=== PATIENT | female | born 1990 | race Caucasian/White ===

== ENCOUNTER 2018-02-16 16:29 | Emergency (ER) | payer OTHER, MEDICAID, SELFPAY ==
[2018-02-16 17:01] VITALS: BP 132/92; PULSE 107; RESP 15; TEMP 36.6; O2SAT 99; BMI 40.7
[2018-02-16 18:05] VITALS: BP 131/79; PULSE 101; RESP 22; O2SAT 96
--- NOTE | 2018-02-16 18:23 | ED_ITS ---
HPI - Female Genitourinary <Albina Carbajal PA-C - Last Filed: 02/16/18 22:29> General Chief complaint: Vaginal Bleeding Stated complaint: STATES MENSTRAL CYCLE WITH ABNORMAL BLEEDING Time Seen by Provider: 02/16/18 18:19 Source: patient Mode of arrival: ambulatory Limitations: no limitations History of Present Illness HPI Narrative: This 28-year-old female comes in due to heavy menstrual bleeding with cramps that started a couple of hours ago. She states that she is going through 1 or 2 heavy pads per hour. She states it feels similar to labor cramps , focused in the pelvis but can feel in her abdomen and back as well. She states that usually she will have a 5 day heavy period, however last week when her period was due she only had 2 days of light spotting. She denies any fever or vomiting. She is mildly nauseous, has been keeping down food and fluids. She denies any urinary symptoms such as dysuria. She denies any STD concerns. She states that she did have a little bit of clear vaginal discharge with a slight odor a couple of days ago but nothing persistent. She states that her ongoing chronic right hip pain has been a little worse over the last week or so but not acutely changed today. She denies other complaints on systems review Related Data Home Medications Medication Instructions Recorded Confirmed ACETAMINOPHEN 650 mg PO Q4H #0 11/11/16 aspirin #0 04/23/17 fluoxetine 20 mg PO DAILY 02/16/18 02/16/18 methocarbamol 02/16/18 propranolol 20 mg PO DAILY 02/16/18 02/16/18 Allergies Allergy/AdvReac Type Severity Reaction Status Date / Time citalopram Allergy Intermediate Verified 02/16/18 17:01 latex Allergy Mild HIVES Verified 02/16/18 17:01 clindamycin Allergy Unknown RASH Verified 02/16/18 17:01 Review of Systems <Albina Carbajal PA-C - Last Filed: 02/16/18 22:29> Review of Systems All systems reviewed & are unremarkable except as noted in HPI and below Exam <Albina Carbajal PA-C - Last Filed: 02/16/18 22:29> Narrative Exam Narrative: GENERAL APPEARANCE: Patient sitting comfortably, in no distress. HEENT: PERRL, EOMI, conjunctiva pink NECK: Supple LUNGS: Clear to auscultation bilaterally. HEART: Rate and rhythm regular, normal S1 and S2, no S3 or S4. ABDOMEN: Soft, nondistended, bowel sounds present x 4 quadrants, no masses palpable, no hepatosplenomegaly. Mild to moderate tenderness throughout the lower quadrants without guarding or rebound. Moderate suprapubic tenderness EXTREMITIES: No edema, no cyanosis, no calf tenderness DERMATOLOGIC: No jaundice or exanthem NEUROLOGIC: Alert and oriented with normal speech and coordination : On bimanual exam there is a modest amount of dark blood in the vaginal vault, no discharge or lesions. Tender over both adenexa, R>L, as well as the uterus, with no discrete palpable masses Initial Vital Signs Initial Vital Signs: Vital Signs Temperature 97.9 F 02/16/18 17:01 Pulse Rate 107 H 02/16/18 17:01 Respiratory Rate 15 02/16/18 17:01 Blood Pressure 132/92 H 02/16/18 17:01 Pulse Oximetry 99 02/16/18 17:01 <Dane Madrid DO - Last Filed: 02/17/18 00:21> Initial Vital Signs Initial Vital Signs: Vital Signs Temperature 97.9 F 02/16/18 17:01 Pulse Rate 107 H 02/16/18 17:01 Respiratory Rate 15 02/16/18 17:01 Blood Pressure 132/92 H 02/16/18 17:01 Pulse Oximetry 99 02/16/18 17:01 Course <Albina Carbajal PA-C - Last Filed: 02/16/18 22:29> Orders Ordered: ED Orders 02/16/18 18:15 Complete Blood Count AUTO DIFF Stat Comprehensive Metabolic Panel Stat Partial Thromboplastin Time Stat Prothrombin Time INR Stat 02/16/18 19:39 US pelvic complete Stat Discontinued Medications Sodium Chloride (Normal Saline 0.9%) 1,000 mls @ 1,000 mls/hr IV BOLUS ONE Stop: 02/16/18 19:48 Last Infusion: 02/16/18 20:28 Dose: 0 mls/hr Admin: 02/16/18 19:26 Dose: 1,000 mls/hr Ketorolac Tromethamine (Toradol) 60 mg IM NOW ONE Stop: 02/16/18 18:35 Last Admin: 02/16/18 19:55 Dose: Ketorolac Tromethamine (Toradol) 30 mg IV NOW ONE Stop: 02/16/18 18:51 Last Admin: 02/16/18 19:26 Dose: 30 mg Ondansetron HCl (Zofran Odt) 4 mg PO NOW ONE Stop: 02/16/18 18:35 Last Admin: 02/16/18 19:56 Dose: Ondansetron HCl (Zofran) 4 mg IV NOW ONE Stop: 02/16/18 18:51 Last Admin: 02/16/18 19:26 Dose: 4 mg Ondansetron HCl (Zofran Odt Prepack) 1 bottle MISC SEEINSTR ONE Stop: 02/16/18 21:16 Last Admin: 02/16/18 21:31 Dose: 1 bottle Oxycodone/Acetaminophen (Endocet 5/325 Prepack) 1 bottle MISC SEEINSTR ONE Stop: 02/16/18 21:16 Last Admin: 02/16/18 21:31 Dose: 1 bottle Vital Signs - 8 hr 02/16/18 17:01 02/16/18 18:05 02/16/18 19:45 Temperature 97.9 F Pulse Rate 107 H 101 H 89 Respiratory Rate 15 22 18 Blood Pressure 132/92 H Blood Pressure [Right Arm] 131/79 H 116/72 Pulse Oximetry 99 96 98 02/16/18 20:55 Temperature Pulse Rate 85 Respiratory Rate 20 Blood Pressure Blood Pressure [Right Arm] 115/71 Pulse Oximetry 97 <Dane Madrid DO - Last Filed: 02/17/18 00:21> Orders Ordered: ED Orders 02/16/18 18:15 Complete Blood Count AUTO DIFF Stat Comprehensive Metabolic Panel Stat Partial Thromboplastin Time Stat Prothrombin Time INR Stat 02/16/18 19:39 US pelvic complete Stat Discontinued Medications Sodium Chloride (Normal Saline 0.9%) 1,000 mls @ 1,000 mls/hr IV BOLUS ONE Stop: 02/16/18 19:48 Last Infusion: 02/16/18 20:28 Dose: 0 mls/hr Admin: 02/16/18 19:26 Dose: 1,000 mls/hr Ketorolac Tromethamine (Toradol) 60 mg IM NOW ONE Stop: 02/16/18 18:35 Last Admin: 02/16/18 19:55 Dose: Ketorolac Tromethamine (Toradol) 30 mg IV NOW ONE Stop: 02/16/18 18:51 Last Admin: 02/16/18 19:26 Dose: 30 mg Ondansetron HCl (Zofran Odt) 4 mg PO NOW ONE Stop: 02/16/18 18:35 Last Admin: 02/16/18 19:56 Dose: Ondansetron HCl (Zofran) 4 mg IV NOW ONE Stop: 02/16/18 18:51 Last Admin: 02/16/18 19:26 Dose: 4 mg Ondansetron HCl (Zofran Odt Prepack) 1 bottle MISC SEEINSTR ONE Stop: 02/16/18 21:16 Last Admin: 02/16/18 21:31 Dose: 1 bottle Oxycodone/Acetaminophen (Endocet 5/325 Prepack) 1 bottle MISC SEEINSTR ONE Stop: 02/16/18 21:16 Last Admin: 02/16/18 21:31 Dose: 1 bottle Vital Signs - 8 hr 02/16/18 17:01 02/16/18 18:05 02/16/18 19:45 Temperature 97.9 F Pulse Rate 107 H 101 H 89 Respiratory Rate 15 22 18 Blood Pressure 132/92 H Blood Pressure [Right Arm] 131/79 H 116/72 Pulse Oximetry 99 96 98 02/16/18 20:55 Temperature Pulse Rate 85 Respiratory Rate 20 Blood Pressure Blood Pressure [Right Arm] 115/71 Pulse Oximetry 97 MDM - Female Genitourinary <Albina Carbajal PA-C - Last Filed: 02/16/18 22:29> Lab Data Attestation: I reviewed the patient's lab results. Urine negative. Urinalysis trace RBCs, otherwise negative Result diagrams: 02/16/18 18:15 02/16/18 18:15 Lab Results 02/16/18 02/16/18 02/16/18 Range/Units 18:15 18:15 18:15 WBC 13.7 H (4.5-11.0) X10^3/uL RBC 4.69 (4.0-5.2) X10^6/uL Hgb 13.6 (12.0-16.0) g/dL Hct 40.1 (36-46) % MCV 85.6 (80-100) fL MCH 28.9 (26-34) PG MCHC 33.8 (30-36) % RDW 12.9 (11.6-14.8) % Plt Count 436 H (150-400) X10^3/uL Neut % (Auto) 80.0 H (50-75) % Lymph % (Auto) 13.8 L (25-40) % [place] % (Auto) 5.6 (3-14) % Eos % (Auto) 0.2 L (2-4) % Baso % (Auto) 0.4 (0-2) % Total Counted Cancelled Seg Neutrophils % Cancelled Band Neutrophils % Cancelled Lymphocytes % (Manual) Cancelled Atypical Lymphs % Cancelled Monocytes % (Manual) Cancelled Eosinophils % (Manual) Cancelled Basophils % (Manual) Cancelled Metamyelocytes % Cancelled Myelocytes % Cancelled Promyelocytes % Cancelled Blast Cells % Cancelled Neutrophils # (Manual) Cancelled Nucleated RBCs Cancelled Differential Comment Cancelled Hypersegmented Neuts Cancelled Reactive Lymphocytes Cancelled Plasma Cells Cancelled Smudge Cells Cancelled Other Cell Type Cancelled Toxic Granulation Cancelled Toxic Vacuolation Cancelled Dohle Bodies Cancelled [place]iera Rods Cancelled WBC Morphology Comment Cancelled Platelet Estimate Cancelled Clumped Platelets Cancelled Plt Morphology Comment Cancelled RBC Morphology Cancelled Dimorphic RBCs Cancelled Polychromasia Cancelled Hypochromasia Cancelled Poikilocytosis Cancelled Basophilic Stippling Cancelled Anisocytosis Cancelled Microcytosis Cancelled Macrocytosis Cancelled Spherocytes Cancelled Pappenheimer Bodies Cancelled Sickle Cells Cancelled Target Cells Cancelled Tear Drop Cells Cancelled Ovalocytes Cancelled Stomatocytes Cancelled Helmet Cells Cancelled Leiva-Coldstream Bodies Cancelled [place] Rings Cancelled [place] Cells Cancelled Acanthocytes (Spur) Cancelled Rouleaux Cancelled Schistocytes Cancelled PT 11.4 (10.1-12.7) SECONDS INR 1.1 (0.9-1.3) APTT 44 H (26.4-36.2) SECONDS Sodium 141 (137-145) mmol/L Potassium 3.9 (3.4-5.1) mmol/L Chloride 103 (98-107) mmol/L Carbon Dioxide 24 (22-32) mmol/L BUN 11 (7-17) mg/dL Creatinine 0.50 L (0.52-1.04) mg/dL Estimated GFR > 60.0 (>60) mL/min BUN/Creatinine Ratio 22.0 (6-22) Glucose 142 H (70-100) mg/dL Calcium 9.2 (8.4-10.2) mg/dL Total Bilirubin 0.3 (0.2-1.3) mg/dL AST 22 (14-36) IU/L ALT 31 (9-52) IU/L Alkaline Phosphatase 120 (38-126) U/L Total Protein 8.4 H (6.3-8.2) g/dL Albumin 4.3 (3.5-5.0) g/dL Globulin 4.1 (1.7-4.1) g/dL Albumin/Globulin Ratio 1.0 (1.0-2.8) Imaging Data pelvic US: Radiologist's impression: BACK Pelvis Ultrasound (Signed) Mg Mistry - 02/16/18 View Report History [address] [address] Ultrasound Report Signed Patient: Yaritza Lindo MR#: [id number] : 1990 Acct:[id number] Age/Sex: 28 / F Date of Service: 02/16/18 Loc: ED Accession Number: [id number] Procedure: US pelvic complete Ordering Provider: Albina Carbajal P.A-C PROCEDURE: US PELVIC COMPLETE INDICATIONS: adenexal pain, bleeding TECHNIQUE: Real-time scanning was performed of the pelvic organs, with image documentation. Additional endovaginal scanning was necessary due to incomplete visualization of the adnexal and endometrial structures by transabdominal scanning. COMPARISON: 07/10/2013. FINDINGS: Transabdominal scanning: Limited scanning through the kidneys shows no hydronephrosis. No pathologic free abdominal or pelvic fluid. Endovaginal scanning: Uterus: Uterus is normal in size at 7.8 x 4.1 x 5.3 cm. The endometrium measures 6 mm in combined thickness. Ovaries: Right ovary measures 2.5 x 2.3 x 2.3 CM. The left ovary measures 2.2 x 2.1 x 2.0 CM. There is a 1.5 cm complex right ovarian nodule. There is 1.3 cm simple left right ovarian follicle. IMPRESSION: 1. Complex right ovarian nodule measuring up to 1.5 CM may represent a ruptured hemorrhagic cyst. Given patient's young age, this finding does not meet radiographic criteria to require followup. 2. Otherwise, pelvic ultrasound is within normal limits. Dictated by: Roosevelt Mistry M.D. on 02/16/2018 at 20:59 Approved by: Roosevelt Mistry M.D. on 02/16/2018 at 21:02 <Dane Madrid DO - Last Filed: 02/17/18 00:21> Lab Data Lab Results 02/16/18 02/16/18 02/16/18 Range/Units 18:15 18:15 18:15 WBC 13.7 H (4.5-11.0) X10^3/uL RBC 4.69 (4.0-5.2) X10^6/uL Hgb 13.6 (12.0-16.0) g/dL Hct 40.1 (36-46) % MCV 85.6 (80-100) fL MCH 28.9 (26-34) PG MCHC 33.8 (30-36) % RDW 12.9 (11.6-14.8) % Plt Count 436 H (150-400) X10^3/uL Neut % (Auto) 80.0 H (50-75) % Lymph % (Auto) 13.8 L (25-40) % [place] % (Auto) 5.6 (3-14) % Eos % (Auto) 0.2 L (2-4) % Baso % (Auto) 0.4 (0-2) % Total Counted Cancelled Seg Neutrophils % Cancelled Band Neutrophils % Cancelled Lymphocytes % (Manual) Cancelled Atypical Lymphs % Cancelled Monocytes % (Manual) Cancelled Eosinophils % (Manual) Cancelled Basophils % (Manual) Cancelled Metamyelocytes % Cancelled Myelocytes % Cancelled Promyelocytes % Cancelled Blast Cells % Cancelled Neutrophils # (Manual) Cancelled Nucleated RBCs Cancelled Differential Comment Cancelled Hypersegmented Neuts Cancelled Reactive Lymphocytes Cancelled Plasma Cells Cancelled Smudge Cells Cancelled Other Cell Type Cancelled Toxic Granulation Cancelled Toxic Vacuolation Cancelled Dohle Bodies Cancelled [place]iera Rods Cancelled WBC Morphology Comment Cancelled Platelet Estimate Cancelled Clumped Platelets Cancelled Plt Morphology Comment Cancelled RBC Morphology Cancelled Dimorphic RBCs Cancelled Polychromasia Cancelled Hypochromasia Cancelled Poikilocytosis Cancelled Basophilic Stippling Cancelled Anisocytosis Cancelled Microcytosis Cancelled Macrocytosis Cancelled Spherocytes Cancelled Pappenheimer Bodies Cancelled Sickle Cells Cancelled Target Cells Cancelled Tear Drop Cells Cancelled Ovalocytes Cancelled Stomatocytes Cancelled Helmet Cells Cancelled Leiva-Coldstream Bodies Cancelled [place] Rings Cancelled [place] Cells Cancelled Acanthocytes (Spur) Cancelled Rouleaux Cancelled Schistocytes Cancelled PT 11.4 (10.1-12.7) SECONDS INR 1.1 (0.9-1.3) APTT 44 H (26.4-36.2) SECONDS Sodium 141 (137-145) mmol/L Potassium 3.9 (3.4-5.1) mmol/L Chloride 103 (98-107) mmol/L Carbon Dioxide 24 (22-32) mmol/L BUN 11 (7-17) mg/dL Creatinine 0.50 L (0.52-1.04) mg/dL Estimated GFR > 60.0 (>60) mL/min BUN/Creatinine Ratio 22.0 (6-22) Glucose 142 H (70-100) mg/dL Calcium 9.2 (8.4-10.2) mg/dL Total Bilirubin 0.3 (0.2-1.3) mg/dL AST 22 (14-36) IU/L ALT 31 (9-52) IU/L Alkaline Phosphatase 120 (38-126) U/L Total Protein 8.4 H (6.3-8.2) g/dL Albumin 4.3 (3.5-5.0) g/dL Globulin 4.1 (1.7-4.1) g/dL Albumin/Globulin Ratio 1.0 (1.0-2.8) Discharge Plan Departure Patient Disposition: Home, Self-Care Clinical Impression: Ovarian cyst, Pelvic pain Discharge Date/Time: 02/16/18 21:41 Interventions: ED Discharge Assessment Last Done: 02/16/18 21:40 Instructions: DI for Ovarian Cyst, DI for Abdominal Pain-Adult Activity Restrictions/Additional Instructions: I think that your pain is due to a combination of the heavy menstrual bleeding and cramps as well as a bleeding ovarian cyst on the right side that appears to have ruptured. Return as we talked about if you have any acutely worsening symptoms. Use your naproxen twice daily for the next few days. You can take the prescription oxycodone acetaminophen pills for pain and the odansetron as needed for nausea tonight. Do not drive with the pain pills as they may make you sleepy. Prescriptions: No Action ACETAMINOPHEN 650 mg PO Q4H Qty: 0 RF: 0 aspirin 325 MG tablet,delayed release (DR/EC) Qty: 0 RF: 0 methocarbamol 500 mg tablet RF: 0 propranolol 20 mg tablet 20 mg PO DAILY RF: 0 fluoxetine 20 mg capsule 20 mg PO DAILY RF: 0 Referrals: Michelle Salas PA-C [Primary Care Provider] - <Dane Madrid DO - Last Filed: 02/17/18 00:21> Cosign ED Attending Edvinature Attestation: I was available for consultation during this patient's emergency department encounter
[2018-02-16 18:24] LABS: Hematocrit 40.1 % (36-46); Hemoglobin 13.6 g/dL (12.0-16.0); Mean Corpuscular HGB Conc 33.8 % (30-36); Mean Corpuscular Hemoglobin 28.9 PG (26-34); Mean Corpuscular Volume 85.6 fL (80-100); Platelet Count 436 X10^3/uL (150-400); Red Blood Cell Count 4.69 X10^6/uL (4.0-5.2); Red Cell Distribution Width 12.9 % (11.6-14.8); White Blood Cell Count 13.7 X10^3/uL (4.5-11.0)
[2018-02-16 18:29] LABS: INR 1.1 (0.9-1.3); Prothrombin Time 11.4 SECONDS (10.1-12.7)
[2018-02-16 18:31] LABS: PTT Partial Thromboplastin Tim 44 SECONDS (26.4-36.2)
[2018-02-16 18:33] LABS: Alanine Aminotransferase 31 IU/L (9-52); Albumin 4.3 g/dL (3.5-5.0); Alkaline Phosphatase 120 U/L (38-126); Aspartate Aminotransferase 22 IU/L (14-36); Bilirubin Total 0.3 mg/dL (0.2-1.3); Blood Urea Nitrogen 11 mg/dL (7-17); Calcium 9.2 mg/dL (8.4-10.2); Carbon Dioxide 24 mmol/L (22-32); Chloride 103 mmol/L (98-107); Estimated Glomerular Filt Rate > 60.0 mL/min (>60); Globulin 4.1 g/dL (1.7-4.1); Glucose 142 mg/dL (70-100); HEMOLYSIS < 15 (0-50); Potassium 3.9 mmol/L (3.4-5.1); Sodium 141 mmol/L (137-145); Total Protein 8.4 g/dL (6.3-8.2)
[2018-02-16 19:00] LABS: Lymphocytes Percent Auto 13.8 % (25-40); Monocytes Percent Auto 5.6 % (3-14)
[2018-02-16 19:01] LABS: Add Manual Diff / Slide Review NO; Basophils Percent Auto 0.4 % (0-2); Eosinophils Percent Auto 0.2 % (2-4)
[2018-02-16] MEDS: KETOROLAC 60 MG/2 ML VIAL 30 MG IV (19:26)
[2018-02-16] MEDS: ONDANSETRON 4 MG/2 ML INJ IV (19:26)
[2018-02-16] MEDS: SODIUM CHLORIDE 0.9% 1,000 ML 1000 ML IV (19:26)
--- NOTE | 2018-02-16 19:39 | DI.US.S_ITS ---
PROCEDURE: US PELVIC COMPLETE INDICATIONS: adenexal pain, bleeding TECHNIQUE: Real-time scanning was performed of the pelvic organs, with image documentation. Additional endovaginal scanning was necessary due to incomplete visualization of the adnexal and endometrial structures by transabdominal scanning. COMPARISON: 07/10/2013. FINDINGS: Transabdominal scanning: Limited scanning through the kidneys shows no hydronephrosis. No pathologic free abdominal or pelvic fluid. Endovaginal scanning: Uterus: Uterus is normal in size at 7.8 x 4.1 x 5.3 cm. The endometrium measures 6 mm in combined thickness. Ovaries: Right ovary measures 2.5 x 2.3 x 2.3 CM. The left ovary measures 2.2 x 2.1 x 2.0 CM. There is a 1.5 cm complex right ovarian nodule. There is 1.3 cm simple left right ovarian follicle. IMPRESSION: 1. Complex right ovarian nodule measuring up to 1.5 CM may represent a ruptured hemorrhagic cyst. Given patient's young age, this finding does not meet radiographic criteria to require followup. 2. Otherwise, pelvic ultrasound is within normal limits. Dictated by: Roosevelt Mistry M.D. on 02/16/2018 at 20:59 Approved by: Roosevelt Mistry M.D. on 02/16/2018 at 21:02
[2018-02-16 19:45] VITALS: BP 116/72; PULSE 89; RESP 18; O2SAT 98
[2018-02-16 20:55] VITALS: BP 115/71; PULSE 85; RESP 20; O2SAT 97
[2018-02-16] MEDS: OXYCODONE/APAP 5/325 PREPACK 1 BOTTLE MISC (21:31)
[2018-02-16] MEDS: ONDANSETRON 4 MG ODT PREPACK 1 BOTTLE MISC (21:31)
== END 2018-02-16 21:41 | disposition home or self-care (01) ==
PROVIDERS: Emergency Provider Internal Medicine; Family Provider Physician Assistant Medical; PCP Physician Assistant Medical
DX: N83.209 Unspecified ovarian cyst, unspecified side (principal); R10.30 Lower abdominal pain, unspecified
CPT/HCPCS: 36415; 36591; 76830; 76856; 80053; 81003; 81025; 85025; 85610; 85730; 96361; 96372; 96374; 96375; 99283; 99284; J1885; J2405

== ENCOUNTER 2018-06-07 17:51 | Emergency (ER) | payer OTHER, MEDICAID, SELFPAY ==
[2018-06-07 17:54] VITALS: BP 143/89; PULSE 107; RESP 17; TEMP 36.8; O2SAT 96
[2018-06-07 19:53] LABS: Bacteria Urine None Seen
[2018-06-07 20:23] LABS: RBC Urine 1-5/HPF (0-5/HPF)
[2018-06-07 20:24] LABS: Amorphous Sediment Urine 1+; Culture Indicated Urine Cult Not Indicated; Mucus Urine 1+ (Negative); Squamous Epithelial Cell Urine 1-5 /HPF; WBC Urine 0-1/HPF (0-5/HPF)
--- NOTE | 2018-06-07 20:40 | ED.NAVMDI ---
HPI - Nausea/Vomiting/Diarrhea General Chief complaint: Nausea/Vomiting/Diarrhea Stated complaint: NAUSEA, VOMITING X 4 DAYS Time Seen by Provider: 06/07/18 18:19 Source: patient Mode of arrival: ambulatory Limitations: no limitations History of Present Illness HPI Narrative: 28-year-old female here for evaluation of nausea and vomiting for the past several days. She also states that she has also had diarrhea during this time. No fevers. No recent travel. No camping. No recent antibiotics. He is still able to tolerate oral intake. She states that the vomiting has been in the mornings and has improved as the day went on. No urinary symptoms. No vaginal bleeding no blood in the stool or vomit. Related Data Home Medications Medication Instructions Recorded Confirmed ACETAMINOPHEN 650 mg PO Q4H #0 11/11/16 aspirin #0 04/23/17 fluoxetine 20 mg PO DAILY 02/16/18 02/16/18 methocarbamol 02/16/18 propranolol 20 mg PO DAILY 02/16/18 02/16/18 Previous Rx's Medication Instructions Recorded ondansetron [Zofran ODT] 4 mg PO BID-TID PRN #7 tab 06/07/18 Allergies Allergy/AdvReac Type Severity Reaction Status Date / Time citalopram Allergy Intermediate Verified 02/16/18 17:01 latex Allergy Mild HIVES Verified 02/16/18 17:01 clindamycin Allergy Unknown RASH Verified 02/16/18 17:01 Review of Systems Constitutional Denies fatigue, Denies fever(s), Denies headache(s), Denies lethargy, Denies malaise and Denies night sweats ENT Ears, Nose, Mouth, and Throat: Denies vertigo, Denies dizziness and Denies headache(s) Cardiovascular Denies chest pain and Denies dyspnea Respiratory Denies dyspnea Gastrointestinal Gastrointestinal: Denies abdominal pain, Denies melena, Denies hematochezia, Denies coffee ground emesis, Denies constipation, Reports diarrhea and Reports nausea Genitourinary Denies dysuria, Denies flank pain and Denies vaginal discharge Musculoskeletal Denies myalgias and Denies arthralgias Integumentary/Breasts Denies lesions and Denies rash Neurologic Denies vertigo, Denies dizziness and Denies headache(s) Endocrine Denies fatigue Hematologic/Lymphatic Denies easy bleeding and Denies easy bruising [facility] Medical History Bilateral femoral fractures (Acute) ADD (attention deficit disorder) (Chronic) Chronic leg pain (Chronic) 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) Depression (Chronic) Osteopenia (Chronic) Ovarian cyst (Resolved) Pneumomediastinum (Resolved) Tubal ligation status (Resolved) Surgical History History of (Resolved) Status post breast reduction (Resolved) Social History Smoking Status: Former smoker Smokeless tobacco user: other alcohol intake: current substance use type: does not use Exam Initial Vital Signs Initial Vital Signs: Vital Signs Temperature 98.2 F 06/07/18 17:54 Pulse Rate 107 H 06/07/18 17:54 Respiratory Rate 17 06/07/18 17:54 Blood Pressure 143/89 H 06/07/18 17:54 Pulse Oximetry 96 06/07/18 17:54 Const General: cooperative, healthy appearing, comfortable, well developed, well groomed and No acute distress Orientation: alert, awake and oriented x3 HENMT Head: normal to inspection and normocephalic Resp Effort & Inspection: normal respiratory effort Auscultation: clear to auscultation bilaterally Cardio Rate: regular rate (However tachycardic upon arrival) Rhythm: regular rhythm Pulses: radial pulses present GI Inspection: non-distended Palpation: soft, No firm and No tender (No tenderness to palpation upon my exam) Back/Spine/Pelvis Back: No CVA tenderness Skin General: no rashes or lesions noted Lesions: no lesions Rashes: no rashes Neuro General: alert, awake and oriented x3 Extrem General: normal to inspection and capillary refill normal Course Orders Ordered: ED Orders 06/07/18 19:51 Urine Microscopic Stat Discontinued Medications Ondansetron HCl (Zofran Odt Prepack) 1 bottle MISC SEEINSTR ONE Stop: 06/07/18 20:52 Last Admin: 06/07/18 21:02 Dose: 1 bottle Vital Signs - 8 hr 06/07/18 21:00 Pulse Rate 80 Respiratory Rate 17 Blood Pressure [Right Arm] 128/75 Pulse Oximetry 100 MDM - Nausea/Vomiting/Diarrhea Lab Data Lab Results 06/07/18 Range/Units 19:51 Urine RBC 1-5/hpf (0-5/HPF) Urine WBC 0-1/hpf (0-5/HPF) Ur Squamous Epith Cells 1-5 /hpf Amorphous Sediment 1+ Urine Bacteria None seen (None) Urine Mucus 1+ H (Negative) Ur Culture Indicated? Cult not indicated Micro UA Comment Not Reportable MDM Narrative Medical decision making narrative: Tachycardic upon arrival but this improved. Has a benign abdominal exam today. Urine unremarkable. Her vomiting has only been in the mornings. She has had a tubal ligation. Will hold on CT scan for now. I discussed this with the patient. She was given return precautions. I feel given her physical exam that a intra-abdominal surgical issue is not present today. She expressed understanding and agreement with plan Discharge Plan Departure Patient Disposition: Home Clinical Impression: Nausea & vomiting, Diarrhea Discharge Date/Time: 06/07/18 21:10 Interventions: ED Discharge Assessment Last Done: 06/07/18 21:10 Instructions: Diarrhea, Nausea and Vomiting-Adult Activity Restrictions/Additional Instructions: make sure you increase your fluid intake. Call your primary care doctor for a follow-up. Return to the emergency department for any new or worsening symptoms Prescriptions: New ondansetron [Zofran ODT] 4 mg tablet,disintegrating 4 mg PO BID-TID PRN (Reason: nausea and vomiting) Qty: 7 RF: 0 No Action ACETAMINOPHEN 650 mg PO Q4H Qty: 0 RF: 0 aspirin 325 MG tablet,delayed release (DR/EC) Qty: 0 RF: 0 methocarbamol 500 mg tablet RF: 0 propranolol 20 mg tablet 20 mg PO DAILY RF: 0 fluoxetine 20 mg capsule 20 mg PO DAILY RF: 0
[2018-06-07 21:00] VITALS: BP 128/75; PULSE 80; RESP 17; O2SAT 100
[2018-06-07] MEDS: ONDANSETRON 4 MG ODT PREPACK 1 BOTTLE MISC (21:02)
== END 2018-06-07 21:10 | disposition home or self-care (01) ==
PROVIDERS: Nurse Practitioner Family; Emergency Provider Emergency Medicine; Family Provider Physician Assistant Medical; PCP Physician Assistant Medical
DX: R11.2 Nausea with vomiting, unspecified (principal); R19.7 Diarrhea, unspecified
CPT/HCPCS: 81015; 99283

== ENCOUNTER 2018-07-12 09:16 | Emergency (ER) | payer OTHER, MEDICAID, SELFPAY ==
[2018-07-12 09:36] VITALS: PULSE 71; RESP 16; TEMP 36.4; O2SAT 98; BMI 43.4
[2018-07-12 11:14] LABS: Bacteria Urine None Seen; RBC Urine None Seen (0-5/HPF)
[2018-07-12 11:34] LABS: Culture Indicated Urine Specimen Cultured; Urine Comments Microscopic Normal; WBC Urine 5-10/HPF (0-5/HPF)
[2018-07-12 13:01] VITALS: BP 134/94; PULSE 65; RESP 16; TEMP 36.8; O2SAT 100
--- NOTE | 2018-07-12 13:26 | ED_ITS ---
HPI - Nausea/Vomiting/Diarrhea <Bailee Chavira, RELAY OPERATOR-BC - Last Filed: 07/12/18 19:47> General Chief complaint: Nausea/Vomiting/Diarrhea Stated complaint: vomiting for several weeks Time Seen by Provider: 07/12/18 13:07 Source: patient Mode of arrival: ambulatory Limitations: no limitations History of Present Illness HPI Narrative: Patient presents with chief complaint of vomiting in the mornings for several weeks. she states she was seen here on 06/07 and diagnosed with the flu. She states she felt better for a few days with Zofran and that she started vomiting every few mornings a few days later. She denies any abdominal pain, fevers, chest pain, shortness of breath. She denies any dysuria but does complain of urinary frequency and urinary urgency. She denies any vaginal symptoms including vaginal discharge. She is worried that she has a urinary tract infection as she has some left-sided flank pain as well. She initially states that she has not followed up with her primary care provider since her last ED visit and has an appointment several weeks. Then she states she saw her primary care provider few days ago, but they ?did not do anything. Related Data Home Medications Medication Instructions Recorded Confirmed fluoxetine 20 mg PO DAILY 02/16/18 07/12/18 Adrafinil 1 dose PO DIRECTED 07/12/18 07/12/18 Excedrin 1 tab PO DAILY 07/12/18 07/12/18 Strattera 1 dose PO DIRECTED 07/12/18 07/12/18 cranberry 1 tab PO DAILY 07/12/18 07/12/18 hydroxyzine pamoate 1 cap PO TID 07/12/18 07/12/18 propranolol 1 cap PO QPM 07/12/18 07/12/18 tizanidine 1 tab PO TID PRN 07/12/18 07/12/18 tramadol 1 - 2 tab PO PRN PRN 07/12/18 07/12/18 Previous Rx's Medication Instructions Recorded ondansetron 4 mg PO TID-QID PRN #14 tab 07/12/18 sulfamethoxazole-trimethoprim 1 tab PO BID #10 tab 07/12/18 Allergies Allergy/AdvReac Type Severity Reaction Status Date / Time citalopram Allergy Intermediate Verified 07/12/18 09:36 latex Allergy Mild HIVES Verified 07/12/18 09:36 clindamycin Allergy Unknown RASH Verified 07/12/18 09:36 Review of Systems [facility] - Last Filed: 07/12/18 19:47> Review of Systems GENERAL: Denies chills, fatigue, malaise, fever, sweats. HEENT: Denies sinus pain, ear pain, sore throat, difficulty swallowing, dizziness. RESPIRATORY: Denies dyspnea, cough, wheezing, hemoptysis, sputum. CARDIOVASCULAR: Denies chest pain, palpitations, orthopnea, edema, GASTROINTESTINAL: See HPI : See HPI MUSCULOSKELETAL: denies weakness, joint pain, or bony pain SKIN: Denies rash, skin lesions, or other NEUROLOGIC: Denies weakness, headache, numbness, change in speech, confusion, seizures, incoordination. PSYCHIATRIC: No concerning psychosocial issues. 12 point review of systems is negative except for those stated above Exam <Bailee Chavira [facility] - Last Filed: 07/12/18 19:47> Narrative Exam Narrative: GENERAL: Obese young female lying on stretcher no apparent distress. mask on. HEAD: Atraumatic. Normocephalic. No temporal or scalp tenderness. EYES: Pupils equal round and reactive. Extraocular motions intact. No scleral icterus. No injection or drainage. ENT: Nose without bleeding, purulent drainage or septal hematoma. Throat without erythema, tonsillar hypertrophy or exudate. Uvula midline. Airway patent. NECK: Trachea midline. No JVD or lymphadenopathy. Supple, nontender, no meningeal signs. CARDIOVASCULAR: Regular rate and rhythm without murmurs, gallops, or rubs. RESPIRATORY: Clear to auscultation. Breath sounds equal bilaterally. No wheezes , rales, or rhonchi. GASTROINTESTINAL: Abdomen soft, non-tender, nondistended. No hepato-splenomegaly , or palpable masses. No guarding. Active bowel sounds all 4 quadrants. No pain at McBurney's point. Negative Morgan sign. EXTREMITIES: No clubbing, cyanosis, or edema. No joint tenderness, effusion, or edema noted. BACK: Nontender without deformity or crepitance. Flank pain left side. NEURO: AOx3. SKIN: No rash or erythema. Initial Vital Signs Initial Vital Signs: Vital Signs Temperature 97.5 F L 07/12/18 09:36 Pulse Rate 71 07/12/18 09:36 Respiratory Rate 16 07/12/18 09:36 Pulse Oximetry 98 07/12/18 09:36 <Bailee Chowdhury DO - Last Filed: 07/14/18 09:45> Initial Vital Signs Initial Vital Signs: Vital Signs Temperature 97.5 F L 07/12/18 09:36 Pulse Rate 71 07/12/18 09:36 Respiratory Rate 16 07/12/18 09:36 Pulse Oximetry 98 07/12/18 09:36 Course <ALISON Covarrubias-ERICK - Last Filed: 07/12/18 19:47> Course Narrative: I checked on the patient several times throughout her stay. Orders Ordered: Discontinued Medications Sodium Chloride (Normal Saline 0.9%) 1,000 mls @ 1,000 mls/hr IV BOLUS PRN PRN Reason: Fluid replacement Last Infusion: 07/12/18 14:46 Dose: 0 mls/hr Admin: 07/12/18 13:40 Dose: 1,000 mls/hr Ondansetron HCl (Zofran) 4 mg IV NOW ONE Stop: 07/12/18 13:27 Last Admin: 07/12/18 13:40 Dose: 4 mg Vital Signs - 8 hr 07/12/18 13:01 07/12/18 14:50 Temperature 98.3 F 97.5 F L Pulse Rate 65 63 Respiratory Rate 16 12 Blood Pressure [Right Arm] 134/94 H 128/84 Pulse Oximetry 100 100 <Bailee Chowdhury DO - Last Filed: 07/14/18 09:45> Orders Ordered: Discontinued Medications Sodium Chloride (Normal Saline 0.9%) 1,000 mls @ 1,000 mls/hr IV BOLUS PRN PRN Reason: Fluid replacement Last Infusion: 07/12/18 14:46 Dose: 0 mls/hr Admin: 07/12/18 13:40 Dose: 1,000 mls/hr Ondansetron HCl (Zofran) 4 mg IV NOW ONE Stop: 07/12/18 13:27 Last Admin: 07/12/18 13:40 Dose: 4 mg Vital Signs - 8 hr 07/12/18 13:01 07/12/18 14:50 Temperature 98.3 F 97.5 F L Pulse Rate 65 63 Respiratory Rate 16 12 Blood Pressure [Right Arm] 134/94 H 128/84 Pulse Oximetry 100 100 MDM - Nausea/Vomiting/Diarrhea <Bailee Cait, RELAY OPERATOR- - Last Filed: 07/12/18 19:47> Lab Data Result diagrams: 07/12/18 13:33 07/12/18 13:33 Lab Results 07/12/18 07/12/18 07/12/18 Range/Units 10:30 13:33 13:33 WBC 14.6 H (4.5-11.0) X10^3/uL RBC 4.70 (4.0-5.2) X10^6/uL Hgb 13.5 (12.0-16.0) g/dL Hct 40.3 (36-46) % MCV 85.8 (80-100) fL MCH 28.6 (26-34) PG MCHC 33.4 (30-36) % RDW 13.3 (11.6-14.8) % Plt Count 397 (150-400) X10^3/uL Neut % (Auto) 80.7 H (50-75) % Lymph % (Auto) 13.3 L (25-40) % [place] % (Auto) 5.1 (3-14) % Eos % (Auto) 0.4 L (2-4) % Baso % (Auto) 0.5 (0-2) % Neut # (Auto) 66819 H (5937-6669) /uL Sodium 144 (137-145) mmol/L Potassium 3.6 (3.4-5.1) mmol/L Chloride 104 (98-107) mmol/L Carbon Dioxide 29 (22-32) mmol/L BUN 5 L (7-17) mg/dL Creatinine 0.50 L (0.52-1.04) mg/dL Estimated GFR > 60.0 (>60) mL/min BUN/Creatinine Ratio 10.0 (6-22) Glucose 128 H (70-100) mg/dL Calcium 8.9 (8.4-10.2) mg/dL Total Bilirubin 0.4 (0.2-1.3) mg/dL AST 45 H (14-36) IU/L ALT 49 (9-52) IU/L Alkaline Phosphatase 113 (38-126) U/L Total Protein 7.9 (6.3-8.2) g/dL Albumin 4.2 (3.5-5.0) g/dL Globulin 3.7 (1.7-4.1) g/dL Albumin/Globulin Ratio 1.1 (1.0-2.8) Amylase 48 (30-110) U/L Lipase 18 L (23-300) U/L Urine RBC None seen (0-5/HPF) Urine WBC 5-10/hpf H (0-5/HPF) Urine Bacteria None seen (None) Ur Culture Indicated? Specimen cultured Micro UA Comment Microscopic normal Point of Care Testing Test Results Negative Urine Dip Bedside Urine Glucose Negative Bedside Urine Bilirubin - Negative Bedside Urine Ketone - Negative Urine Specific [place] 1.010 Bedside Urine Occult Blood +/- Bedside Urine pH 6.0 Bedside Urine Protein - Negative Bedside Urine Urobilinogen - Negative Bedside Urine Nitrite - Negative Bedside Urine Leukocytes ++ 125 Esterase MDM Narrative Medical decision making narrative: Patient presents with chief complaint of vomiting every few mornings. She also complains of urinary urgency and frequency. She had a normal CBC, CMP, lipase and amylase. Her UA revealed leukocyte esterase and some blood. We are initiating treatment for urinary tract infection on urine culture has been sent. I discussed at length follow up with primary care provider regarding her occasional vomiting. We discussed the possibility of doing a CT scan given the repeated issues, however she declined. Given that she does not have an acute abdominal exam and is hemodynamically stable am okay with this. I discussed at length the possible correlation between vomiting and marijuana use. Patient no questions or concerns upon discharge. <Bailee Chowdhury, - Last Filed: 07/14/18 09:45> Lab Data Lab Results 07/12/18 07/12/18 07/12/18 Range/Units 10:30 13:33 13:33 WBC 14.6 H (4.5-11.0) X10^3/uL RBC 4.70 (4.0-5.2) X10^6/uL Hgb 13.5 (12.0-16.0) g/dL Hct 40.3 (36-46) % MCV 85.8 (80-100) fL MCH 28.6 (26-34) PG MCHC 33.4 (30-36) % RDW 13.3 (11.6-14.8) % Plt Count 397 (150-400) X10^3/uL Neut % (Auto) 80.7 H (50-75) % Lymph % (Auto) 13.3 L (25-40) % [place] % (Auto) 5.1 (3-14) % Eos % (Auto) 0.4 L (2-4) % Baso % (Auto) 0.5 (0-2) % Neut # (Auto) 31712 H (4420-9729) /uL Sodium 144 (137-145) mmol/L Potassium 3.6 (3.4-5.1) mmol/L Chloride 104 (98-107) mmol/L Carbon Dioxide 29 (22-32) mmol/L BUN 5 L (7-17) mg/dL Creatinine 0.50 L (0.52-1.04) mg/dL Estimated GFR > 60.0 (>60) mL/min BUN/Creatinine Ratio 10.0 (6-22) Glucose 128 H (70-100) mg/dL Calcium 8.9 (8.4-10.2) mg/dL Total Bilirubin 0.4 (0.2-1.3) mg/dL AST 45 H (14-36) IU/L ALT 49 (9-52) IU/L Alkaline Phosphatase 113 (38-126) U/L Total Protein 7.9 (6.3-8.2) g/dL Albumin 4.2 (3.5-5.0) g/dL Globulin 3.7 (1.7-4.1) g/dL Albumin/Globulin Ratio 1.1 (1.0-2.8) Amylase 48 (30-110) U/L Lipase 18 L (23-300) U/L Urine RBC None seen (0-5/HPF) Urine WBC 5-10/hpf H (0-5/HPF) Urine Bacteria None seen (None) Ur Culture Indicated? Specimen cultured Micro UA Comment Microscopic normal Point of Care Testing Test Results Negative Urine Dip Bedside Urine Glucose Negative Bedside Urine Bilirubin - Negative Bedside Urine Ketone - Negative Urine Specific [place] 1.010 Bedside Urine Occult Blood +/- Bedside Urine pH 6.0 Bedside Urine Protein - Negative Bedside Urine Urobilinogen - Negative Bedside Urine Nitrite - Negative Bedside Urine Leukocytes ++ 125 Esterase Discharge Plan Departure Patient Disposition: Home Clinical Impression: UTI (urinary tract infection) Discharge Date/Time: 07/12/18 14:52 Interventions: ED Discharge Assessment Last Done: 07/12/18 14:51 Instructions: DI for Urinary Tract Infection (UTI) Activity Restrictions/Additional Instructions: Given the leukocyte esterase and blood in your urine and your urinary urgency and frequency, I am starting you on an antibiotic for urinary tract infection. I am also giving you a nausea medication. Please monitor for worsening flank pain, inability keep down any fluids, and fever. Please take the full course of antibiotic. I also gave her prescription for a nausea medication if needed. Please come back to the emergency department for any severe fevers, severe abdominal pain or acute concerns. Please follow up with your primary care provider in the next few days for recheck regarding your vomiting. Prescriptions: New ondansetron 4 mg tablet,disintegrating 4 mg PO TID-QID PRN (Reason: nausea and vomiting) Qty: 14 RF: 0 sulfamethoxazole-trimethoprim 800-160 mg tablet 1 tab PO BID Qty: 10 RF: 0 No Action fluoxetine 20 mg capsule 20 mg PO DAILY RF: 0 tizanidine 4 mg tablet 1 tab PO TID PRN (Reason: Spasms) RF: 0 propranolol 60 mg capsule,extended release 24 hr 1 cap PO QPM RF: 0 tramadol 50 mg tablet 1 - 2 tab PO PRN PRN (Reason: pain) RF: 0 hydroxyzine pamoate 25 mg capsule 1 cap PO TID RF: 0 Adrafinil 1 dose PO DIRECTED RF: 0 Excedrin 1 tab PO DAILY RF: 0 Strattera 1 dose PO DIRECTED RF: 0 cranberry 1 tab PO DAILY RF: 0 Referrals: Michelle Salas PA-C [Primary Care Provider] - <Bailee Chowdhury DO - Last Filed: 07/14/18 09:45> Cosign ED Attending Isamar Attestation: I was immediately available in the department for consultation. This documentation has been reviewed and I agree with assessment and plan. Supervised by Bailee Chowdhury DO
[2018-07-12] MEDS: SODIUM CHLORIDE 0.9% 1,000 ML 1000 ML IV (13:40)
[2018-07-12] MEDS: ONDANSETRON 4 MG/2 ML INJ IV (13:40)
[2018-07-12 13:46] LABS: Add Manual Diff / Slide Review NO; Basophils Percent Auto 0.5 % (0-2); Eosinophils Percent Auto 0.4 % (2-4); Hematocrit 40.3 % (36-46); Hemoglobin 13.5 g/dL (12.0-16.0); Lymphocytes Percent Auto 13.3 % (25-40); Mean Corpuscular HGB Conc 33.4 % (30-36); Mean Corpuscular Hemoglobin 28.6 PG (26-34); Mean Corpuscular Volume 85.8 fL (80-100); Monocytes Percent Auto 5.1 % (3-14); Neutrophils Absolute Auto 11800 /uL (3000-5900); Neutrophils Percent Auto 80.7 % (50-75); Platelet Count 397 X10^3/uL (150-400); Red Cell Distribution Width 13.3 % (11.6-14.8); White Blood Cell Count 14.6 X10^3/uL (4.5-11.0)
[2018-07-12 13:58] LABS: Alanine Aminotransferase 49 IU/L (9-52); Albumin 4.2 g/dL (3.5-5.0); Albumin Globulin Ratio 1.1 (1.0-2.8); Alkaline Phosphatase 113 U/L (38-126); Amylase 48 U/L (30-110); Aspartate Aminotransferase 45 IU/L (14-36); Bilirubin Total 0.4 mg/dL (0.2-1.3); Blood Urea Nitrogen 5 mg/dL (7-17); Calcium 8.9 mg/dL (8.4-10.2); Carbon Dioxide 29 mmol/L (22-32); Chloride 104 mmol/L (98-107); Estimated Glomerular Filt Rate > 60.0 mL/min (>60); Globulin 3.7 g/dL (1.7-4.1); Glucose 128 mg/dL (70-100); HEMOLYSIS < 15 (0-50); Lipase 18 U/L (23-300); Potassium 3.6 mmol/L (3.4-5.1); Sodium 144 mmol/L (137-145); Total Protein 7.9 g/dL (6.3-8.2)
[2018-07-12 14:50] VITALS: BP 128/84; PULSE 63; RESP 12; TEMP 36.4; O2SAT 100
== END 2018-07-12 14:52 | disposition home or self-care (01) ==
PROVIDERS: Emergency Medicine; Emergency Provider Nurse Practitioner Family; PCP Physician Assistant Medical
DX: N39.0 Urinary tract infection, site not specified (principal)
CPT/HCPCS: 36591; 80053; 81003; 81015; 81025; 82150; 83690; 85025; 87086; 96361; 96374; 99283; 99284; J2405

== ENCOUNTER 2018-07-19 16:17 | Emergency (ER) | payer OTHER, MEDICAID, SELFPAY ==
[2018-07-19 16:31] VITALS: BP 149/101; PULSE 90; RESP 20; TEMP 37.2; O2SAT 99; BMI 42.5
--- NOTE | 2018-07-19 17:21 | ED.ABDPAIN ---
HPI - Abdominal Pain <Chuckie Rhodes MD - Last Filed: 07/24/18 19:58> General Chief Complaint: Abdominal Pain Stated Complaint: VOMITING Time Seen by Provider: 07/19/18 17:21 Source: patient Mode of arrival: ambulatory Limitations: no limitations History of Present Illness HPI narrative: The patient complains of nausea, vomiting diarrhea over about a 2 month span. She is having crampy lower abdominal pain. With this she denies fever or chills. She was recently treated for UTI, she has completed her antibiotics and denies dysuria. Her LMP is a few days late. A home test yesterday was negative. She is vomiting several times daily. She was previously on Zofran but is out of that medication. She has undergone previous x2. She has no history of SBO. She may have vomited a little blood earlier today. She has no history of GI bleeding. She does have a prior history of ovarian cyst. She denies experienced fever or chills. She has not experienced anorexia. She did start taking marijuana 2 months ago for pain. She takes both tablets per [employer] store, as well as occasionally smokes marijuana. She was reading about cannabinoid hyperemesis syndrome on the Internet last night. Related Data Home Medications Medication Instructions Recorded Confirmed fluoxetine 20 mg PO DAILY 02/16/18 07/12/18 Adrafinil 1 dose PO DIRECTED 07/12/18 07/12/18 Excedrin 1 tab PO DAILY 07/12/18 07/12/18 Strattera 1 dose PO DIRECTED 07/12/18 07/12/18 cranberry 1 tab PO DAILY 07/12/18 07/12/18 hydroxyzine pamoate 1 cap PO TID 07/12/18 07/12/18 propranolol 1 cap PO QPM 07/12/18 07/12/18 tizanidine 1 tab PO TID PRN 07/12/18 07/12/18 tramadol 1 - 2 tab PO PRN PRN 07/12/18 07/12/18 Previous Rx's Medication Instructions Recorded ondansetron 4 mg PO TID-QID PRN #14 tab 07/12/18 sulfamethoxazole-trimethoprim 1 tab PO BID #10 tab 07/12/18 ondansetron 4 mg PO Q6-8H PRN #10 tab 07/19/18 Allergies Allergy/AdvReac Type Severity Reaction Status Date / Time citalopram Allergy Intermediate Verified 07/12/18 09:36 latex Allergy Mild HIVES Verified 07/12/18 09:36 clindamycin Allergy Unknown RASH Verified 07/12/18 09:36 Review of Systems <Chuckie Rhodes MD - Last Filed: 07/24/18 19:58> Review of Systems All systems reviewed & are unremarkable except as noted in HPI and below Constitutional Denies chills, Denies fatigue, Denies fever(s) and Denies lethargy Eyes Denies eye discharge and Denies irritation ENT Ears, Nose, Mouth, and Throat: Reports neck pain and Denies sore throat Cardiovascular Denies chest pain, Denies irregular heart rhythm, Denies lightheadedness, Reports palpitations, Denies dyspnea and Denies orthopnea Respiratory Denies cough and Denies dyspnea Gastrointestinal Gastrointestinal: Reports abdominal pain, Denies bloating, Denies hematochezia, Denies change in bowel habits, Reports diarrhea, Reports nausea and Reports vomiting Genitourinary Denies hematuria, Denies flank pain, Denies urinary incontinence and Denies urinary urgency Musculoskeletal Denies arthralgias, Denies muscle cramps and Reports neck pain Integumentary/Breasts Denies erythema and Denies rash Neurologic Denies behavioral changes, Denies confusion and Denies focal weakness Psychiatric Denies behavioral changes and Denies confusion Endocrine Denies fatigue, Denies flushing, Denies polyphagia, Denies polydipsia, Denies polyuria and Reports palpitations Hematologic/Lymphatic Denies easy bruising Exam <Chuckie Rhodes MD - Last Filed: 07/24/18 19:58> Initial Vital Signs Initial Vital Signs: Vital Signs Temperature 99 F 07/19/18 16:31 Pulse Rate 90 07/19/18 16:31 Respiratory Rate 20 07/19/18 16:31 Blood Pressure 149/101 H 07/19/18 16:31 Pulse Oximetry 99 07/19/18 16:31 Const General: cooperative and well developed Nutritional Appearance: well nourished Orientation: alert, awake, oriented x3 and not confused HENMT Head: normocephalic and atraumatic Ears: external ears normal and TM's normal bilaterally Nose: external nose normal and No nasal discharge Face and sinus: sinuses nontender, face symmetric, no sinus tenderness and No dry mucous membranes Mouth: oral mucosae normal and moist mucous membranes Teeth and gingiva: dentition normal Throat: tonsils normal and uvula midline Eyes General: appearance normal, both eyes and all related structures Alignment and Position: other (no icterus) Eyelids: eyelids normal Conjunctivae: conjunctivae normal Sclera: sclerae normal Pupils: PERRL EOM: EOM intact bilaterally Neck Neck: normal visual inspection, trachea midline, No lymphadenopathy, No midline deformity and No JVD Chest Chest: normal inspection of the chest Resp Effort & Inspection: normal respiratory effort and able to speak in complete sentences Auscultation: clear to auscultation bilaterally, no rales, no rhonchi and no wheezes Cardio Rate: regular rate Rhythm: regular rhythm Heart Sounds: no click, no gallops, no murmurs and no rubs Pulses: normal peripheral pulses GI Inspection: non-distended and obesity Palpation: no hepatosplenomegaly, No guarding, No pulsatile mass and tender ( Our LQ and suprapubic area. Mild guarding. No rebound.) Auscultation: normal bowel sounds Back/Spine/Pelvis Back: No CVA tenderness Skin General: no rashes or lesions noted, No jaundice and No petechiae Neuro General: alert, oriented x3, gait normal and no focal motor deficits Speech: speech normal Extrem General: full ROM, no clubbing, cyanosis or edema, no pedal edema and no calf tenderness Psych Appearance: well kempt Mental Status: mental status grossly normal Attitude: cooperative Thought Content: normal and suicidality Judgment: judgment good <Winnie Naranjo DO - Last Filed: 07/19/18 20:40> Initial Vital Signs Initial Vital Signs: Vital Signs Temperature 99 F 07/19/18 16:31 Pulse Rate 90 07/19/18 16:31 Respiratory Rate 20 07/19/18 16:31 Blood Pressure 149/101 H 07/19/18 16:31 Pulse Oximetry 99 07/19/18 16:31 Course <Chuckie Rhodes MD - Last Filed: 07/24/18 19:58> Orders Ordered: Discontinued Medications Sodium Chloride (Normal Saline 0.9%) 1,000 mls @ 1,000 mls/hr IV BOLUS ONE Stop: 07/19/18 18:28 Last Infusion: 07/19/18 20:29 Dose: 0 mls/hr Admin: 07/19/18 17:42 Dose: 1,000 mls/hr Ketorolac Tromethamine (Toradol) 30 mg IV NOW ONE Stop: 07/19/18 17:30 Last Admin: 07/19/18 17:42 Dose: 30 mg Ondansetron HCl (Zofran) 4 mg IV NOW ONE Stop: 07/19/18 17:30 Last Admin: 07/19/18 17:42 Dose: 4 mg Ondansetron HCl (Zofran Odt Prepack) 1 bottle MISC SEEINSTR ONE Stop: 07/19/18 20:29 Last Admin: 07/19/18 20:29 Dose: 1 bottle Vital Signs - 8 hr 07/19/18 16:31 07/19/18 20:24 Temperature 99 F Pulse Rate 90 83 Respiratory Rate 20 16 Blood Pressure 149/101 H Blood Pressure [Right Arm] 137/98 H Pulse Oximetry 99 98 <Winnie Naranjo DO - Last Filed: 07/19/18 20:40> Orders Ordered: Discontinued Medications Sodium Chloride (Normal Saline 0.9%) 1,000 mls @ 1,000 mls/hr IV BOLUS ONE Stop: 07/19/18 18:28 Last Infusion: 07/19/18 20:29 Dose: 0 mls/hr Admin: 07/19/18 17:42 Dose: 1,000 mls/hr Ketorolac Tromethamine (Toradol) 30 mg IV NOW ONE Stop: 07/19/18 17:30 Last Admin: 07/19/18 17:42 Dose: 30 mg Ondansetron HCl (Zofran) 4 mg IV NOW ONE Stop: 07/19/18 17:30 Last Admin: 07/19/18 17:42 Dose: 4 mg Ondansetron HCl (Zofran Odt Prepack) 1 bottle MISC SEEINSTR ONE Stop: 07/19/18 20:29 Last Admin: 07/19/18 20:29 Dose: 1 bottle Vital Signs - 8 hr 07/19/18 16:31 07/19/18 20:24 Temperature 99 F Pulse Rate 90 83 Respiratory Rate 20 16 Blood Pressure 149/101 H Blood Pressure [Right Arm] 137/98 H Pulse Oximetry 99 98 MDM - Abdominal Pain <Chuckie Rhodes MD - Last Filed: 07/24/18 19:58> Lab Data Result diagrams: 07/19/18 17:30 07/19/18 17:30 Lab Results 07/19/18 07/19/18 07/19/18 Range/Units 17:30 17:30 18:15 WBC 11.2 H (4.5-11.0) X10^3/uL RBC 5.24 H (4.0-5.2) X10^6/uL Hgb 14.3 (12.0-16.0) g/dL Hct 44.8 (36-46) % MCV 85.6 (80-100) fL MCH 27.3 (26-34) PG MCHC 31.9 (30-36) % RDW 12.9 (11.6-14.8) % Plt Count 418 H (150-400) X10^3/uL Neut % (Auto) 69.0 (50-75) % Lymph % (Auto) 21.3 L (25-40) % [place] % (Auto) 9.0 (3-14) % Eos % (Auto) 0.3 L (2-4) % Baso % (Auto) 0.4 (0-2) % Neut # (Auto) 7800 H (3039-8676) /uL Sodium 144 (137-145) mmol/L Potassium 3.8 (3.4-5.1) mmol/L Chloride 102 (98-107) mmol/L Carbon Dioxide 28 (22-32) mmol/L BUN 7 (7-17) mg/dL Creatinine 0.50 L (0.52-1.04) mg/dL Estimated GFR > 60.0 (>60) mL/min BUN/Creatinine Ratio 14.0 (6-22) Glucose 103 H (70-100) mg/dL Calcium 9.2 (8.4-10.2) mg/dL Total Bilirubin 0.6 (0.2-1.3) mg/dL AST 38 H (14-36) IU/L ALT 39 (9-52) IU/L Alkaline Phosphatase 118 (38-126) U/L Total Protein 8.6 H (6.3-8.2) g/dL Albumin 4.6 (3.5-5.0) g/dL Globulin 4.0 (1.7-4.1) g/dL Albumin/Globulin Ratio 1.2 (1.0-2.8) Lipase 12 L (23-300) U/L Urine RBC 5-10/hpf H (0-5/HPF) Urine WBC 5-10/hpf H (0-5/HPF) Ur Squamous Epith Cells 5-10 /hpf H Amorphous Sediment 2+ Urine Bacteria Moderate (10-30) H (None) Urine Mucus 1+ H (Negative) Ur Culture Indicated? Specimen cultured Micro UA Comment Not Reportable Point of care testing: Point of Care Testing Test Results Negative Urine Dip Bedside Urine Glucose Negative Bedside Urine Bilirubin + 1 Bedside Urine Ketone +++ 80 Urine Specific [place] 1.025 Bedside Urine Occult Blood ++ Bedside Urine pH 6.0 Bedside Urine Protein + 30 Bedside Urine Urobilinogen 1+ 2mg Bedside Urine Nitrite - Negative Bedside Urine Leukocytes +/- 15 Esterase <Winnie Naranjo DO - Last Filed: 07/19/18 20:40> Lab Data Attestation: I reviewed the patient's lab results. Lab Results 07/19/18 07/19/18 07/19/18 Range/Units 17:30 17:30 18:15 WBC 11.2 H (4.5-11.0) X10^3/uL RBC 5.24 H (4.0-5.2) X10^6/uL Hgb 14.3 (12.0-16.0) g/dL Hct 44.8 (36-46) % MCV 85.6 (80-100) fL MCH 27.3 (26-34) PG MCHC 31.9 (30-36) % RDW 12.9 (11.6-14.8) % Plt Count 418 H (150-400) X10^3/uL Neut % (Auto) 69.0 (50-75) % Lymph % (Auto) 21.3 L (25-40) % [place] % (Auto) 9.0 (3-14) % Eos % (Auto) 0.3 L (2-4) % Baso % (Auto) 0.4 (0-2) % Neut # (Auto) 7800 H (3442-1364) /uL Sodium 144 (137-145) mmol/L Potassium 3.8 (3.4-5.1) mmol/L Chloride 102 (98-107) mmol/L Carbon Dioxide 28 (22-32) mmol/L BUN 7 (7-17) mg/dL Creatinine 0.50 L (0.52-1.04) mg/dL Estimated GFR > 60.0 (>60) mL/min BUN/Creatinine Ratio 14.0 (6-22) Glucose 103 H (70-100) mg/dL Calcium 9.2 (8.4-10.2) mg/dL Total Bilirubin 0.6 (0.2-1.3) mg/dL AST 38 H (14-36) IU/L ALT 39 (9-52) IU/L Alkaline Phosphatase 118 (38-126) U/L Total Protein 8.6 H (6.3-8.2) g/dL Albumin 4.6 (3.5-5.0) g/dL Globulin 4.0 (1.7-4.1) g/dL Albumin/Globulin Ratio 1.2 (1.0-2.8) Lipase 12 L (23-300) U/L Urine RBC 5-10/hpf H (0-5/HPF) Urine WBC 5-10/hpf H (0-5/HPF) Ur Squamous Epith Cells 5-10 /hpf H Amorphous Sediment 2+ Urine Bacteria Moderate (10-30) H (None) Urine Mucus 1+ H (Negative) Ur Culture Indicated? Specimen cultured Micro UA Comment Not Reportable Point of care testing: Point of Care Testing Test Results Negative Urine Dip Bedside Urine Glucose Negative Bedside Urine Bilirubin + 1 Bedside Urine Ketone +++ 80 Urine Specific [place] 1.025 Bedside Urine Occult Blood ++ Bedside Urine pH 6.0 Bedside Urine Protein + 30 Bedside Urine Urobilinogen 1+ 2mg Bedside Urine Nitrite - Negative Bedside Urine Leukocytes +/- [address] scan - abdomen: Radiologist's impression: PROCEDURE: CT ABDOMEN PELVIS W CON INDICATIONS: RLQ pain. Vomiting TECHNIQUE: After the administration of oral and intravenous contrast, 5 mm thick sections acquired from the diaphragms to the symphysis. 5 mm thick coronal and sagittal reformats were performed. For radiation dose reduction, the following was used: automated exposure control, adjustment of mA and/or kV according to patient size. COMPARISON: None. FINDINGS: Image quality: Excellent. ABDOMEN: Lung bases: Lung bases are clear. Heart size is normal. Solid organs: Liver is normal in size and enhancement but there is fatty infiltration throughout the liver. Gallbladder does not appear inflamed. Biliary system is non-dilated. Pancreas enhances normally. Spleen is normal in size and enhancement. No adrenal nodules. Kidneys are normal in size and enhancement, without hydronephrosis. Peritoneum and bowel: Stomach, small bowel, and colon loops are normal in caliber and wall thickness. No free fluid or air. Nodes and vessels: No retroperitoneal or mesenteric adenopathy. Aorta and inferior vena cava are normal in caliber. Miscellaneous: No ventral hernias. PELVIS: Genitourinary: Bladder wall thickness is normal. Miscellaneous: No inguinal hernias or adenopathy. A normal appendix is seen at the right lower quadrant. There appears to be mild inflammation involving the terminal ileum immediately adjacent to the ileocecal valve. Bones: No suspicious bony lesions. No vertebral body compression fractures. IMPRESSION: Fatty infiltration throughout the liver. No appendicitis found, normal appendix identified. Distal ileum inflammation is present, immediately adjacent to the ileocecal valve. Infection and or other inflammatory etiology is the likely cause but there is no associated small bowel distention. No inflammation elsewhere is seen. Dictated by: Juan Jose Lynch M.D. on 07/19/2018 at 19:48 MDM Narrative Medical decision making narrative: Patient signed out to me by Dr. Rhodes. I have seen evaluated patient myself. She has tolerated fluids she has been up to the restroom multiple times. CT is negative. All likely a cyclic vomiting and hyperemesis syndrome from frequent marijuana use. She is aware of this. Discharge Plan Departure Patient Disposition: Home Clinical Impression: Cyclic vomiting syndrome Discharge Date/Time: 07/19/18 20:30 Interventions: ED Discharge Assessment Last Done: 07/19/18 20:30 Instructions: DI for Cyclic Vomiting Syndrome-Child Activity Restrictions/Additional Instructions: 1) You have been diagnosed with cyclic vomiting 2) What to do: Drink frequent but small amounts of fluids. Avoid marijuana I recommend Gatorade or a Gatorade-like product, as it has small amounts of sugar and salts that improve fluid retention. 3) Take medications as directed-Zofran 4 mg every 6-8 hours if needed for nausea or vomiting 4) Follow up with your primary care provider in 2-3 days 5) Return to ER if you should have any new or worsening symptoms such as, unable to hold down fluids despite use of anti-nausea medications and the small volume oral rehydration strategy. Prescriptions: New ondansetron 4 mg tablet,disintegrating 4 mg PO Q6-8H PRN (Reason: nausea and vomiting) Qty: 10 RF: 0 No Action fluoxetine 20 mg capsule 20 mg PO DAILY RF: 0 tizanidine 4 mg tablet 1 tab PO TID PRN (Reason: Spasms) RF: 0 propranolol 60 mg capsule,extended release 24 hr 1 cap PO QPM RF: 0 tramadol 50 mg tablet 1 - 2 tab PO PRN PRN (Reason: pain) RF: 0 hydroxyzine pamoate 25 mg capsule 1 cap PO TID RF: 0 Adrafinil 1 dose PO DIRECTED RF: 0 Excedrin 1 tab PO DAILY RF: 0 Strattera 1 dose PO DIRECTED RF: 0 cranberry 1 tab PO DAILY RF: 0 ondansetron 4 mg tablet,disintegrating 4 mg PO TID-QID PRN (Reason: nausea and vomiting) Qty: 14 RF: 0 sulfamethoxazole-trimethoprim 800-160 mg tablet 1 tab PO BID Qty: 10 RF: 0
--- NOTE | 2018-07-19 17:31 | DI.CT.S_ITS ---
PROCEDURE: CT ABDOMEN PELVIS W CON INDICATIONS: RLQ pain. Vomiting TECHNIQUE: After the administration of oral and intravenous contrast, 5 mm thick sections acquired from the diaphragms to the symphysis. 5 mm thick coronal and sagittal reformats were performed. For radiation dose reduction, the following was used: automated exposure control, adjustment of mA and/or kV according to patient size. COMPARISON: None. FINDINGS: Image quality: Excellent. ABDOMEN: Lung bases: Lung bases are clear. Heart size is normal. Solid organs: Liver is normal in size and enhancement but there is fatty infiltration throughout the liver. Gallbladder does not appear inflamed. Biliary system is non-dilated. Pancreas enhances normally. Spleen is normal in size and enhancement. No adrenal nodules. Kidneys are normal in size and enhancement, without hydronephrosis. Peritoneum and bowel: Stomach, small bowel, and colon loops are normal in caliber and wall thickness. No free fluid or air. Nodes and vessels: No retroperitoneal or mesenteric adenopathy. Aorta and inferior vena cava are normal in caliber. Miscellaneous: No ventral hernias. PELVIS: Genitourinary: Bladder wall thickness is normal. Miscellaneous: No inguinal hernias or adenopathy. A normal appendix is seen at the right lower quadrant. There appears to be mild inflammation involving the terminal ileum immediately adjacent to the ileocecal valve. Bones: No suspicious bony lesions. No vertebral body compression fractures. IMPRESSION: Fatty infiltration throughout the liver. No appendicitis found, normal appendix identified. Distal ileum inflammation is present, immediately adjacent to the ileocecal valve. Infection and or other inflammatory etiology is the likely cause but there is no associated small bowel distention. No inflammation elsewhere is seen. Dictated by: Juan Jose Lynch M.D. on 07/19/2018 at 19:48 Approved by: Juan Jose Lynch M.D. on 07/19/2018 at 19:50
[2018-07-19] MEDS: KETOROLAC 60 MG/2 ML VIAL 30 MG IV (17:42)
[2018-07-19] MEDS: SODIUM CHLORIDE 0.9% 1,000 ML 1000 ML IV (17:42)
[2018-07-19] MEDS: ONDANSETRON 4 MG/2 ML INJ IV (17:42)
--- NOTE | 2018-07-19 17:48 | PC.NURSE ---
Pt states took a preg test at home last night but states tubal ligation hx
[2018-07-19 18:23] LABS: Add Manual Diff / Slide Review NO; Basophils Percent Auto 0.4 % (0-2); Eosinophils Percent Auto 0.3 % (2-4); Hematocrit 44.8 % (36-46); Hemoglobin 14.3 g/dL (12.0-16.0); Lymphocytes Percent Auto 21.3 % (25-40); Mean Corpuscular HGB Conc 31.9 % (30-36); Mean Corpuscular Hemoglobin 27.3 PG (26-34); Mean Corpuscular Volume 85.6 fL (80-100); Neutrophils Absolute Auto 7800 /uL (3000-5900); Platelet Count 418 X10^3/uL (150-400); Red Blood Cell Count 5.24 X10^6/uL (4.0-5.2); Red Cell Distribution Width 12.9 % (11.6-14.8); White Blood Cell Count 11.2 X10^3/uL (4.5-11.0)
[2018-07-19 18:32] LABS: Amorphous Sediment Urine 2+; Bacteria Urine Moderate (10-30); Culture Indicated Urine Specimen Cultured; Mucus Urine 1+ (Negative); RBC Urine 5-10/HPF (0-5/HPF); Squamous Epithelial Cell Urine 5-10 /HPF; WBC Urine 5-10/HPF (0-5/HPF)
[2018-07-19 18:42] LABS: Alanine Aminotransferase 39 IU/L (9-52); Albumin 4.6 g/dL (3.5-5.0); Albumin Globulin Ratio 1.2 (1.0-2.8); Alkaline Phosphatase 118 U/L (38-126); Aspartate Aminotransferase 38 IU/L (14-36); Bilirubin Total 0.6 mg/dL (0.2-1.3); Blood Urea Nitrogen 7 mg/dL (7-17); Calcium 9.2 mg/dL (8.4-10.2); Carbon Dioxide 28 mmol/L (22-32); Chloride 102 mmol/L (98-107); Estimated Glomerular Filt Rate > 60.0 mL/min (>60); Glucose 103 mg/dL (70-100); HEMOLYSIS < 15 (0-50); Lipase 12 U/L (23-300); Potassium 3.8 mmol/L (3.4-5.1); Sodium 144 mmol/L (137-145); Total Protein 8.6 g/dL (6.3-8.2)
[2018-07-19 20:24] VITALS: BP 137/98; PULSE 83; RESP 16; O2SAT 98
[2018-07-19] MEDS: ONDANSETRON 4 MG ODT PREPACK 1 BOTTLE MISC (20:29)
== END 2018-07-19 20:30 | disposition home or self-care (01) ==
PROVIDERS: Emergency Medicine; Emergency Provider Emergency Medicine; PCP Physician Assistant Medical
DX: G43.A0 Cyclical vomiting, in migraine, not intractable (principal)
CPT/HCPCS: 36591; 74177; 80053; 81003; 81015; 81025; 83690; 85025; 87086; 96361; 96374; 96375; 99283; 99285; J1885; J2405

== ENCOUNTER 2018-11-11 01:35 | Emergency (ER) | payer MEDICARE, MEDICAID, SELFPAY ==
[2018-11-11 01:39] VITALS: BP 147/95; PULSE 108; RESP 18; TEMP 37.2; O2SAT 96; BMI 43.4
--- NOTE | 2018-11-11 01:52 | DI.CT.S_ITS ---
PROCEDURE: CT ABDOMEN PELVIS W CON INDICATIONS: severe left sided abdominal pain, foul drainage umbilicus TECHNIQUE: After the administration of intravenous contrast, 5 mm thick sections acquired from the diaphragm to the symphysis. 5 mm coronal and sagittal reformats were acquired. For radiation dose reduction, the following was used: automated exposure control, adjustment of mA and/or kV according to patient size. COMPARISON: [facility], CT, CT ABDOMEN PELVIS W CON, 07/19/2018, 19:16. FINDINGS: Image quality: Excellent. ABDOMEN: Lung bases: Lung bases are clear. Heart size is normal. Solid organs: Liver is normal in size and enhancement. Diffuse fatty infiltration of the liver. Gallbladder is within normal limits. Biliary system is non dilated. Pancreas enhances normally. Spleen is normal in size and enhancement. No adrenal nodules. Kidneys demonstrate normal size and enhancement, without hydronephrosis. Peritoneum and bowel: Bowel loops demonstrate normal wall thickness and caliber. No free fluid or air. The appendix is normal. Nodes and vessels: No retroperitoneal or mesenteric adenopathy by size criteria. Aorta and inferior vena cava are normal in size. Miscellaneous: Small fat-containing umbilical hernia. PELVIS: Genitourinary: Bladder wall thickness is normal. 3.5 cm left ovarian cyst. Miscellaneous: No inguinal hernias or adenopathy. Bones: No suspicious bony lesions. Postsurgical changes compatible with ORIF of bilateral hip fractures. No vertebral body compression fractures. IMPRESSION: 1. No acute disease process. 2. The appendix is normal. 3. No free fluid or free air. 4. No dilated loops of bowel. 5. 3.5 cm left adnexal cyst. 6. Hepatic steatosis. Dictated by: Jen Briceno MD, PhD on 11/11/2018 at 8:32 Approved by: Jen Briceno MD, PhD on 11/11/2018 at 8:36
--- NOTE | 2018-11-11 01:55 | ED_ITS ---
HPI - Abdominal Pain General Chief Complaint: Abdominal Pain Stated Complaint: ABDOMINAL PAIN Time Seen by Provider: 11/11/18 01:37 Source: patient and family Mode of arrival: ambulatory Limitations: no limitations History of Present Illness HPI narrative: 28F Former smoker with morbid obesity and cyclic vomiting presents with a few days worsening left-sided abdominal pain some nausea, chills and foul-smelling drainage from her umbilicus. She denies any measurable fever. She states her pain is worse when she moves and improves with rest. She states the pain is crampy and achy. She denies any exposure to bad food or ill persons but was on antibiotics for urinary tract infection a few weeks but did not c omplete the full course. Related Data Home Medications Medication Instructions Recorded Confirmed fluoxetine 20 mg PO DAILY 02/16/18 07/12/18 Adrafinil 1 dose PO DIRECTED 07/12/18 07/12/18 Excedrin 1 tab PO DAILY 07/12/18 07/12/18 Strattera 1 dose PO DIRECTED 07/12/18 07/12/18 cranberry 1 tab PO DAILY 07/12/18 07/12/18 hydroxyzine pamoate 1 cap PO TID 07/12/18 07/12/18 propranolol 1 cap PO QPM 07/12/18 07/12/18 tizanidine 1 tab PO TID PRN 07/12/18 07/12/18 tramadol 1 - 2 tab PO PRN PRN 07/12/18 07/12/18 Previous Rx's Medication Instructions Recorded ondansetron 4 mg PO TID-QID PRN #14 tab 07/12/18 sulfamethoxazole-trimethoprim 1 tab PO BID #10 tab 07/12/18 ondansetron 4 mg PO Q6-8H PRN #10 tab 07/19/18 ketorolac 10 mg PO Q6H PRN #14 tab 11/11/18 ondansetron 4 mg PO TID-QID PRN #10 tab 11/11/18 sulfamethoxazole-trimethoprim 1 tab PO BID 10 Days #20 tab 11/11/18 [Bactrim DS] Allergies Allergy/AdvReac Type Severity Reaction Status Date / Time citalopram Allergy Intermediate Verified 11/11/18 01:51 latex Allergy Mild HIVES Verified 11/11/18 01:51 clindamycin Allergy Unknown RASH Verified 11/11/18 01:51 Review of Systems Constitutional Reports chills, Denies fever(s), Denies lethargy and Denies weakness Eyes Denies change in vision, Denies eye discharge, Denies irritation and Denies loss of vision ENT Ears, Nose, Mouth, and Throat: Denies change in voice, Denies neck pain and Denies sore throat Cardiovascular Denies chest pain, Denies irregular heart rhythm, Denies lightheadedness, Denies palpitations, Denies dyspnea, Denies dyspnea on exertion and Denies orthopnea Respiratory Denies cough, Denies dyspnea, Denies dyspnea on exertion and Denies wheezing Gastrointestinal Gastrointestinal: Reports abdominal pain, Denies change in bowel habits, Denies diarrhea, Denies nausea and Denies vomiting Genitourinary Denies hematuria, Denies flank pain, Denies urinary incontinence and Denies urinary urgency Musculoskeletal Denies neck pain Integumentary/Breasts Denies pruritus, Denies erythema, Denies rash and Denies wounds Neurologic Denies confusion, Denies loss of vision and Denies weakness Psychiatric Denies anxiety, Denies confusion, Denies depression, Denies homicidal ideation and Denies suicidal ideation Endocrine Denies palpitations Hematologic/Lymphatic Denies easy bruising Allergic/Immunologic Denies wheezing [facility] Medical History Bilateral femoral fractures (Acute) ADD (attention deficit disorder) (Chronic) Chronic leg pain (Chronic) 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) Depression (Chronic) Osteopenia (Chronic) Ovarian cyst (Resolved) Pneumomediastinum (Resolved) Tubal ligation status (Resolved) Surgical History History of (Resolved) Status post breast reduction (Resolved) Social History Smoking Status: Former smoker Smokeless tobacco user: other alcohol intake: current substance use type: marijuana Social History Smoking Status: Former smoker Smokeless tobacco user: other alcohol intake: current substance use type: marijuana Exam Narrative Exam Narrative: GENERAL: 28-year-old female, morbidly obese, obviously a bit uncomfortable, or rubbing the left side of her abdomen HEAD: Atraumatic. Normocephalic. No temporal or scalp tenderness. EYES: Pupils equal round and reactive. Extraocular motions intact. No scleral icterus. No injection or drainage. ENT: Nose without bleeding, purulent drainage or septal hematoma. Throat without erythema, tonsillar hypertrophy or exudate. Uvula midline. Airway patent. NECK: Trachea midline. No JVD or lymphadenopathy. Supple, nontender, no meningea l signs. CARDIOVASCULAR: Regular rate and rhythm without murmurs, gallops, or rubs. RESPIRATORY: Clear to auscultation. Breath sounds equal bilaterally. No wheezes, rales, or rhonchi. GASTROINTESTINAL: Abdomen soft, left-sided tenderness to palpation, nondistended. Foul smelling clearish yellow fluid draining from umbilicus. No surrounding erythema, induration or fluctuance. No notable tenderness to palpation at umbilicus. Wound culture obtained and sent to lab EXTREMITIES: No clubbing, cyanosis, or edema. No joint tenderness, effusion, or edema noted. BACK: Nontender without deformity or crepitance. No flank tenderness. NEURO: AOx3. SKIN: No rash or erythema. Initial Vital Signs Initial Vital Signs: Vital Signs Temperature 99.0 F 11/11/18 01:39 Pulse Rate 108 H 11/11/18 01:39 Respiratory Rate 18 11/11/18 01:39 Blood Pressure 147/95 H 11/11/18 01:39 Pulse Oximetry 96 11/11/18 01:39 Course Orders Ordered: Discontinued Medications Sodium Chloride (Normal Saline 0.9%) 500 mls @ 1,000 mls/hr IV BOLUS ONE Stop: 11/11/18 02:20 Last Admin: 11/11/18 02:21 Dose: Not Given Sodium Chloride (Normal Saline 0.9%) 1,000 mls @ 1,000 mls/hr IV BOLUS ONE Stop: 11/11/18 03:19 Last Infusion: 11/11/18 03:14 Dose: 0 mls/hr Admin: 11/11/18 02:21 Dose: 1,000 mls/hr Ketorolac Tromethamine (Toradol) 15 mg IV NOW ONE Stop: 11/11/18 01:52 Last Admin: 11/11/18 02:18 Dose: 15 mg Ondansetron HCl (Zofran) 4 mg IV NOW ONE Stop: 11/11/18 01:52 Last Admin: 11/11/18 02:19 Dose: 4 mg Vital Signs - 8 hr 11/11/18 01:39 Temperature 99.0 F Pulse Rate 108 H Respiratory Rate 18 Blood Pressure 147/95 H Pulse Oximetry 96 MDM - Abdominal Pain Medical Records Attestation: I reviewed the patient's medical records. Lab Data Attestation: I reviewed the patient's lab results. Result diagrams: 11/11/18 02:05 11/11/18 02:05 Lab Results 11/11/18 11/11/18 11/11/18 Range/Units 01:50 02:05 02:05 WBC 9.7 (4.5-11.0) X10^3/uL RBC 4.50 (4.0-5.2) X10^6/uL Hgb 13.3 (12.0-16.0) g/dL Hct 38.8 (36-46) % MCV 86.2 (80-100) fL MCH 29.4 (26-34) PG MCHC 34.2 (30-36) % RDW 13.2 (11.6-14.8) % Plt Count 446 H (150-400) X10^3/uL Neut % (Auto) 65.0 (50-75) % Lymph % (Auto) 25.3 (25-40) % Stearns % (Auto) 8.5 (3-14) % Eos % (Auto) 0.5 L (2-4) % Baso % (Auto) 0.7 (0-2) % Neut # (Auto) 6300 (9911-1513) /uL Lymph # (Auto) 2500 (8188-8668) /uL Stearns # (Auto) 800 (0-900) /uL Eos # (Auto) 0 (0-450) /uL Baso # (Auto) 100 (0-100) /uL Sodium 140 (137-145) mmol/L Potassium 4.0 (3.4-5.1) mmol/L Chloride 105 (98-107) mmol/L Carbon Dioxide 27 (22-32) mmol/L BUN 10 (7-17) mg/dL Creatinine 0.50 L (0.52-1.04) mg/dL Estimated GFR > 60.0 (>60) mL/min BUN/Creatinine Ratio 20.0 (6-22) Glucose 116 H (70-100) mg/dL Calcium 9.3 (8.4-10.2) mg/dL Total Bilirubin 0.2 (0.2-1.3) mg/dL AST 30 (14-36) IU/L ALT 45 (9-52) IU/L Alkaline Phosphatase 114 (38-126) U/L Total Protein 7.9 (6.3-8.2) g/dL Albumin 4.0 (3.5-5.0) g/dL Globulin 3.9 (1.7-4.1) g/dL Albumin/Globulin Ratio 1.0 (1.0-2.8) Lipase 30 (23-300) U/L Urine RBC 5-10/hpf H (0-5/HPF) Urine WBC 1-5/hpf (0-5/HPF) Ur Squamous Epith Cells 5-10 /hpf H Amorphous Sediment 1+ Urine Bacteria Few (2-10) H (None) Ur Culture Indicated? Cult not indicated Point of care testing: Point of Care Testing Test Results Negative Urine Dip Bedside Urine Glucose Negative Bedside Urine Bilirubin - Negative Bedside Urine Ketone - Negative Urine Specific [place] 1.030 Bedside Urine Occult Blood +++ Bedside Urine pH 6.0 Bedside Urine Protein +/- 15 Bedside Urine Urobilinogen - Negative Bedside Urine Nitrite - Negative Bedside Urine Leukocytes ++ 125 Esterase ECG Data Interpretation: Left ovarian cyst, no colitis or diverticulitis, stable small fat containing umbilical hernia without inflammation or abscess, hepatic steatosis MDM Narrative Medical decision making narrative: Multiple etiologies for patient's symptoms considered including: [Patent radius, abdominal wall abscess, diverticulitis, colitis, other ominous finding] Patient's symptoms improved or duration of stay with above-stated therapies. Findings and discharge diagnosis discussed with patient/family followed by verbalization of understanding Return precautions discussed with patient/family whom verbalize understanding. Discharge Plan Departure Patient Disposition: Home Clinical Impression: Cellulitis of umbilicus UTI (urinary tract infection) Qualifiers: Urinary tract infection type: site unspecified Hematuria presence: with hematuria Qualified Code(s): N39.0 - Urinary tract infection, site not specified Discharge Date/Time: 11/11/18 03:16 Interventions: ED Discharge Assessment Last Done: 11/11/18 03:16 Instructions: DI for Cellulitis -- Adult, Acute Abdominal Pain, DI for Urinary Tract Infection (UTI) Activity Restrictions/Additional Instructions: *You have been diagnosed with [ acute urinary tract infection, umbilical cellulitis, abdominal pain ] *What to do: *Take medications as directed *Follow up with your primary care provider in 2-3 days, call for an appointment. Let them know you were seen in the Emergency Department and that we ask that you be seen in follow up *Return to ER if you should have any new, worsening or concerning symptoms, such as [ fever over 101 F, persistent vomiting, worsening pain, other bothersome symptoms] Prescriptions: New sulfamethoxazole-trimethoprim [Bactrim DS] 800-160 mg tablet 1 tab PO BID 10 Days Qty: 20 RF: 0 ketorolac 10 mg tablet 10 mg PO Q6H PRN (Reason: pain) Qty: 14 RF: 0 ondansetron 4 mg tablet,disintegrating 4 mg PO TID-QID PRN (Reason: nausea and vomiting) Qty: 10 RF: 0 No Action ondansetron 4 mg tablet,disintegrating 4 mg PO Q6-8H PRN (Reason: nausea and vomiting) Qty: 10 RF: 0 fluoxetine 20 mg capsule 20 mg PO DAILY RF: 0 tizanidine 4 mg tablet 1 tab PO TID PRN (Reason: Spasms) RF: 0 propranolol 60 mg capsule,extended release 24 hr 1 cap PO QPM RF: 0 tramadol 50 mg tablet 1 - 2 tab PO PRN PRN (Reason: pain) RF: 0 hydroxyzine pamoate 25 mg capsule 1 cap PO TID RF: 0 Adrafinil 1 dose PO DIRECTED RF: 0 Excedrin 1 tab PO DAILY RF: 0 Strattera 1 dose PO DIRECTED RF: 0 cranberry 1 tab PO DAILY RF: 0 ondansetron 4 mg tablet,disintegrating 4 mg PO TID-QID PRN (Reason: nausea and vomiting) Qty: 14 RF: 0 sulfamethoxazole-trimethoprim 800-160 mg tablet 1 tab PO BID Qty: 10 RF: 0 Referrals: Michelle Salas PA-C [Primary Care Provider] -
[2018-11-11 01:59] LABS: RBC Urine 5-10/HPF (0-5/HPF); WBC Urine 1-5/HPF (0-5/HPF)
[2018-11-11 02:00] LABS: Amorphous Sediment Urine 1+; Bacteria Urine Few (2-10)
[2018-11-11 02:01] LABS: Culture Indicated Urine Cult Not Indicated; Squamous Epithelial Cell Urine 5-10 /HPF
[2018-11-11 02:15] LABS: Add Manual Diff / Slide Review NO; Basophils Absolute Auto 100 /uL (0-100); Basophils Percent Auto 0.7 % (0-2); Eosinophils Absolute Auto 0 /uL (0-450); Eosinophils Percent Auto 0.5 % (2-4); Hematocrit 38.8 % (36-46); Hemoglobin 13.3 g/dL (12.0-16.0); Lymphocytes Absolute Auto 2500 /uL (1100-4500); Lymphocytes Percent Auto 25.3 % (25-40); Mean Corpuscular HGB Conc 34.2 % (30-36); Mean Corpuscular Hemoglobin 29.4 PG (26-34); Mean Corpuscular Volume 86.2 fL (80-100); Monocytes Absolute Auto 800 /uL (0-900); Monocytes Percent Auto 8.5 % (3-14); Neutrophils Absolute Auto 6300 /uL (1500-7000); Platelet Count 446 X10^3/uL (150-400); Red Cell Distribution Width 13.2 % (11.6-14.8); White Blood Cell Count 9.7 X10^3/uL (4.5-11.0)
[2018-11-11] MEDS: KETOROLAC 60 MG/2 ML VIAL 15 MG IV (02:18)
[2018-11-11] MEDS: ONDANSETRON 4 MG/2 ML INJ IV (02:19)
[2018-11-11] MEDS: SODIUM CHLORIDE 0.9% 1,000 ML 1000 ML IV (02:21)
[2018-11-11 02:23] LABS: Alanine Aminotransferase 45 IU/L (9-52); Alkaline Phosphatase 114 U/L (38-126); Aspartate Aminotransferase 30 IU/L (14-36); Bilirubin Total 0.2 mg/dL (0.2-1.3); Blood Urea Nitrogen 10 mg/dL (7-17); Calcium 9.3 mg/dL (8.4-10.2); Carbon Dioxide 27 mmol/L (22-32); Chloride 105 mmol/L (98-107); Estimated Glomerular Filt Rate > 60.0 mL/min (>60); Globulin 3.9 g/dL (1.7-4.1); Glucose 116 mg/dL (70-100); HEMOLYSIS < 15 (0-50); Lipase 30 U/L (23-300); Sodium 140 mmol/L (137-145); Total Protein 7.9 g/dL (6.3-8.2)
[2018-11-11 03:16] VITALS: BP 125/73; PULSE 106; RESP 18; O2SAT 96
== END 2018-11-11 03:16 | disposition home or self-care (01) ==
PROVIDERS: Emergency Provider Emergency Medicine; PCP Physician Assistant Medical
DX: L03.316 Cellulitis of umbilicus (principal)
CPT/HCPCS: 36591; 74177; 80053; 81003; 81015; 81025; 83690; 85025; 87070; 87205; 96361; 96374; 96375; 99283; 99285; J1885; J2405; Q9967

== ENCOUNTER 2019-01-21 23:01 | Emergency (ER) | payer MEDICARE, SELFPAY ==
[2019-01-21 23:23] VITALS: BP 155/98; PULSE 126; RESP 16; TEMP 37.4; O2SAT 99; BMI 43.4
[2019-01-21 23:35] LABS: RBC Urine None Seen (0-5/HPF)
[2019-01-21 23:36] LABS: Appearance Urine UA CLEAR; Bilirubin Urine UA NEGATIVE (NEGATIVE); Color Urine UA YELLOW; Glucose Urine UA NEGATIVE (Negative); Ketones Urine UA NEGATIVE (NEGATIVE); Leukocyte Esterase Urine UA 3+ (NEGATIVE); Nitrite Urine UA NEGATIVE (Negative); Occult Blood Urine UA 2+ (Negative); Protein Urine UA NEGATIVE (Negative); Urobilinogen Urine UA 0.2 E.U./dL (0.2)
[2019-01-21 23:42] LABS: Squamous Epithelial Cell Urine 5-10 /HPF (0-5/HPF); WBC Urine 1-5/HPF (0-5/HPF)
[2019-01-21 23:43] LABS: Bacteria Urine Many (>30); Culture Indicated Urine Cult Not Indicated
[2019-01-22 01:04] VITALS: BP 149/100; PULSE 122; RESP 18; O2SAT 98
[2019-01-22] MEDS: SODIUM CHLORIDE 0.9% 1,000 ML 1000 ML IV (01:31)
[2019-01-22 01:38] LABS: Add Manual Diff / Slide Review NO; Basophils Absolute Auto 100 /uL (0-100); Basophils Percent Auto 0.5 % (0-2); Eosinophils Absolute Auto 0 /uL (0-450); Eosinophils Percent Auto 0.1 % (2-4); Hematocrit 39.1 % (36-46); Lymphocytes Absolute Auto 1600 /uL (1100-4500); Lymphocytes Percent Auto 13.9 % (25-40); Mean Corpuscular HGB Conc 33.2 % (30-36); Mean Corpuscular Volume 87.3 fL (80-100); Monocytes Absolute Auto 700 /uL (0-900); Monocytes Percent Auto 6.2 % (3-14); Neutrophils Absolute Auto 9200 /uL (1500-7000); Neutrophils Percent Auto 79.3 % (50-75); Platelet Count 437 X10^3/uL (150-400); Red Blood Cell Count 4.48 X10^6/uL (4.0-5.2); Red Cell Distribution Width 13.9 % (11.6-14.8); White Blood Cell Count 11.6 X10^3/uL (4.5-11.0)
[2019-01-22 01:47] LABS: Blood Urea Nitrogen 8 mg/dL (7-17); Calcium 9.1 mg/dL (8.4-10.2); Carbon Dioxide 25 mmol/L (22-32); Chloride 106 mmol/L (98-107); Estimated Glomerular Filt Rate > 60.0 mL/min (>60); Glucose 128 mg/dL (70-100); HEMOLYSIS < 15 (0-50); Potassium 3.8 mmol/L (3.4-5.1); Sodium 140 mmol/L (137-145)
[2019-01-22] MEDS: LORazepam 2 MG/ML SYRINGE 1 MG IV (02:09)
[2019-01-22 02:19] LABS: Lactate (Lactic Acid) 1.2 mmol/L (0.7-2.1)
--- NOTE | 2019-01-22 03:20 | ED.FEMALEGU ---
HPI - Female Genitourinary General Chief complaint: Urogenital-Female Stated complaint: thinks she has UTI and yeast infeciton Time Seen by Provider: 01/21/19 23:34 Source: patient Mode of arrival: ambulatory Limitations: no limitations History of Present Illness HPI Narrative: 29-year-old female smoker with psychiatric history presents with chief complaint of dysuria, frequency and urgency, some low back pain and minimal vaginal discharge. the patient frequently is mildly tachycardic but has not been taking her medications as she has run out. She is not dizzy or weak or lightheaded. She denies chest pain or shortness of breath. She is admittedly anxious which is not abnormal for her in the absence of medication MD Complaint: dysuria, UTI and vaginal discharge Onset (ago): day(s) Location: perineum Female Urogenital Radiation: Suprapubic Quality: Aching and Burning Duration: intermittent Relieving factors: none Exacerbating factors: urination Urinary symptoms: Difficulty Urinating, Dysuria, Foul Smelling Urine and Frequency Patient : No Associated symptoms: vaginal discharge Related Data Home Medications Medication Instructions Recorded Confirmed fluoxetine 20 mg PO DAILY 02/16/18 07/12/18 Adrafinil 1 dose PO DIRECTED 07/12/18 07/12/18 Excedrin 1 tab PO DAILY 07/12/18 07/12/18 Strattera 1 dose PO DIRECTED 07/12/18 07/12/18 cranberry 1 tab PO DAILY 07/12/18 07/12/18 hydroxyzine pamoate 1 cap PO TID 07/12/18 07/12/18 propranolol 1 cap PO QPM 07/12/18 07/12/18 tizanidine 1 tab PO TID PRN 07/12/18 07/12/18 tramadol 1 - 2 tab PO PRN PRN 07/12/18 07/12/18 Previous Rx's Medication Instructions Recorded ondansetron 4 mg PO TID-QID PRN #14 tab 07/12/18 sulfamethoxazole-trimethoprim 1 tab PO BID #10 tab 07/12/18 ondansetron 4 mg PO Q6-8H PRN #10 tab 07/19/18 ketorolac 10 mg PO Q6H PRN #14 tab 11/11/18 ondansetron 4 mg PO TID-QID PRN #10 tab 11/11/18 cephalexin [Keflex] 500 mg PO QID 7 Days #28 cap 01/22/19 fluoxetine 20 mg PO DAILY #30 cap 01/22/19 lorazepam [Ativan] 1 mg PO BID-TID PRN #14 tab 01/22/19 propranolol 60 mg PO DAILY #30 cap 01/22/19 tizanidine 4 mg PO TID PRN #14 cap 01/22/19 Allergies Allergy/AdvReac Type Severity Reaction Status Date / Time citalopram Allergy Intermediate Verified 11/11/18 01:51 latex Allergy Mild HIVES Verified 11/11/18 01:51 clindamycin Allergy Unknown RASH Verified 11/11/18 01:51 Review of Systems Constitutional Denies chills, Denies fever(s), Denies lethargy and Denies weakness Eyes Denies change in vision, Denies eye discharge, Denies irritation and Denies loss of vision ENT Ears, Nose, Mouth, and Throat: Denies change in voice, Denies neck pain and Denies sore throat Cardiovascular Denies chest pain, Reports rapid heart rate, Denies irregular heart rhythm, Denies lightheadedness, Denies palpitations, Denies dyspnea, Denies dyspnea on exertion and Denies orthopnea Respiratory Denies cough, Denies dyspnea, Denies dyspnea on exertion and Denies wheezing Gastrointestinal Gastrointestinal: Denies abdominal pain, Denies change in bowel habits, Denies diarrhea, Denies nausea and Denies vomiting Genitourinary Denies hematuria, Denies flank pain, Denies urinary incontinence, Reports urinary urgency and Reports vaginal discharge Musculoskeletal Reports back pain and Denies neck pain Integumentary/Breasts Denies pruritus, Denies erythema, Denies rash and Denies wounds Neurologic Denies confusion, Denies loss of vision and Denies weakness Psychiatric Denies anxiety, Denies confusion, Denies depression, Denies homicidal ideation and Denies suicidal ideation Endocrine Denies palpitations Hematologic/Lymphatic Denies easy bruising Allergic/Immunologic Denies wheezing [facility] Medical History Bilateral femoral fractures (Acute) ADD (attention deficit disorder) (Chronic) Chronic leg pain (Chronic) 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) Depression (Chronic) Osteopenia (Chronic) Ovarian cyst (Resolved) Pneumomediastinum (Resolved) Tubal ligation status (Resolved) Surgical History History of (Resolved) Status post breast reduction (Resolved) Social History Smoking Status: Current some day smoker Smokeless tobacco user: other alcohol intake: current substance use type: marijuana Social History Smoking Status: Current some day smoker Smokeless tobacco user: other alcohol intake: current substance use type: marijuana Exam Narrative Exam Narrative: GENERAL: 29-year-old female visibly anxious in mild distress HEAD: Atraumatic. Normocephalic. No temporal or scalp tenderness. EYES: Pupils equal round and reactive. Extraocular motions intact. No scleral icterus. No injection or drainage. ENT: Nose without bleeding, purulent drainage or septal hematoma. Throat without erythema, tonsillar hypertrophy or exudate. Uvula midline. Airway patent. NECK: Trachea midline. No JVD or lymphadenopathy. Supple, nontender, no meningeal signs. CARDIOVASCULAR: Tachycardic rate, but regular rhythm without murmurs, gallops, or rubs. RESPIRATORY: Clear to auscultation. Breath sounds equal bilaterally. No wheezes, rales, or rhonchi. GASTROINTESTINAL: Abdomen soft, non-tender, nondistended. No hepato-splenomegaly, or palpable masses. No guarding. EXTREMITIES: No clubbing, cyanosis, or edema. No joint tenderness, effusion, or edema noted. BACK: Nontender without deformity or crepitance. mild CVA tenderness NEURO: AOx3. SKIN: No rash or erythema. Initial Vital Signs Initial Vital Signs: Vital Signs Temperature 99.4 F 01/21/19 23:23 Pulse Rate 126 H 01/21/19 23:23 Respiratory Rate 16 01/21/19 23:23 Blood Pressure 155/98 H 01/21/19 23:23 Pulse Oximetry 99 01/21/19 23:23 Course Orders Ordered: Discontinued Medications Fluconazole (Diflucan) 150 mg PO NOW ONE Stop: 01/22/19 04:14 Last Admin: 01/22/19 04:36 Dose: 150 mg Sodium Chloride (Normal Saline 0.9%) 1,000 mls @ 1,000 mls/hr IV BOLUS ONE Stop: 01/22/19 02:17 Last Infusion: 01/22/19 02:32 Dose: 0 mls/hr Admin: 01/22/19 01:31 Dose: 1,000 mls/hr Levofloxacin (Levaquin) 500 mg PO NOW ONE Stop: 01/22/19 03:21 Last Admin: 01/22/19 03:34 Dose: 500 mg Lorazepam (Ativan) 1 mg IV NOW ONE Stop: 01/22/19 01:58 Last Admin: 01/22/19 02:09 Dose: 1 mg Vital Signs - 8 hr 01/22/19 01:04 01/22/19 04:42 Pulse Rate 122 H 98 H Respiratory Rate 18 16 Blood Pressure 148/88 H Blood Pressure [Left Arm] 149/100 H Pulse Oximetry 98 99 MDM - Female Genitourinary Lab Data Result diagrams: 01/22/19 01:30 01/22/19 01:30 Lab Results 01/21/19 01/22/19 01/22/19 Range/Units 23:25 01:30 01:30 WBC 11.6 H (4.5-11.0) X10^3/uL RBC 4.48 (4.0-5.2) X10^6/uL Hgb 13.0 (12.0-16.0) g/dL Hct 39.1 (36-46) % MCV 87.3 (80-100) fL MCH 29.0 (26-34) PG MCHC 33.2 (30-36) % RDW 13.9 (11.6-14.8) % Plt Count 437 H (150-400) X10^3/uL Neut % (Auto) 79.3 H (50-75) % Lymph % (Auto) 13.9 L (25-40) % [place] % (Auto) 6.2 (3-14) % Eos % (Auto) 0.1 L (2-4) % Baso % (Auto) 0.5 (0-2) % Neut # (Auto) 9200 H (2327-5771) /uL Lymph # (Auto) 1600 (1905-7843) /uL [place] # (Auto) 700 (0-900) /uL Eos # (Auto) 0 (0-450) /uL Baso # (Auto) 100 (0-100) /uL Total Counted Cancelled Seg Neutrophils % Cancelled Band Neutrophils % Cancelled Lymphocytes % (Manual) Cancelled Atypical Lymphs % Cancelled Monocytes % (Manual) Cancelled Eosinophils % (Manual) Cancelled Basophils % (Manual) Cancelled Metamyelocytes % Cancelled Myelocytes % Cancelled Promyelocytes % Cancelled Blast Cells % Cancelled Neutrophils # (Manual) Cancelled Nucleated RBCs Cancelled Differential Comment Cancelled Hypersegmented Neuts Cancelled Hypogranular Neuts Cancelled Reactive Lymphocytes Cancelled Plasma Cells Cancelled Smudge Cells Cancelled Other Cell Type Cancelled Toxic Granulation Cancelled Toxic Vacuolation Cancelled Dohle Bodies Cancelled [place] Rods Cancelled WBC Morphology Comment Cancelled Platelet Estimate Cancelled Clumped Platelets Cancelled Plt Morphology Comment Cancelled RBC Morphology Cancelled Dimorphic RBCs Cancelled Polychromasia Cancelled Hypochromasia Cancelled Poikilocytosis Cancelled Basophilic Stippling Cancelled Anisocytosis Cancelled Microcytosis Cancelled Macrocytosis Cancelled Spherocytes Cancelled Pappenheimer Bodies Cancelled Sickle Cells Cancelled Target Cells Cancelled Tear Drop Cells Cancelled Ovalocytes Cancelled Stomatocytes Cancelled Helmet Cells Cancelled Leiva-[place] Bodies Cancelled [place] Rings Cancelled [place] Cells Cancelled Acanthocytes (Spur) Cancelled Rouleaux Cancelled Schistocytes Cancelled Sodium 140 (137-145) mmol/L Potassium 3.8 (3.4-5.1) mmol/L Chloride 106 (98-107) mmol/L Carbon Dioxide 25 (22-32) mmol/L BUN 8 (7-17) mg/dL Creatinine 0.50 L (0.52-1.04) mg/dL Estimated GFR > 60.0 (>60) mL/min BUN/Creatinine Ratio 16.0 (6-22) Glucose 128 H (70-100) mg/dL Lactate (0.7-2.1) mmol/L Calcium 9.1 (8.4-10.2) mg/dL Urine Color Yellow Urine Appearance Clear Urine pH 7.0 (4.5-8.0) Ur Specific [place] 1.010 (1.000-1.035) Urine Protein Negative (Negative) Urine Glucose (UA) Negative (Negative) g/dL Urine Ketones Negative (NEGATIVE) Urine Occult Blood 2+ H (Negative) Urine Nitrate Negative (Negative) Urine Bilirubin Negative (NEGATIVE) Urine Urobilinogen 0.2 (0.2) E.U./dL Ur Leukocyte Esterase 3+ H (NEGATIVE) Urine RBC None seen (0-5/HPF) Urine WBC 1-5/hpf (0-5/HPF) Ur Squamous Epith Cells 5-10 /hpf H (0-5/HPF) Urine Bacteria Many (>30) H (None) Ur Culture Indicated? Cult not indicated 01/22/19 Range/Units 02:00 WBC (4.5-11.0) X10^3/uL RBC (4.0-5.2) X10^6/uL Hgb (12.0-16.0) g/dL Hct (36-46) % MCV (80-100) fL MCH (26-34) PG MCHC (30-36) % RDW (11.6-14.8) % Plt Count (150-400) X10^3/uL Neut % (Auto) (50-75) % Lymph % (Auto) (25-40) % [place] % (Auto) (3-14) % Eos % (Auto) (2-4) % Baso % (Auto) (0-2) % Neut # (Auto) (8884-1269) /uL Lymph # (Auto) (1343-3959) /uL [place] # (Auto) (0-900) /uL Eos # (Auto) (0-450) /uL Baso # (Auto) (0-100) /uL Total Counted Seg Neutrophils % Band Neutrophils % Lymphocytes % (Manual) Atypical Lymphs % Monocytes % (Manual) Eosinophils % (Manual) Basophils % (Manual) Metamyelocytes % Myelocytes % Promyelocytes % Blast Cells % Neutrophils # (Manual) Nucleated RBCs Differential Comment Hypersegmented Neuts Hypogranular Neuts Reactive Lymphocytes Plasma Cells Smudge Cells Other Cell Type Toxic Granulation Toxic Vacuolation Dohle Bodies Kiera Rods WBC Morphology Comment Platelet Estimate Clumped Platelets Plt Morphology Comment RBC Morphology Dimorphic RBCs Polychromasia Hypochromasia Poikilocytosis Basophilic Stippling Anisocytosis Microcytosis Macrocytosis Spherocytes Pappenheimer Bodies Sickle Cells Target Cells Tear Drop Cells Ovalocytes Stomatocytes Helmet Cells Leiva-[place] Bodies [place] Rings [place] Cells Acanthocytes (Spur) Rouleaux Schistocytes Sodium (137-145) mmol/L Potassium (3.4-5.1) mmol/L Chloride (98-107) mmol/L Carbon Dioxide (22-32) mmol/L BUN (7-17) mg/dL Creatinine (0.52-1.04) mg/dL Estimated GFR (>60) mL/min BUN/Creatinine Ratio (6-22) Glucose (70-100) mg/dL Lactate 1.2 (0.7-2.1) mmol/L Calcium (8.4-10.2) mg/dL Urine Color Urine Appearance Urine pH (4.5-8.0) Ur Specific [place] (1.000-1.035) Urine Protein (Negative) Urine Glucose (UA) (Negative) g/dL Urine Ketones (NEGATIVE) Urine Occult Blood (Negative) Urine Nitrate (Negative) Urine Bilirubin (NEGATIVE) Urine Urobilinogen (0.2) E.U./dL Ur Leukocyte Esterase (NEGATIVE) Urine RBC (0-5/HPF) Urine WBC (0-5/HPF) Ur Squamous Epith Cells (0-5/HPF) Urine Bacteria (None) Ur Culture Indicated? MDM Narrative Medical decision making narrative: Multiple etiologies for patient's symptoms considered including: [A UTI versus pyelonephritis versus vaginal candidiasis versus other] Patient's symptoms improved or duration of stay with above-stated therapies. Findings and discharge diagnosis discussed with patient/family followed by verbalization of understanding Return precautions discussed with patient/family whom verbalize understanding. Discharge Plan Departure Patient Disposition: Home Clinical Impression: UTI (urinary tract infection) Qualifiers: Urinary tract infection type: acute pyelonephritis Qualified Code(s): N10 - Acute pyelonephritis Discharge Date/Time: 01/22/19 04:44 Interventions: ED Discharge Assessment Last Done: 01/22/19 04:42 Instructions: DI for Kidney Infection Activity Restrictions/Additional Instructions: *You have been diagnosed with [acute pyelonephritis and anxiety] *What to do: *Take medications as directed: Prescription electronically transmitted to [facility] *Follow up with your primary care provider in 2-3 days, call for an appointment. Let them know you were seen in the Emergency Department and that we ask that you be seen in follow up *Return to ER if you should have any new, worsening or concerning symptoms Prescriptions: New cephalexin [Keflex] 500 mg capsule 500 mg PO QID 7 Days Qty: 28 RF: 0 fluoxetine 20 mg capsule 20 mg PO DAILY Qty: 30 RF: 0 propranolol 60 mg capsule,extended release 24 hr 60 mg PO DAILY Qty: 30 RF: 0 lorazepam [Ativan] 1 mg tablet 1 mg PO BID-TID PRN (Reason: anxiety) Qty: 14 RF: 0 tizanidine 4 mg capsule 4 mg PO TID PRN (Reason: muscle spasticity) Qty: 14 RF: 0 No Action ondansetron 4 mg tablet,disintegrating 4 mg PO Q6-8H PRN (Reason: nausea and vomiting) Qty: 10 RF: 0 ketorolac 10 mg tablet 10 mg PO Q6H PRN (Reason: pain) Qty: 14 RF: 0 ondansetron 4 mg tablet,disintegrating 4 mg PO TID-QID PRN (Reason: nausea and vomiting) Qty: 10 RF: 0 fluoxetine 20 mg capsule 20 mg PO DAILY RF: 0 tizanidine 4 mg tablet 1 tab PO TID PRN (Reason: Spasms) RF: 0 propranolol 60 mg capsule,extended release 24 hr 1 cap PO QPM RF: 0 tramadol 50 mg tablet 1 - 2 tab PO PRN PRN (Reason: pain) RF: 0 hydroxyzine pamoate 25 mg capsule 1 cap PO TID RF: 0 Adrafinil 1 dose PO DIRECTED RF: 0 Excedrin 1 tab PO DAILY RF: 0 Strattera 1 dose PO DIRECTED RF: 0 cranberry 1 tab PO DAILY RF: 0 ondansetron 4 mg tablet,disintegrating 4 mg PO TID-QID PRN (Reason: nausea and vomiting) Qty: 14 RF: 0 sulfamethoxazole-trimethoprim 800-160 mg tablet 1 tab PO BID Qty: 10 RF: 0 Referrals: Michelle Salas PA-C [Primary Care Provider] -
[2019-01-22] MEDS: levoFLOXacin 250 MG TABLET 500 MG PO (03:34)
[2019-01-22] MEDS: FLUCONAZOLE 150 MG TABLET PO (04:36)
[2019-01-22 04:42] VITALS: BP 148/88; PULSE 98; RESP 16; O2SAT 99
== END 2019-01-22 04:44 | disposition home or self-care (01) ==
PROVIDERS: Emergency Provider Emergency Medicine; PCP Physician Assistant Medical
DX: N10 Acute pyelonephritis (principal); R00.0 Tachycardia, unspecified
CPT/HCPCS: 36415; 36591; 80048; 81001; 83605; 85025; 87040; 96361; 96374; 99283; 99284; J2060

== ENCOUNTER 2019-01-26 21:06 | Emergency (ER) | payer MEDICARE, SELFPAY ==
[2019-01-26 21:11] VITALS: BP 123/78; PULSE 81; RESP 18; TEMP 36.3; O2SAT 96; BMI 42.5
== END 2019-01-26 22:57 | disposition left against medical advice (07) ==
PROVIDERS: Emergency Provider Emergency Medicine; PCP Physician Assistant Medical
DX: R42 Dizziness and giddiness (principal); R06.02 Shortness of breath; R11.0 Nausea; F41.0 Panic disorder [episodic paroxysmal anxiety]; Z53.21 Procedure and treatment not carried out due to patient leaving prior to being seen by health care provider
CPT/HCPCS: 93005; 93010; 99282

== ENCOUNTER 2019-02-21 18:40 | Emergency (ER) | payer MEDICARE, SELFPAY ==
--- NOTE | 2019-02-21 18:47 | DI.RAD.S_ITS ---
PROCEDURE: XR FOOT LT MIN 3V INDICATIONS: pain,poss lat toe dislocation TECHNIQUE: 3 views of the foot were acquired. COMPARISON: None. FINDINGS: Bones: No dislocations. No suspicious bony lesions. There is an angulated fracture involving the mid diaphysis of the fifth proximal phalanx, close to 45? valgus angulation. Soft tissues: No tibiotalar joint effusion. Achilles tendon appears normal. IMPRESSION: Fracture without dislocation but with abnormal angulation up to 45? in valgus alignment. No additional fracture more medially is seen. Dictated by: Juan Jose Lynch M.D. on 02/21/2019 at 19:23 Approved by: Juan Jose Lynch M.D. on 02/21/2019 at 19:24
--- NOTE | 2019-02-21 18:49 | ED.LOWEXIN ---
HPI - Extremity Injury (Lower) <Albina Carbajal PA-C - Last Filed: 02/21/19 20:15> General Chief Complaint: Extremity Injury, Lower Stated Complaint: Foot Pain Time Seen by Provider: 02/21/19 18:47 Source: patient Mode of arrival: EMS Limitations: no limitations History of Present Illness HPI Narrative: This 29-year-old female who has a history of nonhealing hip fracture and gait disturbance was walking down the home when she bent her left 5th toe awkwardly and noted immediate onset of severe pain. She denies any other pain or injury but is crying due to severity of the toe pain. Patient states she does not currently have a PCP as she was discharged from clinic secondary to too many missed appointments Related Data Home Medications Medication Instructions Recorded Confirmed fluoxetine 20 mg PO DAILY 02/16/18 07/12/18 Adrafinil 1 dose PO DIRECTED 07/12/18 07/12/18 Excedrin 1 tab PO DAILY 07/12/18 07/12/18 Strattera 1 dose PO DIRECTED 07/12/18 07/12/18 cranberry 1 tab PO DAILY 07/12/18 07/12/18 hydroxyzine pamoate 1 cap PO TID 07/12/18 07/12/18 propranolol 1 cap PO QPM 07/12/18 07/12/18 tizanidine 1 tab PO TID PRN 07/12/18 07/12/18 tramadol 1 - 2 tab PO PRN PRN 07/12/18 07/12/18 Previous Rx's Medication Instructions Recorded ondansetron 4 mg PO TID-QID PRN #14 tab 07/12/18 sulfamethoxazole-trimethoprim 1 tab PO BID #10 tab 07/12/18 ondansetron 4 mg PO Q6-8H PRN #10 tab 07/19/18 ketorolac 10 mg PO Q6H PRN #14 tab 11/11/18 ondansetron 4 mg PO TID-QID PRN #10 tab 11/11/18 fluoxetine 20 mg PO DAILY #30 cap 01/22/19 lorazepam [Ativan] 1 mg PO BID-TID PRN #14 tab 01/22/19 propranolol 60 mg PO DAILY #30 cap 01/22/19 tizanidine 4 mg PO TID PRN #14 cap 01/22/19 ibuprofen 800 mg PO Q8H PRN #14 tab 02/21/19 Allergies Allergy/AdvReac Type Severity Reaction Status Date / Time citalopram Allergy Intermediate Verified 01/26/19 21:19 latex Allergy Mild HIVES Verified 01/26/19 21:19 clindamycin Allergy Unknown RASH Verified 01/26/19 21:19 Review of Systems <Albina Carbajal PA-C - Last Filed: 02/21/19 20:15> Review of Systems ROS Unobtainable: All systems reviewed & are unremarkable except as noted in HPI and below PFSH <Albina Carbajal PA-C - Last Filed: 02/21/19 20:15> Medical History Bilateral femoral fractures (Acute) ADD (attention deficit disorder) (Chronic) Chronic leg pain (Chronic) 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) Depression (Chronic) Osteopenia (Chronic) Ovarian cyst (Resolved) Pneumomediastinum (Resolved) Tubal ligation status (Resolved) Surgical History History of (Resolved) Status post breast reduction (Resolved) Social History Smoking Status: Current some day smoker Smokeless tobacco user: other alcohol intake: current substance use type: marijuana Social History Smoking Status: Current some day smoker Smokeless tobacco user: other alcohol intake: current substance use type: marijuana Exam <Albina Carbajal PA-C - Last Filed: 02/21/19 20:15> Narrative Exam Narrative: GENERAL APPEARANCE: Patient sitting comfortably, in no distress. LUNGS: Clear to auscultation bilaterally. HEART: Rate and rhythm regular without murmur, normal S1 and S2, no S3 or S4. MUSCULOSKELETAL: Left 5th toe is deviated laterally at the base, mild effusion, no other visible abnormality of the toes or foot, no point tenderness over the foot or medial toes NEUROVASCULAR: Left pedal pulses intact, sensation grossly DERM: L. foot no abrasions or lacs, faint eccy over the proximal 5th toe Initial Vital Signs Initial Vital Signs: Vital Signs Pulse Rate 97 H 02/21/19 18:53 Respiratory Rate 22 02/21/19 18:53 Blood Pressure 144/99 H 02/21/19 18:53 Pulse Oximetry 99 02/21/19 18:53 <DO Michelle Zelaya Last Filed: 02/21/19 20:55> Initial Vital Signs Initial Vital Signs: Vital Signs Pulse Rate 97 H 02/21/19 18:53 Respiratory Rate 22 02/21/19 18:53 Blood Pressure 144/99 H 02/21/19 18:53 Pulse Oximetry 99 02/21/19 18:53 Procedures <Albina Carbajal PA-C - Last Filed: 02/21/19 20:15> [facility] [place] Procedure Name of Procedure: After alcohol prep digital block obtained on the left 5th toe with 1.5 cc 2% lidocaine per side. The angulated fracture was straightened and bernadine-taped Course <CHASITY Rodriges Last Filed: 02/21/19 20:15> Orders Ordered: ED Orders 02/21/19 18:47 XR foot LT min 3V Stat Discontinued Medications Ibuprofen (Advil) 800 mg PO NOW ONE Stop: 02/21/19 19:24 Last Admin: 02/21/19 19:30 Dose: 800 mg Ondansetron HCl (Zofran Odt) 4 mg SL NOW ONE Stop: 02/21/19 19:06 Last Admin: 02/21/19 19:07 Dose: 4 mg Oxycodone/Acetaminophen (Percocet 5/325) 1 tab PO NOW ONE Stop: 02/21/19 19:00 Last Admin: 02/21/19 19:07 Dose: 1 tab Vital Signs - 8 hr 02/21/19 18:53 Pulse Rate 97 H Respiratory Rate 22 Blood Pressure 144/99 H Pulse Oximetry 99 <DO Michelle Zelaya Last Filed: 02/21/19 20:55> Orders Ordered: ED Orders 02/21/19 18:47 XR foot LT min 3V Stat Discontinued Medications Ibuprofen (Advil) 800 mg PO NOW ONE Stop: 02/21/19 19:24 Last Admin: 02/21/19 19:30 Dose: 800 mg Ondansetron HCl (Zofran Odt) 4 mg SL NOW ONE Stop: 02/21/19 19:06 Last Admin: 02/21/19 19:07 Dose: 4 mg Oxycodone/Acetaminophen (Percocet 5/325) 1 tab PO NOW ONE Stop: 02/21/19 19:00 Last Admin: 02/21/19 19:07 Dose: 1 tab Vital Signs - 8 hr 02/21/19 18:53 Pulse Rate 97 H Respiratory Rate 22 Blood Pressure 144/99 H Pulse Oximetry 99 MDM - Extremity Injury (Lower) <Albina Carbajal PA-C - Last Filed: 02/21/19 20:15> Imaging Data foot: Radiologist's impression: 24 Albina Carbajal PA-C Find Patient Imaging Yaritza Lindo R 29 F 1990 ACTIVITY DATE EXAM STATUS AUTHOR 02/21/19 18:47 [place] [address] XRay Report Signed Patient: Yaritza Lindo RMR#: [id number] : 1990Acct:[id number] Age/Sex: 29 / FDate of Service: 02/21/19 Loc: ED Accession Number: [id number] Procedure: XR foot LT min 3V Ordering Provider: Albina Carbajal P.A-C PROCEDURE: XR FOOT LT MIN 3V INDICATIONS: pain,poss lat toe dislocation TECHNIQUE: 3 views of the foot were acquired. COMPARISON: None. FINDINGS: Bones: No dislocations. No suspicious bony lesions. There is an angulated fracture involving the mid diaphysis of the fifth proximal phalanx, close to 45? valgus angulation. Soft tissues: No tibiotalar joint effusion. Achilles tendon appears normal. IMPRESSION: Fracture without dislocation but with abnormal angulation up to 45? in valgus alignment. No additional fracture more medially is seen. Dictated by: Juan Jose Lynch M.D. on 02/21/2019 at 19:23 Approved by: Juan Jose Lynch M.D. on 02/21/2019 at 19:24 Discharge Plan Departure Patient Disposition: Home Clinical Impression: Closed fracture of toe Qualifiers: Encounter type: initial encounter Toe: lesser toe Phalanx: unspecified phalanx Fracture alignment: nondisplaced Laterality: left Qualified Code(s): S92.505A - Nondisplaced unspecified fracture of left lesser toe(s), initial encounter for closed fracture Discharge Date/Time: 02/21/19 19:50 Interventions: ED Discharge Assessment Last Done: 02/21/19 19:50 Instructions: DI for Toe Fracture Activity Restrictions/Additional Instructions: You have a broken little toe today. After we put the anesthetic in, we straightened the toe out more, and taped together with your 4th toe, which will help a lot with pain as well as support and healing. You should keep these toes taped together for support with a little piece of cotton or gauze in between the toes. Gentle walking is okay as you tolerate. Please call your insurance tomorrow or [facility] at [phone] to get a referral to a new PCP, let them know you were seen in the emergency room and need to schedule a follow-up visit. Typically these fractures will heal on their own as long as you take care to protect and tape the toe. Wear a stiff-soled shoe. You should return to the closest ED if you have acute changes in the interim such as no sensation in the toe, acutely worsening pain or the whole toe turning blue or purple (you do have some bruising now). We have given you a dose of prescription strength ibuprofen here to help with pain and swelling, and I have sent a prescription in to [facility] for you to pickle pumper when you leave so you can continue that as needed. Prescriptions: New ibuprofen 800 mg tablet 800 mg PO Q8H PRN (Reason: pain) Qty: 14 RF: 0 No Action ondansetron 4 mg tablet,disintegrating 4 mg PO Q6-8H PRN (Reason: nausea and vomiting) Qty: 10 RF: 0 ketorolac 10 mg tablet 10 mg PO Q6H PRN (Reason: pain) Qty: 14 RF: 0 ondansetron 4 mg tablet,disintegrating 4 mg PO TID-QID PRN (Reason: nausea and vomiting) Qty: 10 RF: 0 fluoxetine 20 mg capsule 20 mg PO DAILY RF: 0 tizanidine 4 mg tablet 1 tab PO TID PRN (Reason: Spasms) RF: 0 propranolol 60 mg capsule,extended release 24 hr 1 cap PO QPM RF: 0 tramadol 50 mg tablet 1 - 2 tab PO PRN PRN (Reason: pain) RF: 0 hydroxyzine pamoate 25 mg capsule 1 cap PO TID RF: 0 Adrafinil 1 dose PO DIRECTED RF: 0 Excedrin 1 tab PO DAILY RF: 0 Strattera 1 dose PO DIRECTED RF: 0 cranberry 1 tab PO DAILY RF: 0 ondansetron 4 mg tablet,disintegrating 4 mg PO TID-QID PRN (Reason: nausea and vomiting) Qty: 14 RF: 0 sulfamethoxazole-trimethoprim 800-160 mg tablet 1 tab PO BID Qty: 10 RF: 0 fluoxetine 20 mg capsule 20 mg PO DAILY Qty: 30 RF: 0 propranolol 60 mg capsule,extended release 24 hr 60 mg PO DAILY Qty: 30 RF: 0 lorazepam [Ativan] 1 mg tablet 1 mg PO BID-TID PRN (Reason: anxiety) Qty: 14 RF: 0 tizanidine 4 mg capsule 4 mg PO TID PRN (Reason: muscle spasticity) Qty: 14 RF: 0 Referrals: Michelle Salas PA-C [Primary Care Provider] - <Dane Madrid DO - Last Filed: 02/21/19 20:55> Cosign ED Attending Isamar Attestation: I was available for consultation during this patient's emergency department encounter
[2019-02-21 18:53] VITALS: BP 144/99; PULSE 97; RESP 22; O2SAT 99; BMI 51.5
[2019-02-21] MEDS: ONDANSETRON 4 MG ODT SL (19:07)
[2019-02-21] MEDS: OXYCODONE/ACETAMINOPHEN 5/325 TABLET 1 TAB PO (19:07)
[2019-02-21] MEDS: IBUPROFEN 400 MG TABLET 800 MG PO (19:30)
== END 2019-02-21 19:50 | disposition home or self-care (01) ==
PROVIDERS: Emergency Provider Internal Medicine; Family Provider Physician Assistant Medical; PCP Physician Assistant Medical
DX: S92.505A Nondisplaced unspecified fracture of left lesser toe(s), initial encounter for closed fracture (principal)
CPT/HCPCS: 73630; 99282; 99283

== ENCOUNTER 2019-03-25 05:01 | Emergency (ER) | payer MEDICARE, SELFPAY ==
[2019-03-25 05:02] VITALS: BP 147/94; PULSE 109; RESP 15; TEMP 36.6; O2SAT 98; BMI 42.5
--- NOTE | 2019-03-25 05:02 | DI.RAD.S_ITS ---
PROCEDURE: XR CHEST 1V INDICATIONS: Chest pain TECHNIQUE: One view of the chest was acquired. COMPARISON: None. FINDINGS: Surgical changes and devices: None. Lungs and pleura: Lungs are clear. No pleural effusions or pneumothorax. Mediastinum: Mediastinal contours appear normal. Heart size is normal. Bones and chest wall: No suspicious bony lesions. Overlying soft tissues appear unremarkable. IMPRESSION: No acute cardiopulmonary process is evident. Note: The preliminary ED findings and the final radiology report are concordant. Dictated by: Sergio Dennis M.D. on 03/25/2019 at 7:45 Approved by: Sergio Dennis M.D. on 03/25/2019 at 7:46
--- NOTE | 2019-03-25 05:03 | ED_ITS ---
HPI - Chest Pain General Chief Complaint: Chest Pain Stated Complaint: Chest pain Time Seen by Provider: 03/25/19 05:02 Source: patient Mode of arrival: ambulatory Limitations: no limitations History of Present Illness HPI narrative: 29-year-old female here for evaluation of chest pain. Patient states that it has been going off and on for the past several hours. She states greater than 6 hours but is unsure the exact onset. Nothing seems to make it better or worse. No problems breathing. She states that it feels somewhat like prior panic attack but not all the symptoms likely she has had in the past. Sta papa she has not been on her medication because she was fired from her primary doctor for missing too many appointments. No problems breathing. No lower extremity swelling. Related Data Home Medications Medication Instructions Recorded Confirmed fluoxetine 20 mg PO DAILY 02/16/18 07/12/18 Adrafinil 1 dose PO DIRECTED 07/12/18 07/12/18 Excedrin 1 tab PO DAILY 07/12/18 07/12/18 Strattera 1 dose PO DIRECTED 07/12/18 07/12/18 cranberry 1 tab PO DAILY 07/12/18 07/12/18 hydroxyzine pamoate 1 cap PO TID 07/12/18 07/12/18 propranolol 1 cap PO QPM 07/12/18 07/12/18 tizanidine 1 tab PO TID PRN 07/12/18 07/12/18 tramadol 1 - 2 tab PO PRN PRN 07/12/18 07/12/18 Previous Rx's Medication Instructions Recorded ondansetron 4 mg PO TID-QID PRN #14 tab 07/12/18 sulfamethoxazole-trimethoprim 1 tab PO BID #10 tab 07/12/18 ondansetron 4 mg PO Q6-8H PRN #10 tab 07/19/18 ketorolac 10 mg PO Q6H PRN #14 tab 11/11/18 ondansetron 4 mg PO TID-QID PRN #10 tab 11/11/18 fluoxetine 20 mg PO DAILY #30 cap 01/22/19 lorazepam [Ativan] 1 mg PO BID-TID PRN #14 tab 01/22/19 propranolol 60 mg PO DAILY #30 cap 01/22/19 tizanidine 4 mg PO TID PRN #14 cap 01/22/19 ibuprofen 800 mg PO Q8H PRN #14 tab 02/21/19 lorazepam [Ativan] 1 mg PO BID-TID PRN #14 tab 03/25/19 Allergies Allergy/AdvReac Type Severity Reaction Status Date / Time citalopram Allergy Intermediate Verified 01/26/19 21:19 latex Allergy Mild HIVES Verified 01/26/19 21:19 clindamycin Allergy Unknown RASH Verified 01/26/19 21:19 Review of Systems Constitutional Denies chills, Denies fever(s) and Denies headache(s) ENT Ears, Nose, Mouth, and Throat: Denies headache(s) Cardiovascular Reports chest pain, Denies edema, Denies lightheadedness, Reports palpitations and Denies dyspnea Respiratory Denies dyspnea Gastrointestinal Gastrointestinal: Denies abdominal pain, Denies nausea and Denies vomiting Integumentary/Breasts Denies rash Neurologic Denies confusion and Denies headache(s) Psychiatric Denies confusion Endocrine Reports palpitations Hematologic/Lymphatic Denies easy bleeding and Denies easy bruising [facility] Medical History Bilateral femoral fractures (Acute) ADD (attention deficit disorder) (Chronic) Chronic leg pain (Chronic) 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) Depression (Chronic) Osteopenia (Chronic) Ovarian cyst (Resolved) Pneumomediastinum (Resolved) Tubal ligation status (Resolved) Social History Smoking Status: Current some day smoker Smokeless tobacco user: other alcohol intake: current substance use type: marijuana Exam Initial Vital Signs Initial Vital Signs: Vital Signs Temperature 97.9 F 03/25/19 05:02 Pulse Rate 109 H 03/25/19 05:02 Respiratory Rate 15 03/25/19 05:02 Blood Pressure 147/94 H 03/25/19 05:02 Pulse Oximetry 98 03/25/19 05:02 Const General: cooperative, well developed, well groomed and No acute distress Orientation: alert, awake and oriented x3 HENMT Head: normal to inspection and normocephalic Chest Chest: normal inspection of the chest and No crepitus Resp Effort & Inspection: normal respiratory effort Auscultation: clear to auscultation bilaterally Cardio Rate: tachycardic Rhythm: regular rhythm Pulses: radial pulses present Skin Lesions: no lesions Rashes: no rashes Neuro General: alert, awake and oriented x3 Cognition: normal cognition Speech: speech normal Extrem General: normal to inspection and capillary refill normal Psych Appearance: grossly normal and well kempt Scores GCS Peggy coma scale eye opening: Spontaneous [place] coma scale verbal response: Orientated Peggy coma scale motor response: Obey commands [place] coma scale total score: 15 Course Orders Ordered: ED Orders 03/25/19 05:02 XR chest 1V Stat EKG-12 Lead Stat Discontinued Medications Lorazepam (Ativan) 1 mg PO NOW ONE Stop: 03/25/19 05:17 Last Admin: 03/25/19 05:22 Dose: 1 mg Vital Signs - 8 hr 03/25/19 05:02 03/25/19 05:26 Temperature 97.9 F Pulse Rate 109 H 84 Respiratory Rate 15 16 Blood Pressure 147/94 H Blood Pressure [Left Arm] 147/94 H Pulse Oximetry 98 97 MDM - Chest Pain Imaging Data Chest x-ray: Attestation: I personally reviewed and interpreted this imaging study as follows: My impression: Normal size heart, no pneumothorax, no pneumonia ECG Data Attestation: I personally reviewed and interpreted this ECG as follows: Prior ECG tracings: not available for review Interpretation: Sinus tachycardia Ventricular rate of 104 Normal axis Normal QTC Normal QRS No ST T wave changes MDM Narrative Medical decision making narrative: Patient reports an improvement/resolution of the symptoms after the Ativan. I have low suspicion for ACS. She has an appointment with her new primary doctor on the of this month. She also an appointment with a new mental health provider week after that. Hold on further workup for now. Will send home with a few Ativan to try to tide her over until she can see her primary doctor on the . Had a discussion with her regarding the symptoms. We discussed return precautions. She expressed understanding and agreement with plan. Discharge Plan Departure Patient Disposition: Home Clinical Impression: Atypical chest pain, Anxiety, Heart palpitations Instructions: DI for Atypical Chest Pain, DI for Anxiety -- Adult Activity Restrictions/Additional Instructions: Recommend you keep your scheduled medical appointments coming up later this month. Take the medication as needed as directed. Continue your other medications as directed. Return to the emergency department for any new or worsening symptoms Prescriptions: New lorazepam [Ativan] 1 mg tablet 1 mg PO BID-TID PRN (Reason: anxiety) Qty: 14 RF: 0 No Action ondansetron 4 mg tablet,disintegrating 4 mg PO Q6-8H PRN (Reason: nausea and vomiting) Qty: 10 RF: 0 ketorolac 10 mg tablet 10 mg PO Q6H PRN (Reason: pain) Qty: 14 RF: 0 ondansetron 4 mg tablet,disintegrating 4 mg PO TID-QID PRN (Reason: nausea and vomiting) Qty: 10 RF: 0 fluoxetine 20 mg capsule 20 mg PO DAILY RF: 0 tizanidine 4 mg tablet 1 tab PO TID PRN (Reason: Spasms) RF: 0 propranolol 60 mg capsule,extended release 24 hr 1 cap PO QPM RF: 0 tramadol 50 mg tablet 1 - 2 tab PO PRN PRN (Reason: pain) RF: 0 hydroxyzine pamoate 25 mg capsule 1 cap PO TID RF: 0 Adrafinil 1 dose PO DIRECTED RF: 0 Excedrin 1 tab PO DAILY RF: 0 Strattera 1 dose PO DIRECTED RF: 0 cranberry 1 tab PO DAILY RF: 0 ondansetron 4 mg tablet,disintegrating 4 mg PO TID-QID PRN (Reason: nausea and vomiting) Qty: 14 RF: 0 sulfamethoxazole-trimethoprim 800-160 mg tablet 1 tab PO BID Qty: 10 RF: 0 fluoxetine 20 mg capsule 20 mg PO DAILY Qty: 30 RF: 0 propranolol 60 mg capsule,extended release 24 hr 60 mg PO DAILY Qty: 30 RF: 0 lorazepam [Ativan] 1 mg tablet 1 mg PO BID-TID PRN (Reason: anxiety) Qty: 14 RF: 0 tizanidine 4 mg capsule 4 mg PO TID PRN (Reason: muscle spasticity) Qty: 14 RF: 0 ibuprofen 800 mg tablet 800 mg PO Q8H PRN (Reason: pain) Qty: 14 RF: 0 Referrals: Michelle Salas PA-C [Primary Care Provider] -
[2019-03-25] MEDS: LORazepam 1 MG TABLET PO (05:22)
[2019-03-25 05:26] VITALS: BP 147/94; PULSE 84; RESP 16; O2SAT 97
[2019-03-25 06:20] VITALS: BP 133/89; PULSE 86; RESP 16; O2SAT 98
== END 2019-03-25 06:20 | disposition home or self-care (01) ==
PROVIDERS: Emergency Provider Emergency Medicine; Family Provider Physician Assistant Medical; PCP Physician Assistant Medical
DX: R07.89 Other chest pain (principal); F41.9 Anxiety disorder, unspecified; R00.2 Palpitations
CPT/HCPCS: 71045; 93005; 99283; 99284

== ENCOUNTER 2019-03-30 19:34 | Emergency (ER) | payer MEDICARE, SELFPAY ==
[2019-03-30 19:51] VITALS: BP 131/91; PULSE 121; RESP 18; TEMP 37; O2SAT 100
[2019-03-30] MEDS: TIZANIDINE 4 MG TABLET PO (20:01)
[2019-03-30] MEDS: PROPRANOLOL 40 MG TABLET PO (20:01)
[2019-03-30] MEDS: FLUoxetine 20 MG CAPSULE PO (20:01)
--- NOTE | 2019-03-30 21:04 | ED.ANXIETY ---
HPI - Anxiety General Chief Complaint: Anxiety Stated Complaint: elevated heart rate Time Seen by Provider: 03/30/19 19:41 Source: patient and EMS Mode of arrival: EMS Limitations: no limitations History of Present Illness HPI narrative: 29-year-old female smoker with history of anxiety depression and tachycardia presents by EMS for evaluation of anxiety and tachycardia. She denies any chest pain nor fever or chills. She is a bit lightheaded and tearful. She had been on a stable regimen of medications but has been unable to have these prescriptions filled for the past week or so as she has a change in her PCP. She denies recent travel, injury or other illness. MD complaint: anxiety and heart racing Onset (ago): hour(s) Symptoms: dyspnea Severity: mild Quality: constant Place: home History of similar episodes: Yes Provoking factors: emotional stress and medication change Relieving factors: medication Associated symptoms: denies other symptoms Related Data Home Medications Medication Instructions Recorded Confirmed fluoxetine 20 mg PO DAILY 02/16/18 07/12/18 Adrafinil 1 dose PO DIRECTED 07/12/18 07/12/18 Excedrin 1 tab PO DAILY 07/12/18 07/12/18 Strattera 1 dose PO DIRECTED 07/12/18 07/12/18 cranberry 1 tab PO DAILY 07/12/18 07/12/18 hydroxyzine pamoate 1 cap PO TID 07/12/18 07/12/18 tramadol 1 - 2 tab PO PRN PRN 07/12/18 07/12/18 Previous Rx's Medication Instructions Recorded ondansetron 4 mg PO TID-QID PRN #14 tab 07/12/18 sulfamethoxazole-trimethoprim 1 tab PO BID #10 tab 07/12/18 ondansetron 4 mg PO Q6-8H PRN #10 tab 07/19/18 ketorolac 10 mg PO Q6H PRN #14 tab 11/11/18 ondansetron 4 mg PO TID-QID PRN #10 tab 11/11/18 lorazepam [Ativan] 1 mg PO BID-TID PRN #14 tab 01/22/19 propranolol 60 mg PO DAILY #30 cap 01/22/19 tizanidine 4 mg PO TID PRN #14 cap 01/22/19 ibuprofen 800 mg PO Q8H PRN #14 tab 02/21/19 lorazepam [Ativan] 1 mg PO BID-TID PRN #14 tab 03/25/19 fluoxetine 20 mg PO DAILY #7 cap 03/30/19 propranolol 1 cap PO QPM #7 cap 03/30/19 tizanidine 2 tab PO TID PRN #30 tab 03/30/19 Allergies Allergy/AdvReac Type Severity Reaction Status Date / Time citalopram Allergy Intermediate Verified 01/26/19 21:19 latex Allergy Mild HIVES Verified 01/26/19 21:19 clindamycin Allergy Unknown RASH Verified 01/26/19 21:19 Review of Systems Constitutional Denies chills, Denies fever(s), Denies lethargy and Denies weakness Eyes Denies change in vision, Denies eye discharge, Denies irritation and Denies loss of vision ENT Ears, Nose, Mouth, and Throat: Denies change in voice, Denies neck pain and Denies sore throat Cardiovascular Denies chest pain, Reports rapid heart rate, Denies irregular heart rhythm, Denies lightheadedness, Reports palpitations, Denies dyspnea, Denies dyspnea on exertion and Denies orthopnea Respiratory Denies cough, Denies dyspnea, Denies dyspnea on exertion and Denies wheezing Gastrointestinal Gastrointestinal: Denies abdominal pain, Denies change in bowel habits, Denies diarrhea, Denies nausea and Denies vomiting Genitourinary Denies hematuria, Denies flank pain, Denies urinary incontinence and Denies urinary urgency Musculoskeletal Denies neck pain Integumentary/Breasts Denies pruritus, Denies erythema, Denies rash and Denies wounds Neurologic Denies confusion, Denies loss of vision and Denies weakness Psychiatric Reports anxiety, Denies confusion, Denies depression, Denies homicidal ideation and Denies suicidal ideation Endocrine Reports palpitations Hematologic/Lymphatic Denies easy bruising Allergic/Immunologic Denies wheezing [facility] Medical History Bilateral femoral fractures (Acute) ADD (attention deficit disorder) (Chronic) Chronic leg pain (Chronic) 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) Depression (Chronic) Osteopenia (Chronic) Ovarian cyst (Resolved) Pneumomediastinum (Resolved) Tubal ligation status (Resolved) Surgical History History of (Resolved) Status post breast reduction (Resolved) Social History Smoking Status: Current some day smoker Smokeless tobacco user: other alcohol intake: current substance use type: marijuana Social History Smoking Status: Current some day smoker Smokeless tobacco user: other alcohol intake: current substance use type: marijuana Exam Narrative Exam Narrative: GENERAL: 29F tearful, anxious, rapid shallow breathing HEAD: Atraumatic. Normocephalic. No temporal or scalp tenderness. EYES: Pupils equal round and reactive. Extraocular motions intact. No scleral icterus. No injection or drainage. ENT: Nose without bleeding, purulent drainage or septal hematoma. Throat without erythema, tonsillar hypertrophy or exudate. Uvula midline. Airway patent. NECK: Trachea midline. No JVD or lymphadenopathy. Supple, nontender, no meningeal signs. CARDIOVASCULAR: Tachycardic but regular RESPIRATORY: Clear to auscultation. Breath sounds equal bilaterally. No wheezes, rales, or rhonchi. Rapid breathing GASTROINTESTINAL: Abdomen soft, non-tender, nondistended. No hepato-splenomegaly, or palpable masses. No guarding. EXTREMITIES: No clubbing, cyanosis, or edema. No joint tenderness, effusion, or edema noted. BACK: Nontender without deformity or crepitance. No flank tenderness. NEURO: AOx3. SKIN: No rash or erythema. Initial Vital Signs Initial Vital Signs: Vital Signs Temperature 98.6 F 03/30/19 19:51 Pulse Rate 121 H 03/30/19 19:51 Respiratory Rate 18 03/30/19 19:51 Blood Pressure 131/91 H 03/30/19 19:51 Pulse Oximetry 100 03/30/19 19:51 Course Orders Ordered: Discontinued Medications Fluoxetine HCl (Prozac) 20 mg PO NOW ONE Stop: 03/30/19 19:47 Last Admin: 03/30/19 20:01 Dose: 20 mg Propranolol HCl (Inderal) 40 mg PO NOW ONE Stop: 03/30/19 19:47 Last Admin: 03/30/19 20:01 Dose: 40 mg Tizanidine HCl (Zanaflex) 4 mg PO BEDTIME SONIA Last Admin: 03/30/19 20:43 Dose: Not Given Admin: 03/30/19 20:01 Dose: 4 mg Vital Signs - 8 hr 03/30/19 21:19 Pulse Rate 74 Respiratory Rate 18 Blood Pressure 117/73 Pulse Oximetry 99 MDM - Anxiety MDM Narrative Medical decision making narrative: 29-year-old female with extensive history of anxiety, depression and tachycardia, her symptoms had largely been under control for quite some time but she has not had access to her medications for the past few weeks as she has had a change in her primary care provider. Lengthy discussion with the patient about the utility of performing lab work and we sure the opinion that getting her back on her medications as the most appropriate course of action at this point time. She is feeling much better even after just talking but is nearly at her baseline after receiving around of her normal home meds. She has an upcoming appointment in about a week Discharge Plan Departure Patient Disposition: Home Clinical Impression: Anxiety, Medical non-compliance Discharge Date/Time: 03/30/19 21:19 Interventions: ED Discharge Assessment Last Done: 03/30/19 21:19 Instructions: DI for Anxiety -- Adult Activity Restrictions/Additional Instructions: *You have been diagnosed with [anxiety and medical noncompliance] *What to do: *Take medications as directed *Follow up with your primary care provider on April 05 as planned. Let them know you were seen in the Emergency Department and that we ask that you be seen in follow up *Return to ER if you should have any new, worsening or concerning symptoms Prescriptions: Continued propranolol 60 mg capsule,extended release 24 hr 1 cap PO QPM Qty: 7 RF: 0 fluoxetine 20 mg capsule 20 mg PO DAILY Qty: 7 RF: 0 Changed tizanidine 4 mg tablet 2 tab PO TID PRN (Reason: Spasms) Qty: 30 RF: 0 No Action ondansetron 4 mg tablet,disintegrating 4 mg PO Q6-8H PRN (Reason: nausea and vomiting) Qty: 10 RF: 0 ketorolac 10 mg tablet 10 mg PO Q6H PRN (Reason: pain) Qty: 14 RF: 0 ondansetron 4 mg tablet,disintegrating 4 mg PO TID-QID PRN (Reason: nausea and vomiting) Qty: 10 RF: 0 lorazepam [Ativan] 1 mg tablet 1 mg PO BID-TID PRN (Reason: anxiety) Qty: 14 RF: 0 fluoxetine 20 mg capsule 20 mg PO DAILY RF: 0 tramadol 50 mg tablet 1 - 2 tab PO PRN PRN (Reason: pain) RF: 0 hydroxyzine pamoate 25 mg capsule 1 cap PO TID RF: 0 Adrafinil 1 dose PO DIRECTED RF: 0 Excedrin 1 tab PO DAILY RF: 0 Strattera 1 dose PO DIRECTED RF: 0 cranberry 1 tab PO DAILY RF: 0 ondansetron 4 mg tablet,disintegrating 4 mg PO TID-QID PRN (Reason: nausea and vomiting) Qty: 14 RF: 0 sulfamethoxazole-trimethoprim 800-160 mg tablet 1 tab PO BID Qty: 10 RF: 0 propranolol 60 mg capsule,extended release 24 hr 60 mg PO DAILY Qty: 30 RF: 0 lorazepam [Ativan] 1 mg tablet 1 mg PO BID-TID PRN (Reason: anxiety) Qty: 14 RF: 0 tizanidine 4 mg capsule 4 mg PO TID PRN (Reason: muscle spasticity) Qty: 14 RF: 0 ibuprofen 800 mg tablet 800 mg PO Q8H PRN (Reason: pain) Qty: 14 RF: 0 Referrals: Michelle Salas PA-C [Primary Care Provider] -
[2019-03-30 21:19] VITALS: BP 117/73; PULSE 74; RESP 18; O2SAT 99
== END 2019-03-30 21:19 | disposition home or self-care (01) ==
PROVIDERS: Emergency Provider Emergency Medicine; Family Provider Physician Assistant Medical; PCP Physician Assistant Medical
DX: F41.9 Anxiety disorder, unspecified (principal); R00.0 Tachycardia, unspecified; Z91.19 Patient's noncompliance with other medical treatment and regimen
CPT/HCPCS: 93005; 99282; 99283

== ENCOUNTER → 2019-04-24 09:07 | Outpatient (CLI) | payer MEDICARE, SELFPAY | PROVIDERS: Family Provider Physician Assistant Medical; PCP Nurse Practitioner Family; Visit Provider Physician Assistant | DX: L02.91 Cutaneous abscess, unspecified (principal) | CPT/HCPCS: 87070; 87205 ==

== ENCOUNTER 2019-04-29 22:09 | Emergency (ER) | payer MEDICARE, SELFPAY ==
--- NOTE | 2019-04-29 22:22 | DI.CT.S_ITS ---
PROCEDURE: CT HEAD/BRAIN WO CON INDICATIONS: severe head pain TECHNIQUE: Noncontrast 4.5 mm thick angled axial sections acquired from the foramen magnum to the vertex, with coronal and sagittal reformats. For radiation dose reduction, the following was used: automated exposure control, adjustment of mA and/or kV according to patient size. COMPARISON: None. FINDINGS: Image quality: Excellent. CSF spaces: Basal cisterns are patent. No extra-axial fluid collections. Ventricles are normal in size and shape. Brain: No midline shift. No intracranial masses or hemorrhage. Mata-white matter interface is normal. Skull and face: Calvarium and visualized facial bones are intact, without suspicious lesions. Sinuses: Visualized sinuses and mastoids are clear. IMPRESSION: CT head without acute intracranial abnormalities. No mass or mass effect. No significant discrepancy with the ship superintendent radiology preliminary report. Dictated by: Matthew Ruiz M.D. on 04/30/2019 at 7:19 Approved by: Matthew Ruiz M.D. on 04/30/2019 at 7:34
--- NOTE | 2019-04-29 22:22 | DI.RAD.S_ITS ---
PROCEDURE: XR CHEST 1V INDICATIONS: chest pain TECHNIQUE: One view of the chest was acquired. COMPARISON: [facility], CR, XR CHEST 1V, 03/25/2019, 5:23. FINDINGS: Surgical changes and devices: None. Lungs and pleura: Lungs are clear. No pleural effusions or pneumothorax. Mediastinum: Mediastinal contours appear normal. Heart size is normal. Bones and chest wall: No suspicious bony lesions. Overlying soft tissues appear unremarkable. IMPRESSION: No acute cardiopulmonary abnormalities. Dictated by: Matthew Ruiz M.D. on 04/30/2019 at 7:34 Approved by: Matthew Ruiz M.D. on 04/30/2019 at 7:36
[2019-04-29 22:24] VITALS: BP 114/65; PULSE 99; RESP 28; O2SAT 100; BMI 39.4
[2019-04-29] MEDS: LORazepam 2 MG/ML INJ 1 MG IV (22:35)
[2019-04-29 22:42] LABS: Add Manual Diff / Slide Review NO; Basophils Absolute Auto 100 /uL (0-100); Basophils Percent Auto 0.5 % (0-2); Eosinophils Absolute Auto 0 /uL (0-450); Eosinophils Percent Auto 0.2 % (2-4); Hematocrit 47.1 % (36-46); Hemoglobin 15.7 g/dL (12.0-16.0); Lymphocytes Absolute Auto 2600 /uL (1100-4500); Lymphocytes Percent Auto 19.2 % (25-40); Mean Corpuscular HGB Conc 33.4 % (30-36); Mean Corpuscular Hemoglobin 28.8 PG (26-34); Mean Corpuscular Volume 86.2 fL (80-100); Monocytes Absolute Auto 800 /uL (0-900); Monocytes Percent Auto 6.2 % (3-14); Neutrophils Absolute Auto 9900 /uL (1500-7000); Neutrophils Percent Auto 73.9 % (50-75); Platelet Count 491 X10^3/uL (150-400); Red Blood Cell Count 5.46 X10^6/uL (4.0-5.2); Red Cell Distribution Width 13.8 % (11.6-14.8); White Blood Cell Count 13.4 X10^3/uL (4.5-11.0)
[2019-04-29 22:52] LABS: Alanine Aminotransferase 53 IU/L (9-52); Albumin 4.8 g/dL (3.5-5.0); Albumin Globulin Ratio 1.1 (1.0-2.8); Alkaline Phosphatase 145 U/L (38-126); Aspartate Aminotransferase 48 IU/L (14-36); BUN Creatinine Ratio 16.7 (6-22); Bilirubin Total 0.6 mg/dL (0.2-1.3); Blood Urea Nitrogen 10 mg/dL (7-17); Calcium 10.3 mg/dL (8.4-10.2); Carbon Dioxide 24 mmol/L (22-32); Chloride 105 mmol/L (98-107); Creatine Kinase 40 U/L (30-135); Estimated Glomerular Filt Rate > 60.0 mL/min (>60); Globulin 4.4 g/dL (1.7-4.1); Glucose 152 mg/dL (70-100); HEMOLYSIS 34 (0-50); Lipase 53 U/L (23-300); Potassium 3.9 mmol/L (3.4-5.1); Sodium 142 mmol/L (137-145); Total Protein 9.2 g/dL (6.3-8.2)
[2019-04-29 22:53] LABS: Pregnancy Test Serum,Qual Negative (Negative)
[2019-04-29 23:00] VITALS: PULSE 79; RESP 16; O2SAT 94
[2019-04-29 23:03] LABS: Troponin I < 0.012 ng/mL (0.01-0.034)
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
[2019-04-29 23:16] LABS: RBC Urine 5-10/HPF (0-5/HPF)
[2019-04-29 23:17] LABS: Bacteria Urine Few (2-10); Hyaline Casts Urine 1-5/LPF; Mucus Urine 2+ (Negative); Squamous Epithelial Cell Urine 5-10 /HPF (0-5/HPF); WBC Urine 0-1/HPF (0-5/HPF)
[2019-04-29] MEDS: KETOROLAC 60 MG/2 ML VIAL 30 MG IV (23:17)
[2019-04-29 23:19] LABS: Culture Indicated Urine Cult Not Indicated
[2019-04-29] MEDS: ONDANSETRON 4 MG/2 ML INJ IV (23:29)
[2019-04-30] VITALS: BP 106/69; PULSE 68; RESP 16; O2SAT 94
[2019-04-30 01:00] VITALS: BP 99/64; PULSE 73; RESP 14; TEMP 37.1; O2SAT 94
--- NOTE | 2019-04-30 01:04 | ED_ITS ---
HPI - Headache General Chief Complaint: Headache Stated Complaint: says something is in her neck Time Seen by Provider: 04/29/19 22:17 Source: patient Mode of arrival: ambulatory Limitations: no limitations History of Present Illness HPI Narrative: Patient is a 29-year-old female who presents with severe anxiety. She has been here before with anxiety. She says she was on her way here for anxiety however on the way here her head and neck started hurting quite intensely. She sees be moving her neck okay. She denies any injury. She states she is afraid that she might . She has some chest pressure no shor tness of breath. MD Complaint: headache Related Data Home Medications Medication Instructions Recorded Confirmed fluoxetine 20 mg PO DAILY 02/16/18 04/24/19 Adrafinil 1 dose PO DIRECTED 07/12/18 04/24/19 Excedrin 1 tab PO DAILY 07/12/18 04/24/19 Strattera 1 dose PO DIRECTED 07/12/18 04/24/19 cranberry 1 tab PO DAILY 07/12/18 04/24/19 hydroxyzine pamoate 1 cap PO TID 07/12/18 04/24/19 tramadol 1 - 2 tab PO PRN PRN 07/12/18 04/24/19 Previous Rx's Medication Instructions Recorded ondansetron 4 mg PO TID-QID PRN #14 tab 07/12/18 sulfamethoxazole-trimethoprim 1 tab PO BID #10 tab 07/12/18 ondansetron 4 mg PO Q6-8H PRN #10 tab 07/19/18 ketorolac 10 mg PO Q6H PRN #14 tab 11/11/18 ondansetron 4 mg PO TID-QID PRN #10 tab 11/11/18 lorazepam [Ativan] 1 mg PO BID-TID PRN #14 tab 01/22/19 propranolol 60 mg PO DAILY #30 cap 01/22/19 tizanidine 4 mg PO TID PRN #14 cap 01/22/19 ibuprofen 800 mg PO Q8H PRN #14 tab 02/21/19 lorazepam [Ativan] 1 mg PO BID-TID PRN #14 tab 03/25/19 fluoxetine 20 mg PO DAILY #7 cap 03/30/19 propranolol 1 cap PO QPM #7 cap 03/30/19 tizanidine 2 tab PO TID PRN #30 tab 03/30/19 cephalexin 500 mg capsule 500 mg PO BID 10 Days #20 cap 04/24/19 clotrimazole 1 % topical cream 1 applictn TOP BID 28 Days #30 gram 04/24/19 Allergies Allergy/AdvReac Type Severity Reaction Status Date / Time citalopram Allergy Intermediate Verified 04/24/19 08:58 latex Allergy Mild HIVES Verified 04/24/19 08:58 clindamycin Allergy Unknown RASH Verified 04/24/19 08:58 Review of Systems Review of Systems ROS Unobtainable: All systems reviewed & are unremarkable except as noted in HPI and below Constitutional Denies chills, Denies fever(s), Reports headache(s), Denies lethargy and Denies weakness Eyes Denies change in vision, Denies eye discharge, Denies irritation and Denies loss of vision ENT Ears, Nose, Mouth, and Throat: Denies change in voice, Reports headache(s), Reports neck pain and Denies sore throat Cardiovascular Reports chest pain, Denies irregular heart rhythm, Denies lightheadedness, Denies palpitations and Denies orthopnea Gastrointestinal Gastrointestinal: Denies abdominal pain, Denies change in bowel habits, Denies diarrhea, Denies nausea and Denies vomiting Genitourinary Denies hematuria, Denies flank pain, Denies urinary incontinence and Denies urinary urgency Musculoskeletal Denies back pain and Reports neck pain Integumentary/Breasts Denies pruritus, Denies erythema, Denies rash and Denies wounds Neurologic Reports headache(s), Denies loss of vision and Denies weakness Endocrine Denies palpitations [facility] Medical History Bilateral femoral fractures (Acute) ADD (attention deficit disorder) (Chronic) Chronic leg pain (Chronic) 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) Depression (Chronic) Osteopenia (Chronic) Ovarian cyst (Resolved) Pneumomediastinum (Resolved) Tubal ligation status (Resolved) Surgical History History of (Resolved) Status post breast reduction (Resolved) Social History Smoking Status: Current some day smoker Smokeless tobacco user: other alcohol intake: current substance use type: marijuana Social History Smoking Status: Current some day smoker Smokeless tobacco user: other alcohol intake: current substance use type: marijuana Exam Initial Vital Signs Initial Vital Signs: Vital Signs Pulse Rate 99 H 04/29/19 22:24 Respiratory Rate 28 H 04/29/19 22:24 Blood Pressure 114/65 04/29/19 22:24 Pulse Oximetry 100 04/29/19 22:24 GENERAL: Anxious tearful female HEENT: Head atraumatic,EOMI, pupils reactive, face symmetric, moist mucous membranes NECK: No meningeal signs move neck freely CARDIOVASCULAR: Regular rate and rhythm without murmurs, rubs or gallops. RESPIRATORY: Breath sounds equal bilaterally, no wheezes rales or rhonchi. ABDOMEN: Soft, nontender. Normoactive bowel sounds all 4 quadrants. No guard ing or rebound. EXTREMITIES: Normal range of motion, no clubbing or edema. Neurovascularly intact NEUROLOGICAL: Alert and oriented x4.Normal gait and speech. Cranial nerves II through XII grossly intact. Tank [employer] Supervisor strength equal, sensation to soft touch in all extremities SKIN: Warm, dry, no laceration, no petechiae, no rashes or lesions. Course Orders Ordered: ED Orders 04/29/19 22:22 CT head/brain wo con Stat XR chest 1V Stat EKG-12 Lead Stat 04/29/19 22:31 Complete Blood Count AUTO DIFF Stat Comprehensive Metabolic Panel Stat Lipase Stat Test Serum,Qual Stat Troponin & CK Cardiac Panel Stat 04/29/19 22:35 Urine Microscopic Stat Discontinued Medications Ketorolac Tromethamine (Toradol) 30 mg IV NOW ONE Stop: 04/29/19 23:12 Last Admin: 04/29/19 23:17 Dose: 30 mg Lorazepam (Ativan) 1 mg IV Q6HR PRN PRN Reason: Anxiety Last Admin: 04/29/19 22:35 Dose: 1 mg Ondansetron HCl (Zofran) 4 mg IV NOW ONE Stop: 04/29/19 23:27 Last Admin: 04/29/19 23:29 Dose: 4 mg Vital Signs - 8 hr 04/29/19 22:24 04/29/19 23:00 04/30/19 00:00 Temperature Pulse Rate 99 H 79 68 Respiratory Rate 28 H 16 16 Blood Pressure 114/65 Blood Pressure [Left Arm] 106/69 Pulse Oximetry 100 94 94 04/30/19 01:00 04/30/19 02:12 Temperature 98.7 F 98.7 F Pulse Rate 73 68 Respiratory Rate 14 14 Blood Pressure 110/67 Blood Pressure [Left Arm] 99/64 Pulse Oximetry 94 100 MDM - Headache Lab Data Attestation: I reviewed the patient's lab results. Result diagrams: 04/29/19 22:31 04/29/19 22:31 Lab Results 04/29/19 04/29/19 04/29/19 Range/Units 22:31 22:31 22:31 WBC 13.4 H (4.5-11.0) X10^3/uL RBC 5.46 H (4.0-5.2) X10^6/uL Hgb 15.7 (12.0-16.0) g/dL Hct 47.1 H (36-46) % MCV 86.2 (80-100) fL MCH 28.8 (26-34) PG MCHC 33.4 (30-36) % RDW 13.8 (11.6-14.8) % Plt Count 491 H (150-400) X10^3/uL Neut % (Auto) 73.9 (50-75) % Lymph % (Auto) 19.2 L (25-40) % [place] % (Auto) 6.2 (3-14) % Eos % (Auto) 0.2 L (2-4) % Baso % (Auto) 0.5 (0-2) % Neut # (Auto) 9900 H (8181-9102) /uL Lymph # (Auto) 2600 (6465-6289) /uL [place]son # (Auto) 800 (0-900) /uL Eos # (Auto) 0 (0-450) /uL Baso # (Auto) 100 (0-100) /uL Sodium 142 (137-145) mmol/L Potassium 3.9 (3.4-5.1) mmol/L Chloride 105 (98-107) mmol/L Carbon Dioxide 24 (22-32) mmol/L BUN 10 (7-17) mg/dL Creatinine 0.60 (0.52-1.04) mg/dL Estimated GFR > 60.0 (>60) mL/min BUN/Creatinine Ratio 16.7 (6-22) Glucose 152 H (70-100) mg/dL Calcium 10.3 H (8.4-10.2) mg/dL Total Bilirubin 0.6 (0.2-1.3) mg/dL AST 48 H (14-36) IU/L ALT 53 H (9-52) IU/L Alkaline Phosphatase 145 H (38-126) U/L Total Creatine Kinase 40 (30-135) U/L CK-MB (CK-2) TNP CK-MB (CK-2) Rel Index TNP Troponin I < 0.012 (0.01-0.034) ng/mL Total Protein 9.2 H (6.3-8.2) g/dL Albumin 4.8 (3.5-5.0) g/dL Globulin 4.4 H (1.7-4.1) g/dL Albumin/Globulin Ratio 1.1 (1.0-2.8) Lipase 53 (23-300) U/L Serum , Qual Negative (Negative) Urine RBC (0-5/HPF) Urine WBC (0-5/HPF) Ur Squamous Epith Cells (0-5/HPF) Urine Bacteria (None) Hyaline Casts (None) Urine Mucus (Negative) Urine Yeast (None) Ur Culture Indicated? 04/29/19 Range/Units 22:35 WBC (4.5-11.0) X10^3/uL RBC (4.0-5.2) X10^6/uL Hgb (12.0-16.0) g/dL Hct (36-46) % MCV (80-100) fL MCH (26-34) PG MCHC (30-36) % RDW (11.6-14.8) % Plt Count (150-400) X10^3/uL Neut % (Auto) (50-75) % Lymph % (Auto) (25-40) % Woodson % (Auto) (3-14) % Eos % (Auto) (2-4) % Baso % (Auto) (0-2) % Neut # (Auto) (4182-2559) /uL Lymph # (Auto) (2867-1290) /uL Woodson # (Auto) (0-900) /uL Eos # (Auto) (0-450) /uL Baso # (Auto) (0-100) /uL Sodium (137-145) mmol/L Potassium (3.4-5.1) mmol/L Chloride (98-107) mmol/L Carbon Dioxide (22-32) mmol/L BUN (7-17) mg/dL Creatinine (0.52-1.04) mg/dL Estimated GFR (>60) mL/min BUN/Creatinine Ratio (6-22) Glucose (70-100) mg/dL Calcium (8.4-10.2) mg/dL Total Bilirubin (0.2-1.3) mg/dL AST (14-36) IU/L ALT (9-52) IU/L Alkaline Phosphatase (38-126) U/L Total Creatine Kinase (30-135) U/L CK-MB (CK-2) CK-MB (CK-2) Rel Index Troponin I (0.01-0.034) ng/mL Total Protein (6.3-8.2) g/dL Albumin (3.5-5.0) g/dL Globulin (1.7-4.1) g/dL Albumin/Globulin Ratio (1.0-2.8) Lipase (23-300) U/L Serum , Qual (Negative) Urine RBC 5-10/hpf H (0-5/HPF) Urine WBC 0-1/hpf (0-5/HPF) Ur Squamous Epith Cells 5-10 /hpf H (0-5/HPF) Urine Bacteria Few (2-10) H (None) Hyaline Casts 1-5/lpf (None) Urine Mucus 2+ H (Negative) Urine Yeast 0-1/hpf (None) Ur Culture Indicated? Cult not indicated Urine Dip Bedside Urine Glucose Negative Bedside Urine Bilirubin - Negative Bedside Urine Ketone +++ 80 Urine Specific [place] 1.020 Bedside Urine Occult Blood +++ Bedside Urine pH 6.0 Bedside Urine Protein - Negative Bedside Urine Urobilinogen - Negative Bedside Urine Nitrite - Negative Bedside Urine Leukocytes +/- 15 Esterase Imaging Data Chest x-ray: Attestation: I personally reviewed and interpreted this imaging study as follows: My impression: No acute cardiopulmonary process CT scan - head: Radiologist's impression: The patient's true foot close no acute intracranial abnormality. Age-appropriate exam ECG Data Attestation: I personally reviewed and interpreted this ECG as follows: Prior ECG tracings: available for review Interpretation: Normal sinus rhythm rate [address] Chi[place] [address] changes or T-wave inversions EKG is similar to previous EKG from March 2019 [facility] Narrative Medical decision making narrative: Patient is initially quite anxious. She is given Ativan. She seems to be moving her neck easily without any difficulty. After head CT has returned of Toradol was given for pain. Patient then found sleeping she states her pain is gone completely. She still feels like her anxiety is still there but overall better. I recommended she discuss with her PCP all long-term anxiety medication. At this time patient feels ready and able to go. Discharge Plan Departure Patient Disposition: Home Clinical Impression: Anxiety Headache Qualifiers: Headache type: unspecified Headache chronicity pattern: acute headache Intractability: not intractable Qualified Code(s): R51 - Headache Discharge Date/Time: 04/30/19 02:13 Interventions: ED Discharge Assessment Last Done: 04/30/19 02:12 Instructions: DI for Headache Activity Restrictions/Additional Instructions: *You have been diagnosed with migraine and anxiety *What to do: Blood work and CT scan today are reassuring. I recommend he follow up with your PCP in regards to her long-term anxiety medication *Continue to take medications as directed *Follow up with your primary care provider in 2-3 days *Return to ER if you should have any new, worsening or concerning symptoms Prescriptions: No Action cephalexin 500 mg capsule 500 mg PO BID 10 Days Qty: 20 RF: 0 clotrimazole 1 % cream 1 applictn TOP BID 28 Days Qty: 30 RF: 2 ondansetron 4 mg tablet,disintegrating 4 mg PO Q6-8H PRN (Reason: nausea and vomiting) Qty: 10 RF: 0 ketorolac 10 mg tablet 10 mg PO Q6H PRN (Reason: pain) Qty: 14 RF: 0 ondansetron 4 mg tablet,disintegrating 4 mg PO TID-QID PRN (Reason: nausea and vomiting) Qty: 10 RF: 0 lorazepam [Ativan] 1 mg tablet 1 mg PO BID-TID PRN (Reason: anxiety) Qty: 14 RF: 0 tizanidine 4 mg tablet 2 tab PO TID PRN (Reason: Spasms) Qty: 30 RF: 0 propranolol 60 mg capsule,extended release 24 hr 1 cap PO QPM Qty: 7 RF: 0 fluoxetine 20 mg capsule 20 mg PO DAILY Qty: 7 RF: 0 fluoxetine 20 mg capsule 20 mg PO DAILY RF: 0 tramadol 50 mg tablet 1 - 2 tab PO PRN PRN (Reason: pain) RF: 0 hydroxyzine pamoate 25 mg capsule 1 cap PO TID RF: 0 Adrafinil 1 dose PO DIRECTED RF: 0 Excedrin 1 tab PO DAILY RF: 0 Strattera 1 dose PO DIRECTED RF: 0 cranberry 1 tab PO DAILY RF: 0 ondansetron 4 mg tablet,disintegrating 4 mg PO TID-QID PRN (Reason: nausea and vomiting) Qty: 14 RF: 0 sulfamethoxazole-trimethoprim 800-160 mg tablet 1 tab PO BID Qty: 10 RF: 0 propranolol 60 mg capsule,extended release 24 hr 60 mg PO DAILY Qty: 30 RF: 0 lorazepam [Ativan] 1 mg tablet 1 mg PO BID-TID PRN (Reason: anxiety) Qty: 14 RF: 0 tizanidine 4 mg capsule 4 mg PO TID PRN (Reason: muscle spasticity) Qty: 14 RF: 0 ibuprofen 800 mg tablet 800 mg PO Q8H PRN (Reason: pain) Qty: 14 RF: 0 Referrals: Spring Melvin ARNP [Primary Care Provider] -
[2019-04-30 02:12] VITALS: BP 110/67; PULSE 68; RESP 14; TEMP 37.1; O2SAT 100
== END 2019-04-30 02:13 | disposition home or self-care (01) ==
PROVIDERS: Emergency Provider Emergency Medicine; Family Provider Physician Assistant Medical; PCP Nurse Practitioner Family
DX: F41.9 Anxiety disorder, unspecified (principal); R51 Headache; R07.9 Chest pain, unspecified
CPT/HCPCS: 36591; 70450; 71045; 80053; 81003; 81015; 82550; 83690; 84484; 84703; 85025; 93005; 93010; 96374; 96375; 99283; 99285; J1885; J2060; J2405

== ENCOUNTER 2019-05-16 17:33 | Emergency (ER) | payer MEDICARE, SELFPAY ==
[2019-05-16 17:39] VITALS: BP 144/101; PULSE 121; RESP 18; TEMP 36.9; O2SAT 99; BMI 38.7
[2019-05-16 19:55] VITALS: BP 127/89; PULSE 96; RESP 18; O2SAT 98
[2019-05-16 20:52] LABS: Bacteria Urine Occasional (0-1); Culture Indicated Urine Cult Not Indicated; RBC Urine 1-5/HPF (0-5/HPF); Squamous Epithelial Cell Urine 5-10 /HPF (0-5/HPF); Urine Comments CULTURE UPON REQUEST; WBC Urine 1-5/HPF (0-5/HPF)
[2019-05-16 20:53] LABS: Mucus Urine 1+ (Negative)
--- NOTE | 2019-05-16 21:25 | ED_ITS ---
HPI - Headache General Chief Complaint: Headache Stated Complaint: STATES MIGRAINE Time Seen by Provider: 05/16/19 19:27 Source: patient Mode of arrival: ambulatory Limitations: no limitations History of Present Illness HPI Narrative: Patient is a 29-year-old female who presents with migraine headache that started at around noon. She took 2 sumatriptan prior to arrival she said it has not helped. She was nauseous as well. She also had a panic attack she took an Ativan prior to arrival. She has a history of anxiety. The headaches have been fairly new diagnosis for her she had a head CT 04/30/2019. She was here for headache at that time. She has no numbness tingling weakness. She is sensitive to light not to noise. She apparently fell and broke her right femur currently on crutches. Complaint: migraine Onset description: sudden Location: diffuse Severity: similar to previous episodes Related Data Home Medications Medication Instructions Recorded Confirmed fluoxetine 20 mg PO DAILY 02/16/18 04/24/19 Adrafinil 1 dose PO DIRECTED 07/12/18 04/24/19 Excedrin 1 tab PO DAILY 07/12/18 04/24/19 Strattera 1 dose PO DIRECTED 07/12/18 04/24/19 cranberry 1 tab PO DAILY 07/12/18 04/24/19 hydroxyzine pamoate 1 cap PO TID 07/12/18 04/24/19 tramadol 1 - 2 tab PO PRN PRN 07/12/18 04/24/19 Previous Rx's Medication Instructions Recorded ondansetron 4 mg PO TID-QID PRN #14 tab 07/12/18 sulfamethoxazole-trimethoprim 1 tab PO BID #10 tab 07/12/18 ondansetron 4 mg PO Q6-8H PRN #10 tab 07/19/18 ketorolac 10 mg PO Q6H PRN #14 tab 11/11/18 ondansetron 4 mg PO TID-QID PRN #10 tab 11/11/18 lorazepam [Ativan] 1 mg PO BID-TID PRN #14 tab 01/22/19 propranolol 60 mg PO DAILY #30 cap 01/22/19 tizanidine 4 mg PO TID PRN #14 cap 01/22/19 ibuprofen 800 mg PO Q8H PRN #14 tab 02/21/19 lorazepam [Ativan] 1 mg PO BID-TID PRN #14 tab 03/25/19 fluoxetine 20 mg PO DAILY #7 cap 03/30/19 propranolol 1 cap PO QPM #7 cap 03/30/19 tizanidine 2 tab PO TID PRN #30 tab 03/30/19 clotrimazole 1 % topical cream 1 applictn TOP BID 28 Days #30 gram 04/24/19 Allergies Allergy/AdvReac Type Severity Reaction Status Date / Time citalopram Allergy Intermediate Verified 04/24/19 08:58 latex Allergy Mild HIVES Verified 04/24/19 08:58 clindamycin Allergy Unknown RASH Verified 04/24/19 08:58 Review of Systems Review of Systems Narrative: GENERAL: Denies chills, fatigue, malaise, fever, sweats, travel HEENT: Denies sinus pain, ear pain, sore throat, difficulty swallowing, neck pain RESPIRATORY: Denies dyspnea, cough, wheezing, hemoptysis, sputum. CARDIOVASCULAR: Denies chest pain, palpitations, orthopnea, edema GASTROINTESTINAL: Denies nausea, vomiting, abdominal pain, diarrhea, constipation, melena. : Denies dysuria, frequency, incontinence, hematuria, urinary retention, flank pain. MUSCULOSKELETAL: Denies weakness, joint pain, or bony pain SKIN: No rash, no erythema, no pruritus NEUROLOGIC: See HPI PSYCHIATRIC: No concerning psychosocial issues. 12 point review of systems is negative except for those stated above and HPI FOR[facility]LY [facility], [facility] Medical History ADD (attention deficit disorder) (Chronic) Bilateral femoral fractures (Acute) Chronic leg pain (Chronic) 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) Depression (Chronic) Osteopenia (Chronic) Ovarian cyst (Resolved) Pneumomediastinum (Resolved) Tubal ligation status (Resolved) Surgical History History of (Resolved) Status post breast reduction (Resolved) Social History Smoking Status: Current some day smoker Smokeless tobacco user: other alcohol intake: current substance use type: marijuana Social History Smoking Status: Current some day smoker Smokeless tobacco user: other alcohol intake: current substance use type: marijuana Exam Initial Vital Signs Initial Vital Signs: Vital Signs Temperature 98.5 F 05/16/19 17:39 Pulse Rate 121 H 05/16/19 17:39 Respiratory Rate 18 05/16/19 17:39 Blood Pressure 144/101 H 05/16/19 17:39 Pulse Oximetry 99 05/16/19 17:39 GENERAL: Tearful sitting in dark room and in no acute distress. HEENT: Head atraumatic,EOMI, pupils reactive, face symmetric, no meningeal signs CARDIOVASCULAR: Regular rate and rhythm without murmurs, rubs or gallops. RESPIRATORY: Breath sounds equal bilaterally, no wheezes rales or rhonchi. ABDOMEN: Soft, nontender. Normoactive bowel sounds all 4 quadrants. No guarding or rebound. EXTREMITIES: Normal range of motion, no clubbing or edema. Neurovascularly intact NEUROLOGICAL: Alert and oriented x4.Normal gait and speech. Cranial nerves II through XII grossly intact. Medical Planner strength equal bilaterally SKIN: Warm, dry, no laceration, no petechiae, no rashes or lesions. Course Orders Ordered: ED Orders 05/16/19 20:25 Urine Microscopic Stat Discontinued Medications Diphenhydramine HCl (Benadryl) 25 mg IV NOW ONE Stop: 05/16/19 21:26 Last Admin: 05/16/19 21:36 Dose: 25 mg Documented by: SHANE Sodium Chloride (Normal Saline 0.9%) 1,000 mls @ 1,000 mls/hr IV BOLUS ONE Stop: 05/16/19 22:26 Last Infusion: 05/16/19 22:44 Dose: 0 mls/hr Documented by: Admin: 05/16/19 21:36 Dose: 1,000 mls/hr Documented by: SHANE Ketorolac Tromethamine (Toradol) 30 mg IV NOW ONE Stop: 05/16/19 21:26 Last Admin: 05/16/19 21:37 Dose: 30 mg Documented by: SHANE Prochlorperazine (Compazine) 10 mg IV NOW ONE Stop: 05/16/19 21:26 Last Admin: 05/16/19 21:39 Dose: 10 mg Documented by: SHANE Vital Signs Vital signs: Vital Signs - 8 hr 05/16/19 19:55 05/16/19 21:42 Pulse Rate 96 H 88 Respiratory Rate 18 18 Blood Pressure [Right Arm] 127/89 123/83 Pulse Oximetry 98 98 MDM - Headache Lab Data Labs: Lab Results 05/16/19 Range/Units 20:25 Urine RBC 1-5/hpf (0-5/HPF) Urine WBC 1-5/hpf (0-5/HPF) Ur Squamous Epith Cells 5-10 /hpf H (0-5/HPF) Urine Bacteria Occasional (0-1) (None) Urine Mucus 1+ H (Negative) Ur Culture Indicated? Cult not indicated Micro UA Comment Culture upon request Urine Dip Bedside Urine Glucose Negative Bedside Urine Bilirubin + 1 Bedside Urine Ketone +++ 80 Urine Specific [place] 1.030 Bedside Urine Occult Blood +++ Bedside Urine pH 6.0 Bedside Urine Protein + 30 Bedside Urine Urobilinogen +/- 1mg Bedside Urine Nitrite - Negative Bedside Urine Leukocytes + 70 Esterase MDM Narrative Medical decision making narrative: The patient overall is feeling much better After medication. She has no focal deficits history of migraines previously had head CT. This time I see no need for any further imaging. I did recommend that she have follow-up with Neurology if she is having worsening intensity of headaches or more frequent headaches. She feels like she is ready able to go home. Discharge Plan Departure Patient Disposition: Home Clinical Impression: Migraine Qualifiers: Migraine type: other Status migrainosus presence: without status migrainosus Intractability: not intractable Qualified Code(s): G43.809 - Other migraine, not intractable, without status migrainosus Discharge Date/Time: 05/16/19 22:54 Instructions: DI for Migraine Activity Restrictions/Additional Instructions: *You have been diagnosed with migraine headache *What to do: You may need to see a neurologist for migraine headache control. Please have your PCP refer one if headaches are increasing in frequency or inte nsity *Continue to take medications as directed *Follow up with your primary care provider in 2-3 days *Return to ER if you should have worsening headache weakness visual changes persistent vomiting or any new, worsening or concerning symptoms Prescriptions: No Action clotrimazole 1 % cream 1 applictn TOP BID 28 Days Qty: 30 RF: 2 ondansetron 4 mg tablet,disintegrating 4 mg PO Q6-8H PRN (Reason: nausea and vomiting) Qty: 10 RF: 0 ketorolac 10 mg tablet 10 mg PO Q6H PRN (Reason: pain) Qty: 14 RF: 0 ondansetron 4 mg tablet,disintegrating 4 mg PO TID-QID PRN (Reason: nausea and vomiting) Qty: 10 RF: 0 lorazepam [Ativan] 1 mg tablet 1 mg PO BID-TID PRN (Reason: anxiety) Qty: 14 RF: 0 tizanidine 4 mg tablet 2 tab PO TID PRN (Reason: Spasms) Qty: 30 RF: 0 propranolol 60 mg capsule,extended release 24 hr 1 cap PO QPM Qty: 7 RF: 0 fluoxetine 20 mg capsule 20 mg PO DAILY Qty: 7 RF: 0 fluoxetine 20 mg capsule 20 mg PO DAILY RF: 0 tramadol 50 mg tablet 1 - 2 tab PO PRN PRN (Reason: pain) RF: 0 hydroxyzine pamoate 25 mg capsule 1 cap PO TID RF: 0 Adrafinil 1 dose PO DIRECTED RF: 0 Excedrin 1 tab PO DAILY RF: 0 Strattera 1 dose PO DIRECTED RF: 0 cranberry 1 tab PO DAILY RF: 0 ondansetron 4 mg tablet,disintegrating 4 mg PO TID-QID PRN (Reason: nausea and vomiting) Qty: 14 RF: 0 sulfamethoxazole-trimethoprim 800-160 mg tablet 1 tab PO BID Qty: 10 RF: 0 propranolol 60 mg capsule,extended release 24 hr 60 mg PO DAILY Qty: 30 RF: 0 lorazepam [Ativan] 1 mg tablet 1 mg PO BID-TID PRN (Reason: anxiety) Qty: 14 RF: 0 tizanidine 4 mg capsule 4 mg PO TID PRN (Reason: muscle spasticity) Qty: 14 RF: 0 ibuprofen 800 mg tablet 800 mg PO Q8H PRN (Reason: pain) Qty: 14 RF: 0 Referrals: Spring Melvin ARNP [Primary Care Provider] -
[2019-05-16] MEDS: diphenhydrAMINE 50 MG/ML VIAL 25 MG IV (21:36)
[2019-05-16] MEDS: SODIUM CHLORIDE 0.9% 1,000 ML 1000 ML IV (21:36)
[2019-05-16] MEDS: KETOROLAC 60 MG/2 ML VIAL 30 MG IV (21:37)
[2019-05-16] MEDS: PROCHLORPERAZINE 10 MG/2 ML VIAL IV (21:39)
[2019-05-16 21:42] VITALS: BP 123/83; PULSE 88; RESP 18; O2SAT 98
== END 2019-05-16 22:54 | disposition home or self-care (01) ==
PROVIDERS: Emergency Provider Emergency Medicine; Family Provider Physician Assistant Medical; PCP Nurse Practitioner Family
DX: G43.809 Other migraine, not intractable, without status migrainosus (principal)
CPT/HCPCS: 81003; 81015; 96361; 96374; 96375; 99283; 99284; J0780; J1200; J1885

== ENCOUNTER 2019-05-28 23:56 | Emergency (ER) | payer MEDICARE, SELFPAY ==
[2019-05-28 23:25] VITALS: BP 134/77; PULSE 121; RESP 24; TEMP 37.1; O2SAT 99
--- NOTE | 2019-05-28 23:27 | DI.RAD.S_ITS ---
PROCEDURE: XR CHEST 1V INDICATIONS: chest pain TECHNIQUE: One view of the chest was acquired. COMPARISON: [facility], CR, XR CHEST 1V, 04/29/2019, 22:35. FINDINGS: Surgical changes and devices: None. Lungs and pleura: Lungs are clear. No pleural effusions or pneumothorax. Mediastinum: Mediastinal contours appear normal. Heart size is normal. Bones and chest wall: No suspicious bony lesions. Overlying soft tissues appear unremarkable. IMPRESSION: No acute cardiopulmonary disease process. Dictated by: Jen Briceno MD, PhD on 05/29/2019 at 8:58 Approved by: Jen Briceno MD, PhD on 05/29/2019 at 8:59
[2019-05-28 23:41] LABS: Add Manual Diff / Slide Review NO; Basophils Absolute Auto 100 /uL (0-100); Basophils Percent Auto 0.8 % (0-2); Eosinophils Absolute Auto 0 /uL (0-450); Eosinophils Percent Auto 0.2 % (2-4); Hematocrit 43.5 % (36-46); Hemoglobin 14.4 g/dL (12.0-16.0); Lymphocytes Absolute Auto 2800 /uL (1100-4500); Lymphocytes Percent Auto 24.4 % (25-40); Mean Corpuscular HGB Conc 33.2 % (30-36); Mean Corpuscular Volume 87.2 fL (80-100); Monocytes Absolute Auto 900 /uL (0-900); Neutrophils Absolute Auto 7600 /uL (1500-7000); Neutrophils Percent Auto 66.6 % (50-75); Platelet Count 453 X10^3/uL (150-400); Red Blood Cell Count 4.98 X10^6/uL (4.0-5.2); Red Cell Distribution Width 14.2 % (11.6-14.8); White Blood Cell Count 11.4 X10^3/uL (4.5-11.0)
[2019-05-28 23:51] LABS: Alanine Aminotransferase 48 IU/L (9-52); Albumin 4.4 g/dL (3.5-5.0); Albumin Globulin Ratio 1.1 (1.0-2.8); Alkaline Phosphatase 115 U/L (38-126); Aspartate Aminotransferase 36 IU/L (14-36); BUN Creatinine Ratio 15.7 (6-22); Bilirubin Total 0.4 mg/dL (0.2-1.3); Blood Urea Nitrogen 11 mg/dL (7-17); Calcium 9.3 mg/dL (8.4-10.2); Carbon Dioxide 26 mmol/L (22-32); Chloride 104 mmol/L (98-107); Estimated Glomerular Filt Rate > 60.0 mL/min (>60); Globulin 3.9 g/dL (1.7-4.1); Glucose 119 mg/dL (70-100); HEMOLYSIS < 15 (0-50); Potassium 3.6 mmol/L (3.4-5.1); Sodium 140 mmol/L (137-145); Total Protein 8.3 g/dL (6.3-8.2)
[2019-05-28] MEDS: ONDANSETRON 4 MG/2 ML INJ IV (23:59)
[2019-05-29 00:03] LABS: Troponin I < 0.012 ng/mL (0.01-0.034)
[2019-05-29 01:03] LABS: Calcium Oxalate Crystals Urine Few; RBC Urine 1-5/HPF (0-5/HPF); Squamous Epithelial Cell Urine >30 /HPF (0-5/HPF); WBC Urine 1-5/HPF (0-5/HPF)
[2019-05-29 01:04] LABS: Bacteria Urine Moderate (10-30); Culture Indicated Urine Cult Not Indicated; Mucus Urine 1+ (Negative)
--- NOTE | 2019-05-29 01:46 | ED_ITS ---
HPI - Anxiety General Chief Complaint: Anxiety Stated Complaint: Anxiety attack Time Seen by Provider: 05/29/19 01:42 Source: patient Mode of arrival: ambulatory Limitations: no limitations History of Present Illness HPI narrative: This is a 29-year-old female comes in with complaint of anxiety attack. Patient states that she starts to hyperventilate, she feels like she is short of breath. She states she has tried multiple things today to help including marijuana, aspirin and Tylenol. She states she felt shaky, nauseated and that her heart rate was very fast. Patient states she has had chronic issues with anxiety and is on venlafaxine she denies any benzodiazepines currently and states that she used to take some but she is ?taking a break? with her provider. She denies any other past medical history, she states she has had C-sections in the past. She denies tobacco, occasional alcohol but denies any recently. Denies any other drugs besides THC. Related Data Home Medications Medication Instructions Recorded Confirmed fluoxetine 20 mg PO DAILY 02/16/18 04/24/19 Adrafinil 1 dose PO DIRECTED 07/12/18 04/24/19 Excedrin 1 tab PO DAILY 07/12/18 04/24/19 Strattera 1 dose PO DIRECTED 07/12/18 04/24/19 cranberry 1 tab PO DAILY 07/12/18 04/24/19 hydroxyzine pamoate 1 cap PO TID 07/12/18 04/24/19 tramadol 1 - 2 tab PO PRN PRN 07/12/18 04/24/19 Previous Rx's Medication Instructions Recorded ondansetron 4 mg PO TID-QID PRN #14 tab 07/12/18 sulfamethoxazole-trimethoprim 1 tab PO BID #10 tab 07/12/18 ondansetron 4 mg PO Q6-8H PRN #10 tab 07/19/18 ketorolac 10 mg PO Q6H PRN #14 tab 11/11/18 ondansetron 4 mg PO TID-QID PRN #10 tab 11/11/18 lorazepam [Ativan] 1 mg PO BID-TID PRN #14 tab 01/22/19 propranolol 60 mg PO DAILY #30 cap 01/22/19 tizanidine 4 mg PO TID PRN #14 cap 01/22/19 ibuprofen 800 mg PO Q8H PRN #14 tab 02/21/19 lorazepam [Ativan] 1 mg PO BID-TID PRN #14 tab 03/25/19 fluoxetine 20 mg PO DAILY #7 cap 03/30/19 propranolol 1 cap PO QPM #7 cap 03/30/19 tizanidine 2 tab PO TID PRN #30 tab 03/30/19 clotrimazole 1 % topical cream 1 applictn TOP BID 28 Days #30 gram 04/24/19 cephalexin [Keflex] 500 mg PO BID #6 cap 05/29/19 Allergies Allergy/AdvReac Type Severity Reaction Status Date / Time citalopram Allergy Intermediate Verified 04/24/19 08:58 latex Allergy Mild HIVES Verified 04/24/19 08:58 clindamycin Allergy Unknown RASH Verified 04/24/19 08:58 Review of Systems Review of Systems ROS Unobtainable: All systems reviewed & are unremarkable except as noted in HPI and below Constitutional Constitutional: Denies chills, Reports excessive sweating, Denies fever(s), Denies lethargy and Denies weakness Cardiovascular Cardiovascular: Reports chest pain, Denies syncope, Reports rapid heart rate, Denies irregular heart rhythm, Denies leg edema, Denies lightheadedness, Denies radiating jaw, neck or arm pain, Reports palpitations, Reports dyspnea and Denies orthopnea Respiratory Respiratory: Denies change in phlegm color, Denies chest congestion, Denies cough, Reports dyspnea and Denies wheezing Gastrointestinal Gastrointestinal: Denies abdominal pain, Denies change in bowel habits, Denies diarrhea, Reports nausea and Denies vomiting Genitourinary Genitourinary: Denies abnormal menses, Denies abnormal vaginal bleeding (patient is not currently on her menstrual cycle), Denies hematuria, Reports urinary frequency, Denies dysuria, Denies flank pain, Denies urinary incontinence, Denies urinary hesitancy and Denies urinary urgency Integumentary/Breasts Skin/Breast: Denies rash Neurologic Neurologic: Denies syncope and Denies weakness Psychiatric Psychiatric: Reports anxiety Endocrine Endocrine: Reports excessive sweating and Reports palpitations Allergic/Immunologic Allergic/Immunologic: Denies wheezing PFSH Medical History ADD (attention deficit disorder) (Chronic) Bilateral femoral fractures (Acute) Chronic leg pain (Chronic) 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) Depression (Chronic) Osteopenia (Chronic) Ovarian cyst (Resolved) Pneumomediastinum (Resolved) Tubal ligation status (Resolved) Surgical History History of (Resolved) Status post breast reduction (Resolved) Social History Smoking Status: Current some day smoker Smokeless tobacco user: other alcohol intake: current substance use type: marijuana Social History Smoking Status: Current some day smoker Smokeless tobacco user: other alcohol intake: current substance use type: marijuana Exam Narrative Exam Narrative: GENERAL: Alert and oriented x three, obese, well-appearing female. Patient was initially asleep when I walked into the room, she awakened after several tries verbally appears in no acute distress. HEENT: Head normocephalic, atraumatic, EOMI, pupils reactive, face symmetric, moist mucous membranes NECK: Supple, full range of motion CARDIOVASCULAR: Regular rate and rhythm without murmurs, rubs or gallops. RESPIRATORY: Breath sounds equal bilaterally, no wheezes rales or rhonchi. No tachypnea or accessory muscle use. ABDOMEN: Soft, nontender. Normoactive bowel sounds all 4 quadrants. No guarding or rebound, rigidity, no mass : No CVA tenderness EXTREMITIES: Normal range of motion. NEUROLOGICAL: Cranial nerves II through XII grossly intact. Moving all extremities SKIN: Warm, dry, no petechiae, no rashes or lesions. PSYCH: anxiety Initial Vital Signs Initial Vital Signs: Vital Signs Temperature 98.8 F 05/28/19 23:25 Pulse Rate 121 H 05/28/19 23:25 Respiratory Rate 24 05/28/19 23:25 Blood Pressure 134/77 05/28/19 23:25 Pulse Oximetry 99 05/28/19 23:25 Scores HEART Score Heart Score history: Slightly Suspicious Heart Score EKG: Non-Specific repolarization disturbance Heart Score Age: < 45 years old Heart Score risk factors: No known risk factors Heart Score troponin: < or = to normal limit Heart Score Total: 1 Course Orders Ordered: ED Orders 05/28/19 23:27 XR chest 1V Stat EKG-12 Lead Stat 05/28/19 23:30 Complete Blood Count AUTO DIFF Stat Comprehensive Metabolic Panel Stat Troponin I Stat 05/29/19 00:57 Urine Microscopic Stat 05/29/19 01:05 Urine Microscopic Stat Discontinued Medications Cefazolin Sodium (Keflex 250 Mg Prepack) 1 bottle MISC SEEINSTR ONE Stop: 05/29/19 02:00 Last Admin: 05/29/19 02:25 Dose: 1 bottle Documented by: BETH Lorazepam (Ativan) 0.5 mg PO NOW ONE Stop: 05/29/19 02:00 Last Admin: 05/29/19 02:25 Dose: 0.5 mg Documented by: BETH Ondansetron HCl (Zofran) 4 mg IV NOW ONE Stop: 05/28/19 23:54 Last Admin: 05/28/19 23:59 Dose: 4 mg Documented by: CATHERINE Ondansetron HCl (Zofran Odt Prepack) 1 bottle MISC SEEINSTR ONE Stop: 05/29/19 02:28 Last Admin: 05/29/19 02:38 Dose: 1 bottle Documented by: BETH Vital Signs Vital signs: Vital Signs - 8 hr 05/28/19 23:25 05/29/19 02:04 Temperature 98.8 F Pulse Rate 121 H 90 Respiratory Rate 24 Blood Pressure 134/77 Blood Pressure [Left Arm] 124/89 Pulse Oximetry 99 96 MDM - Anxiety Lab Data Attestation: I reviewed the patient's lab results. Result diagrams: 05/28/19 23:30 05/28/19 23:30 Labs: Lab Results 05/28/19 05/28/19 05/29/19 Range/Units 23:30 23:30 00:57 WBC 11.4 H (4.5-11.0) X10^3/uL RBC 4.98 (4.0-5.2) X10^6/uL Hgb 14.4 (12.0-16.0) g/dL Hct 43.5 (36-46) % MCV 87.2 (80-100) fL MCH 29.0 (26-34) PG MCHC 33.2 (30-36) % RDW 14.2 (11.6-14.8) % Plt Count 453 H (150-400) X10^3/uL Neut % (Auto) 66.6 (50-75) % Lymph % (Auto) 24.4 L (25-40) % [place] % (Auto) 8.0 (3-14) % Eos % (Auto) 0.2 L (2-4) % Baso % (Auto) 0.8 (0-2) % Neut # (Auto) 7600 H (9424-9100) /uL Lymph # (Auto) 2800 (2081-2239) /uL [place] # (Auto) 900 (0-900) /uL Eos # (Auto) 0 (0-450) /uL Baso # (Auto) 100 (0-100) /uL Sodium 140 (137-145) mmol/L Potassium 3.6 (3.4-5.1) mmol/L Chloride 104 (98-107) mmol/L Carbon Dioxide 26 (22-32) mmol/L BUN 11 (7-17) mg/dL Creatinine 0.70 (0.52-1.04) mg/dL Estimated GFR > 60.0 (>60) mL/min BUN/Creatinine Ratio 15.7 (6-22) Glucose 119 H (70-100) mg/dL Calcium 9.3 (8.4-10.2) mg/dL Total Bilirubin 0.4 (0.2-1.3) mg/dL AST 36 (14-36) IU/L ALT 48 (9-52) IU/L Alkaline Phosphatase 115 (38-126) U/L Troponin I < 0.012 (0.01-0.034) ng/mL Total Protein 8.3 H (6.3-8.2) g/dL Albumin 4.4 (3.5-5.0) g/dL Globulin 3.9 (1.7-4.1) g/dL Albumin/Globulin Ratio 1.1 (1.0-2.8) Urine RBC 1-5/hpf (0-5/HPF) Urine WBC 1-5/hpf (0-5/HPF) Ur Squamous Epith Cells >30 /hpf H (0-5/HPF) Calcium Oxalate Crystal Few H Urine Bacteria Moderate (10-30) H (None) Urine Mucus 1+ H (Negative) Ur Culture Indicated? Cult not indicated Point of Care Testing Test Results Negative Urine Dip Bedside Urine Glucose Negative Bedside Urine Bilirubin + 1 Bedside Urine Ketone + 15 Urine Specific [place] 1.030 Bedside Urine Occult Blood +++ Bedside Urine pH 6.0 Bedside Urine Protein + 30 Bedside Urine Urobilinogen +/- 1mg Bedside Urine Nitrite - Negative Bedside Urine Leukocytes +/- 15 Esterase Imaging Data Chest x-ray: My impression: nap ECG Data Attestation: I personally reviewed and interpreted this ECG as follows: Interpretation: Sinus tachycardia rate of 102, P are 140 QRS of 90 QTC of 415. No ST elevation or depression appreciated. Patient has Q-waves in 3 and AVF. Patient's EKG from 04/29/2019 appears similar MDM Narrative Medical decision making narrative: Patient complains of anxiety attack, her labs show a sinus tachycardia that has resolved while she is in the department. She was sleeping when I came into the room, lab work does not show any major lab abnormality, other than urine showing occult blood, leukocyte esterase, and occult blood. Patient has had frequency and discussed she may have UTI and started on abx in department. [facility] report shows patient had Lorazepam filled 05/04/19 #60. Patient's troponin is negative, CMP is normal range, with CBC showing slightly elevated wbc, no anemia, and platelets are 453. Discharge Plan Departure Patient Disposition: Home Clinical Impression: Anxiety, UTI (urinary tract infection) Discharge Date/Time: 05/29/19 02:40 Instructions: DI for Anxiety -- Adult Activity Restrictions/Additional Instructions: Follow-up with your physician in the next several days for recheck. Your urine has been sent for urine culture, this will take 48-72 hours to result. Take antibiotics until gone. Your prescription was changed to [facility] in [place] Continue your home medications as prescribed. Return to the emergency department for fevers greater than 100.4 F, persistent vomiting, lightheadedness, passing out, new flank pain, abdominal pain, new chest pain or shortness of breath or other new or concerning symptoms. Prescriptions: New cephalexin [Keflex] 500 mg capsule 500 mg PO BID Qty: 6 RF: 0 No Action clotrimazole 1 % cream 1 applictn TOP BID 28 Days Qty: 30 RF: 2 ondansetron 4 mg tablet,disintegrating 4 mg PO Q6-8H PRN (Reason: nausea and vomiting) Qty: 10 RF: 0 ketorolac 10 mg tablet 10 mg PO Q6H PRN (Reason: pain) Qty: 14 RF: 0 ondansetron 4 mg tablet,disintegrating 4 mg PO TID-QID PRN (Reason: nausea and vomiting) Qty: 10 RF: 0 lorazepam [Ativan] 1 mg tablet 1 mg PO BID-TID PRN (Reason: anxiety) Qty: 14 RF: 0 tizanidine 4 mg tablet 2 tab PO TID PRN (Reason: Spasms) Qty: 30 RF: 0 propranolol 60 mg capsule,extended release 24 hr 1 cap PO QPM Qty: 7 RF: 0 fluoxetine 20 mg capsule 20 mg PO DAILY Qty: 7 RF: 0 fluoxetine 20 mg capsule 20 mg PO DAILY RF: 0 tramadol 50 mg tablet 1 - 2 tab PO PRN PRN (Reason: pain) RF: 0 hydroxyzine pamoate 25 mg capsule 1 cap PO TID RF: 0 Adrafinil 1 dose PO DIRECTED RF: 0 Excedrin 1 tab PO DAILY RF: 0 Strattera 1 dose PO DIRECTED RF: 0 cranberry 1 tab PO DAILY RF: 0 ondansetron 4 mg tablet,disintegrating 4 mg PO TID-QID PRN (Reason: nausea and vomiting) Qty: 14 RF: 0 sulfamethoxazole-trimethoprim 800-160 mg tablet 1 tab PO BID Qty: 10 RF: 0 propranolol 60 mg capsule,extended release 24 hr 60 mg PO DAILY Qty: 30 RF: 0 lorazepam [Ativan] 1 mg tablet 1 mg PO BID-TID PRN (Reason: anxiety) Qty: 14 RF: 0 tizanidine 4 mg capsule 4 mg PO TID PRN (Reason: muscle spasticity) Qty: 14 RF: 0 ibuprofen 800 mg tablet 800 mg PO Q8H PRN (Reason: pain) Qty: 14 RF: 0 Referrals: Spring Melvin ARNP [Primary Care Provider] -
[2019-05-29 02:04] VITALS: BP 124/89; PULSE 90; O2SAT 96
[2019-05-29] MEDS: LORazepam 0.5 MG TABLET PO (02:25)
[2019-05-29] MEDS: cephALEXin 250 MG PREPACK 1 BOTTLE MISC (02:25)
[2019-05-29] MEDS: ONDANSETRON 4 MG ODT PREPACK 1 BOTTLE MISC (02:38)
[2019-05-29 02:48] VITALS: BP 121/87; PULSE 93; RESP 18; O2SAT 98
== END 2019-05-29 02:40 | disposition home or self-care (01) ==
PROVIDERS: Emergency Provider Emergency Medicine; PCP Nurse Practitioner Family
DX: F41.9 Anxiety disorder, unspecified (principal); N39.0 Urinary tract infection, site not specified; R07.9 Chest pain, unspecified
CPT/HCPCS: 36591; 71045; 80053; 81003; 81015; 81025; 84484; 85025; 93005; 93010; 96374; 99282; 99285; J2405

== ENCOUNTER → 2019-06-26 19:14 | Outpatient (CLI) | payer MEDICARE, SELFPAY | PROVIDERS: PCP Nurse Practitioner Family; Visit Provider Nurse Practitioner | DX: N89.8 Other specified noninflammatory disorders of vagina (principal); R10.9 Unspecified abdominal pain; N39.0 Urinary tract infection, site not specified | CPT/HCPCS: 87086; 87210 ==

== ENCOUNTER 2019-08-25 20:48 | Emergency (ER) | payer MEDICARE, SELFPAY ==
[2019-08-25 21:07] VITALS: BP 165/95; PULSE 120; RESP 20; TEMP 37.7; O2SAT 98
[2019-08-25 22:07] VITALS: BP 130/90; PULSE 109; RESP 18; O2SAT 100
--- NOTE | 2019-08-25 23:52 | ED_ITS ---
HPI - Dental/Oral General Chief complaint: Dental/Oral Stated complaint: states severe tooth ache Time Seen by Provider: 08/25/19 23:21 Source: patient Mode of arrival: Ambulatory Limitations: no limitations History of Present Illness HPI Narrative: This is a 29-year-old female comes in with complaint of severe toothache on the bottom right jaw on the lower side. Patient states it started several days ago it has been increasingly painful. She has had some swelling. She feels like she has a little bit of swelling in the face. She feels like she has had some subjective fevers. She denies any swelling of her throat, tongue or airway. She has had dental infections in the past. She states she was given Keflex in the past with minimal improvement. She does not have a dentist but states she has unsure and again follow up. Teeth map: 1. Related Data Home Medications Medication Instructions Recorded Confirmed fluoxetine 20 mg PO DAILY 02/16/18 06/26/19 Adrafinil 1 dose PO DIRECTED 07/12/18 06/26/19 Excedrin 1 tab PO DAILY 07/12/18 06/26/19 Strattera 1 dose PO DIRECTED 07/12/18 06/26/19 cranberry 1 tab PO DAILY 07/12/18 06/26/19 hydroxyzine pamoate 1 cap PO TID 07/12/18 06/26/19 tramadol 1 - 2 tab PO PRN PRN 07/12/18 06/26/19 Previous Rx's Medication Instructions Recorded ondansetron 4 mg PO TID-QID PRN #14 tab 07/12/18 sulfamethoxazole-trimethoprim 1 tab PO BID #10 tab 07/12/18 ondansetron 4 mg PO Q6-8H PRN #10 tab 07/19/18 ketorolac 10 mg PO Q6H PRN #14 tab 11/11/18 ondansetron 4 mg PO TID-QID PRN #10 tab 11/11/18 lorazepam [Ativan] 1 mg PO BID-TID PRN #14 tab 01/22/19 propranolol 60 mg PO DAILY #30 cap 01/22/19 tizanidine 4 mg PO TID PRN #14 cap 01/22/19 ibuprofen 800 mg PO Q8H PRN #14 tab 02/21/19 lorazepam [Ativan] 1 mg PO BID-TID PRN #14 tab 03/25/19 fluoxetine 20 mg PO DAILY #7 cap 03/30/19 propranolol 1 cap PO QPM #7 cap 03/30/19 tizanidine 2 tab PO TID PRN #30 tab 03/30/19 penicillin V potassium 500 mg PO QID #40 tab 08/25/19 Allergies Allergy/AdvReac Type Severity Reaction Status Date / Time citalopram Allergy Intermediate Verified 06/26/19 20:17 latex Allergy Mild HIVES Verified 06/26/19 20:17 clindamycin Allergy Unknown RASH Verified 06/26/19 20:17 Review of Systems Review of Systems ROS Unobtainable: All systems reviewed & are unremarkable except as noted in HPI and below Patient History Medical History ADD (attention deficit disorder) (Chronic) Bilateral femoral fractures (Acute) Chronic leg pain (Chronic) 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) Depression (Chronic) Osteopenia (Chronic) Ovarian cyst (Resolved) Pneumomediastinum (Resolved) Surgical History History of (Resolved) Status post breast reduction (Resolved) Tubal ligation status (Resolved) Social History Smoking Status: Current some day smoker Smokeless tobacco user: other alcohol intake: current substance use type: marijuana Smoking Status: Current some day smoker alcohol intake frequency: 0-2 drinks per day Substance Use Type: marijuana Exam Narrative Exam Narrative: GEN: well nourished, well appearing female, alert and oriented x 3, patient appears to be in mild distress. HEENT: Atraumatic, pupils are equal round reactive to light, extraocular movements are intact, nares are clear, TMs are clear with no fluid, there is no conjunctival pallor. Throat is clear without any exudates, erythema, tonsillar enlargement or uvular deviation, patient has multiple dental caries at tooth 32 there does appear to be a tooth present it is above the gumline but has significant caries. There is a bit of swelling erythema. No fluctuance with palpation. No palpable or appreciable swelling or fluctuance on the outside face. No erythema noted. HEART: Regular rate and rhythm without murmur, clicks, rubs. LUNGS:Lungs clear to auscultation, no wheezes, rales, crackles, chest moves symmetrically ABD:bowel sounds normal, soft, non-tender, no guarding, rebound, rigidity, no masses noted, no hepatosplenomegaly :No CVA tenderness MSCL: Patient is seated in chair. She has crutches but no other orthopedic devices. NEURO:CN 2-12 intact, sensation normal Initial Vital Signs Initial Vital Signs: Vital Signs Temperature 99.9 F H 08/25/19 21:07 Pulse Rate 120 H 08/25/19 21:07 Respiratory Rate 20 08/25/19 21:07 Blood Pressure 165/95 H 08/25/19 21:07 Pulse Oximetry 98 08/25/19 21:07 Course Orders Ordered: Discontinued Medications Ketorolac Tromethamine (Toradol) 30 mg IM NOW ONE Stop: 08/25/19 23:57 Last Admin: 08/26/19 00:07 Dose: 30 mg Documented by: SHANE Penicillin V Potassium (Penicillin Vk 250mg Tab Prepack) 1 bottle MISC SEEINSTR ONE Stop: 08/25/19 23:57 Last Admin: 08/26/19 00:07 Dose: 1 bottle Documented by: SHANE Vital Signs Vital signs: Vital Signs - 8 hr 08/25/19 22:07 08/26/19 00:17 Pulse Rate 109 H 94 H Respiratory Rate 18 17 Blood Pressure [Right Arm] 130/90 140/98 H Pulse Oximetry 100 98 Discharge Plan Departure Patient Disposition: Home Clinical Impression: Dental abscess Discharge Date/Time: 08/26/19 00:15 Instructions: Tooth Abscess Activity Restrictions/Additional Instructions: Follow-up with dentist in the next week. Call for an appointment. You may continue ibuprofen up to 800 mg every 8 hours and/or Tylenol up to a 1000 mg every 8 hours as needed for pain. You may also use or gel topically to the affected area 4 times daily. Take antibiotics until they are completely gone. Return to the emergency department for persistent fevers, increasing facial swelling, swelling of the tongue, throat, hoarseness or muffled voice, redness o f the face or skin or other new or concerning symptoms. Prescriptions: New penicillin V potassium 500 mg tablet 500 mg PO QID Qty: 40 RF: 0 No Action ondansetron 4 mg tablet,disintegrating 4 mg PO Q6-8H PRN (Reason: nausea and vomiting) Qty: 10 RF: 0 ketorolac 10 mg tablet 10 mg PO Q6H PRN (Reason: pain) Qty: 14 RF: 0 ondansetron 4 mg tablet,disintegrating 4 mg PO TID-QID PRN (Reason: nausea and vomiting) Qty: 10 RF: 0 lorazepam [Ativan] 1 mg tablet 1 mg PO BID-TID PRN (Reason: anxiety) Qty: 14 RF: 0 tizanidine 4 mg tablet 2 tab PO TID PRN (Reason: Spasms) Qty: 30 RF: 0 propranolol 60 mg capsule,extended release 24 hr 1 cap PO QPM Qty: 7 RF: 0 fluoxetine 20 mg capsule 20 mg PO DAILY Qty: 7 RF: 0 fluoxetine 20 mg capsule 20 mg PO DAILY RF: 0 tramadol 50 mg tablet 1 - 2 tab PO PRN PRN (Reason: pain) RF: 0 hydroxyzine pamoate 25 mg capsule 1 cap PO TID RF: 0 Adrafinil 1 dose PO DIRECTED RF: 0 Excedrin 1 tab PO DAILY RF: 0 Strattera 1 dose PO DIRECTED RF: 0 cranberry 1 tab PO DAILY RF: 0 ondansetron 4 mg tablet,disintegrating 4 mg PO TID-QID PRN (Reason: nausea and vomiting) Qty: 14 RF: 0 sulfamethoxazole-trimethoprim 800-160 mg tablet 1 tab PO BID Qty: 10 RF: 0 propranolol 60 mg capsule,extended release 24 hr 60 mg PO DAILY Qty: 30 RF: 0 lorazepam [Ativan] 1 mg tablet 1 mg PO BID-TID PRN (Reason: anxiety) Qty: 14 RF: 0 tizanidine 4 mg capsule 4 mg PO TID PRN (Reason: muscle spasticity) Qty: 14 RF: 0 ibuprofen 800 mg tablet 800 mg PO Q8H PRN (Reason: pain) Qty: 14 RF: 0 Referrals: Spring Melvin ARNP [Primary Care Provider] -
[2019-08-26] MEDS: KETOROLAC 60 MG/2 ML VIAL 30 MG IM (00:07)
[2019-08-26] MEDS: PENICILLIN 250 MG TAB PREPACK 1 BOTTLE MISC (00:07)
[2019-08-26 00:17] VITALS: BP 140/98; PULSE 94; RESP 17; O2SAT 98
== END 2019-08-26 00:15 | disposition home or self-care (01) ==
PROVIDERS: Emergency Provider Emergency Medicine; PCP Nurse Practitioner Family
DX: K04.7 Periapical abscess without sinus (principal)
CPT/HCPCS: 96372; 99282; 99283; J1885

== ENCOUNTER → 2019-10-12 11:33 | Outpatient (CLI) | payer MEDICARE, MEDICAID, SELFPAY ==
--- NOTE | 2019-10-12 | DI.NM.S_ITS ---
PROCEDURE: NM BONE 3 PHASE RADIOPHARMACEUTICAL: 21.2 mCi Tc-99m MDP IV. INDICATIONS: Closed fx of neck right femur TECHNIQUE: Multiple bone scintigrams were obtained after intravenous injection of Tc-99m MDP, including flow, blood pool, and delayed images centered to the region of interest. COMPARISON: [facility], CT, CT ABDOMEN PELVIS W CON, 11/11/2018, 1:48. FINDINGS: There is deformity of the right femoral head and neck as seen on prior CT dated 11/11/18. There is periprosthetic tracer uptake seen on the delayed phase images only. No definite blood pool or immediate tracer activity is seen in this region. Urinary contamination physiologic tracer activity seen in the bladder. Photopenic defect involving the proximal left femur related to internal fixation hardware. IMPRESSION: No definite triple phase positive appearance to suggest hardware loosening or failure. Of note, corroborative radiographs would be helpful given the absence of any recent prior radiographs. Dictated by: Garrick Danielson M.D. on 10/12/2019 at 17:19 Approved by: Garrick Danielson M.D. on 10/12/2019 at 17:23
== END ==
PROVIDERS: PCP Nurse Practitioner Family; Visit Provider Orthopaedic Surgery
DX: S72.001G Fracture of unspecified part of neck of right femur, subsequent encounter for closed fracture with delayed healing (principal); S72.05 Unspecified fracture of head of femur; X58.XXXD Exposure to other specified factors, subsequent encounter
CPT/HCPCS: 78315; A9503

== ENCOUNTER 2019-10-17 14:12 | Emergency (ER) | payer MEDICARE, MEDICAID, SELFPAY ==
[2019-10-17 14:37] VITALS: BP 130/89; PULSE 72; RESP 18; TEMP 36.6; O2SAT 100
--- NOTE | 2019-10-17 21:26 | ED.FEMALEGU ---
HPI - Female Genitourinary General Chief complaint: Urogenital-Female Stated complaint: severe menstrual cramping clot a size of a $1 bill Source: patient Mode of arrival: Ambulatory Limitations: no limitations History of Present Illness HPI Narrative: The patient left without being seen. She was not interviewed evaluated or examined by me Related Data Home Medications Medication Instructions Recorded Confirmed fluoxetine 20 mg PO DAILY 02/16/18 06/26/19 Adrafinil 1 dose PO DIRECTED 07/12/18 06/26/19 Excedrin 1 tab PO DAILY 07/12/18 06/26/19 Strattera 1 dose PO DIRECTED 07/12/18 06/26/19 cranberry 1 tab PO DAILY 07/12/18 06/26/19 hydroxyzine pamoate 1 cap PO TID 07/12/18 06/26/19 tramadol 1 - 2 tab PO PRN PRN 07/12/18 06/26/19 Previous Rx's Medication Instructions Recorded ondansetron 4 mg PO TID-QID PRN #14 tab 07/12/18 sulfamethoxazole-trimethoprim 1 tab PO BID #10 tab 07/12/18 ondansetron 4 mg PO Q6-8H PRN #10 tab 07/19/18 ketorolac 10 mg PO Q6H PRN #14 tab 11/11/18 ondansetron 4 mg PO TID-QID PRN #10 tab 11/11/18 lorazepam [Ativan] 1 mg PO BID-TID PRN #14 tab 01/22/19 propranolol 60 mg PO DAILY #30 cap 01/22/19 tizanidine 4 mg PO TID PRN #14 cap 01/22/19 ibuprofen 800 mg PO Q8H PRN #14 tab 02/21/19 lorazepam [Ativan] 1 mg PO BID-TID PRN #14 tab 03/25/19 fluoxetine 20 mg PO DAILY #7 cap 03/30/19 propranolol 1 cap PO QPM #7 cap 03/30/19 tizanidine 2 tab PO TID PRN #30 tab 03/30/19 penicillin V potassium 500 mg PO QID #40 tab 08/25/19 Allergies Allergy/AdvReac Type Severity Reaction Status Date / Time citalopram Allergy Intermediate Verified 06/26/19 20:17 latex Allergy Mild HIVES Verified 06/26/19 20:17 clindamycin Allergy Unknown RASH Verified 06/26/19 20:17 Patient History alcohol intake frequency: 0-2 drinks per day Substance Use Type: marijuana Exam Initial Vital Signs Initial Vital Signs: Vital Signs Temperature 97.9 F 10/17/19 14:37 Pulse Rate 72 10/17/19 14:37 Respiratory Rate 18 10/17/19 14:37 Blood Pressure 130/89 10/17/19 14:37 Pulse Oximetry 100 10/17/19 14:37 Course Vital Signs Vital signs: Vital Signs - 8 hr 10/17/19 14:37 Temperature 97.9 F Pulse Rate 72 Respiratory Rate 18 Blood Pressure 130/89 Pulse Oximetry 100 MDM - Female Genitourinary MDM Narrative Medical decision making narrative: The patient left without being seen. She was not interviewed evaluated or examined by me. Discharge Plan Departure Patient Disposition: Left Without Being Seen Clinical Impression: Patient left after triage Discharge Date/Time: 10/17/19 15:15
== END 2019-10-17 15:15 | disposition left against medical advice (07) ==
PROVIDERS: Emergency Provider Emergency Medicine; PCP Nurse Practitioner Family
CPT/HCPCS: 99281

== ENCOUNTER 2019-11-18 13:49 | Emergency (ER) | payer MEDICARE, MEDICAID, SELFPAY ==
[2019-11-18 14:11] VITALS: BP 157/100; PULSE 82; RESP 24; TEMP 36.9; O2SAT 98
[2019-11-18 16:10] VITALS: BP 145/89; PULSE 80; RESP 16; O2SAT 99
[2019-11-18] MEDS: ONDANSETRON 4 MG ODT SL (16:33)
[2019-11-18] MEDS: LORazepam 0.5 MG TABLET 1 MG PO (16:33)
[2019-11-18] MEDS: TIZANIDINE 4 MG TABLET PO (16:40)
[2019-11-18] MEDS: VENLAFAXINE HCL 100 MG TABLET 50 MG PO (16:40)
[2019-11-18 17:15] VITALS: BP 148/90; PULSE 66; RESP 18; O2SAT 99
--- NOTE | 2019-11-18 20:34 | ED_ITS ---
HPI - Anxiety <JOAN Uribe - Last Filed: 11/18/19 21:01> General Chief Complaint: Anxiety Stated Complaint: anxiety x1 day Time Seen by Provider: 11/18/19 15:50 Source: patient Mode of arrival: Wheelchair Limitations: no limitations History of Present Illness HPI narrative: This is a 29-year-old female, some day smoker, who presents to ED with father with chief complain of anxiety and panic attacks for last 2 days. Patient states she takes daily Venlafaxine 50mg IR b.i.d. dose for anxiety, depression and prevention for panic attacks with occasional Ativan 2mg for acute symptoms but this medication has been ran out. Patient has been using Poppy seed oil for her anxiety symptoms and has been trying to control her breathing. Patient denies chest pain or breathing difficulty at this time. Patient reports symptoms of palpitations, chest pounding, lightheadedness with anxiety and panic attacks which is not to bed at this time. She reports had taken last dose of Venlafaxine 2 days ago and Ativan about one week ago. Patient attempted to contact patient's previous PCP, Dr. Melvin at [facility] and left phone messages but she had not hear back from the clinic. Patient is waiting for initial appointment with Dr. Hayes but is not until mid November. Patient also has fracture on right hip for last 4 years and is waiting for surgical repair for hip replacement at and has been using crutches and take pain medications, lidocaine patch and Aleve as needed. She reports has pain in her right mid back from using crutches and she thinks this has been aggravating her anxiety symptoms as well. Patient denies suicidal or homicidal ideations at this time. Patient also reports urinary frequency and nausea without dysuria or urgency. LMP was 10 days ago. Patient has history of frequent UTI, osteomalacia, BTL. Related Data Home Medications Medication Instructions Recorded Confirmed fluoxetine 20 mg PO DAILY 02/16/18 06/26/19 Adrafinil 1 dose PO DIRECTED 07/12/18 06/26/19 Excedrin 1 tab PO DAILY 07/12/18 06/26/19 Strattera 1 dose PO DIRECTED 07/12/18 06/26/19 cranberry 1 tab PO DAILY 07/12/18 06/26/19 hydroxyzine pamoate 1 cap PO TID 07/12/18 06/26/19 tramadol 1 - 2 tab PO PRN PRN 07/12/18 06/26/19 Previous Rx's Medication Instructions Recorded ondansetron 4 mg PO TID-QID PRN #14 tab 07/12/18 sulfamethoxazole-trimethoprim 1 tab PO BID #10 tab 07/12/18 ondansetron 4 mg PO Q6-8H PRN #10 tab 07/19/18 ketorolac 10 mg PO Q6H PRN #14 tab 11/11/18 ondansetron 4 mg PO TID-QID PRN #10 tab 11/11/18 lorazepam [Ativan] 1 mg PO BID-TID PRN #14 tab 01/22/19 propranolol 60 mg PO DAILY #30 cap 01/22/19 tizanidine 4 mg PO TID PRN #14 cap 01/22/19 ibuprofen 800 mg PO Q8H PRN #14 tab 02/21/19 lorazepam [Ativan] 1 mg PO BID-TID PRN #14 tab 03/25/19 fluoxetine 20 mg PO DAILY #7 cap 03/30/19 propranolol 1 cap PO QPM #7 cap 03/30/19 tizanidine 2 tab PO TID PRN #30 tab 03/30/19 penicillin V potassium 500 mg PO QID #40 tab 08/25/19 hydroxyzine HCl 25 mg PO TID PRN #10 tab 11/18/19 ondansetron 4 mg PO BID-TID PRN #7 tab 11/18/19 tizanidine 4 mg PO BEDTIME PRN #7 tab 11/18/19 venlafaxine 50 mg PO Q12H #20 tab 11/18/19 Allergies Allergy/AdvReac Type Severity Reaction Status Date / Time citalopram Allergy Intermediate Verified 11/18/19 14:17 latex Allergy Mild HIVES Verified 11/18/19 14:17 clindamycin Allergy Unknown RASH Verified 11/18/19 14:17 Review of Systems <JOAN Uribe - Last Filed: 11/18/19 21:01> Review of Systems Narrative: General: Denies fever, chills, fatigue, malaise, sweats. HEENT: Denies sinus pain, ear pain, sore throat, difficulty swallowing, (+) lightheadedness, dizziness. Respiratory: Denies dyspnea, cough, wheezing, hemoptysis, sputum. Cardiovascular: Denies chest pain, (+) palpitations, orthopnea, edema. Gastrointestinal: Denies nausea, vomiting, abdominal pain, diarrhea, constipation, melena. : Denies dysuria, (+) frequency, incontinence, hematuria, urinary retention. Musculoskeletal: HPI Skin: Denies rash, skin lesions, or other. Neurologic: Denies weakness, headache, numbness, change in speech, confusion, seizures, incoordination. Psychiatric: See HPI 12-point review of systems is negative except for those stated above. Patient History <JOAN Uribe - Last Filed: 11/18/19 21:01> Medical History ADD (attention deficit disorder) (Chronic) Bilateral femoral fractures (Acute) Chronic leg pain (Chronic) 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) Depression (Chronic) Osteopenia (Chronic) Ovarian cyst (Resolved) Pneumomediastinum (Resolved) Surgical History History of (Resolved) Status post breast reduction (Resolved) Tubal ligation status (Resolved) Social History Smoking Status: Current some day smoker Smokeless tobacco user: other alcohol intake: current substance use type: marijuana Smoking Status: Current some day smoker alcohol intake frequency: 0-2 drinks per day Substance Use Type: marijuana Exam <JOAN Uribe - Last Filed: 11/18/19 21:01> Narrative Exam Narrative: GEN: Alert, oriented x 3, well nourished, and in no acute distress. Head: Normal cephalic, atraumatic. No scalp or temporal tenderness, palpable mass or rash. EYES: Pupils are equal, round, and reactive to light and accommodation. Extraocular muscles are intact bilaterally. There is no subconjunctival hemorrhage, exudate and sclera non-icteric. ENT: Bilateral auditory canals and tympanic membranes clear. Hearing grossly intact. Nose without bleeding, purulent discharge or deviation. Facial sinuses nontender to palpate. Mucous membrane moist, no mucosal lesion. Throat without erythema, tonsillar hypertrophy or exudate. Uvula in midline, airway patent. Neck: Trachea in midline. No JVD, non-tender without lymphadenopathy. No masses or thyroid megaly. Supple, non-tender and no meningeal signs. CARDIAC: Normal regular rate and rhythm without murmurs, gallops, or rubs. No chest wall tenderness. No peripheral edema, cyanosis or pallor. Capillary r efill is less than 2 seconds. RESPIRATORY: Lungs are clear to auscultate bilaterally. No cough, wheezes, rales, or rhonchi. No stridor, respiratory distress, increase work of breathing, or accessary muscle used. ABD: Abdomen soft, nontender and non-distended. No guarding or rebound tenderness to palpate. Bowel sounds are normal in all 4 quadrants. There is no palpable masses or organomegaly. EXT: Pain in R hip from old fracture. No loss of sensation, effusion or edema. Uses crutches. SKIN: Warm, dry, normal color for patient. No erythema, lesions or rash over visible areas. BACK: Tender to palpate right mid back. No crepitus, deformity, rash, erythema noted. No flank tenderness. NEUROLOGICAL: Alert and oriented to place, time and person. Sensation and motor function intact bilaterally. No facial droops, dysphasia. PSYCHIATRIC: Good judgement and reason, without hallucinations, abnormal affect or abnormal behaviors during the examination. Patient is not suicidal. Initial Vital Signs Initial Vital Signs: Vital Signs Temperature 98.4 F 11/18/19 14:11 Pulse Rate 82 11/18/19 14:11 Respiratory Rate 24 11/18/19 14:11 Blood Pressure 157/100 H 11/18/19 14:11 Pulse Oximetry 98 11/18/19 14:11 <Dane Madrid DO - Last Filed: 11/19/19 06:59> Initial Vital Signs Initial Vital Signs: Vital Signs Temperature 98.4 F 11/18/19 14:11 Pulse Rate 82 11/18/19 14:11 Respiratory Rate 24 11/18/19 14:11 Blood Pressure 157/100 H 11/18/19 14:11 Pulse Oximetry 98 11/18/19 14:11 Scores <JOAN Uribe - Last Filed: 11/18/19 21:01> GCS [place] coma scale eye opening: Spontaneous [place] coma scale verbal response: Orientated [place] coma scale motor response: Obey commands [place] coma scale total score: 15 Course <JOAN Uribe - Last Filed: 11/18/19 21:01> Orders Ordered: Discontinued Medications Lorazepam (Ativan) 1 mg PO NOW ONE Stop: 11/18/19 16:17 Last Admin: 11/18/19 16:33 Dose: 1 mg Documented by: SCOTTY Ondansetron HCl (Zofran Odt) 4 mg SL NOW ONE Stop: 11/18/19 16:17 Last Admin: 11/18/19 16:33 Dose: 4 mg Documented by: SCOTTY Tizanidine HCl (Zanaflex) 4 mg PO BEDTIME SONIA Tizanidine HCl (Zanaflex) 4 mg PO NOW ONE Stop: 11/18/19 16:39 Last Admin: 11/18/19 16:40 Dose: 4 mg Documented by: SCOTTY Venlafaxine HCl (Effexor) 50 mg PO NOW ONE Stop: 11/18/19 16:23 Last Admin: 11/18/19 16:40 Dose: 50 mg Documented by: SCOTTY Vital Signs Vital signs: Vital Signs - 8 hr 11/18/19 14:11 11/18/19 16:10 11/18/19 17:15 Temperature 98.4 F Pulse Rate 82 80 66 Respiratory Rate 24 16 18 Blood Pressure 157/100 H Blood Pressure [Left Arm] 145/89 H 148/90 H Pulse Oximetry 98 99 99 <Dane Madrid DO - Last Filed: 11/19/19 06:59> Orders Ordered: Discontinued Medications Lorazepam (Ativan) 1 mg PO NOW ONE Stop: 11/18/19 16:17 Last Admin: 11/18/19 16:33 Dose: 1 mg Documented by: SCOTTY Ondansetron HCl (Zofran Odt) 4 mg SL NOW ONE Stop: 11/18/19 16:17 Last Admin: 11/18/19 16:33 Dose: 4 mg Documented by: SCOTTY Tizanidine HCl (Zanaflex) 4 mg PO BEDTIME SONIA Tizanidine HCl (Zanaflex) 4 mg PO NOW ONE Stop: 11/18/19 16:39 Last Admin: 11/18/19 16:40 Dose: 4 mg Documented by: SCOTTY Venlafaxine HCl (Effexor) 50 mg PO NOW ONE Stop: 11/18/19 16:23 Last Admin: 11/18/19 16:40 Dose: 50 mg Documented by: SCOTTY Vital Signs Vital signs: Vital Signs - 8 hr 11/18/19 14:11 11/18/19 16:10 11/18/19 17:15 Temperature 98.4 F Pulse Rate 82 80 66 Respiratory Rate 24 16 18 Blood Pressure 157/100 H Blood Pressure [Left Arm] 145/89 H 148/90 H Pulse Oximetry 98 99 99 MDM - Anxiety <JOAN Uribe - Last Filed: 11/18/19 21:01> Differential Diagnosis Differential diagnosis: Likely hyperventilation, panic disorder, acute anxiety and other (UTI, back pain) Medical Records Attestation: I reviewed the patient's medical records. Lab Data Attestation: I reviewed the patient's lab results. Labs: Point of Care Testing Test Results Negative Urine Dip Bedside Urine Glucose Negative Bedside Urine Bilirubin - Negative Bedside Urine Ketone - Negative Urine Specific [place] 1.010 Bedside Urine Occult Blood + Bedside Urine pH 7.0 Bedside Urine Protein - Negative Bedside Urine Urobilinogen - Negative Bedside Urine Nitrite - Negative Bedside Urine Leukocytes - Negative Esterase MDM Narrative Medical decision making narrative: This is a 29-year-old female who presents to ED with anxiety and panic attacks for last 2 days that could be controlled at home. Patient ran out of Venlafaxine 50mg IR bid medication for last 2 days and reports Ativan as well that she takes 2 mg as needed for acute symptoms. Patient attempted to contact her previous PCP for renewal but she had not received phone call back from the clinic. 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 Patient was provided with tizanidine 4 mg as needed medications for back pain and spasm by PCP in the past which also ran out and is complaining of back pain at this time. 1 mg of lorazepam p.o., Tizanidine 4 mg, Effexor 50 mg, Zofran 4 mg ODT for her symptoms. Patient discharged to home with 10 day course of Effexor 50 mg, a small dose of hydroxyzine for prn acute anxiety symptoms, Tizanidine prn back pain and spasm, and prn Zofran for nausea. UA was negative for and infection. Patient advised to follow-up with Dr. Melvin at [facility] for follow-up on medication refill until she will be seen by the primary care doctor, Dr. Hayes and patient verbalized understanding and in agreement with the treatment plan. Patient reports her symptoms are improved and better before discharged to home with improved vital signs. <Dane Mercy, DO - Last Filed: 11/19/19 06:59> Lab Data Labs: Point of Care Testing Test Results Negative Urine Dip Bedside Urine Glucose Negative Bedside Urine Bilirubin - Negative Bedside Urine Ketone - Negative Urine Specific [place] 1.010 Bedside Urine Occult Blood + Bedside Urine pH 7.0 Bedside Urine Protein - Negative Bedside Urine Urobilinogen - Negative Bedside Urine Nitrite - Negative Bedside Urine Leukocytes - Negative Esterase Discharge Plan Departure Patient Disposition: Home Clinical Impression: Anxiety, Urinary frequency Discharge Date/Time: 11/18/19 17:31 Instructions: DI for Anxiety -- Adult Activity Restrictions/Additional Instructions: You have been diagnosed with [anxiety, panic attacks, urinary frequency. Urine test does not show infection today]. What to do: *Take your medications as directed. Your routine medications Venlafaxine has been prescribed for 10 days. Please contact your previous PCP for additional refill until you will be seen by her new primary care physician. Zofran ODT as needed for nausea and vomiting. Please use hydroxyzine as needed for acute anxiety/panic symptoms. This medication may cause drowsiness, please do not drive, drink alcohol or operate heavy equipments while your taking this medication. Tizanidine has been prescribed as needed for muscle spasm and pain. These medications have been transmitted to [facility] *Follow up with your primary care provider in 2-3 days, call for an appointment. Let them know you were seen in the ED and that we asked you to be seen in follow up. *Return to ED if you have any new, worsening, or concerning symptoms, such as [chest pain, breathing difficulty, unable to tolerate fluids, fever or any acute concerns]. Prescriptions: New hydroxyzine HCl 25 mg tablet 25 mg PO TID PRN (Reason: anxiety) Qty: 10 RF: 0 ondansetron 4 mg tablet,disintegrating 4 mg PO BID-TID PRN (Reason: nausea and vomiting) Qty: 7 RF: 0 venlafaxine 50 mg tablet 50 mg PO Q12H Qty: 20 RF: 0 tizanidine 4 mg tablet 4 mg PO BEDTIME PRN (Reason: muscle spasticity) Qty: 7 RF: 0 No Action ondansetron 4 mg tablet,disintegrating 4 mg PO Q6-8H PRN (Reason: nausea and vomiting) Qty: 10 RF: 0 ketorolac 10 mg tablet 10 mg PO Q6H PRN (Reason: pain) Qty: 14 RF: 0 ondansetron 4 mg tablet,disintegrating 4 mg PO TID-QID PRN (Reason: nausea and vomiting) Qty: 10 RF: 0 lorazepam [Ativan] 1 mg tablet 1 mg PO BID-TID PRN (Reason: anxiety) Qty: 14 RF: 0 tizanidine 4 mg tablet 2 tab PO TID PRN (Reason: Spasms) Qty: 30 RF: 0 propranolol 60 mg capsule,extended release 24 hr 1 cap PO QPM Qty: 7 RF: 0 fluoxetine 20 mg capsule 20 mg PO DAILY Qty: 7 RF: 0 fluoxetine 20 mg capsule 20 mg PO DAILY RF: 0 tramadol 50 mg tablet 1 - 2 tab PO PRN PRN (Reason: pain) RF: 0 hydroxyzine pamoate 25 mg capsule 1 cap PO TID RF: 0 Adrafinil 1 dose PO DIRECTED RF: 0 Excedrin 1 tab PO DAILY RF: 0 Strattera 1 dose PO DIRECTED RF: 0 cranberry 1 tab PO DAILY RF: 0 ondansetron 4 mg tablet,disintegrating 4 mg PO TID-QID PRN (Reason: nausea and vomiting) Qty: 14 RF: 0 sulfamethoxazole-trimethoprim 800-160 mg tablet 1 tab PO BID Qty: 10 RF: 0 propranolol 60 mg capsule,extended release 24 hr 60 mg PO DAILY Qty: 30 RF: 0 lorazepam [Ativan] 1 mg tablet 1 mg PO BID-TID PRN (Reason: anxiety) Qty: 14 RF: 0 tizanidine 4 mg capsule 4 mg PO TID PRN (Reason: muscle spasticity) Qty: 14 RF: 0 ibuprofen 800 mg tablet 800 mg PO Q8H PRN (Reason: pain) Qty: 14 RF: 0 penicillin V potassium 500 mg tablet 500 mg PO QID Qty: 40 RF: 0 Referrals: Spring Melvin ARNP [Primary Care Provider] - <Dane Madrid DO - Last Filed: 11/19/19 06:59> Sign Out Provider Sign Out Attestation: Dr Madrid Co-Sign Statement: I was available for consultation during this patient's emergency department visit. This chart is signed by myself for administrative purposes only. I did not have direct contact with this patient during this visit. They were seen independently by the [facility].
== END 2019-11-18 17:31 | disposition home or self-care (01) ==
PROVIDERS: Emergency Provider Nurse Practitioner Family; PCP Nurse Practitioner Family
DX: F41.9 Anxiety disorder, unspecified (principal); F41.0 Panic disorder [episodic paroxysmal anxiety]; R35.0 Frequency of micturition
CPT/HCPCS: 81003; 81025; 99283; A9270

== ENCOUNTER 2019-12-05 17:28 | Emergency (ER) | payer MEDICARE, MEDICAID, SELFPAY ==
[2019-12-05 17:30] VITALS: BP 136/62; PULSE 103; RESP 16; O2SAT 97
[2019-12-05] MEDS: ONDANSETRON 4 MG ODT SL (18:14)
[2019-12-05] MEDS: hydrOXYzine pamoate 25 MG CAPSULE 50 MG PO (18:14)
--- NOTE | 2019-12-05 18:30 | ED_ITS ---
HPI - Recheck/Abnormal Lab/Rx <Bailee Chavira, [employer] OPERATOR-BC - Last Filed: 12/05/19 19:54> General Chief Complaint: Recheck/Abnormal Lab/Rx Stated Complaint: panic attacks - out of meds Time Seen by Provider: 12/05/19 17:40 Source: patient Mode of arrival: Ambulatory Limitations: no limitations History of Present Illness HPI narrative: The patient is a 29-year-old female current smoker with history of anxiety and depression who presents with a chief complaint of out of her medications and uncontrolled anxiety. She states that she was taking venlafaxine IR 50 mg b.i.d.. She states that she has been out her approximately 2 days and has been having brain stops, uncontrolled anxiety. She states that she came to the emergency department for medication refills in the of this month, is since called her primary care provider's office 11 times that they are unable to get her in. She states she has a new PCP appointment, with Dr. Hayes at the end of this month. However she is concerned about being without her venlafaxine until then. She states that she was transition to hydroxyzine, rather than Ativan after her last emergency department visit. She states that has been helping, though not as effective his Ativan. She states she still has Zofran at home. She denies any thoughts of hurting herself. She states that she wanted to fight 1 of her friends, so her friend has isolated herself per her instructions. She states she does not want to hurt her, also wonders if the news has worsened her anxiety lately. She complains of nausea, panic. Related Data Home Medications Medication Instructions Recorded Confirmed fluoxetine 20 mg PO DAILY 02/16/18 06/26/19 Adrafinil 1 dose PO DIRECTED 07/12/18 06/26/19 Excedrin 1 tab PO DAILY 07/12/18 06/26/19 Strattera 1 dose PO DIRECTED 07/12/18 06/26/19 cranberry 1 tab PO DAILY 07/12/18 06/26/19 hydroxyzine pamoate 1 cap PO TID 07/12/18 06/26/19 tramadol 1 - 2 tab PO PRN PRN 07/12/18 06/26/19 Previous Rx's Medication Instructions Recorded ondansetron 4 mg PO TID-QID PRN #14 tab 10/24/18 sulfamethoxazole-trimethoprim 1 tab PO BID #10 tab 07/12/18 ondansetron 4 mg PO Q6-8H PRN #10 tab 07/19/18 ketorolac 10 mg PO Q6H PRN #14 tab 11/11/18 ondansetron 4 mg PO TID-QID PRN #10 tab 11/11/18 lorazepam [Ativan] 1 mg PO BID-TID PRN #14 tab 01/22/19 propranolol 60 mg PO DAILY #30 cap 01/22/19 tizanidine 4 mg PO TID PRN #14 cap 01/22/19 ibuprofen 800 mg PO Q8H PRN #14 tab 02/21/19 lorazepam [Ativan] 1 mg PO BID-TID PRN #14 tab 03/25/19 fluoxetine 20 mg PO DAILY #7 cap 03/30/19 propranolol 1 cap PO QPM #7 cap 03/30/19 tizanidine 2 tab PO TID PRN #30 tab 03/30/19 penicillin V potassium 500 mg PO QID #40 tab 08/25/19 hydroxyzine HCl 25 mg PO TID PRN #10 tab 11/18/19 ondansetron 4 mg PO BID-TID PRN #7 tab 11/18/19 tizanidine 4 mg PO BEDTIME PRN #7 tab 11/18/19 venlafaxine 50 mg PO Q12H #20 tab 11/18/19 hydroxyzine HCl 50 mg PO QID PRN #20 tab 12/05/19 venlafaxine 50 mg PO BID #30 tab 12/05/19 Allergies Allergy/AdvReac Type Severity Reaction Status Date / Time citalopram Allergy Intermediate Verified 11/18/19 14:17 latex Allergy Mild HIVES Verified 11/18/19 14:17 clindamycin Allergy Unknown RASH Verified 11/18/19 14:17 Review of Systems <ALISON Covarrubias- - Last Filed: 12/05/19 19:54> Review of Systems Narrative: GENERAL: Denies chills, fatigue, malaise, fever, sweats. HEENT: Denies sinus pain, ear pain, sore throat, difficulty swallowing, dizziness. RESPIRATORY: Denies dyspnea, cough, wheezing, hemoptysis, sputum. CARDIOVASCULAR: Denies chest pain, palpitations, orthopnea, edema, GASTROINTESTINAL: Denies nausea, vomiting, abdominal pain, diarrhea, constipation, melena. : Denies dysuria, frequency, incontinence, hematuria, urinary retention. MUSCULOSKELETAL: denies weakness, joint pain, or bony pain SKIN: Denies rash, skin lesions, or other NEUROLOGIC: Denies weakness, headache, numbness, change in speech, confusion, seizures, incoordination. PSYCHIATRIC: See HPI 12 point review of systems is negative except for those stated above Patient History <JACOB Covarrubias - Last Filed: 12/05/19 19:54> Medical History ADD (attention deficit disorder) (Chronic) Bilateral femoral fractures (Acute) Chronic leg pain (Chronic) 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) Depression (Chronic) Osteopenia (Chronic) Ovarian cyst (Resolved) Pneumomediastinum (Resolved) Surgical History History of (Resolved) Status post breast reduction (Resolved) Tubal ligation status (Resolved) Social History Smoking Status: Current some day smoker Smokeless tobacco user: other alcohol intake: current substance use type: marijuana Smoking Status: Current some day smoker alcohol intake frequency: 0-2 drinks per day Substance Use Type: marijuana Exam <JACOB Covarrubias - Last Filed: 12/05/19 19:54> Narrative Exam Narrative: GENERAL: This is a well-nourished, well-developed patient, appears anxious HEAD: Atraumatic. Normocephalic. No temporal or scalp tenderness. EYES: Pupils equal round and reactive. Extraocular motions intact. No scleral icterus. No injection or drainage. ENT: Nose without bleeding, purulent drainage or septal hematoma. Throat without erythema, tonsillar hypertrophy or exudate. Uvula midline. Airway patent. NECK: Trachea midline. No JVD or lymphadenopathy. Supple, nontender, no meningeal signs. CARDIOVASCULAR: Regular rate and rhythm RESPIRATORY: Clear to auscultation. Breath sounds equal bilaterally. No wheezes, rales, or rhonchi. No cough. No increased respiratory effort. No accessory muscle use. EXTREMITIES: No clubbing, cyanosis, or edema. No joint tenderness, effusion, or edema noted. BACK: Nontender without deformity or crepitance. No flank tenderness. NEURO: AOx3. SKIN: No rash or erythema on visible skin Initial Vital Signs Initial Vital Signs: Vital Signs Pulse Rate 103 H 12/05/19 17:30 Respiratory Rate 16 12/05/19 17:30 Blood Pressure 136/62 12/05/19 17:30 Pulse Oximetry 97 12/05/19 17:30 <Bailee Chowdhury DO - Last Filed: 12/06/19 01:51> Initial Vital Signs Initial Vital Signs: Vital Signs Pulse Rate 103 H 12/05/19 17:30 Respiratory Rate 16 12/05/19 17:30 Blood Pressure 136/62 12/05/19 17:30 Pulse Oximetry 97 12/05/19 17:30 Course <JACOB Covarrubias - Last Filed: 12/05/19 19:54> Orders Ordered: ED Orders 12/05/19 18:50 Urine Culture Stat Urine Drug Screen, Rapid Stat Urine Microscopic Stat Discontinued Medications Hydroxyzine Pamoate (Vistaril) 50 mg PO NOW ONE Stop: 12/05/19 17:59 Last Admin: 12/05/19 18:14 Dose: 50 mg Documented by: MANDY Ondansetron HCl (Zofran Odt) 4 mg SL NOW ONE Stop: 12/05/19 17:59 Last Admin: 12/05/19 18:14 Dose: 4 mg Documented by: MANDY Venlafaxine HCl (Effexor) 50 mg PO NOW ONE Stop: 12/05/19 18:44 Last Admin: 12/05/19 18:53 Dose: 50 mg Documented by: MANDY Vital Signs Vital signs: Vital Signs - 8 hr 12/05/19 19:55 Pulse Rate 89 Respiratory Rate 16 Blood Pressure 129/78 Pulse Oximetry 99 <Bailee Chowdhury DO - Last Filed: 12/06/19 01:51> Orders Ordered: ED Orders 12/05/19 18:50 Urine Culture Stat Urine Drug Screen, Rapid Stat Urine Microscopic Stat Discontinued Medications Hydroxyzine Pamoate (Vistaril) 50 mg PO NOW ONE Stop: 12/05/19 17:59 Last Admin: 12/05/19 18:14 Dose: 50 mg Documented by: MANDY Ondansetron HCl (Zofran Odt) 4 mg SL NOW ONE Stop: 12/05/19 17:59 Last Admin: 12/05/19 18:14 Dose: 4 mg Documented by: MANDY Venlafaxine HCl (Effexor) 50 mg PO NOW ONE Stop: 12/05/19 18:44 Last Admin: 12/05/19 18:53 Dose: 50 mg Documented by: MANDY Vital Signs Vital signs: Vital Signs - 8 hr 12/05/19 19:55 Pulse Rate 89 Respiratory Rate 16 Blood Pressure 129/78 Pulse Oximetry 99 MDM - Recheck/Abnormal Lab/Rx <JACOB Covarrubias - Last Filed: 12/05/19 19:54> Differential Diagnosis Differential diagnosis: Likely encounter for medication refill Lab Data Labs: Lab Results 12/05/19 12/05/19 Range/Units 18:50 18:50 Urine RBC 0-1/hpf (0-5/HPF) Urine WBC 1-5/hpf (0-5/HPF) Ur Squamous Epith Cells 1-5 /hpf D (0-5/HPF) Urine Bacteria None seen (None) Urine Mucus 1+ H (Negative) Ur Culture Indicated? Specimen cultured U Opiates 300ng/mL cut Negative (Negative) Ur Oxycodone Screen Negative (Negative) Urine Methadone Screen Negative (Negative) Ur Barbiturates Screen Negative (Negative) U Tricyclic Antidepress Positive H (Negative) Ur Phencyclidine Scrn Negative (Negative) Ur Amphetamines Screen Negative (Negative) U Methamphetamines Scrn Negative (Negative) Ur MDMA Scrn (Ecstasy) Negative (Negative) U Benzodiazepines Scrn Negative (Negative) Urine Cocaine Screen Negative (Negative) U Marijuana (THC) Screen Positive H (Negative) Point of Care Testing Test Results Negative Urine Dip Bedside Urine Glucose Negative Bedside Urine Bilirubin - Negative Bedside Urine Ketone - Negative Urine Specific [place] 1.020 Bedside Urine Occult Blood + Bedside Urine pH 8.0 Bedside Urine Protein +/- 15 Bedside Urine Urobilinogen +/- 1mg Bedside Urine Nitrite - Negative Bedside Urine Leukocytes + 70 Esterase MDM Narrative Medical decision making narrative: The patient is a 29-year-old female who presents with a chief complaint of needing a medication refill. The patient is out of her venlafaxine, has an appointment for follow-up at the end of the month. She felt much improved after the above-stated therapies. Urinalysis shows no bacteria, no nitrates, positive leukocyte esterase. Patient does not want be started on antibiotics at this point time, but urine cultures pending. I discussed at length the importance of following up with primary care provider come back to the emergency department for any acute concerns such as thoughts of hurting herself. Patient has no questions or concerns upon discharge and states understanding return precautions as well as follow-up care. <Bailee Chowdhury, DO - Last Filed: 12/06/19 01:51> Lab Data Labs: Lab Results 12/05/19 12/05/19 Range/Units 18:50 18:50 Urine RBC 0-1/hpf (0-5/HPF) Urine WBC 1-5/hpf (0-5/HPF) Ur Squamous Epith Cells 1-5 /hpf D (0-5/HPF) Urine Bacteria None seen (None) Urine Mucus 1+ H (Negative) Ur Culture Indicated? Specimen cultured U Opiates 300ng/mL cut Negative (Negative) Ur Oxycodone Screen Negative (Negative) Urine Methadone Screen Negative (Negative) Ur Barbiturates Screen Negative (Negative) U Tricyclic Antidepress Positive H (Negative) Ur Phencyclidine Scrn Negative (Negative) Ur Amphetamines Screen Negative (Negative) U Methamphetamines Scrn Negative (Negative) Ur MDMA Scrn (Ecstasy) Negative (Negative) U Benzodiazepines Scrn Negative (Negative) Urine Cocaine Screen Negative (Negative) U Marijuana (THC) Screen Positive H (Negative) Point of Care Testing Test Results Negative Urine Dip Bedside Urine Glucose Negative Bedside Urine Bilirubin - Negative Bedside Urine Ketone - Negative Urine Specific [place] 1.020 Bedside Urine Occult Blood + Bedside Urine pH 8.0 Bedside Urine Protein +/- 15 Bedside Urine Urobilinogen +/- 1mg Bedside Urine Nitrite - Negative Bedside Urine Leukocytes + 70 Esterase Discharge Plan Departure Patient Disposition: Home Clinical Impression: Anxiety Discharge Date/Time: 12/05/19 19:55 Instructions: Anxiety and Panic Attacks (Alternative Therapy), DI for Anxiety -- Adult Activity Restrictions/Additional Instructions: Thank you for trusting us with your care today. I have sent prescriptions of venlafaxine and hydroxyzine to [facility] in [place]. Please follow-up with primary care provider for emergency department follow-up in the next few days. Please come back to the emergency department for any acute concerns such as thoughts of hurting herself. There is a urine culture pending. We will call you in 2-3 days if we need to place you on antibiotics. Prescriptions: New venlafaxine 50 mg tablet 50 mg PO BID Qty: 30 RF: 0 hydroxyzine HCl 50 mg tablet 50 mg PO QID PRN (Reason: anxiety) Qty: 20 RF: 0 No Action ondansetron 4 mg tablet,disintegrating 4 mg PO Q6-8H PRN (Reason: nausea and vomiting) Qty: 10 RF: 0 ketorolac 10 mg tablet 10 mg PO Q6H PRN (Reason: pain) Qty: 14 RF: 0 ondansetron 4 mg tablet,disintegrating 4 mg PO TID-QID PRN (Reason: nausea and vomiting) Qty: 10 RF: 0 lorazepam [Ativan] 1 mg tablet 1 mg PO BID-TID PRN (Reason: anxiety) Qty: 14 RF: 0 tizanidine 4 mg tablet 2 tab PO TID PRN (Reason: Spasms) Qty: 30 RF: 0 propranolol 60 mg capsule,extended release 24 hr 1 cap PO QPM Qty: 7 RF: 0 fluoxetine 20 mg capsule 20 mg PO DAILY Qty: 7 RF: 0 fluoxetine 20 mg capsule 20 mg PO DAILY RF: 0 tramadol 50 mg tablet 1 - 2 tab PO PRN PRN (Reason: pain) RF: 0 hydroxyzine pamoate 25 mg capsule 1 cap PO TID RF: 0 Adrafinil 1 dose PO DIRECTED RF: 0 Excedrin 1 tab PO DAILY RF: 0 Strattera 1 dose PO DIRECTED RF: 0 cranberry 1 tab PO DAILY RF: 0 ondansetron 4 mg tablet,disintegrating 4 mg PO TID-QID PRN (Reason: nausea and vomiting) Qty: 14 RF: 0 sulfamethoxazole-trimethoprim 800-160 mg tablet 1 tab PO BID Qty: 10 RF: 0 propranolol 60 mg capsule,extended release 24 hr 60 mg PO DAILY Qty: 30 RF: 0 lorazepam [Ativan] 1 mg tablet 1 mg PO BID-TID PRN (Reason: anxiety) Qty: 14 RF: 0 tizanidine 4 mg capsule 4 mg PO TID PRN (Reason: muscle spasticity) Qty: 14 RF: 0 ibuprofen 800 mg tablet 800 mg PO Q8H PRN (Reason: pain) Qty: 14 RF: 0 penicillin V potassium 500 mg tablet 500 mg PO QID Qty: 40 RF: 0 hydroxyzine HCl 25 mg tablet 25 mg PO TID PRN (Reason: anxiety) Qty: 10 RF: 0 ondansetron 4 mg tablet,disintegrating 4 mg PO BID-TID PRN (Reason: nausea and vomiting) Qty: 7 RF: 0 venlafaxine 50 mg tablet 50 mg PO Q12H Qty: 20 RF: 0 tizanidine 4 mg tablet 4 mg PO BEDTIME PRN (Reason: muscle spasticity) Qty: 7 RF: 0 Referrals: Pablito Hayes DO [Physician] - Spring Melvin ARNP [Primary Care Provider] -
[2019-12-05] MEDS: VENLAFAXINE HCL 100 MG TABLET 50 MG PO (18:53)
[2019-12-05 18:59] LABS: Bacteria Urine None Seen
[2019-12-05 19:04] LABS: Ur Creatinine Normal (Normal); Ur Specific Gravity Normal (Normal); Urine Cocaine Negative (Negative); Urine Tetrahydrocannabinol Positive (Negative); Urine pH Normal (Normal)
[2019-12-05 19:05] LABS: UR Morphine/Opiate cutoff 300 Negative (Negative); Urine Amphetamines Negative (Negative); Urine Barbiturates Negative (Negative); Urine Benzodiazepines Negative (Negative); Urine MDMA Negative (Negative); Urine Methadone Negative (Negative); Urine Methamphetamines Negative (Negative); Urine Oxycodone Negative (Negative); Urine Phencyclidine Negative (Negative); Urine Tricyclic Antidepressant Positive (Negative)
[2019-12-05 19:10] LABS: Culture Indicated Urine Specimen Cultured; Mucus Urine 1+ (Negative); RBC Urine 0-1/HPF (0-5/HPF); Squamous Epithelial Cell Urine 1-5 /HPF (0-5/HPF); WBC Urine 1-5/HPF (0-5/HPF)
[2019-12-05 19:55] VITALS: BP 129/78; PULSE 89; RESP 16; O2SAT 99
== END 2019-12-05 19:55 | disposition home or self-care (01) ==
PROVIDERS: Emergency Provider Nurse Practitioner Family; PCP Nurse Practitioner Family
DX: F41.9 Anxiety disorder, unspecified (principal)
CPT/HCPCS: 80305; 81003; 81015; 81025; 87086; 99283; 99291; 99292; A9270

== ENCOUNTER → 2020-03-28 11:57 | Outpatient (CLI) | payer MEDICARE, MEDICAID, SELFPAY ==
[2020-03-28 13:11] LABS: Add Manual Diff / Slide Review NO; Basophils Absolute Auto 0 /uL (0-100); Basophils Percent Auto 0.2 % (0-2); Eosinophils Absolute Auto 100 /uL (0-450); Eosinophils Percent Auto 0.5 % (2-4); Hematocrit 42.4 % (36-46); Hemoglobin 14.2 g/dL (12.0-16.0); Lymphocytes Absolute Auto 2500 /uL (1100-4500); Lymphocytes Percent Auto 20.9 % (25-40); Mean Corpuscular HGB Conc 33.4 % (30-36); Mean Corpuscular Hemoglobin 29.7 PG (26-34); Mean Corpuscular Volume 88.8 fL (80-100); Monocytes Absolute Auto 800 /uL (0-900); Monocytes Percent Auto 6.7 % (3-14); Neutrophils Absolute Auto 8400 /uL (1500-7000); Neutrophils Percent Auto 71.7 % (50-75); Platelet Count 467 X10^3/uL (150-400); Red Blood Cell Count 4.78 X10^6/uL (4.0-5.2); Red Cell Distribution Width 13.4 % (11.6-14.8); White Blood Cell Count 11.8 X10^3/uL (4.5-11.0)
[2020-03-28 13:44] LABS: Alanine Aminotransferase 19 IU/L (<35); Albumin 4.3 g/dL (3.5-5.0); Albumin Globulin Ratio 1.2 (1.0-2.8); Alkaline Phosphatase 118 U/L (38-126); Aspartate Aminotransferase 26 IU/L (14-36); Bilirubin Total 0.6 mg/dL (0.2-1.3); Blood Urea Nitrogen 6 mg/dL (7-17); Calcium 9.3 mg/dL (8.4-10.2); Carbon Dioxide 27 mmol/L (22-32); Chloride 102 mmol/L (98-107); Estimated Glomerular Filt Rate > 60.0 mL/min (>60); Globulin 3.6 g/dL (1.7-4.1); Glucose 89 mg/dL (70-100); HEMOLYSIS < 15 (0-50); Potassium 3.6 mmol/L (3.4-5.1); Sodium 139 mmol/L (137-145); Total Protein 7.9 g/dL (6.3-8.2)
[2020-03-28 17:18] LABS: Thyroid Stimulating Hormone 0.871 uIU/mL (0.47-4.68)
[2020-03-29 09:39] LABS: Calcium 9.2 mg/dL (8.7-10.2); Parathyroid Hormone, Intact 37 pg/mL (15-65)
== END ==
PROVIDERS: PCP Family Medicine; Referring Provider Family Medicine; Visit Provider Family Medicine
DX: F41.9 Anxiety disorder, unspecified (principal); M83.9 Adult osteomalacia, unspecified
CPT/HCPCS: 36415; 80053; 82310; 83970; 84443; 85025

== ENCOUNTER 2020-07-05 21:08 | Emergency (ER) | payer MEDICARE, MEDICAID, SELFPAY ==
--- NOTE | 2020-07-05 21:25 | ED.GENADULT ---
HPI - General Adult General Chief complaint: Shortness of Breath/Dyspnea Stated complaint: hard time breathing, coughing, chest pain Time Seen by Provider: 07/05/20 21:25 History of Present Illness HPI narrative: 30-year-old woman with a history of seasonal allergies and postnasal drip, severe depression and anxiety, ADHD presents with severe chest pain and nonproductive cough, feeling like she has a burning inside her entire chest with any breathing complaining of dyspnea but no fevers all of which started 6 days ago and has progressively worsened. She describes no headache, nausea or vomiting. She does note some mild lower abdominal pain and urinary frequency. She stated that she had significant urgency and dysuria early in the week but that seems to have resolved. She reports no vaginal discharge. She describes chronic postnasal drip, scratchy throat and dry irritated eyes due to allergies. Related Data Home Medications Medication Instructions Recorded Confirmed [id number] 250 1 tab PO Q4-6H PRN 03/28/20 03/28/20 mg-250 mg-65 mg tablet Previous Rx's Medication Instructions Recorded propranolol 60 mg PO DAILY #30 cap 01/22/19 ibuprofen 600 mg tablet 600 mg PO Q8H PRN #90 tab 03/28/20 tizanidine 4 mg tablet 4 mg PO BEDTIME PRN #30 tab 03/28/20 venlafaxine 150 mg 150 mg PO DAILY #90 cap 03/28/20 capsule,extended release 24 hr hydroxyzine HCl 50 mg tablet 50 mg PO QID PRN #20 tab 06/13/20 methylphenidate HCl 36 mg See Rx Instructions .ROUTE 06/30/20 tablet,extended release 24 hr .COMPLEX #30 tab amoxicillin-pot clavulanate 1 tab PO BID #14 tab 07/06/20 [Augmentin XR] oxycodone-acetaminophen 1 tab PO Q6H PRN #10 tab 07/06/20 Allergies Allergy/AdvReac Type Severity Reaction Status Date / Time citalopram Allergy Intermediate Verified 07/05/20 21:26 latex Allergy Mild HIVES Verified 07/05/20 21:26 clindamycin Allergy Unknown RASH Verified 07/05/20 21:26 Review of Systems Review of Systems Narrative: Remainder of review of systems including constitutional, ENT, cardiovascular, respiratory, GI, , musculoskeletal, skin, neurologic and psychiatric systems reviewed and are unremarkable except as noted in HPI. Patient History Medical History ADD (attention deficit disorder) (Chronic) ADHD (attention deficit hyperactivity disorder) (Acute) Bilateral femoral fractures (Acute) Chronic leg pain (Chronic) 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) Depression (Chronic) Osteomalacia (Acute) Osteopenia (Chronic) Ovarian cyst (Resolved) Pneumomediastinum (Resolved) Surgical History History of (Resolved) Status post breast reduction (Resolved) Tubal ligation status (Resolved) Social History Smoking Status: Current some day smoker (nicotine vape ) Smokeless tobacco user: other alcohol intake: former substance use type: marijuana Smoking Status: Current some day smoker (nicotine vape ) alcohol intake frequency: 0-2 drinks per day Substance Use Type: marijuana Exam Narrative Exam Narrative: General: In acute distress with significant dry cough and complains of severe chest pain diaphoretic but not febrile, speaking in full sentences HEENT: Moist mucous membranes, normal sclera with reactive pupils, Neck: No JVD, supple Respiratory: Lungs are clear to auscultation, no wheezing no rales no rhonchi. Full and symmetrical air movement Cardiac: Tachycardic but Regular rate and rhythm no murmurs no bruits Abdomen: Soft, tender in lower quadrants with hypoactive bowel tones, moderate flank pain right greater than left Skin: Warm and diaphoretic with significant physical work of coughing, no rashes Neurologic: Grossly neurologically intact with no obvious asymmetries or abnormalities Extremities: No trauma, well perfused Psych: anxious and frightened Initial Vital Signs Initial Vital Signs: Vital Signs Temperature 98.8 F 07/05/20 21:26 Pulse Rate 76 07/05/20 21:26 Respiratory Rate 20 07/05/20 21:26 Blood Pressure 137/89 07/05/20 21:26 Pulse Oximetry 100 07/05/20 21:26 Course Orders Ordered: ED Orders 07/05/20 21:12 Urine Culture Stat 07/05/20 21:15 COVID19 -ED/INPAT/OR/L&D Stat 10/17/20 21:34 EKG-12 Lead Stat 07/05/20 22:03 XR chest 1V Stat 07/05/20 22:12 Urinalysis and Microscopic Stat 07/05/20 22:20 COVID19 -ED/INPAT/OR/L&D Stat Respiratory Panel (Film Array) Stat 07/05/20 22:55 Complete Blood Count AUTO DIFF Stat Comprehensive Metabolic Panel Stat D Dimer Stat Lactate (Lactic Acid) Stat Lipase Stat Procalcitonin Stat Troponin I Stat 07/05/20 23:02 Blood Culture Stat 07/05/20 23:54 CT abdomen pelvis w con Stat 07/06/20 22:12 Miscellaneous to [facility] Stat Hydromorphone HCl (Dilaudid) 0.5 mg IV Q15MIN PRN PRN Reason: Pain, Last Admin: 07/05/20 22:15 Dose: 0.5 mg Documented by: AMARA Discontinued Medications Sodium Chloride (Normal Saline 0.9%) 1,000 mls @ 1,000 mls/hr IV BOLUS ONE Stop: 07/05/20 23:01 Last Admin: 07/05/20 22:15 Dose: 1,000 mls/hr Documented by: AMARA Ceftriaxone Sodium/Dextrose (Rocephin) 2 gm in 50 mls @ 100 mls/hr IV NOW ONE Stop: 07/06/20 00:01 Last Infusion: 07/06/20 00:20 Dose: 0 mls/hr Documented by: Admin: 07/05/20 23:37 Dose: 100 mls/hr Documented by: AMARA Azithromycin 500 mg/ Dextrose 250 mls @ 250 mls/hr IV NOW ONE Stop: 07/05/20 23:33 Last Admin: 07/06/20 00:14 Dose: 250 mls/hr Documented by: AMARA Lorazepam (Ativan) 1 mg PO NOW ONE Stop: 07/06/20 00:08 Last Admin: 07/06/20 00:10 Dose: 1 mg Documented by: AMARA Ondansetron HCl (Zofran) 4 mg IV NOW ONE Stop: 07/05/20 22:36 Last Admin: 07/05/20 22:37 Dose: 4 mg Documented by: BRIAN Oxycodone/Acetaminophen (Percocet 5/325) 1 tab PO NOW ONE Stop: 07/05/20 23:55 Last Admin: 07/06/20 00:00 Dose: 1 tab Documented by: AMARA Oxycodone/Acetaminophen (Endocet 5/325 Prepack) 1 bottle MISC SEEINSTR ONE Stop: 07/06/20 01:25 Last Admin: 07/06/20 01:28 Dose: 1 bottle Documented by: Vital Signs Vital signs: Vital Signs - 8 hr 07/05/20 21:26 07/05/20 23:16 07/05/20 23:30 Temperature 98.8 F Pulse Rate 76 87 83 Respiratory Rate 20 Blood Pressure 137/89 Pulse Oximetry 100 99 97 07/05/20 23:33 07/06/20 00:33 Temperature Pulse Rate 82 79 Respiratory Rate Blood Pressure 120/78 Pulse Oximetry 99 100 Medical Decision Making Medical Records Medical records reviewed: Yes I reviewed the patient's medical records. Lab Data Lab results reviewed: Yes I reviewed the patient's lab results. Result diagrams: 07/05/20 22:55 07/05/20 22:55 Labs: Lab Results 07/05/20 07/05/20 07/05/20 Range/Units 21:15 22:12 22:20 WBC (4.5-11.0) X10^3/uL RBC (4.0-5.2) X10^6/uL Hgb (12.0-16.0) g/dL Hct (36-46) % MCV (80-100) fL MCH (26-34) PG MCHC (30-36) % RDW (11.6-14.8) % Plt Count (150-400) X10^3/uL Neut % (Auto) (50-75) % Lymph % (Auto) (25-40) % [place] % (Auto) (3-14) % Eos % (Auto) (2-4) % Baso % (Auto) (0-2) % Neut # (Auto) (6608-9954) /uL Lymph # (Auto) (2928-0820) /uL [place] # (Auto) (0-900) /uL Eos # (Auto) (0-450) /uL Baso # (Auto) (0-100) /uL D-Dimer (<230) ng/mL Sodium (137-145) mmol/L Potassium (3.4-5.1) mmol/L Chloride (98-107) mmol/L Carbon Dioxide (22-32) mmol/L BUN (7-17) mg/dL Creatinine (0.52-1.04) mg/dL Estimated GFR (>60) mL/min BUN/Creatinine Ratio (6-22) Glucose (70-100) mg/dL Lactate (0.7-2.1) mmol/L Calcium (8.4-10.2) mg/dL Total Bilirubin (0.2-1.3) mg/dL AST (14-36) IU/L ALT (<35) IU/L Alkaline Phosphatase (38-126) U/L Troponin I (0.01-0.034) ng/mL Total Protein (6.3-8.2) g/dL Albumin (3.5-5.0) g/dL Globulin (1.7-4.1) g/dL Albumin/Globulin Ratio (1.0-2.8) Lipase (23-300) U/L Procalcitonin (<0.5) ng/mL Urine Color Yellow Urine Appearance Clear Urine pH 8.5 H (4.5-8.0) Ur Specific [place] 1.020 (1.000-1.035) Urine Protein Negative (Negative) Urine Glucose (UA) Negative (Negative) g/dL Urine Ketones Negative (NEGATIVE) Urine Occult Blood Trace-lysed (Negative) Urine Nitrate Negative (Negative) Urine Bilirubin Negative (NEGATIVE) Urine Urobilinogen 0.2 (0.2) E.U./dL Ur Leukocyte Esterase 2+ H (NEGATIVE) Urine RBC None seen (0-5/HPF) Urine WBC 1-5/hpf (0-5/HPF) Ur Squamous Epith Cells 5-10 /hpf H (0-5/HPF) Amorphous Sediment 1+ Urine Bacteria Many (>30) H (None) Ur Culture Indicated? Cult not indicated Chlamy pneumoniae PCR Not detected (Not Detect) Adenovirus (PCR) Not detected (Not Detect) B.parapertussis DNA PCR Not detected (Not Detect) Coronavirus OC43 (PCR) Not detected (Not Detect) Coronavirus HKU1 (PCR) Not detected (Not Detect) Coronavirus 229E (PCR) Not detected (Not Detect) COVID-19 PCR Negative (Negative) Coronavirus NL63 (PCR) Not detected (Not Detect) Human Metapneumovir PCR Not detected (Not Detect) Influenza Type A (PCR) Not detected (Not Detect) Influenza Type B (PCR) Not detected (Not Detect) M. pneumoniae (PCR) Not detected (Not Detect) Parainfluenza 1 (PCR) Not detected (Not Detect) Parainfluenza 2 (PCR) Not detected (Not Detect) Parainfluenza 3 (PCR) Not detected (Not Detect) Parainfluenza 4 (PCR) Not detected (Not Detect) RSV (PCR) Not detected (Not Detect) Entero/Rhino (PCR) Not detected (Not Detect) 07/05/20 07/05/20 07/05/20 Range/Units 22:20 22:55 22:55 WBC 22.9 H (4.5-11.0) X10^3/uL RBC 4.45 (4.0-5.2) X10^6/uL Hgb 12.9 (12.0-16.0) g/dL Hct 38.6 (36-46) % MCV 86.8 (80-100) fL MCH 28.9 (26-34) PG MCHC 33.3 (30-36) % RDW 13.0 (11.6-14.8) % Plt Count 404 H (150-400) X10^3/uL Neut % (Auto) 82.7 H (50-75) % Lymph % (Auto) 10.3 L (25-40) % [place] % (Auto) 6.2 (3-14) % Eos % (Auto) 0.4 L (2-4) % Baso % (Auto) 0.4 (0-2) % Neut # (Auto) 85999 H (4546-0725) /uL Lymph # (Auto) 2400 (5011-9583) /uL [place] # (Auto) 1400 H (0-900) /uL Eos # (Auto) 100 (0-450) /uL Baso # (Auto) 100 (0-100) /uL D-Dimer (<230) ng/mL Sodium 141 (137-145) mmol/L Potassium 3.4 (3.4-5.1) mmol/L Chloride 108 H (98-107) mmol/L Carbon Dioxide 28 (22-32) mmol/L BUN 12 (7-17) mg/dL Creatinine 0.42 L (0.52-1.04) mg/dL Estimated GFR > 60.0 (>60) mL/min BUN/Creatinine Ratio 28.6 H (6-22) Glucose 105 H (70-100) mg/dL Lactate (0.7-2.1) mmol/L Calcium 8.9 (8.4-10.2) mg/dL Total Bilirubin 0.3 (0.2-1.3) mg/dL AST 19 (14-36) IU/L ALT 15 (<35) IU/L Alkaline Phosphatase 108 (38-126) U/L Troponin I (0.01-0.034) ng/mL Total Protein 7.4 (6.3-8.2) g/dL Albumin 3.8 (3.5-5.0) g/dL Globulin 3.6 (1.7-4.1) g/dL Albumin/Globulin Ratio 1.1 (1.0-2.8) Lipase (23-300) U/L Procalcitonin (<0.5) ng/mL Urine Color Urine Appearance Urine pH (4.5-8.0) Ur Specific [place] (1.000-1.035) Urine Protein (Negative) Urine Glucose (UA) (Negative) g/dL Urine Ketones (NEGATIVE) Urine Occult Blood (Negative) Urine Nitrate (Negative) Urine Bilirubin (NEGATIVE) Urine Urobilinogen (0.2) E.U./dL Ur Leukocyte Esterase (NEGATIVE) Urine RBC (0-5/HPF) Urine WBC (0-5/HPF) Ur Squamous Epith Cells (0-5/HPF) Amorphous Sediment Urine Bacteria (None) Ur Culture Indicated? Chlamy pneumoniae PCR (Not Detect) Adenovirus (PCR) (Not Detect) B.parapertussis DNA PCR (Not Detect) Coronavirus OC43 (PCR) (Not Detect) Coronavirus HKU1 (PCR) (Not Detect) Coronavirus 229E (PCR) (Not Detect) COVID-19 PCR Negative (Negative) Coronavirus NL63 (PCR) (Not Detect) Human Metapneumovir PCR (Not Detect) Influenza Type A (PCR) (Not Detect) Influenza Type B (PCR) (Not Detect) M. pneumoniae (PCR) (Not Detect) Parainfluenza 1 (PCR) (Not Detect) Parainfluenza 2 (PCR) (Not Detect) Parainfluenza 3 (PCR) (Not Detect) Parainfluenza 4 (PCR) (Not Detect) RSV (PCR) (Not Detect) Entero/Rhino (PCR) (Not Detect) 07/05/20 07/05/20 07/05/20 Range/Units 22:55 22:55 22:55 WBC (4.5-11.0) X10^3/uL RBC (4.0-5.2) X10^6/uL Hgb (12.0-16.0) g/dL Hct (36-46) % MCV (80-100) fL MCH (26-34) PG MCHC (30-36) % RDW (11.6-14.8) % Plt Count (150-400) X10^3/uL Neut % (Auto) (50-75) % Lymph % (Auto) (25-40) % [place] % (Auto) (3-14) % Eos % (Auto) (2-4) % Baso % (Auto) (0-2) % Neut # (Auto) (9253-4390) /uL Lymph # (Auto) (1958-6547) /uL [place] # (Auto) (0-900) /uL Eos # (Auto) (0-450) /uL Baso # (Auto) (0-100) /uL D-Dimer < 200 (<230) ng/mL Sodium (137-145) mmol/L Potassium (3.4-5.1) mmol/L Chloride (98-107) mmol/L Carbon Dioxide (22-32) mmol/L BUN (7-17) mg/dL Creatinine (0.52-1.04) mg/dL Estimated GFR (>60) mL/min BUN/Creatinine Ratio (6-22) Glucose (70-100) mg/dL Lactate (0.7-2.1) mmol/L Calcium (8.4-10.2) mg/dL Total Bilirubin (0.2-1.3) mg/dL AST (14-36) IU/L ALT (<35) IU/L Alkaline Phosphatase (38-126) U/L Troponin I < 0.012 (0.01-0.034) ng/mL Total Protein (6.3-8.2) g/dL Albumin (3.5-5.0) g/dL Globulin (1.7-4.1) g/dL Albumin/Globulin Ratio (1.0-2.8) Lipase 44 (23-300) U/L Procalcitonin < 0.05 (<0.5) ng/mL Urine Color Urine Appearance Urine pH (4.5-8.0) Ur Specific [place] (1.000-1.035) Urine Protein (Negative) Urine Glucose (UA) (Negative) g/dL Urine Ketones (NEGATIVE) Urine Occult Blood (Negative) Urine Nitrate (Negative) Urine Bilirubin (NEGATIVE) Urine Urobilinogen (0.2) E.U./dL Ur Leukocyte Esterase (NEGATIVE) Urine RBC (0-5/HPF) Urine WBC (0-5/HPF) Ur Squamous Epith Cells (0-5/HPF) Amorphous Sediment Urine Bacteria (None) Ur Culture Indicated? Chlamy pneumoniae PCR (Not Detect) Adenovirus (PCR) (Not Detect) B.parapertussis DNA PCR (Not Detect) Coronavirus OC43 (PCR) (Not Detect) Coronavirus HKU1 (PCR) (Not Detect) Coronavirus 229E (PCR) (Not Detect) COVID-19 PCR (Negative) Coronavirus NL63 (PCR) (Not Detect) Human Metapneumovir PCR (Not Detect) Influenza Type A (PCR) (Not Detect) Influenza Type B (PCR) (Not Detect) M. pneumoniae (PCR) (Not Detect) Parainfluenza 1 (PCR) (Not Detect) Parainfluenza 2 (PCR) (Not Detect) Parainfluenza 3 (PCR) (Not Detect) Parainfluenza 4 (PCR) (Not Detect) RSV (PCR) (Not Detect) Entero/Rhino (PCR) (Not Detect) 07/05/20 Range/Units 22:55 WBC (4.5-11.0) X10^3/uL RBC (4.0-5.2) X10^6/uL Hgb (12.0-16.0) g/dL Hct (36-46) % MCV (80-100) fL MCH (26-34) PG MCHC (30-36) % RDW (11.6-14.8) % Plt Count (150-400) X10^3/uL Neut % (Auto) (50-75) % Lymph % (Auto) (25-40) % [place] % (Auto) (3-14) % Eos % (Auto) (2-4) % Baso % (Auto) (0-2) % Neut # (Auto) (7506-9684) /uL Lymph # (Auto) (9974-6731) /uL [place] # (Auto) (0-900) /uL Eos # (Auto) (0-450) /uL Baso # (Auto) (0-100) /uL D-Dimer (<230) ng/mL Sodium (137-145) mmol/L Potassium (3.4-5.1) mmol/L Chloride (98-107) mmol/L Carbon Dioxide (22-32) mmol/L BUN (7-17) mg/dL Creatinine (0.52-1.04) mg/dL Estimated GFR (>60) mL/min BUN/Creatinine Ratio (6-22) Glucose (70-100) mg/dL Lactate 0.8 (0.7-2.1) mmol/L Calcium (8.4-10.2) mg/dL Total Bilirubin (0.2-1.3) mg/dL AST (14-36) IU/L ALT (<35) IU/L Alkaline Phosphatase (38-126) U/L Troponin I (0.01-0.034) ng/mL Total Protein (6.3-8.2) g/dL Albumin (3.5-5.0) g/dL Globulin (1.7-4.1) g/dL Albumin/Globulin Ratio (1.0-2.8) Lipase (23-300) U/L Procalcitonin (<0.5) ng/mL Urine Color Urine Appearance Urine pH (4.5-8.0) Ur Specific [place] (1.000-1.035) Urine Protein (Negative) Urine Glucose (UA) (Negative) g/dL Urine Ketones (NEGATIVE) Urine Occult Blood (Negative) Urine Nitrate (Negative) Urine Bilirubin (NEGATIVE) Urine Urobilinogen (0.2) E.U./dL Ur Leukocyte Esterase (NEGATIVE) Urine RBC (0-5/HPF) Urine WBC (0-5/HPF) Ur Squamous Epith Cells (0-5/HPF) Amorphous Sediment Urine Bacteria (None) Ur Culture Indicated? Chlamy pneumoniae PCR (Not Detect) Adenovirus (PCR) (Not Detect) B.parapertussis DNA PCR (Not Detect) Coronavirus OC43 (PCR) (Not Detect) Coronavirus HKU1 (PCR) (Not Detect) Coronavirus 229E (PCR) (Not Detect) COVID-19 PCR (Negative) Coronavirus NL63 (PCR) (Not Detect) Human Metapneumovir PCR (Not Detect) Influenza Type A (PCR) (Not Detect) Influenza Type B (PCR) (Not Detect) M. pneumoniae (PCR) (Not Detect) Parainfluenza 1 (PCR) (Not Detect) Parainfluenza 2 (PCR) (Not Detect) Parainfluenza 3 (PCR) (Not Detect) Parainfluenza 4 (PCR) (Not Detect) RSV (PCR) (Not Detect) Entero/Rhino (PCR) (Not Detect) Imaging Data Chest x-ray: Attestation: I personally reviewed and interpreted this imaging study as follows: My Impression: No acute infiltrates, no pneumothorax, normal mediastinum, normal cardiac silhouette, normal chest x-ray CT scan - abdomen/pelvis: Radiologist's Impression: Ground-glass opacity in the right lower lobe may indicate infection. No evidence of cystitis/pyelonephritis. Dr Glenna Winston ECG Data Attestation: I personally reviewed and interpreted this ECG as follows: Interpretation: Sinus rhythm at a rate of 79 Normal intervals, normal axis No acute ST T wave changes MDM Narrative Medical decision making narrative: 30-year-old woman presents with severe distress complaining of pain throughout her entire chest that is like a fire with each breath. She calms nicely after pain has been adequately controlled and is able to more fully cooperate with history and exam. Symptoms have been present for a week, she has had no fevers. She has not had similar findings. She also feels that she has a bladder infection with urgency and frequency earlier in the week now with just frequency. She does have bilateral CVA tenderness to suggest possible pyelonephritis. Labs show significant leukocytosis however chest x-ray is unremarkable and Covid rapid test as well as confirmatory PCR and PCR respiratory panel are all negative. Urinalysis has leukocytes and bacteria but also multiple squamous cells based on her symptoms have asked for culture in suspect that this may be a part of leukocytosis. With mild diffuse lower abdominal pain is setting of severe leukocytosis with no obvious infection source will move forward with CT scan. There is no evidence of sepsis at this time with heart rate, oxygen levels and blood pressures remaining reassuring. Fluids were initiated and ceftriaxone/azithromycin were started with source presumed initially to be pulmonary or urinary tract. 1:15am CT scan is reviewed. At this point she has no signs of sepsis, renal failure, oxygen saturations are 100% on room air she is able to speak in full sentences remains afebrile and pain is much better controlled. CT scan suggests right lower lobe pneumonia with no evidence of cystitis or pyelonephritis. At this point she needs all clinical criteria for home discharge with oral antibiotics for pneumonia. Because of the severe pleuritic component full also give her a brief course of narcotic to help suppress the cough and deal with the pleuritic pain. Will choose Augmentin as her antibiotic choice to cover both bacterial pneumonia and a urinary tract infection should cultures returned positive. Discharge Plan Departure Patient Disposition: Home Clinical Impression: Pleurisy Pneumonia Qualifiers: Pneumonia type: due to unspecified organism Laterality: right Lung location: lower lobe of lung Qualified Code(s): J18.9 - Pneumonia, unspecified organism Instructions: DI for Pneumonia -- Adult, DI for Pleurisy Activity Restrictions/Additional Instructions: Thank you for coming in. Your exam suggests that you have a right lower lobe pneumonia with pleurisy. You do not have Covid or other respiratory viruses for which we can test. Your urine has been sent for culture, it is unclear if you have a bladder infection however the antibiotics to treat your pneumonia will also treat a bladder infection should it be there. There is no evidence of heart attack, sepsis, blood clot in your lungs, collapsed lung or other life-threatening diagnoses. 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 If you feel like you are getting worse, please return to the emergency department I hope you heal quickly Prescriptions: New amoxicillin-pot clavulanate [Augmentin XR] 1,000-62.5 mg tablet extended release 12 hr 1 tab PO BID Qty: 14 RF: 0 oxycodone-acetaminophen 5-325 mg tablet 1 tab PO Q6H PRN (Reason: pain) Qty: 10 RF: 0 No Action hydroxyzine HCl 50 mg tablet 50 mg PO QID PRN (Reason: anxiety) Qty: 20 RF: 1 methylphenidate HCl 36 mg tablet extended release 24hr See Rx Instructions .ROUTE .COMPLEX Qty: 30 RF: 0 Excedrin Extra Strength 250-250-65 mg tablet 1 tab PO Q4-6H PRNRF: 0 ibuprofen 600 mg tablet 600 mg PO Q8H PRN (Reason: pain) Qty: 90 RF: 0 venlafaxine 150 mg capsule,extended release 24hr 150 mg PO DAILY Qty: 90 RF: 1 tizanidine 4 mg tablet 4 mg PO BEDTIME PRN (Reason: muscle spasticity) Qty: 30 RF: 2 propranolol 60 mg capsule,extended release 24 hr 60 mg PO DAILY Qty: 30 RF: 0 Referrals: Pablito Hayes, [Primary Care Provider] -
[2020-07-05 21:26] VITALS: BP 137/89; PULSE 76; RESP 20; TEMP 37.1; O2SAT 100; BMI 36.1
[2020-07-05 21:47] LABS: COVID19 -Nasal RAPID Negative (Negative)
--- NOTE | 2020-07-05 22:03 | DI.RAD.S_ITS ---
PROCEDURE: XR CHEST 1V INDICATIONS: dyspnea TECHNIQUE: One view of the chest was acquired. COMPARISON: [facility], CR, XR CHEST 1V, 03/25/2019, 5:23. [facility], CR, XR CHEST 1V, 04/29/2019, 22:35. [facility], CR, XR CHEST 1V, 05/28/2019, 23:39. FINDINGS: Surgical changes and devices: None. Lungs and pleura: Lungs are clear. No pleural effusions or pneumothorax. Mediastinum: Mediastinal contours appear normal. Heart size is normal. Bones and chest wall: No suspicious bony lesions. Mild dextroconvex scoliotic curvature is seen. Overlying soft tissues appear unremarkable. IMPRESSION: Unremarkable portable chest. Dictated by: Zion Prajapati M.D. on 07/06/2020 at 8:19 Approved by: Zion Prajapati M.D. on 07/06/2020 at 8:20
[2020-07-05] MEDS: SODIUM CHLORIDE 0.9% 1,000 ML 1000 ML IV (22:15)
[2020-07-05] MEDS: HYDROMORPHONE 0.5 MG INJ IV (22:15)
[2020-07-05 22:20] LABS: RBC Urine None Seen (0-5/HPF)
[2020-07-05 22:21] LABS: Appearance Urine UA CLEAR; Bilirubin Urine UA NEGATIVE (NEGATIVE); Color Urine UA YELLOW; Glucose Urine UA NEGATIVE (Negative); Ketones Urine UA NEGATIVE (NEGATIVE); Leukocyte Esterase Urine UA 2+ (NEGATIVE); Nitrite Urine UA NEGATIVE (Negative); Occult Blood Urine UA TRACE-LYSED (Negative); Protein Urine UA NEGATIVE (Negative); Urobilinogen Urine UA 0.2 E.U./dL (0.2)
[2020-07-05 22:29] LABS: pH Urine UA 8.5 (4.5-8.0)
[2020-07-05 22:31] LABS: Squamous Epithelial Cell Urine 5-10 /HPF (0-5/HPF); WBC Urine 1-5/HPF (0-5/HPF)
[2020-07-05 22:32] LABS: Amorphous Sediment Urine 1+; Bacteria Urine Many (>30); Culture Indicated Urine Cult Not Indicated
[2020-07-05] MEDS: ONDANSETRON 4 MG/2 ML INJ IV (22:37)
[2020-07-05 23:16] VITALS: PULSE 87; O2SAT 99
[2020-07-05 23:17] LABS: Add Manual Diff / Slide Review NO; Basophils Absolute Auto 100 /uL (0-100); Basophils Percent Auto 0.4 % (0-2); Eosinophils Absolute Auto 100 /uL (0-450); Eosinophils Percent Auto 0.4 % (2-4); Hematocrit 38.6 % (36-46); Hemoglobin 12.9 g/dL (12.0-16.0); Lymphocytes Absolute Auto 2400 /uL (1100-4500); Lymphocytes Percent Auto 10.3 % (25-40); Mean Corpuscular HGB Conc 33.3 % (30-36); Mean Corpuscular Hemoglobin 28.9 PG (26-34); Mean Corpuscular Volume 86.8 fL (80-100); Monocytes Absolute Auto 1400 /uL (0-900); Monocytes Percent Auto 6.2 % (3-14); Neutrophils Absolute Auto 18900 /uL (1500-7000); Neutrophils Percent Auto 82.7 % (50-75); Platelet Count 404 X10^3/uL (150-400); Red Blood Cell Count 4.45 X10^6/uL (4.0-5.2); White Blood Cell Count 22.9 X10^3/uL (4.5-11.0)
[2020-07-05 23:19] LABS: COVID19 -Nasal RAPID Negative (Negative)
[2020-07-05 23:25] LABS: D Dimer < 200 ng/mL (<230)
[2020-07-05 23:27] LABS: Lactate (Lactic Acid) 0.8 mmol/L (0.7-2.1); Lipase 44 U/L (23-300)
[2020-07-05 23:28] LABS: Alanine Aminotransferase 15 IU/L (<35); Albumin 3.8 g/dL (3.5-5.0); Albumin Globulin Ratio 1.1 (1.0-2.8); Alkaline Phosphatase 108 U/L (38-126); Aspartate Aminotransferase 19 IU/L (14-36); BUN Creatinine Ratio 28.6 (6-22); Bilirubin Total 0.3 mg/dL (0.2-1.3); Blood Urea Nitrogen 12 mg/dL (7-17); Calcium 8.9 mg/dL (8.4-10.2); Carbon Dioxide 28 mmol/L (22-32); Chloride 108 mmol/L (98-107); Estimated Glomerular Filt Rate > 60.0 mL/min (>60); Globulin 3.6 g/dL (1.7-4.1); Glucose 105 mg/dL (70-100); HEMOLYSIS < 15 (0-50); Potassium 3.4 mmol/L (3.4-5.1); Sodium 141 mmol/L (137-145); Total Protein 7.4 g/dL (6.3-8.2)
[2020-07-05 23:30] VITALS: PULSE 83; O2SAT 97
[2020-07-05 23:33] VITALS: BP 120/78; PULSE 82; O2SAT 99
[2020-07-05 23:37] LABS: Adenovirus Not Detected (Not Detect); Bordetella pertussis Not Detected (Not Detect); Chlamydophila pneumoniae Not Detected (Not Detect); Coronavirus 229E Not Detected (Not Detect); Coronavirus HKU1 Not Detected (Not Detect); Coronavirus NL 63 Not Detected (Not Detect); Coronavirus OC43 Not Detected (Not Detect); Human Metapneumovirus Not Detected (Not Detect); Human Rhinovirus/Enterovirus Not Detected (Not Detect); Influenza A Not Detected (Not Detect); Influenza B Not Detected (Not Detect); Mycoplasma pneumoniae Not Detected (Not Detect); Parainfluenza Virus 1 Not Detected (Not Detect); Parainfluenza Virus 2 Not Detected (Not Detect); Parainfluenza Virus 3 Not Detected (Not Detect); Parainfluenza Virus 4 Not Detected (Not Detect); Respiratory Syncytial Virus Not Detected (Not Detect)
[2020-07-05] MEDS: CEFTRIAXONE 2 GM/50 ML FROZ.PIGGY IV (23:37)
[2020-07-05 23:40] LABS: Troponin I < 0.012 ng/mL (0.01-0.034)
[2020-07-05 23:41] LABS: Procalcitonin < 0.05 ng/mL (<0.5)
--- NOTE | 2020-07-05 23:54 | DI.CT.S_ITS ---
PROCEDURE: CT ABDOMEN PELVIS W CON INDICATIONS: leukocytosis, flank pain TECHNIQUE: After the administration of intravenous contrast, 5 mm thick sections acquired from the diaphragm to the symphysis. 5 mm coronal and sagittal reformats were acquired. For radiation dose reduction, the following was used: automated exposure control, adjustment of mA and/or kV according to patient size. COMPARISON: [facility], CT, PE STUDY (CTA CHEST), 05/17/2016, 0:19. [facility], CT, CT ABDOMEN PELVIS W CON, 11/11/2018, 1:48. [facility], CR, XR CHEST 1V, 07/05/2020, 22:04. [facility], CT, CT ABDOMEN PELVIS W CON, 07/19/2018, 19:16. FINDINGS: Image quality: Excellent. ABDOMEN: Lung bases: A mild focus of ground-glass opacity can be seen involving the right lower lobe, as on series 3, image 1 measuring 2.7 cm. Lung bases are otherwise clear. Heart size is normal. Solid organs: Liver is normal in size and enhancement. Diffuse fatty liver infiltration is noted. Gallbladder is largely collapsed at the time of this study. Biliary system is non dilated. Pancreas enhances normally. Spleen is normal in size and enhancement. Incidental note is made of an accessory splenule along the anterior aspect of the primary spleen. No adrenal nodules. In this patient with this given history, scrutiny is given to the kidneys. The kidneys demonstrate normal size and enhance symmetrically, without poorly enhancing areas to suggest pyelonephritis by CT. No hydronephrosis is seen. To the limits of this contrast enhanced study, no stones are seen. Peritoneum and bowel: Bowel loops demonstrate normal wall thickness and caliber. No free fluid or air. Nodes and vessels: No retroperitoneal or mesenteric adenopathy by size criteria. Aorta and inferior vena cava are normal in size. Miscellaneous: A mild periumbilical hernia is seen, containing fat. PELVIS: Genitourinary: Bladder wall thickness is normal. The uterus appears normal for age. No adnexal masses are seen. Miscellaneous: No inguinal hernias or adenopathy. Bones: No suspicious bony lesions. Bilateral proximal femur hardware is seen, with associated streak artifact. No vertebral body compression fractures. Mild levoconvex thoracolumbar scoliotic curvature is noted. IMPRESSION: Unremarkable kidneys, without findings of hydronephrosis or findings of pyelonephritis by CT. 2.7 cm focus of ground-glass opacity within the right lower lobe, which is most likely related to infection. In a patient of this age, this is most likely benign. If clinically appropriate, a noncontrast chest CT could be considered in 3-6 months. Incidental note is made of: Fatty liver infiltration Fat containing periumbilical hernia Mild levoconvex thoracolumbar scoliotic curvature Bilateral proximal femur hardware, with associated streak artifact Note: No significant discrepancy from the preliminary report. Dictated by: Zion Prajapati M.D. on 07/06/2020 at 8:20 Approved by: Zion Prajapati M.D. on 07/06/2020 at 8:25
[2020-07-06] MEDS: OXYCODONE/ACETAMINOPHEN 5/325 TABLET 1 TAB PO
[2020-07-06] MEDS: LORazepam 0.5 MG TABLET 1 MG PO (00:10)
[2020-07-06] MEDS: AZITHROMYCIN 500 MG in DEXTROSE 5% IN WATER 250 ML IV (00:14)
[2020-07-06 00:33] VITALS: PULSE 79; O2SAT 100
[2020-07-06] MEDS: OXYCODONE/APAP 5/325 PREPACK 1 BOTTLE MISC (01:28)
[2020-07-06 01:46] VITALS: BP 115/70; PULSE 80; RESP 16; O2SAT 99
== END 2020-07-06 01:46 | disposition home or self-care (01) ==
PROVIDERS: Emergency Provider Emergency Medicine; PCP Family Medicine
DX: R09.1 Pleurisy (principal); J18.9 Pneumonia, unspecified organism; R05 Cough; R06.00 Dyspnea, unspecified; R10.30 Lower abdominal pain, unspecified
CPT/HCPCS: 36415; 71045; 74177; 80053; 81001; 83605; 83690; 84145; 84484; 85025; 85379; 87040; 87086; 87491; 87591; 87633; 87635; 93005; 96365; 96366; 96367; 96375; 99284; J0696; J1170; J2405; Q9967

== ENCOUNTER 2020-07-07 07:19 | Emergency (ER) | payer MEDICARE, MEDICAID, SELFPAY ==
[2020-07-07 07:20] VITALS: BP 131/83; PULSE 87; RESP 18; TEMP 37.1; O2SAT 99; BMI 36.1
--- NOTE | 2020-07-07 07:44 | ED_ITS ---
HPI - General Adult General Chief complaint: Recheck/Abnormal Lab/Rx Stated complaint: pneumonia with pluresy Time Seen by Provider: 07/07/20 07:19 Source: patient Mode of arrival: Ambulatory Limitations: no limitations History of Present Illness HPI narrative: 30-year-old female who was seen in the emergency department a couple days ago and diagnosed with a right lower lobe pneumonia which was seen on a CT scan of chest. Was sent home with Augmentin to cover potential urinary tract infection along with pneumonia. Was also given a short course of pain medication. Returns today for which she describes as problems breathing and continued pain. She was crying in the room. Somewhat reluctant to answer HPI questioning. She states she has been taking her antibiotics. No fevers. Related Data Home Medications Medication Instructions Recorded Confirmed [id number] 250 1 tab PO Q4-6H PRN 03/28/20 03/28/20 mg-250 mg-65 mg tablet Previous Rx's Medication Instructions Recorded propranolol 60 mg PO DAILY #30 cap 01/22/19 ibuprofen 600 mg tablet 600 mg PO Q8H PRN #90 tab 03/28/20 tizanidine 4 mg tablet 4 mg PO BEDTIME PRN #30 tab 03/28/20 venlafaxine 150 mg 150 mg PO DAILY #90 cap 03/28/20 capsule,extended release 24 hr hydroxyzine HCl 50 mg tablet 50 mg PO QID PRN #20 tab 06/13/20 methylphenidate HCl 36 mg See Rx Instructions .ROUTE 06/30/20 tablet,extended release 24 hr .COMPLEX #30 tab amoxicillin-pot clavulanate 1 tab PO BID #14 tab 07/06/20 [Augmentin XR] oxycodone-acetaminophen 1 tab PO Q6H PRN #10 tab 07/06/20 Allergies Allergy/AdvReac Type Severity Reaction Status Date / Time citalopram Allergy Intermediate Verified 07/05/20 21:26 latex Allergy Mild HIVES Verified 07/05/20 21:26 clindamycin Allergy Unknown RASH Verified 07/05/20 21:26 Review of Systems Constitutional Constitutional: Denies fever(s) Cardiovascular Cardiovascular: Denies chest pain and Reports dyspnea Respiratory Respiratory: Reports cough and Reports dyspnea Gastrointestinal Gastrointestinal: Denies abdominal pain, Denies nausea and Denies vomiting Musculoskeletal Musculoskeletal: Reports back pain, Reports myalgias and Denies myalgias Integumentary/Breasts Skin/Breast: Denies rash Neurologic Neurologic: Denies behavioral changes Psychiatric Psychiatric: Denies behavioral changes Hematologic/Lymphatic Hematologic/Lymphatic: Denies easy bleeding and Denies easy bruising Patient History Medical History ADD (attention deficit disorder) (Chronic) ADHD (attention deficit hyperactivity disorder) (Acute) Bilateral femoral fractures (Acute) Chronic leg pain (Chronic) 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) Depression (Chronic) Osteomalacia (Acute) Osteopenia (Chronic) Ovarian cyst (Resolved) Pneumomediastinum (Resolved) Surgical History History of (Resolved) Status post breast reduction (Resolved) Tubal ligation status (Resolved) Social History Smoking Status: Current some day smoker (nicotine vape ) Smokeless tobacco user: other alcohol intake: former substance use type: marijuana Smoking Status: Current some day smoker (nicotine vape ) alcohol intake frequency: 0-2 drinks per day Substance Use Type: marijuana Exam Initial Vital Signs Initial Vital Signs: Vital Signs Temperature 98.7 F 07/07/20 07:20 Pulse Rate 87 07/07/20 07:20 Respiratory Rate 18 07/07/20 07:20 Blood Pressure 131/83 07/07/20 07:20 Pulse Oximetry 99 07/07/20 07:20 Const General: anxious Limitations: mental status not altered HENMT Head: normal to inspection and normocephalic Resp Effort & Inspection: normal respiratory effort, not labored and not tachypneic Auscultation: clear to auscultation bilaterally Cardio Rate: regular rate Rhythm: regular rhythm GI Inspection: non-distended Palpation: soft Back/Spine/Pelvis Back: No CVA tenderness Thoracic/Lumbar Spine: paraspinal tenderness (Thoracic region) and No thoracic spinal tenderness Skin Lesions: no lesions Rashes: no rashes Neuro General: patient alert and patient awake Cognition: normal cognition Speech: speech normal Extrem General: normal to inspection and capillary refill normal Psych Appearance: grossly normal and well kempt Course Orders Ordered: ED Orders 07/07/20 07:43 XR chest 1V Stat Discontinued Medications Cyclobenzaprine HCl (Flexeril) 10 mg PO NOW ONE Stop: 07/07/20 07:45 Last Admin: 07/07/20 07:50 Dose: 10 mg Documented by: KVNG Ketorolac Tromethamine (Toradol) 30 mg IM NOW ONE Stop: 07/07/20 07:45 Last Admin: 07/07/20 07:50 Dose: 30 mg Documented by: KVNG Vital Signs Vital signs: Vital Signs - 8 hr 07/07/20 07:20 Temperature 98.7 F Pulse Rate 87 Respiratory Rate 18 Blood Pressure 131/83 Pulse Oximetry 99 Medical Decision Making Lab Data Lab results reviewed: Yes I reviewed the patient's lab results. Labs: Urine Dip Bedside Urine Glucose Negative Bedside Urine Bilirubin - Negative Bedside Urine Ketone - Negative Urine Specific [place] 1.015 Bedside Urine Occult Blood ++ Bedside Urine pH 6.5 Bedside Urine Protein - Negative Bedside Urine Urobilinogen - Negative Bedside Urine Nitrite - Negative Bedside Urine Leukocytes - Negative Esterase Point of care testing: Urine Dip Bedside Urine Glucose Negative Bedside Urine Bilirubin - Negative Bedside Urine Ketone - Negative Urine Specific [place] 1.015 Bedside Urine Occult Blood ++ Bedside Urine pH 6.5 Bedside Urine Protein - Negative Bedside Urine Urobilinogen - Negative Bedside Urine Nitrite - Negative Bedside Urine Leukocytes - Negative Esterase Imaging Data Chest x-ray: Radiologist's Impression: [address] [address] XRay Report Signed Patient: Yaritza Lindo RMR#: [id number] : 1990Acct:[id number] Age/Sex: 30 / FDate of Service: 07/07/20 Loc: ED Accession Number: [id number] Procedure: XR chest 1V Ordering Provider: Dane Madrid D.O. PROCEDURE: XR CHEST 1V INDICATIONS: RLL PNA seen on CT scan and getting worse TECHNIQUE: One view of the chest was acquired. COMPARISON: [facility], CT, CT ABDOMEN PELVIS W CON, 07/06/2020, 0:04. [facility], CR, XR CHEST 1V, 07/05/2020, 22:04. FINDINGS: Surgical changes and devices: None. Lungs and pleura: Ground-glass opacity in the right lower lobe seen on prior CT is not well visualized on x-ray. No airspace consolidation. No pleural effusions or pneumothorax. Mediastinum: Mediastinal contours appear normal. Heart size is normal. Bones and chest wall: No suspicious bony lesions. Overlying soft tissues appear unremarkable. IMPRESSION: 1. Ground-glass opacity seen on prior CT not well visualized on x-ray. No evidence of consolidation. Dictated by: Marcos Saleh M.D. on 07/07/2020 at 8:37 Approved by: Marcos Saleh M.D. on 07/07/2020 at 8:40 MDM Narrative Medical decision making narrative: No respiratory distress, not hypoxic, not febrile, not tachypneic, clear lung exam, not hypotensive, not tachycardic. Repeat chest x-ray continues to not show the consolidation in the right lower lobe that was seen on the CT scan. She is on antibiotics for pneumonia and also a presumed urinary tract infection. I do not feel that her symptoms today are consistent with pyelonephritis. The urine culture was still pending. Patient was very anxious upon arrival. I do suspect there is an anxiety component. Will avoid opioid pain medication as I feel that the anti-inflammatories a better suited for her diagnosed conditions. She was given return precautions. She expressed understanding and agreement. Discharge Plan Departure Patient Disposition: Home Clinical Impression: Pleurisy, Acute upper back pain Instructions: DI for Pleurisy Activity Restrictions/Additional Instructions: Your chest x-ray today is unremarkable. Your vital signs are unremarkable. You are currently on antibiotics that are appropriate for your diagnosed issues from her last ED visit. Continue to take these as directed. Also recommend that you use heat/ice/massage and anti-inflammatories for your upper back pain. Contact her primary provider for follow-up. Prescriptions: No Action hydroxyzine HCl 50 mg tablet 50 mg PO QID PRN (Reason: anxiety) Qty: 20 RF: 1 methylphenidate HCl 36 mg tablet extended release 24hr See Rx Instructions .ROUTE .COMPLEX Qty: 30 RF: 0 Excedrin Extra Strength 250-250-65 mg tablet 1 tab PO Q4-6H PRNRF: 0 ibuprofen 600 mg tablet 600 mg PO Q8H PRN (Reason: pain) Qty: 90 RF: 0 venlafaxine 150 mg capsule,extended release 24hr 150 mg PO DAILY Qty: 90 RF: 1 tizanidine 4 mg tablet 4 mg PO BEDTIME PRN (Reason: muscle spasticity) Qty: 30 RF: 2 amoxicillin-pot clavulanate [Augmentin XR] 1,000-62.5 mg tablet extended release 12 hr 1 tab PO BID Qty: 14 RF: 0 oxycodone-acetaminophen 5-325 mg tablet 1 tab PO Q6H PRN (Reason: pain) Qty: 10 RF: 0 propranolol 60 mg capsule,extended release 24 hr 60 mg PO DAILY Qty: 30 RF: 0 Referrals: Pablito Hayes DO [Primary Care Provider] -
[2020-07-07] MEDS: KETOROLAC 60 MG/2 ML VIAL 30 MG IM (07:50)
[2020-07-07] MEDS: CYCLOBENZAPRINE 10 MG TABLET PO (07:50)
--- NOTE | 2020-07-07 08:06 | PC.NURSE ---
pt states she took oxycodone 2 hours and has vomited since.
[2020-07-07 08:50] VITALS: BP 127/81; PULSE 71; RESP 18; O2SAT 99
== END 2020-07-07 09:01 | disposition home or self-care (01) ==
PROVIDERS: Emergency Provider Emergency Medicine; PCP Family Medicine
DX: R09.1 Pleurisy (principal); M54.6 Pain in thoracic spine; R05 Cough; R06.00 Dyspnea, unspecified
CPT/HCPCS: 71045; 81003; 96372; 99283; 99284; J1885

== ENCOUNTER 2020-09-16 18:04 | Emergency (ER) | payer MEDICARE, MEDICAID, SELFPAY ==
[2020-09-16 18:14] VITALS: BP 130/79; PULSE 112; RESP 18; TEMP 37.9; O2SAT 100
--- NOTE | 2020-09-16 20:36 | ED_ITS ---
HPI - General Adult General Chief complaint: Upper Respiratory Symptoms Stated complaint: states strep throat Time Seen by Provider: 09/16/20 20:00 Source: patient Mode of arrival: Wheelchair Limitations: no limitations History of Present Illness HPI narrative: 30-year-old female here for evaluation of 1 day of a sore throat. No fevers. No cough. Patient states that her son recently was diagnosed with strep throat and she thinks that that is what she has. Related Data Home Medications Medication Instructions Recorded Confirmed [id number] 250 1 tab PO Q4-6H PRN 03/28/20 03/28/20 mg-250 mg-65 mg tablet Previous Rx's Medication Instructions Recorded propranolol 60 mg PO DAILY #30 cap 01/22/19 ibuprofen 600 mg tablet 600 mg PO Q8H PRN #90 tab 03/28/20 venlafaxine 150 mg 150 mg PO DAILY #90 cap 03/28/20 capsule,extended release 24 hr amoxicillin-pot clavulanate 1 tab PO BID #14 tab 07/06/20 [Augmentin XR] oxycodone-acetaminophen 1 tab PO Q6H PRN #10 tab 07/06/20 hydroxyzine HCl 50 mg tablet 50 mg PO QID PRN #20 tab 07/28/20 methylphenidate HCl 36 mg See Rx Instructions .ROUTE 08/26/20 tablet,extended release 24 hr .COMPLEX #30 tab tizanidine 4 mg tablet See Rx Instructions .ROUTE 09/01/20 .COMPLEX #30 tab Allergies Allergy/AdvReac Type Severity Reaction Status Date / Time citalopram Allergy Intermediate Verified 07/05/20 21:26 latex Allergy Mild HIVES Verified 07/05/20 21:26 clindamycin Allergy Unknown RASH Verified 07/05/20 21:26 Review of Systems Constitutional Constitutional: Denies fever(s) ENT Ears, Nose, Mouth, and Throat: Reports sore throat Respiratory Respiratory: Denies cough Integumentary/Breasts Skin/Breast: Denies lesions and Denies rash Hematologic/Lymphatic Hematologic/Lymphatic: Denies easy bleeding and Denies easy bruising Patient History Medical History ADD (attention deficit disorder) ADHD (attention deficit hyperactivity disorder) Bilateral femoral fractures Chronic leg pain Complication of internal fixation device of femur Depression Osteomalacia Osteopenia Ovarian cyst Pneumomediastinum Surgical History History of Status post breast reduction Tubal ligation status Social History Smoking Status: Current some day smoker Smokeless tobacco user: other alcohol intake: former substance use type: marijuana Smoking Status: Current some day smoker alcohol intake frequency: 0-2 drinks per day Substance Use Type: marijuana Exam Initial Vital Signs Initial Vital Signs: Vital Signs Temperature 100.3 F H 09/16/20 18:14 Pulse Rate 112 H 09/16/20 18:14 Respiratory Rate 18 09/16/20 18:14 Blood Pressure 130/79 09/16/20 18:14 Pulse Oximetry 100 09/16/20 18:14 Const General: comfortable HENMT Mouth: oral mucosae normal Throat: uvula midline and posterior oropharynx abnormal edema and exudates Neck Lymphatic: No lymphadenopathy Skin Lesions: no lesions Rashes: no rashes Neuro Cognition: normal cognition Extrem General: capillary refill normal Course Orders Ordered: ED Orders 09/16/20 20:28 Urine Culture Stat Urine Microscopic Stat Discontinued Medications Lidocaine HCl (Lidocaine Viscous 2% 15 Ml Solution) 15 ml PO NOW ONE Stop: 09/16/20 20:37 Last Admin: 09/16/20 20:47 Dose: 15 ml Documented by: BRIAN Penicillin G Benzathine (Penicillin G Benzathine 1,200,000 Unit/2 Ml Syringe) 1,200,000 unit IM NOW ONE Stop: 09/16/20 20:37 Last Admin: 09/16/20 20:49 Dose: 1,200,000 unit Documented by: BRIAN Vital Signs Vital signs: Vital Signs - 8 hr 09/16/20 18:14 09/16/20 20:52 Temperature 100.3 F H Pulse Rate 112 H 114 H Respiratory Rate 18 18 Blood Pressure 130/79 Pulse Oximetry 100 99 Medical Decision Making Lab Data Lab results reviewed: Yes I reviewed the patient's lab results. Labs: Lab Results 09/16/20 Range/Units 20:28 Urine RBC 10-30/hpf H (0-5/HPF) Urine WBC 1-5/hpf (0-5/HPF) Ur Squamous Epith Cells 5-10 /hpf H (0-5/HPF) Amorphous Sediment 1+ Urine Bacteria Moderate (10-30) H (None) Urine Mucus 1+ H (Negative) Ur Culture Indicated? Specimen cultured Point of Care Testing Rapid Strep A Positive Urine Dip Bedside Urine Glucose Negative Bedside Urine Bilirubin + 1 Bedside Urine Ketone - Negative Urine Specific [place] 1.015 Bedside Urine Occult Blood +++ Bedside Urine pH 8.5 Bedside Urine Protein + 30 Bedside Urine Urobilinogen - Negative Bedside Urine Nitrite - Negative Bedside Urine Leukocytes - Negative Esterase Point of care testing: Point of Care Testing Rapid Strep A Positive Urine Dip Bedside Urine Glucose Negative Bedside Urine Bilirubin + 1 Bedside Urine Ketone - Negative Urine Specific [place] 1.015 Bedside Urine Occult Blood +++ Bedside Urine pH 8.5 Bedside Urine Protein + 30 Bedside Urine Urobilinogen - Negative Bedside Urine Nitrite - Negative Bedside Urine Leukocytes - Negative Esterase MDM Narrative Medical decision making narrative: Strep test positive. Discussed options to include IM Bicillin versus oral antibiotics. Patient opted for the Bicillin. There is no signs of a peritonsillar abscess here in the ER. Patient was given return precautions and follow-up instructions. She expressed understanding and agreement. Discharge Plan Departure Patient Disposition: Home Clinical Impression: Acute streptococcal pharyngitis Instructions: DI for Strep Throat Activity Restrictions/Additional Instructions: You can take Tylenol for any body aches. Be sure to increase your fluid intake. Return to the emergency department for any new or worsening symptoms Prescriptions: No Action hydroxyzine HCl 50 mg tablet 50 mg PO QID PRN (Reason: anxiety) Qty: 20 RF: 0 methylphenidate HCl 36 mg tablet extended release 24hr See Rx Instructions .ROUTE .COMPLEX Qty: 30 RF: 0 tizanidine 4 mg tablet See Rx Instructions .ROUTE .COMPLEX Qty: 30 RF: 4 Excedrin Extra Strength 250-250-65 mg tablet 1 tab PO Q4-6H PRNRF: 0 ibuprofen 600 mg tablet 600 mg PO Q8H PRN (Reason: pain) Qty: 90 RF: 0 venlafaxine 150 mg capsule,extended release 24hr 150 mg PO DAILY Qty: 90 RF: 1 amoxicillin-pot clavulanate [Augmentin XR] 1,000-62.5 mg tablet extended release 12 hr 1 tab PO BID Qty: 14 RF: 0 oxycodone-acetaminophen 5-325 mg tablet 1 tab PO Q6H PRN (Reason: pain) Qty: 10 RF: 0 propranolol 60 mg capsule,extended release 24 hr 60 mg PO DAILY Qty: 30 RF: 0 Referrals: Pablito Hayes DO [Primary Care Provider] -
[2020-09-16 20:41] LABS: RBC Urine 10-30/HPF (0-5/HPF); WBC Urine 1-5/HPF (0-5/HPF)
[2020-09-16 20:42] LABS: Amorphous Sediment Urine 1+; Bacteria Urine Moderate (10-30); Culture Indicated Urine Specimen Cultured; Mucus Urine 1+ (Negative); Squamous Epithelial Cell Urine 5-10 /HPF (0-5/HPF)
[2020-09-16] MEDS: LIDOCAINE VISCOUS 2% 15 ML SOLUTION PO (20:47)
[2020-09-16] MEDS: PENICILLIN G BENZATHINE 1,200,000 UNIT/2 ML SYRINGE 1200000 UNIT IM (20:49)
[2020-09-16 20:52] VITALS: PULSE 114; RESP 18; O2SAT 99
== END 2020-09-16 20:59 | disposition home or self-care (01) ==
PROVIDERS: Emergency Provider Emergency Medicine; PCP Family Medicine
DX: J02.0 Streptococcal pharyngitis (principal)
CPT/HCPCS: 81003; 81015; 87086; 87880; 96372; 99282; 99283; J0561

== ENCOUNTER 2020-12-04 16:25 | Emergency (ER) | payer MEDICARE, MEDICAID, SELFPAY ==
[2020-12-04 16:30] VITALS: BP 117/82; PULSE 124; RESP 15; TEMP 36.9; O2SAT 100; BMI 38.2
--- NOTE | 2020-12-04 16:46 | ED.LOWEXIN ---
HPI - Extremity Injury (Lower) General Chief Complaint: Extremity Injury, Lower Stated Complaint: rt inner thigh pain, states has a broken leg Time Seen by Provider: 12/04/20 16:31 Source: patient Mode of arrival: Wheelchair Limitations: no limitations History of Present Illness HPI Narrative: Patient is a 30-year-old female. She has known bilateral femoral neck fractures that have been repaired in the past. These been the result of stress fractures. She is followed by Orthopedics at the [facility]. She states that last year she was told that she needs new surgeries specifically on the right side. She was told that she needed to lose weight before this happened. She stated that she lost the weight but then the COVID-19 pandemic started and all elective surgeries were canceled. She states she gained the weight back. Has not followed up with her orthopedic doctor since then. Has been nonweightbearing. States that a couple days ago she fell landing on her right side and since then she has had increasing discomfort. Related Data Home Medications Medication Instructions Recorded Confirmed [id number] 250 1 tab PO Q4-6H PRN 03/28/20 11/11/20 mg-250 mg-65 mg tablet naproxen sodium 220 mg tablet 440 mg PO Q8H PRN tab 10/01/20 11/11/20 Previous Rx's Medication Instructions Recorded propranolol 60 mg PO DAILY #30 cap 01/22/19 tizanidine 4 mg tablet See Rx Instructions .ROUTE 09/01/20 .COMPLEX #30 tab venlafaxine 150 mg 150 mg PO DAILY #90 cap 09/22/20 capsule,extended release 24 hr hydroxyzine HCl 50 mg tablet 50 mg PO QID PRN #360 tab 10/07/20 tramadol 50 mg tablet 50 mg PO Q8H PRN #30 tab 11/06/20 methylphenidate HCl 54 mg 54 mg PO DAILY #30 tab 12/01/20 tablet,extended release 24 hr hydrocodone-acetaminophen 1 tab PO Q6H PRN #6 tab 12/04/20 Allergies Allergy/AdvReac Type Severity Reaction Status Date / Time citalopram Allergy Intermediate Verified 12/04/20 16:34 latex Allergy Mild HIVES Verified 12/04/20 16:34 clindamycin Allergy Unknown RASH Verified 12/04/20 16:34 Review of Systems Constitutional Constitutional: Denies headache(s) ENT Ears, Nose, Mouth, and Throat: Denies headache(s) Cardiovascular Cardiovascular: Denies chest pain and Denies dyspnea Respiratory Respiratory: Denies dyspnea Gastrointestinal Gastrointestinal: Denies abdominal pain Musculoskeletal Comments: Right-sided hip pain Integumentary/Breasts Skin/Breast: Denies lesions and Denies rash Neurologic Neurologic: Denies behavioral changes and Denies headache(s) Psychiatric Psychiatric: Denies behavioral changes Hematologic/Lymphatic On Anticoagulants: No Allergic/Immunologic Allergic/Immunologic: Denies urticaria Patient History Medical History ADD (attention deficit disorder) ADHD (attention deficit hyperactivity disorder) Bilateral femoral fractures Chronic leg pain Complication of internal fixation device of femur Depression Osteomalacia Osteopenia Ovarian cyst Pneumomediastinum Surgical History History of Status post breast reduction Tubal ligation status Social History Smoking Status: Current some day smoker Smokeless tobacco user: other alcohol intake: former substance use type: marijuana Smoking Status: Current some day smoker alcohol intake frequency: 0-2 drinks per day Substance Use Type: marijuana Exam Initial Vital Signs Initial Vital Signs: Vital Signs Temperature 98.4 F 12/04/20 16:30 Pulse Rate 124 H 12/04/20 16:30 Respiratory Rate 15 12/04/20 16:30 Blood Pressure 117/82 12/04/20 16:30 Pulse Oximetry 100 12/04/20 16:30 Const General: cooperative and comfortable Limitations: mental status not altered HENOR Head: normal to inspection and normocephalic Skin Lesions: no lesions Rashes: no rashes Neuro General: patient alert and patient awake Cognition: normal cognition Speech: speech normal Extrem Other: Tenderness to palpation throughout her entire right femur Psych Appearance: well kempt Course Orders Ordered: ED Orders 12/04/20 16:45 XR femur RT min 2V Stat Discontinued Medications Hydrocodone Bitart/Acetaminophen (Hydrocodone/Acet 5/325 Tablet) 1 tab PO NOW ONE Stop: 12/04/20 17:48 Vital Signs Vital signs: Vital Signs - 8 hr 12/04/20 16:30 Temperature 98.4 F Pulse Rate 124 H Respiratory Rate 15 Blood Pressure 117/82 Pulse Oximetry 100 MDM - Extremity Injury (Lower) Imaging Data Extremity x-ray #1: Radiologist's Impression: [facility] [place] [id number] ReportSigned Patient: Yaritza Lindo RMR#: [id number]: 1990Acct:[id number]/Sex: 30 / FDate of Service: 12/04/20Loc: EDAccession Number: [id number] Procedure: XR femur RT min 2V Ordering Provider: Dane Madrid D.O. PROCEDURE: XR FEMUR RT MIN 2V INDICATIONS: known chronic fem neck fx now pain after fall TECHNIQUE: 5 views of the femur were acquired. COMPARISON: [facility], , FEMUR TWO OR MORE VIEWS RIGHT, 11/11/2016, 19:33. 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 Postsurgical changes are redemonstrated with 3 fixation screws traversing the region of the femoral neck. These appear to demonstrate medial displacement compared to the prior study into the region of the right acetabulum. Evaluation limited by patient's limited mobility. No definite new fracture identified. Soft tissues: No suspicious soft tissue calcifications or masses. IMPRESSION: 1. Limited study demonstrates a chronic proximal femoral fracture with apparent interval medial displacement of the surgical screws. Dictated by: Marcos Saleh M.D. on 12/04/2020 at 17:16 Approved by: Marcos Saleh M.D. on 12/04/2020 at 17:21 [facility] Narrative Medical decision making narrative: The x-ray today does show medial displacement of the surgical screws however this is from a comparison x-ray from October of 2016. I did discuss the case with our orthopedic providers who stated that the patient can remain nonweightbearing and contact her orthopedic doctor at the [facility] as she most likely is going to need a total hip replacement. I did discuss this with the patient. She was given a copy of her x-rays on a CD. Already has crutches. Given return precautions and follow-up instructions. She expressed understanding and agreement. 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 Continue to be nonweightbearing and use the crutches. Also contact your primary provider for follow-up. Prescriptions: New hydrocodone-acetaminophen 5-325 mg tablet 1 tab PO Q6H PRN (Reason: pain) Qty: 6 RF: 0 No Action tizanidine 4 mg tablet See Rx Instructions .ROUTE .COMPLEX Qty: 30 RF: 4 venlafaxine 150 mg capsule,extended release 24hr 150 mg PO DAILY Qty: 90 RF: 2 hydroxyzine HCl 50 mg tablet 50 mg PO QID PRN (Reason: anxiety) Qty: 360 RF: 1 tramadol 50 mg tablet 50 mg PO Q8H PRN (Reason: pain) Qty: 30 RF: 0 methylphenidate HCl 54 mg tablet extended release 24hr 54 mg PO DAILY Qty: 30 RF: 0 naproxen sodium 220 mg tablet 440 mg PO Q8H PRNRF: 0 Excedrin Extra Strength 250-250-65 mg tablet 1 tab PO Q4-6H PRNRF: 0 propranolol 60 mg capsule,extended release 24 hr 60 mg PO DAILY Qty: 30 RF: 0 Referrals: Pablito Hayes, [Primary Care Provider] -
[2020-12-04] MEDS: HYDROCODONE/ACET 5/325 TABLET 1 TAB PO (18:05)
[2020-12-04 18:33] VITALS: BP 136/77; PULSE 98; RESP 16; O2SAT 98
== END 2020-12-04 18:34 | disposition home or self-care (01) ==
PROVIDERS: Emergency Provider Emergency Medicine; PCP Family Medicine
DX: S72.002A Fracture of unspecified part of neck of left femur, initial encounter for closed fracture (principal); M97.01XA Periprosthetic fracture around internal prosthetic right hip joint, initial encounter
CPT/HCPCS: 73552; 99283

== ENCOUNTER 2021-05-20 13:40 | Emergency (ER) | payer MEDICARE, MEDICAID, SELFPAY ==
[2021-05-20 14:23] VITALS: BP 127/77; PULSE 118; RESP 20; TEMP 37.1; O2SAT 97
--- NOTE | 2021-05-20 14:29 | DI.RAD.S_ITS ---
PROCEDURE: XR RIBS RT MIN 3V W CXR 1V INDICATIONS: rib pain, hx of path fx TECHNIQUE: 2 views of the right ribs were acquired, along with a single view chest. COMPARISON: None. FINDINGS: Surgical changes and devices: None. Bones and chest wall: No acute fractures or dislocations, however visualization of the ribs is limited secondary to breathing motion artifact. Possible chronic right 9th rib fracture noted. No suspicious bony lesions. Overlying soft tissues appear unremarkable. Lungs and pleura: No pleural effusions or pneumothorax. Lungs appear clear. Mediastinum: Mediastinal contours appear normal. Heart size is normal. IMPRESSION: Study limited secondary to artifact related to breathing motion. No definite acute displaced rib fracture. Recommend repeat right rib x-ray views. No acute cardiopulmonary disease process. Dictated by: Jen Briceno MD, PhD on 05/20/2021 at 14:55 Approved by: Jen Briceno MD, PhD on 05/20/2021 at 14:57
== END 2021-05-20 18:45 | disposition left against medical advice (07) ==
PROVIDERS: Emergency Provider Emergency Medicine; PCP Family Medicine
DX: R07.81 Pleurodynia (principal)
CPT/HCPCS: 71101; 99281

== ENCOUNTER 2021-05-22 17:36 | Emergency (ER) | payer MEDICARE, MEDICAID, SELFPAY ==
[2021-05-22 17:53] VITALS: BP 138/94; PULSE 100; RESP 18; TEMP 36.9; O2SAT 98; BMI 38.9
--- NOTE | 2021-05-22 22:22 | ED_ITS ---
HPI - Extremity Problem General Chief complaint: Extremity Problem,Nontraumatic Stated complaint: Thinks Broke a Rib or Two Time Seen by Provider: 05/22/21 21:57 Source: patient Mode of arrival: Ambulatory Limitations: no limitations History of Present Illness HPI Narrative: 31-year-old female smoker with history of ADHD and prior rib fractures presents with a chief complaint of right-sided rib pain upon waking ye sterday. She denies any trauma or known injury. She denies any overuse or heavy lifting. She states he has severe sharp and stabbing right-sided rib pain with motion and improvement with rest. She denies any shortness of breath, cough or hemoptysis. She denies any rash. She has no systemic findings such as dizziness, weakness or lightheadedness nor fever or chills she had presented here a few days ago and had an x-ray which was read as normal but she left prior to being seen Related Data Home Medications Medication Instructions Recorded Confirmed [id number]-[id number] 250 1 tab PO Q4-6H PRN 03/28/20 01/20/21 mg-250 mg-65 mg tablet (Excedrin Extra Strength) naproxen sodium 220 mg tablet 440 mg PO Q8H PRN tab 10/01/20 01/20/21 etonogestrel 68 mg subdermal SUBDERMAL 01/20/21 01/20/21 implant (Nexplanon) Previous Rx's Medication Instructions Recorded propranolol 60 mg capsule,24 60 mg PO DAILY #30 cap 01/22/19 hr,extended release venlafaxine 150 mg 150 mg PO DAILY #90 cap 09/22/20 capsule,extended release 24 hr hydrocodone 5 mg-acetaminophen 325 1 tab PO Q6H PRN #6 tab 12/04/20 mg tablet fluconazole 150 mg tablet 150 mg PO ONCE #1 tab 01/28/21 (Diflucan) levonorgestrel-ethinyl estradiol 1 tab PO DAILY #84 tab 04/06/21 0.1 mg-20 mcg tablet (Lutera (28)) methocarbamol 750 mg tablet 750 mg PO QID #30 tab 04/06/21 hydroxyzine HCl 50 mg tablet 50 mg PO QID PRN #360 tab 04/13/21 methylphenidate HCl 54 mg 54 mg PO DAILY #30 tab 05/15/21 tablet,extended release 24 hr tramadol 50 mg tablet 50 mg PO Q8H PRN #30 tab 05/15/21 ketorolac 10 mg tablet 10 mg PO Q6H PRN #14 tab 05/22/21 lidocaine 5 % topical patch 1 patch TOP DAILY #15 each 05/22/21 (Lidoderm) Allergies Allergy/AdvReac Type Severity Reaction Status Date / Time citalopram Allergy Intermediate Verified 05/22/21 17:59 latex Allergy Mild HIVES Verified 05/22/21 17:59 clindamycin Allergy Unknown RASH Verified 05/22/21 17:59 Review of Systems Review of Systems Narrative: GENERAL: Denies chills, fatigue, malaise, fever, sweats. HEENT: Denies sinus pain, ear pain, sore throat, difficulty swallowing, dizziness. RESPIRATORY: See HPI CARDIOVASCULAR: Denies chest pain, palpitations, orthopnea, edema, GASTROINTESTINAL: Denies nausea, vomiting, abdominal pain, diarrhea, constipation, melena. : Denies dysuria, frequency, incontinence, hematuria, urinary retention. MUSCULOSKELETAL: denies weakness, joint pain, or bony pain SKIN: Denies rash, skin lesions, or other NEUROLOGIC: Denies weakness, headache, numbness, change in speech, confusion, seizures, incoordination. PSYCHIATRIC: No concerning psychosocial issues. 12 point review of systems is negative except for those stated above Patient History Medical History ADD (attention deficit disorder) ADHD (attention deficit hyperactivity disorder) Bilateral femoral fractures Chronic leg pain Complication of internal fixation device of femur Depression Osteomalacia Osteopenia Ovarian cyst Pneumomediastinum Surgical History History of Status post breast reduction Tubal ligation status Social History Smoking Status: Current every day smoker Smokeless tobacco user: other alcohol intake: former substance use type: marijuana Smoking Status: Current every day smoker alcohol intake frequency: 0-2 drinks per day Substance Use Type: marijuana Exam Narrative Exam Narrative: GEN: AOx3 and in mild distress EYES: Pupils are equal, round, and reactive to light and accommodation. Extraoccular muscles are intact bilaterally. There is no subconjunctival hemorrhage or exudate. CHEST: Lungs are clear to auscultation bilaterally and free of wheezes, rales, or rhonchi. Heart rate is regular rhythm, there are no murmurs, clicks, rubs, or gallops. Right lateral chest pain to palpation, no crepitance or subcu emphysema. No erythema, swelling, induration or fluctuance. No visualized rash ABD: Abdomen is soft and nontender. There is no guarding or rebound. Bowel sounds are normal in all 4 quadrants. There is no mass or organomegaly. EXT: Full painless ROM of all extremities with no loss of sensation or strength. SKIN: Warm, pink, and dry. No erythema or rash Initial Vital Signs Initial Vital Signs: Vital Signs Temperature 98.4 F 05/22/21 17:53 Pulse Rate 100 H 05/22/21 17:53 Respiratory Rate 18 05/22/21 17:53 Blood Pressure 138/94 H 05/22/21 17:53 Pulse Oximetry 98 05/22/21 17:53 Course Orders Ordered: ED Orders 05/22/21 22:25 XR ribs RT min 3V w CXR1V Stat Discontinued Medications Hydrocodone Bitart/Acetaminophen (Hydrocodone/Acet 5/325 Prepack) 1 bottle MISC SEEINSTR ONE Stop: 05/22/21 23:35 Last Admin: 05/22/21 23:43 Dose: 1 bottle Documented by: ATAYLOR Lidocaine (Lidocaine Patch 1 Each Adh..Patch) 1 each TOP NOW ONE Stop: 05/22/21 22:26 Last Admin: 05/22/21 22:56 Dose: 1 each Documented by: KGALLAG Vital Signs Vital signs: Vital Signs - 8 hr 05/22/21 22:52 Pulse Rate 104 H Respiratory Rate 17 Blood Pressure 146/97 H Pulse Oximetry 98 MDM - Extremity (Nontraumatic) Imaging Data Chest x-ray: Radiologist's Impression: No cardiopulmonary abnormality Discharge Plan Departure Patient Disposition: Home Clinical Impression: Painful rib Instructions: DI for Rib Contusion Activity Restrictions/Additional Instructions: *You have been diagnosed with [right sided rib pain, no evidence of fracture on imaging *What to do: *Please continue to take your regular medications as directed. [x ] New medication prescriptions sent to your pharmacy: [[facility] ] [ ] New medication written as a paper prescription [ ] No new medications given *Please follow up with your primary care provider in 2-3 days, call for an appointment. Let them know you were seen in the Emergency Department and that we ask that you be seen in follow up. We will electronically transmit a record of today's note if your PCP is in our system *If you do not have a primary care provider please contact the [facility] Resource line at [phone]. They will ask some questions about your medical history and help get you set up with a doctor in the community. *Return to Emergency Department if you should have any new, worsening or concerning symptoms, such as [fever greater than 101 F, shaking chills, worsening pain, persistent vomiting or other bothersome symptoms] You have been prescribed narcotic medications. While on these medications you cannot drive or operate heavy machinery. Additionally you cannot sign legal documents or perform any duties such as this. 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 Please understand that we cannot provide further refills of narcotics or controlled substances through the ED and your pain management will need to be through your Primary Care Provider Prescriptions: New ketorolac 10 mg tablet 10 mg PO Q6H PRN (Reason: pain) Qty: 14 RF: 0 lidocaine [Lidoderm] 5 % adhesive patch,medicated 1 patch TOP DAILY Qty: 15 RF: 0 No Action venlafaxine 150 mg capsule,extended release 24hr 150 mg PO DAILY Qty: 90 RF: 2 fluconazole [Diflucan] 150 mg tablet 150 mg PO ONCE Qty: 1 RF: 1 levonorgestrel-ethinyl estrad [Lutera (28)] 0.1-20 mg-mcg tablet 1 tab PO DAILY Qty: 84 RF: 1 methocarbamol 750 mg tablet 750 mg PO QID Qty: 30 RF: 0 hydroxyzine HCl 50 mg tablet 50 mg PO QID PRN (Reason: anxiety) Qty: 360 RF: 1 methylphenidate HCl 54 mg tablet extended release 24hr 54 mg PO DAILY Qty: 30 RF: 0 tramadol 50 mg tablet 50 mg PO Q8H PRN (Reason: pain) Qty: 30 RF: 1 naproxen sodium 220 mg tablet 440 mg PO Q8H PRNRF: 0 Excedrin Extra Strength 250-250-65 mg tablet 1 tab PO Q4-6H PRNRF: 0 Nexplanon 68 mg implant subdermal RF: 0 hydrocodone-acetaminophen 5-325 mg tablet 1 tab PO Q6H PRN (Reason: pain) Qty: 6 RF: 0 propranolol 60 mg capsule,extended release 24 hr 60 mg PO DAILY Qty: 30 RF: 0 Referrals: Pablito Hayes DO [Primary Care Provider] -
--- NOTE | 2021-05-22 22:25 | DI.RAD.S_ITS ---
PROCEDURE: XR RIBS RT MIN 3V W CXR 1V INDICATIONS: Right rib pain TECHNIQUE: 2 views of the right ribs were acquired, along with a single view chest. COMPARISON: [facility], CR, XR CHEST 1V, 07/05/2020, 22:04. [facility], CR, XR CHEST 1V, 07/07/2020, 8:12. [facility], CR, XR RIBS RT MIN 3V W CXR 1V, 05/20/2021, 14:33. FINDINGS: Surgical changes and devices: None. Bones and chest wall: A marker is placed upon the area of clinical concern. Within this region, no displaced rib fracture or other significant rib abnormality can be seen. No rib fractures are seen elsewhere. No suspicious bony lesions. Mild dextroconvex scoliotic curvature is seen. Overlying soft tissues appear unremarkable. Lungs and pleura: No pleural effusions or pneumothorax. Lungs appear clear. Mediastinum: Mediastinal contours appear normal. Heart size is normal. IMPRESSION: Negative for displaced rib fracture. No pneumothorax is seen. Note: No significant discrepancy from the preliminary report. Dictated by: Zion Prajapati M.D. on 05/23/2021 at 7:32 Approved by: Zion Prajapati M.D. on 05/23/2021 at 7:33
[2021-05-22 22:52] VITALS: BP 146/97; PULSE 104; RESP 17; O2SAT 98
[2021-05-22] MEDS: LIDOCAINE PATCH 1 EACH ADH..PATCH TOP (22:56)
[2021-05-22] MEDS: HYDROCODONE/ACET 5/325 PREPACK 1 BOTTLE MISC (23:43)
== END 2021-05-22 23:48 | disposition home or self-care (01) ==
PROVIDERS: Emergency Provider Emergency Medicine; PCP Family Medicine
DX: R07.81 Pleurodynia (principal)
CPT/HCPCS: 71101; 99283

== ENCOUNTER 2021-10-07 04:35 | Emergency (ER) | payer MEDICARE, MEDICAID, SELFPAY ==
[2021-10-07 04:35] VITALS: BP 190/100; PULSE 120; RESP 21; TEMP 37.3; O2SAT 100; BMI 40.7
[2021-10-07 05:13] LABS: Add Manual Diff / Slide Review NO; Basophils Absolute Auto 100 /uL (0-100); Basophils Percent Auto 0.8 % (0-2); Eosinophils Absolute Auto 100 /uL (0-450); Eosinophils Percent Auto 0.9 % (2-4); Hematocrit 44.4 % (36-46); Lymphocytes Absolute Auto 4000 /uL (1100-4500); Lymphocytes Percent Auto 37.1 % (25-40); Mean Corpuscular HGB Conc 33.8 % (30-36); Mean Corpuscular Hemoglobin 28.3 PG (26-34); Mean Corpuscular Volume 83.9 fL (80-100); Monocytes Absolute Auto 800 /uL (0-900); Monocytes Percent Auto 7.8 % (3-14); Neutrophils Absolute Auto 5800 /uL (1500-7000); Neutrophils Percent Auto 53.4 % (50-75); Platelet Count 495 X10^3/uL (150-400); Red Cell Distribution Width 12.9 % (11.6-14.8); White Blood Cell Count 10.8 X10^3/uL (4.5-11.0)
[2021-10-07] MEDS: ONDANSETRON 4 MG/2 ML INJ IV (05:15)
--- NOTE | 2021-10-07 05:15 | ED.NAVMDI ---
HPI - Nausea/Vomiting/Diarrhea General Chief complaint: Nausea/Vomiting/Diarrhea Stated complaint: N/V/D X14 days Time Seen by Provider: 10/07/21 05:11 Source: patient Mode of arrival: Ambulatory History of Present Illness HPI Narrative: Patient is a 31-year-old female history of ADHD, anxiety, osteomalacia presenting today with 2 weeks of nausea vomiting and diarrhea. She says she has vomited only a couple times over the last 2 weeks however she has multiple episodes of diarrhea every day more than 10. She has not been on any antibiotics recently. She has not had any blood. She has some occasional abdominal pain and discomfort. She is extremely anxious she is worried she might have COVID. She is vaccinated. She denies any chest pain or shortness of breath. She has been unable to take her anxiety medication venlafaxine. No fever or chills. Son had similar symptoms but has improved. Related Data Home Medications Medication Instructions Recorded Confirmed [id number]-[id number] 250 1 tab PO Q4-6H PRN 03/28/20 01/20/21 mg-250 mg-65 mg tablet (Excedrin Extra Strength) naproxen sodium 220 mg tablet 440 mg PO Q8H PRN tab 10/01/20 01/20/21 etonogestrel 68 mg subdermal SUBDERMAL 01/20/21 01/20/21 implant (Nexplanon) Previous Rx's Medication Instructions Recorded hydrocodone 5 mg-acetaminophen 325 1 tab PO Q6H PRN #6 tab 12/04/20 mg tablet fluconazole 150 mg tablet 150 mg PO ONCE #1 tab 01/28/21 (Diflucan) ketorolac 10 mg tablet 10 mg PO Q6H PRN #14 tab 05/22/21 lidocaine 5 % topical patch 1 patch TOP DAILY #15 each 05/22/21 (Lidoderm) venlafaxine 150 mg 150 mg PO DAILY #90 cap 07/02/21 capsule,extended release 24 hr hydroxyzine HCl 25 mg tablet 25 mg PO QID PRN #100 tab 08/05/21 naproxen 500 mg tablet 500 mg PO BID PRN #60 tab 08/05/21 tizanidine 4 mg tablet 4 mg PO BID PRN #120 tab 08/05/21 tramadol 50 mg tablet 50 mg PO Q8H PRN #30 tab 12/20/21 methylphenidate HCl 18 mg 18 mg PO DAILY #30 tab 09/21/21 tablet,extended release 24 hr methylphenidate HCl 36 mg 36 mg PO DAILY #30 tab 09/21/21 tablet,extended release 24 hr cephalexin 500 mg capsule 500 mg PO BID 3 Days #6 cap 10/07/21 Allergies Allergy/AdvReac Type Severity Reaction Status Date / Time citalopram Allergy Intermediate Verified 05/22/21 17:59 latex Allergy Mild HIVES Verified 05/22/21 17:59 clindamycin Allergy Unknown RASH Verified 05/22/21 17:59 Review of Systems Review of Systems Narrative: GENERAL: Denies chills, fatigue, malaise, fever, sweats, travel HEENT: Denies sinus pain, ear pain, sore throat, difficulty swallowing, neck pain RESPIRATORY: Denies dyspnea, cough, wheezing, hemoptysis, sputum. CARDIOVASCULAR: Denies chest pain, palpitations, orthopnea, edema GASTROINTESTINAL: See HPI : Denies dysuria, frequency, incontinence, hematuria, urinary retention, flank pain. MUSCULOSKELETAL: Denies weakness, joint pain, or bony pain SKIN: No rash, no erythema, no pruritus NEUROLOGIC: Denies weakness, dizziness, headache, numbness, change in speech, confusion PSYCHIATRIC: No concerning psychosocial issues. 12 point review of systems is negative except for those stated above and HPI Patient History Medical History ADD (attention deficit disorder) ADHD (attention deficit hyperactivity disorder) Bilateral femoral fractures Chronic leg pain Complication of internal fixation device of femur Depression Osteomalacia Osteopenia Ovarian cyst Pneumomediastinum Surgical History History of Status post breast reduction Tubal ligation status Social History Smoking Status: Current every day smoker Smokeless tobacco user: other alcohol intake: former substance use type: marijuana Smoking Status: Current every day smoker alcohol intake frequency: 0-2 drinks per day Substance Use Type: marijuana Exam Initial Vital Signs Initial Vital Signs: Vital Signs Temperature 99.2 F 10/07/21 04:35 Pulse Rate 120 H 10/07/21 04:35 Respiratory Rate 21 10/07/21 04:35 Blood Pressure 190/100 H 10/07/21 04:35 Pulse Oximetry 100 10/07/21 04:35 GENERAL: Alert 31-year-old female tearful in no acute distress. HEENT: Head atraumatic,EOMI, pupils reactive, face symmetric, moist mucous membranes CARDIOVASCULAR: Regular rate and rhythm without murmurs, rubs or gallops. RESPIRATORY: Breath sounds equal bilaterally, no wheezes rales or rhonchi. ABDOMEN: Soft, mild epigastric pain minimal right upper quadrant pain no guarding no rebound : No CVA tenderness EXTREMITIES: Normal range of motion, no clubbing or edema. Neurovascularly intact NEUROLOGICAL: Alert and oriented x4.Normal gait and speech. SKIN: Warm, dry, no laceration, no petechiae, no rashes or lesions. Course Orders Ordered: Discontinued Medications Sodium Chloride (Normal Saline 0.9%) 1,000 mls @ 1,000 mls/hr IV BOLUS ONE Stop: 10/07/21 06:10 Last Infusion: 10/07/21 06:32 Dose: 0 mls/hr Documented by: Admin: 10/07/21 05:16 Dose: 1,000 mls/hr Documented by: SHANE Ketorolac Tromethamine (Ketorolac 30 Mg/Ml Vial) 15 mg IV NOW ONE Stop: 10/07/21 06:32 Last Admin: 10/07/21 06:37 Dose: 15 mg Documented by: ANTONIO Lorazepam (Lorazepam 2 Mg/Ml Inj) 1 mg IV NOW ONE Stop: 10/07/21 05:12 Last Admin: 10/07/21 05:22 Dose: 1 mg Documented by: SHANE Ondansetron HCl (Ondansetron 4 Mg/2 Ml Inj) 4 mg IV NOW ONE Stop: 10/07/21 05:10 Last Admin: 10/07/21 05:15 Dose: 4 mg Documented by: SHANE Potassium Chloride (Potassium Chloride 20 Meq Tab) 40 meq PO NOW ONE Stop: 10/07/21 05:24 Last Admin: 10/07/21 05:31 Dose: 40 meq Documented by: ANTONIO Vital Signs Vital signs: Vital Signs - 8 hr 10/07/21 04:35 Temperature 99.2 F Pulse Rate 120 H Respiratory Rate 21 Blood Pressure 190/100 H Pulse Oximetry 100 MDM - Nausea/Vomiting/Diarrhea Lab Data Result diagrams: 10/07/21 04:54 10/07/21 04:54 Labs: Lab Results 10/07/21 10/07/21 10/07/21 Range/Units 04:54 04:54 04:59 WBC 10.8 (4.5-11.0) X10^3/uL RBC 5.30 H (4.0-5.2) X10^6/uL Hgb 15.0 (12.0-16.0) g/dL Hct 44.4 (36-46) % MCV 83.9 (80-100) fL MCH 28.3 (26-34) PG MCHC 33.8 (30-36) % RDW 12.9 (11.6-14.8) % Plt Count 495 H (150-400) X10^3/uL Neut % (Auto) 53.4 (50-75) % Lymph % (Auto) 37.1 (25-40) % [place] % (Auto) 7.8 (3-14) % Eos % (Auto) 0.9 L (2-4) % Baso % (Auto) 0.8 (0-2) % Neut # (Auto) 5800 (1754-5271) /uL Lymph # (Auto) 4000 (4693-0071) /uL [place] # (Auto) 800 (0-900) /uL Eos # (Auto) 100 (0-450) /uL Baso # (Auto) 100 (0-100) /uL Sodium 143 (137-145) mmol/L Potassium 2.9 L (3.4-5.1) mmol/L Chloride 106 (98-107) mmol/L Carbon Dioxide 26 (22-32) mmol/L BUN 8 (7-17) mg/dL Creatinine 0.64 (0.52-1.04) mg/dL Estimated GFR > 60.0 (>60) mL/min BUN/Creatinine Ratio 12.5 (6-22) Glucose 141 H (70-100) mg/dL Calcium 9.3 (8.4-10.2) mg/dL Total Bilirubin 0.4 (0.2-1.3) mg/dL AST 22 (14-36) IU/L ALT 21 (<35) IU/L Alkaline Phosphatase 113 (38-126) U/L Total Protein 8.7 H (6.3-8.2) g/dL Albumin 4.6 (3.5-5.0) g/dL Globulin 4.1 (1.7-4.1) g/dL Albumin/Globulin Ratio 1.1 (1.0-2.8) Lipase 49 (23-300) U/L Urine Color Urine Appearance Urine pH (4.5-8.0) Ur Specific [place] (1.000-1.035) Urine Protein (Negative) Urine Glucose (UA) (Negative) g/dL Urine Ketones (NEGATIVE) Urine Occult Blood (Negative) Urine Nitrate (Negative) Urine Bilirubin (NEGATIVE) Urine Urobilinogen (0.2) E.U./dL Ur Leukocyte Esterase (NEGATIVE) Urine RBC (0-5/HPF) Urine WBC (0-5/HPF) Ur Squamous Epith Cells (0-5/HPF) Urine Bacteria (None) Ur Culture Indicated? SARS-CoV-2 (PCR) Negative (Negative) 10/07/21 Range/Units 05:35 WBC (4.5-11.0) X10^3/uL RBC (4.0-5.2) X10^6/uL Hgb (12.0-16.0) g/dL Hct (36-46) % MCV (80-100) fL MCH (26-34) PG MCHC (30-36) % RDW (11.6-14.8) % Plt Count (150-400) X10^3/uL Neut % (Auto) (50-75) % Lymph % (Auto) (25-40) % [place] % (Auto) (3-14) % Eos % (Auto) (2-4) % Baso % (Auto) (0-2) % Neut # (Auto) (3894-9721) /uL Lymph # (Auto) (4926-4682) /uL [place] # (Auto) (0-900) /uL Eos # (Auto) (0-450) /uL Baso # (Auto) (0-100) /uL Sodium (137-145) mmol/L Potassium (3.4-5.1) mmol/L Chloride (98-107) mmol/L Carbon Dioxide (22-32) mmol/L BUN (7-17) mg/dL Creatinine (0.52-1.04) mg/dL Estimated GFR (>60) mL/min BUN/Creatinine Ratio (6-22) Glucose (70-100) mg/dL Calcium (8.4-10.2) mg/dL Total Bilirubin (0.2-1.3) mg/dL AST (14-36) IU/L ALT (<35) IU/L Alkaline Phosphatase (38-126) U/L Total Protein (6.3-8.2) g/dL Albumin (3.5-5.0) g/dL Globulin (1.7-4.1) g/dL Albumin/Globulin Ratio (1.0-2.8) Lipase (23-300) U/L Urine Color Yellow Urine Appearance Clear Urine pH 7.0 (4.5-8.0) Ur Specific [place] 1.010 (1.000-1.035) Urine Protein Negative (Negative) Urine Glucose (UA) Negative (Negative) g/dL Urine Ketones Negative (NEGATIVE) Urine Occult Blood 3+ H (Negative) Urine Nitrate Negative (Negative) Urine Bilirubin Negative (NEGATIVE) Urine Urobilinogen 0.2 (0.2) E.U./dL Ur Leukocyte Esterase 1+ H (NEGATIVE) Urine RBC 1-5/hpf D (0-5/HPF) Urine WBC 0-1/hpf (0-5/HPF) Ur Squamous Epith Cells 1-5 /hpf (0-5/HPF) Urine Bacteria Few (2-10) H (None) Ur Culture Indicated? Specimen cultured SARS-CoV-2 (PCR) (Negative) Point of Care Testing Test Results Negative MDM Narrative Medical decision making narrative: Patient is overall feeling better. We tried to get a stool sample from her but he continued to have urine in it. Her diarrhea episodes recur very small amount. She is having urinary frequency in the emergency department with probable UTI. Started on Keflex. Recommend outpatient stool sample Discharge Plan Departure Patient Disposition: Home Clinical Impression: UTI (urinary tract infection), Gastroenteritis Instructions: DI for Viral Gastroenteritis -- Adult, DI for Urinary Tract Infection (UTI) Activity Restrictions/Additional Instructions: *You have been diagnosed with gastroenteritis and UTI *What to do: At this time I recommend getting an outpatient stool sample. You can follow-up with her primary care in regards to this. Does look like you have a bladder infection we will start 1 3 days of antibiotics and hope that improves her symptoms. *Continue to take medications as directed Keflex 500 mg twice a day for 3 days--> SENT TO [facility] *Follow up with your primary care provider in 2-3 days or call [phone] *Return to ER if you should have worsening diarrhea, increased abdominal pain, dizziness lightheadedness or any new, worsening or concerning symptoms Prescriptions: New cephalexin 500 mg capsule 500 mg PO BID 3 Days Qty: 6 0RF No Action fluconazole [Diflucan] 150 mg tablet 150 mg PO ONCE Qty: 1 1RF Rx Instructions: as a single dose - may repeat next week if needed venlafaxine 150 mg capsule,extended release 24hr 150 mg PO DAILY Qty: 90 1RF tramadol 50 mg tablet 50 mg PO Q8H PRN (Reason: pain) Qty: 30 1RF methylphenidate HCl 36 mg tablet extended release 24hr 36 mg PO DAILY Qty: 30 0RF Rx Instructions: take 1st thing in the morning methylphenidate HCl 18 mg tablet extended release 24hr 18 mg PO DAILY Qty: 30 0RF Rx Instructions: take at noon naproxen sodium 220 mg tablet 440 mg PO Q8H PRN0RF hydroxyzine HCl 25 mg tablet 25 mg PO QID PRN (Reason: anxiety) Qty: 100 1RF tizanidine 4 mg tablet 4 mg PO BID PRN (Reason: muscle spasticity) Qty: 120 2RF naproxen 500 mg tablet 500 mg PO BID PRN (Reason: pain) Qty: 60 3RF Excedrin Extra Strength 250-250-65 mg tablet 1 tab PO Q4-6H PRN0RF Nexplanon 68 mg implant subdermal 0RF hydrocodone-acetaminophen 5-325 mg tablet 1 tab PO Q6H PRN (Reason: pain) Qty: 6 0RF ketorolac 10 mg tablet 10 mg PO Q6H PRN (Reason: pain) Qty: 14 0RF lidocaine [Lidoderm] 5 % adhesive patch,medicated 1 patch TOP DAILY Qty: 15 0RF Rx Instructions: leave on most painful area for 12 hrs Referrals: Pablito Hayes DO [Primary Care Provider] -
[2021-10-07 05:16] LABS: Alanine Aminotransferase 21 IU/L (<35); Albumin 4.6 g/dL (3.5-5.0); Albumin Globulin Ratio 1.1 (1.0-2.8); Alkaline Phosphatase 113 U/L (38-126); Aspartate Aminotransferase 22 IU/L (14-36); BUN Creatinine Ratio 12.5 (6-22); Bilirubin Total 0.4 mg/dL (0.2-1.3); Blood Urea Nitrogen 8 mg/dL (7-17); Calcium 9.3 mg/dL (8.4-10.2); Carbon Dioxide 26 mmol/L (22-32); Chloride 106 mmol/L (98-107); Estimated Glomerular Filt Rate > 60.0 mL/min (>60); Globulin 4.1 g/dL (1.7-4.1); Glucose 141 mg/dL (70-100); HEMOLYSIS < 15 (0-50); Lipase 49 U/L (23-300); Potassium 2.9 mmol/L (3.4-5.1); Sodium 143 mmol/L (137-145); Total Protein 8.7 g/dL (6.3-8.2)
[2021-10-07] MEDS: SODIUM CHLORIDE 0.9% 1,000 ML 1000 ML IV (05:16)
[2021-10-07 05:18] LABS: COVID19 -Nasal RAPID Negative (Negative)
[2021-10-07] MEDS: LORazepam 2 MG/ML INJ 1 MG IV (05:22)
[2021-10-07] MEDS: POTASSIUM CHLORIDE 20 MEQ TAB 40 MEQ PO (05:31)
[2021-10-07] MEDS: KETOROLAC 30 MG/ML VIAL 15 MG IV (06:37)
[2021-10-07 06:47] LABS: Appearance Urine UA CLEAR; Color Urine UA Yellow; Protein Urine UA Negative (Negative)
[2021-10-07 06:49] LABS: Bilirubin Urine UA NEGATIVE (NEGATIVE); Glucose Urine UA NEGATIVE (Negative); Ketones Urine UA NEGATIVE (NEGATIVE); Leukocyte Esterase Urine UA 1+ (NEGATIVE); Nitrite Urine UA NEGATIVE (Negative); Occult Blood Urine UA 3+ (Negative); Urobilinogen Urine UA 0.2 E.U./dL (0.2)
[2021-10-07 06:51] LABS: Bacteria Urine Few (2-10); Culture Indicated Urine Specimen Cultured; RBC Urine 1-5/HPF (0-5/HPF); Squamous Epithelial Cell Urine 1-5 /HPF (0-5/HPF); WBC Urine 0-1/HPF (0-5/HPF)
[2021-10-07 07:11] VITALS: BP 141/80; PULSE 98; RESP 16; O2SAT 97
== END 2021-10-07 07:12 | disposition home or self-care (01) ==
PROVIDERS: Emergency Provider Emergency Medicine; PCP Family Medicine
DX: N39.0 Urinary tract infection, site not specified (principal); K52.9 Noninfective gastroenteritis and colitis, unspecified; F17.200 Nicotine dependence, unspecified, uncomplicated; Z20.822 Contact with and (suspected) exposure to COVID-19
CPT/HCPCS: 36415; 80053; 81001; 81025; 83690; 85025; 87086; 87635; 96361; 96374; 96375; 99284; C9803; J1885; J2060; J2405

== ENCOUNTER 2021-11-22 15:30 | Emergency (ER) | payer MEDICARE, MEDICAID, SELFPAY ==
[2021-11-22 15:39] VITALS: BP 174/101; PULSE 121; RESP 22; TEMP 36.5; O2SAT 100
--- NOTE | 2021-11-22 17:32 | ED.URI ---
HPI - URI/Sore Throat General Chief Complaint: Upper Respiratory Symptoms Stated Complaint: strep throat ? Time Seen by Provider: 11/22/21 17:26 Source: patient Mode of arrival: Ambulatory Related Data Home Medications Medication Instructions Recorded Confirmed [id number]-[id number] 250 1 tab PO Q4-6H PRN 03/28/20 01/20/21 mg-250 mg-65 mg tablet (Excedrin Extra Strength) naproxen sodium 220 mg tablet 440 mg PO Q8H PRN tab 10/01/20 01/20/21 etonogestrel 68 mg subdermal SUBDERMAL 01/20/21 01/20/21 implant (Nexplanon) Previous Rx's Medication Instructions Recorded hydrocodone 5 mg-acetaminophen 325 1 tab PO Q6H PRN #6 tab 12/04/20 mg tablet fluconazole 150 mg tablet 150 mg PO ONCE #1 tab 01/28/21 (Diflucan) ketorolac 10 mg tablet 10 mg PO Q6H PRN #14 tab 05/22/21 lidocaine 5 % topical patch 1 patch TOP DAILY #15 each 05/22/21 (Lidoderm) venlafaxine 150 mg 150 mg PO DAILY #90 cap 07/02/21 capsule,extended release 24 hr hydroxyzine HCl 25 mg tablet 25 mg PO QID PRN #100 tab 08/05/21 naproxen 500 mg tablet 500 mg PO BID PRN #60 tab 08/05/21 tizanidine 4 mg tablet 4 mg PO BID PRN #120 tab 08/05/21 tramadol 50 mg tablet 50 mg PO Q8H PRN #30 tab 10/28/21 methylphenidate HCl 18 mg 18 mg PO DAILY #30 tab 11/19/21 tablet,extended release 24 hr methylphenidate HCl 36 mg 36 mg PO DAILY #30 tab 11/19/21 tablet,extended release 24 hr Allergies Allergy/AdvReac Type Severity Reaction Status Date / Time citalopram Allergy Intermediate Verified 05/22/21 17:59 lisdexamfetamine Allergy Intermediate Hives Verified 10/24/21 10:57 [From Lynsey] latex Allergy Mild HIVES Verified 05/22/21 17:59 clindamycin Allergy Unknown RASH Verified 05/22/21 17:59 Patient History Medical History (Updated 10/22/21 @ 00:00 by ) ADD (attention deficit disorder) ADHD (attention deficit hyperactivity disorder) Bilateral femoral fractures Chronic leg pain Complication of internal fixation device of femur Depression Osteomalacia Osteopenia Ovarian cyst Pneumomediastinum Thrombocytosis Surgical History History of Status post breast reduction Tubal ligation status Social History Smoking Status: Current every day smoker Smokeless tobacco user: other alcohol intake: former substance use type: marijuana Smoking Status: Current every day smoker alcohol intake frequency: 0-2 drinks per day Substance Use Type: marijuana Exam Initial Vital Signs Initial Vital Signs: Vital Signs Temperature 97.7 F 11/22/21 15:39 Pulse Rate 121 H 11/22/21 15:39 Respiratory Rate 22 11/22/21 15:39 Blood Pressure 174/101 H 11/22/21 15:39 Pulse Oximetry 100 11/22/21 15:39 Course Vital Signs Vital signs: Vital Signs - 8 hr 11/22/21 15:39 Temperature 97.7 F Pulse Rate 121 H Respiratory Rate 22 Blood Pressure 174/101 H Pulse Oximetry 100 MDM - URI/Sore Throat Lab Data Labs: Point of Care Testing Rapid Strep A Negative Discharge Plan Departure Prescriptions: No Action fluconazole [Diflucan] 150 mg tablet 150 mg PO ONCE Qty: 1 1RF Rx Instructions: as a single dose - may repeat next week if needed venlafaxine 150 mg capsule,extended release 24hr 150 mg PO DAILY Qty: 90 1RF tramadol 50 mg tablet 50 mg PO Q8H PRN (Reason: pain) Qty: 30 1RF methylphenidate HCl 36 mg tablet extended release 24hr 36 mg PO DAILY Qty: 30 0RF Rx Instructions: take 1st thing in the morning methylphenidate HCl 18 mg tablet extended release 24hr 18 mg PO DAILY Qty: 30 0RF Rx Instructions: take at noon naproxen sodium 220 mg tablet 440 mg PO Q8H PRN0RF hydroxyzine HCl 25 mg tablet 25 mg PO QID PRN (Reason: anxiety) Qty: 100 1RF tizanidine 4 mg tablet 4 mg PO BID PRN (Reason: muscle spasticity) Qty: 120 2RF naproxen 500 mg tablet 500 mg PO BID PRN (Reason: pain) Qty: 60 3RF Excedrin Extra Strength 250-250-65 mg tablet 1 tab PO Q4-6H PRN0RF Nexplanon 68 mg implant subdermal 0RF hydrocodone-acetaminophen 5-325 mg tablet 1 tab PO Q6H PRN (Reason: pain) Qty: 6 0RF ketorolac 10 mg tablet 10 mg PO Q6H PRN (Reason: pain) Qty: 14 0RF lidocaine [Lidoderm] 5 % adhesive patch,medicated 1 patch TOP DAILY Qty: 15 0RF Rx Instructions: leave on most painful area for 12 hrs Referrals: Pablito Hayes DO [Primary Care Provider] -
[2021-11-22 18:09] LABS: COVID19 -Nasal RAPID Negative (Negative)
--- NOTE | 2021-11-22 18:31 | ED.GENADULT ---
HPI - General Adult General Chief complaint: Upper Respiratory Symptoms Stated complaint: strep throat ? Time Seen by Provider: 11/22/21 17:26 Source: patient Mode of arrival: Ambulatory History of Present Illness HPI narrative: Patient is a 31-year-old female who has had 2 days of a sore throat. Also has sinus congestion. Has bumps on her tongue. Concerned about strep throat. States that her heart rate in triage is elevated because of anxiety that is baseline for her. Related Data Home Medications Medication Instructions Recorded Confirmed xmxguoy-ugynulkopxoyr-nxrtxvep 250 1 tab PO Q4-6H PRN 03/28/20 01/20/21 mg-250 mg-65 mg tablet (Excedrin Extra Strength) naproxen sodium 220 mg tablet 440 mg PO Q8H PRN tab 10/01/20 01/20/21 etonogestrel 68 mg subdermal SUBDERMAL 01/20/21 01/20/21 implant (Nexplanon) Previous Rx's Medication Instructions Recorded hydrocodone 5 mg-acetaminophen 325 1 tab PO Q6H PRN #6 tab 12/04/20 mg tablet fluconazole 150 mg tablet 150 mg PO ONCE #1 tab 01/28/21 (Diflucan) ketorolac 10 mg tablet 10 mg PO Q6H PRN #14 tab 05/22/21 lidocaine 5 % topical patch 1 patch TOP DAILY #15 each 05/22/21 (Lidoderm) venlafaxine 150 mg 150 mg PO DAILY #90 cap 07/02/21 capsule,extended release 24 hr hydroxyzine HCl 25 mg tablet 25 mg PO QID PRN #100 tab 08/05/21 naproxen 500 mg tablet 500 mg PO BID PRN #60 tab 08/05/21 tizanidine 4 mg tablet 4 mg PO BID PRN #120 tab 08/05/21 tramadol 50 mg tablet 50 mg PO Q8H PRN #30 tab 10/28/21 methylphenidate HCl 18 mg 18 mg PO DAILY #30 tab 11/19/21 tablet,extended release 24 hr methylphenidate HCl 36 mg 36 mg PO DAILY #30 tab 11/19/21 tablet,extended release 24 hr Allergies Allergy/AdvReac Type Severity Reaction Status Date / Time citalopram Allergy Intermediate Verified 05/22/21 17:59 lisdexamfetamine Allergy Intermediate Hives Verified 10/24/21 10:57 [From Lynsey] latex Allergy Mild HIVES Verified 05/22/21 17:59 clindamycin Allergy Unknown RASH Verified 05/22/21 17:59 Review of Systems ENT Ears, Nose, Mouth, and Throat: Reports system reviewed and no additional complaints, except as documented and Reports as per HPI Respiratory Respiratory: Reports as per HPI and Reports system reviewed and no additional complaints, except as documented Integumentary/Breasts Skin/Breast: Reports system reviewed and no additional complaints, except as documented and Reports as per HPI Hematologic/Lymphatic On Anticoagulants: No Allergic/Immunologic Allergic/Immunologic: Reports system reviewed and no additional complaints, except as documented and Reports as per HPI Patient History Medical History ADD (attention deficit disorder) ADHD (attention deficit hyperactivity disorder) Bilateral femoral fractures Chronic leg pain Complication of internal fixation device of femur Depression Osteomalacia Osteopenia Ovarian cyst Pneumomediastinum Thrombocytosis Surgical History History of Status post breast reduction Tubal ligation status Social History Smoking Status: Current every day smoker Smokeless tobacco user: other alcohol intake: former substance use type: marijuana Smoking Status: Current every day smoker alcohol intake frequency: 0-2 drinks per day Substance Use Type: marijuana Exam Initial Vital Signs Initial Vital Signs: Vital Signs Temperature 97.7 F 11/22/21 15:39 Pulse Rate 121 H 11/22/21 15:39 Respiratory Rate 22 11/22/21 15:39 Blood Pressure 174/101 H 11/22/21 15:39 Pulse Oximetry 100 11/22/21 15:39 HENMT Head: normal to inspection and normocephalic Face and sinus: normal facial exam Mouth: oral mucosae normal, lip normal and tongue normal Teeth and gingiva: dentition normal Throat: posterior oropharynx normal Resp Effort & Inspection: normal respiratory effort Cardio Rate: tachycardic Skin General: no rashes or lesions noted Neuro General: patient alert, patient awake and moves all extremities Extrem General: normal to inspection and capillary refill normal Course Orders Ordered: ED Orders 11/22/21 17:48 COVID19 -Nasal swab/Pre-Proc Stat Discontinued Medications Lidocaine HCl (Lidocaine Viscous 2% 15 Ml Solution) 15 ml PO NOW ONE Stop: 11/22/21 18:32 Last Admin: 11/22/21 18:36 Dose: 15 ml Documented by: JENNIFER Vital Signs Vital signs: Vital Signs - 8 hr 11/22/21 18:41 Pulse Rate 100 H Respiratory Rate 18 Blood Pressure 160/100 H Pulse Oximetry 98 Medical Decision Making Lab Data Labs: Lab Results 11/22/21 Range/Units 17:48 SARS-CoV-2 (PCR) Negative (Negative) Point of Care Testing Rapid Strep A Negative Point of care testing: Point of Care Testing Rapid Strep A Negative MDM Narrative Medical decision making narrative: Rapid strep is negative and COVID is negative. Patient has a benign exam. Afebrile. No indication for antibiotics. Was given viscous lidocaine to help with her discomfort. She understands she can take Claritin another decongestants to try to help with the symptoms as well. Patient could be safely discharged home. She was given return precautions follow-up instructions. She expressed understanding and agreement. Discharge Plan Departure Patient Disposition: Home Clinical Impression: Pharyngitis Instructions: Sore Throat Activity Restrictions/Additional Instructions: Continues take all of your medications as directed. You can also take Claritin as this will help your sinus congestion. There is no indication for any antibiotics based on your workup here today. Contact your primary doctor for a follow-up. Prescriptions: No Action fluconazole [Diflucan] 150 mg tablet 150 mg PO ONCE Qty: 1 1RF Rx Instructions: as a single dose - may repeat next week if needed venlafaxine 150 mg capsule,extended release 24hr 150 mg PO DAILY Qty: 90 1RF tramadol 50 mg tablet 50 mg PO Q8H PRN (Reason: pain) Qty: 30 1RF methylphenidate HCl 36 mg tablet extended release 24hr 36 mg PO DAILY Qty: 30 0RF Rx Instructions: take 1st thing in the morning methylphenidate HCl 18 mg tablet extended release 24hr 18 mg PO DAILY Qty: 30 0RF Rx Instructions: take at noon naproxen sodium 220 mg tablet 440 mg PO Q8H PRN0RF hydroxyzine HCl 25 mg tablet 25 mg PO QID PRN (Reason: anxiety) Qty: 100 1RF tizanidine 4 mg tablet 4 mg PO BID PRN (Reason: muscle spasticity) Qty: 120 2RF naproxen 500 mg tablet 500 mg PO BID PRN (Reason: pain) Qty: 60 3RF Excedrin Extra Strength 250-250-65 mg tablet 1 tab PO Q4-6H PRN0RF Nexplanon 68 mg implant subdermal 0RF hydrocodone-acetaminophen 5-325 mg tablet 1 tab PO Q6H PRN (Reason: pain) Qty: 6 0RF ketorolac 10 mg tablet 10 mg PO Q6H PRN (Reason: pain) Qty: 14 0RF lidocaine [Lidoderm] 5 % adhesive patch,medicated 1 patch TOP DAILY Qty: 15 0RF Rx Instructions: leave on most painful area for 12 hrs Referrals: Pablito Hayes, [Primary Care Provider] -
[2021-11-22] MEDS: LIDOCAINE VISCOUS 2% 15 ML SOLUTION PO (18:36)
[2021-11-22 18:41] VITALS: BP 160/100; PULSE 100; RESP 18; O2SAT 98
== END 2021-11-22 18:41 | disposition home or self-care (01) ==
PROVIDERS: Emergency Medicine; Emergency Provider Emergency Medicine; PCP Family Medicine
DX: J02.9 Acute pharyngitis, unspecified (principal); F17.200 Nicotine dependence, unspecified, uncomplicated; Z20.822 Contact with and (suspected) exposure to COVID-19
CPT/HCPCS: 87635; 87880; 99282; 99283; C9803

== ENCOUNTER 2022-11-03 02:25 | Emergency (ER) | payer MEDICARE, MEDICAID, SELFPAY ==
[2022-11-03 02:38] VITALS: BP 173/112; PULSE 119; RESP 22; TEMP 36.2; O2SAT 98; BMI 45.7
--- NOTE | 2022-11-03 02:54 | ED_ITS ---
HPI - General Adult General Chief complaint: Dental/Oral Stated complaint: rt side tooth infection Time Seen by Provider: 11/03/22 02:49 Source: family Mode of arrival: Ambulatory Limitations: no limitations History of Present Illness HPI narrative: Patient is a 32-year-old female with known poor dentition who is here for evaluation of pain in her right lower jaw. Symptoms have been going on for the past couple days. She has been taking Tylenol and ibuprofen with only minimal improvement. No problems swallowing. Related Data Home Medications Medication Instructions Recorded Confirmed [id number] 250 1 tab PO Q4-6H PRN 03/28/20 01/20/21 mg-250 mg-65 mg tablet (Excedrin Extra Strength) naproxen sodium 220 mg tablet 440 mg PO Q8H PRN 10/01/20 01/20/21 etonogestrel 68 mg subdermal subdermal 01/20/21 01/20/21 implant (Nexplanon) Previous Rx's Medication Instructions Recorded fluconazole 150 mg tablet 150 mg PO ONCE #1 tab 01/28/21 (Diflucan) ketorolac 10 mg tablet 10 mg PO Q6H PRN pain #14 tabs 05/22/21 lidocaine 5 % topical patch 1 patch topical DAILY #15 ea 05/22/21 (Lidoderm) naproxen 500 mg tablet 500 mg PO BID PRN pain #60 tabs 08/05/21 hydroxyzine HCl 50 mg tablet See Rx Instructions .Route 01/29/22 .COMPLEX #360 tabs desonide 0.05 % lotion 1 applic topical DAILY PRN skin 02/24/22 irritation #118 mL ondansetron 4 mg disintegrating 4 mg PO Q8H PRN nausea and 03/31/22 tablet vomiting #20 tabs buspirone 10 mg tablet See Rx Instructions .Route 05/18/22 .COMPLEX #60 tabs tizanidine 4 mg tablet See Rx Instructions .Route 06/30/22 .COMPLEX #120 tabs eletriptan 20 mg tablet (Relpax) See Rx Instructions PO .COMPLEX 07/01/22 #10 tabs benzonatate 100 mg capsule 100 mg PO TID PRN cough #30 caps 07/30/22 buspirone 5 mg tablet 5 mg PO TID #30 tabs 09/23/22 lorazepam 1 mg tablet 1 mg PO ONCE #5 tabs 09/24/22 venlafaxine 150 mg See Rx Instructions .Route 10/06/22 capsule,extended release 24 hr .COMPLEX #90 caps methylphenidate HCl 18 mg 18 mg PO DAILY #30 tabs 10/31/22 tablet,extended release 24 hr methylphenidate HCl 36 mg 36 mg PO DAILY #30 tabs 10/31/22 tablet,extended release 24 hr dextroamphetamine-amphetamine ER 20 mg PO DAILY #30 caps 11/01/22 20 mg 24hr capsule,extend release (Adderall XR) penicillin V potassium 500 mg 500 mg PO QID 7 days #28 tabs 11/03/22 tablet Allergies Allergy/AdvReac Type Severity Reaction Status Date / Time citalopram Allergy Intermediate Verified 08/03/22 07:48 lisdexamfetamine Allergy Intermediate Hives Verified 08/03/22 07:48 [From Lynsey] latex Allergy Mild HIVES Verified 08/03/22 07:48 clindamycin Allergy Unknown RASH Verified 08/03/22 07:48 Review of Systems ENT Ears, Nose, Mouth, and Throat: Reports system reviewed and no additional complaints, except as documented Respiratory Respiratory: Reports system reviewed and no additional complaints, except as documented Integumentary/Breasts Skin/Breast: Reports system reviewed and no additional complaints, except as documented Neurologic Neurologic: Reports system reviewed and no additional complaints, except as documented Patient History Medical History ADD (attention deficit disorder) ADHD (attention deficit hyperactivity disorder) Bilateral femoral fractures Chronic leg pain Complication of internal fixation device of femur Depression Migraine 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 Osteomalacia Osteopenia Ovarian cyst Pneumomediastinum Seborrheic dermatitis Thrombocytosis Surgical History History of Status post breast reduction Tubal ligation status Social History Smoking Status: Current every day smoker Smokeless tobacco user: other alcohol intake: former substance use type: marijuana Smoking Status: Current every day smoker alcohol intake frequency: 0-2 drinks per day Substance Use Type: marijuana Exam Initial Vital Signs Initial Vital Signs: Vital Signs Temperature 97.2 F L 11/03/22 02:38 Pulse Rate 119 H 11/03/22 02:38 Respiratory Rate 22 11/03/22 02:38 Blood Pressure 173/112 H 11/03/22 02:38 Pulse Oximetry 98 11/03/22 02:38 Oxygen Delivery Method 11/03/22 02:38 Const General: cooperative and comfortable HENMT Head: normal to inspection and normocephalic Mouth: lip normal and tongue normal Teeth and gingiva: poor dentition Throat: posterior oropharynx normal Neck Neck: normal visual inspection Skin General: no rashes or lesions noted Neuro General: patient alert and patient awake Course Orders Ordered: Discontinued Medications Hydrocodone Bitart/Acetaminophen (Hydrocodone/Acet 5/325 Tablet) 1 tab PO NOW ONE Stop: 11/03/22 02:57 Last Admin: 11/03/22 03:08 Dose: 1 tab Documented By: ALEJA Penicillin V Potassium (Penicillin Vk 250 Mg Tablet) 500 mg PO NOW ONE Stop: 11/03/22 02:57 Last Admin: 11/03/22 03:08 Dose: 500 mg Documented By: ALEJA Vital Signs Vital signs: Vital Signs - 8 hr 11/03/22 02:38 11/03/22 03:17 Temperature 97.2 F L Pulse Rate 119 H 95 H Respiratory Rate 22 20 Blood Pressure 173/112 H 170/97 H Pulse Oximetry 98 97 Oxygen Delivery Method Room Air Room Air Medical Decision Making [facility] Narrative Medical decision making narrative: Patient has no respiratory distress. Has poor dentition however no drainable abscess seen on exam today. Low suspicion for Jose F's or angioedema. No skin changes concerning for cellulitis. Will treat ablation with oral antibiotics. No indication for admission to the hospital today based on her exam. She was given her 1st dose of antibiotics here in the ER and will send a prescription to the pharmacy of her choice. She was given return precautions. She expressed understanding and agreement. Discharge Plan Departure Patient Disposition: Home Clinical Impression: Gingival abscess Instructions: Tooth Abscess Activity Restrictions/Additional Instructions: I do recommend that you follow-up with a dentist this you will need there evaluation and treatment for definitive resolution of your symptoms. Take the antibiotics as directed. Return to the emergency department for new symptoms. Prescriptions: New penicillin V potassium 500 mg tablet 500 mg PO QID 7 Days Qty: 28 0RF No Action fluconazole [Diflucan] 150 mg tablet 150 mg PO ONCE Qty: 1 1RF Rx Instructions: as a single dose - may repeat next week if needed hydroxyzine HCl 50 mg tablet See Rx Instructions .ROUTE .COMPLEX Qty: 360 0RF Dose Instruction: Take 1 tablet by mouth 4 times daily as needed for anxiety Rx Instructions: Take 1 tablet by mouth 4 times daily as needed for anxiety ondansetron 4 mg tablet,disintegrating 4 mg PO Q8H PRN (Reason: nausea and vomiting) Qty: 20 0RF buspirone 10 mg tablet See Rx Instructions .ROUTE .COMPLEX Qty: 60 3RF Dose Instruction: TAKE ONE TABLET BY MOUTH TWICE DAILY Rx Instructions: TAKE ONE TABLET BY MOUTH TWICE DAILY tizanidine 4 mg tablet See Rx Instructions .ROUTE .COMPLEX Qty: 120 0RF Dose Instruction: TAKE ONE TABLET BY MOUTH TWICE DAILY NEEDED FOR MUSCLE SPASMS Rx Instructions: TAKE ONE TABLET BY MOUTH TWICE DAILY NEEDED FOR MUSCLE SPASMS eletriptan [Relpax] 20 mg tablet See Rx Instructions PO .COMPLEX Qty: 10 1RF Rx Instructions: take 1 tab at onset of headache; if no relief may repeat 1 tab after at least 2 hrs; max = 4 tabs/24 hr PO benzonatate 100 mg capsule 100 mg PO TID PRN (Reason: cough) Qty: 30 0RF buspirone 5 mg tablet 5 mg PO TID Qty: 30 0RF lorazepam 1 mg tablet 1 mg PO ONCE Qty: 5 0RF Rx Instructions: Take 30 min before flight venlafaxine 150 mg capsule,extended release 24hr See Rx Instructions .ROUTE .COMPLEX Qty: 90 0RF Dose Instruction: TAKE ONE CAPSULE BY MOUTH ONE TIME DAILY Rx Instructions: TAKE ONE CAPSULE BY MOUTH ONE TIME DAILY methylphenidate HCl 36 mg tablet extended release 24hr 36 mg PO DAILY Qty: 30 0RF Rx Instructions: take 1st thing in the morning methylphenidate HCl 18 mg tablet extended release 24hr 18 mg PO DAILY Qty: 30 0RF dextroamphetamine-amphetamine [Adderall XR] 20 mg capsule,extended release 24hr 20 mg PO DAILY Qty: 30 0RF naproxen sodium 220 mg tablet 440 mg PO Q8H PRN naproxen 500 mg tablet 500 mg PO BID PRN (Reason: pain) Qty: 60 3RF Excedrin Extra Strength 250-250-65 mg tablet 1 tab PO Q4-6H PRN Nexplanon 68 mg implant subdermal desonide 0.05 % lotion 1 applic topical DAILY PRN (Reason: skin irritation) Qty: 118 1RF ketorolac 10 mg tablet 10 mg PO Q6H PRN (Reason: pain) Qty: 14 0RF lidocaine [Lidoderm] 5 % adhesive patch,medicated 1 patch TOP DAILY Qty: 15 0RF Rx Instructions: leave on most painful area for 12 hrs Referrals: Pablito Hayes DO [Primary Care Provider] - Stand Alone Forms: Patient Portal/API
[2022-11-03] MEDS: PENICILLIN VK 250 MG TABLET 500 MG PO (03:08)
[2022-11-03] MEDS: HYDROCODONE/ACET 5/325 TABLET 1 TAB PO (03:08)
[2022-11-03 03:17] VITALS: BP 170/97; PULSE 95; RESP 20; O2SAT 97
== END 2022-11-03 03:18 | disposition home or self-care (01) ==
PROVIDERS: Emergency Provider Emergency Medicine; PCP Family Medicine
DX: K05.219 Aggressive periodontitis, localized, unspecified severity (principal)
CPT/HCPCS: 99283

== ENCOUNTER 2023-05-09 04:30 | Emergency (ER) | payer MEDICARE, MEDICAID, SELFPAY ==
[2023-05-09 04:33] VITALS: BP 162/94; PULSE 107; RESP 18; TEMP 36.6; O2SAT 98; BMI 42.5
--- NOTE | 2023-05-09 04:35 | ED_ITS ---
HPI - General Adult General Chief complaint: Skin/Abscess/Foreign Body Stated complaint: infection from pierced belly in belly area Time Seen by Provider: 05/09/23 04:35 History of Present Illness HPI narrative: 33F smoker with history of HTN presents with a painful red swollen area above her umbilicus. She states she got a piercing a few weeks ago and in the aftermath it became red, swollen and tender. She presented to an outside facility and was treated for cellulitis with doxycycline and Keflex. She states it cleared up but about 5 days later started becoming swollen, red and painful again. She denies fever or chills. She is had no nausea or vomiting. She denies any change in her bowel habits and no difficulty urinating. Related Data Home Medications Medication Instructions Recorded Confirmed dxazwvd-eybeimdpquwet-[id number] 250 1 tab PO Q4-6H PRN 03/28/20 12/23/22 mg-250 mg-65 mg tablet (Excedrin Extra Strength) naproxen sodium 220 mg tablet 440 mg PO Q8H PRN 10/01/20 12/23/22 etonogestrel 68 mg subdermal subdermal 01/20/21 12/23/22 implant (Nexplanon) Previous Rx's Medication Instructions Recorded ketorolac 10 mg tablet 10 mg PO Q6H PRN pain #14 tabs 05/22/21 lidocaine 5 % topical patch 1 patch topical DAILY #15 ea 05/22/21 (Lidoderm) naproxen 500 mg tablet 500 mg PO BID PRN pain #60 tabs 08/05/21 hydroxyzine HCl 50 mg tablet See Rx Instructions .Route 01/29/22 .COMPLEX #360 tabs desonide 0.05 % lotion 1 applic topical DAILY PRN skin 02/24/22 irritation #118 mL ondansetron 4 mg disintegrating 4 mg PO Q8H PRN nausea and 03/31/22 tablet vomiting #20 tabs buspirone 10 mg tablet See Rx Instructions .Route 05/18/22 .COMPLEX #60 tabs eletriptan 20 mg tablet (Relpax) See Rx Instructions PO .COMPLEX 07/01/22 #10 tabs benzonatate 100 mg capsule 100 mg PO TID PRN cough #30 caps 07/30/22 buspirone 5 mg tablet 5 mg PO TID #30 tabs 09/23/22 lorazepam 1 mg tablet 1 mg PO ONCE #5 tabs 09/24/22 metoprolol succinate 25 mg 25 mg PO BEDTIME #30 tabs 11/23/22 tablet,extended release 24 hr venlafaxine 37.5 mg 37.5 mg PO DAILY #7 caps 11/23/22 capsule,extended release 24 hr venlafaxine 75 mg capsule,extended 75 mg PO DAILY #90 caps 11/29/22 release 24 hr albuterol sulfate 90 mcg/actuation 2 puff inhalation Q6H PRN 12/23/22 aerosol inhaler shortness of breath or wheezing #6.7 grams fluticasone propionate 50 1 spray intranasal Q12H #16 grams 12/23/22 mcg/actuation nasal spray,suspension (Flonase Allergy Relief) inhalational spacing device #1 ea 12/23/22 (Aerochamber MV spacer) loratadine 10 mg tablet (Claritin) 10 mg PO DAILY #30 tabs 12/23/22 benzonatate 100 mg capsule 100 mg PO BID PRN cough #20 caps 12/24/22 dextromethorphan polistirex 30 10 ml PO ONCE PRN cough #89 mL 12/24/22 mg/5 mL oral susp ext.release 12hr (Delsym 12 hour) tizanidine 4 mg tablet See Rx Instructions .Route 03/16/23 .COMPLEX #30 tabs fluconazole 150 mg tablet 150 mg PO QWEEK #2 tabs 04/15/23 (Diflucan) methylphenidate HCl 36 mg 36 mg PO DAILY #30 tabs 04/15/23 tablet,extended release 24 hr doxycycline hyclate 100 mg tablet 100 mg PO BID #20 tabs 05/09/23 fluconazole 150 mg tablet 150 mg PO Q3D 2 doses #2 tabs 05/09/23 ondansetron 4 mg disintegrating 4 mg PO TID-QID PRN nausea and 05/09/23 tablet vomiting #10 tabs Allergies Allergy/AdvReac Type Severity Reaction Status Date / Time citalopram Allergy Intermediate Verified 12/23/22 16:48 lisdexamfetamine Allergy Intermediate Hives Verified 12/23/22 16:48 [From Lynsey] latex Allergy Mild HIVES Verified 12/23/22 16:48 clindamycin Allergy Unknown RASH Verified 04/06/23 16:48 Review of Systems Review of Systems Narrative: GENERAL: Denies chills, fatigue, malaise, fever, sweats. HEENT: Denies sinus pain, ear pain, sore throat, difficulty swallowing, dizziness. RESPIRATORY: Denies dyspnea, cough, wheezing, hemoptysis, sputum. CARDIOVASCULAR: Denies chest pain, palpitations, orthopnea, edema, GASTROINTESTINAL: Denies nausea, vomiting, abdominal pain, diarrhea, constipation, melena. : Denies dysuria, frequency, incontinence, hematuria, urinary retention. MUSCULOSKELETAL: denies weakness, joint pain, or bony pain SKIN: See HPI NEUROLOGIC: Denies weakness, headache, numbness, change in speech, confusion, seizures, incoordination. PSYCHIATRIC: No concerning psychosocial issues. 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 Extraoccular muscles are intact bilaterally. There is no subconjunctival hemorrhage or exudate. CHEST: Lungs are clear to auscultation bilaterally and free of wheezes, rales, or rhonchi. Heart rate is regular rhythm, there are no murmurs, clicks, rubs, or gallops. There is no chest wall tenderness. ABD: Small, 1 cm area just above umbilicus is erythematous, slightly tender with minimal drainage, no fluctuance or induration. Abdomen is soft and nontender. There is no guarding or rebound. Bowel sounds are normal in all 4 quadrants. There is no mass or organomegaly. EXT: Full painless ROM of all extremities with no loss of sensation or strength. SKIN: Warm, pink, and dry. No erythema or rash Initial Vital Signs Initial Vital Signs: Vital Signs Temperature 97.8 F 05/09/23 04:33 Pulse Rate 107 H 05/09/23 04:33 Respiratory Rate 18 05/09/23 04:33 Blood Pressure 162/94 H 05/09/23 04:33 Pulse Oximetry 98 05/09/23 04:33 Oxygen Delivery Method Room Air 05/09/23 04:33 Course Orders Ordered: ED Orders 05/09/23 04:50 Wound Culture and Gram Stain Stat Discontinued Medications Doxycycline Hyclate (Doxycycline Hyclate 100 Mg Tablet) 100 mg PO NOW ONE Stop: 05/09/23 04:51 Last Admin: 05/09/23 04:53 Dose: 100 mg Documented By: KATELIN Ondansetron HCl (Ondansetron 4 Mg Odt Prepack) 1 bottle MISC SEEINSTR ONE Stop: 05/09/23 04:46 Last Admin: 05/09/23 04:52 Dose: 1 bottle Documented By: KATELIN Vital Signs Vital signs: Vital Signs - 8 hr 05/09/23 04:33 Temperature 97.8 F Pulse Rate 107 H Respiratory Rate 18 Blood Pressure 162/94 H Pulse Oximetry 98 Oxygen Delivery Method Room Air Medical Decision Making [facility] Narrative Medical decision making narrative: [33] year old patient presents with redness just above umbilicus in region of relatively recent piercing Multiple etiologies for patient's symptoms considered including, but not limited to: [Cellulitis versus abscess versus other] Prior Charts reviewed in our EMR Primary Historian: patient History and physical exam are reassuring, small area of erythema and minimal drainage at location of recent piercing, no fluctuance or induration, bedside ultrasound does not demonstrate any obvious pocket of fluid to be drained. She has no systemic complaints. Wound culture obtained and sent to lab. Findings and discharge diagnosis discussed with patient/family followed by verbalization of understanding Return precautions discussed with patient/family whom verbalize understanding of diagnosis and plan Discharge Plan Departure Patient Disposition: Home Clinical Impression: Cellulitis Instructions: DI for Cellulitis -- Adult Activity Restrictions/Additional Instructions: *You have been diagnosed with [cellulitis from piercing] *What to do: *Please continue to take your regular medications as directed. [ x] New medication prescriptions sent to your pharmacy: [[facility] ] [ ] New medication written as a paper prescription [ ] No new medications given *Please follow up with your primary care provider in 2-3 days, call for an appointment. Let them know you were seen in the Emergency Department and that we ask that you be seen in follow up. We will electronically transmit a record of today's note if your PCP is in our system *If you do not have a primary care provider please contact the [facility] Resource line at [phone]. They will ask some questions about your medical history and help get you set up with a doctor in the community. *Return to Emergency Department if you should have any new, worsening or concerning symptoms, such as [fever greater than 101 F, shaking chills, worsening pain, persistent vomiting or other bothersome symptoms] Prescriptions: New fluconazole 150 mg tablet 150 mg PO Q3D Qty: 2 0RF Rx Instructions: may repeat second dose 72 hrs after first dose if symptoms persist ondansetron 4 mg tablet,disintegrating 4 mg PO TID-QID PRN (Reason: nausea and vomiting) Qty: 10 0RF doxycycline hyclate 100 mg tablet 100 mg PO BID Qty: 20 0RF No Action albuterol sulfate 90 mcg/actuation HFA aerosol inhaler 2 puff inhalation Q6H PRN (Reason: shortness of breath or wheezing) Qty: 6.7 0RF (DME) Aerochamber MV Spacer See Rx Instructions .ROUTE .MEDSUPPLY Qty: 1 0RF Rx Instructions: As directed fluticasone propionate [Flonase Allergy Relief] 50 mcg/actuation spray,suspension 1 spray intranasal Q12H Qty: 16 0RF Rx Instructions: administer into each nostril loratadine [Claritin] 10 mg tablet 10 mg PO DAILY Qty: 30 0RF benzonatate 100 mg capsule 100 mg PO BID PRN (Reason: cough) Qty: 20 0RF dextromethorphan polistirex [Delsym 12 hour] 30 mg/5 mL suspension,extended rel 12 hr 10 ml PO ONCE PRN (Reason: cough) Qty: 89 0RF hydroxyzine HCl 50 mg tablet See Rx Instructions .ROUTE .COMPLEX Qty: 360 0RF Dose Instruction: Take 1 tablet by mouth 4 times daily as needed for anxiety Rx Instructions: Take 1 tablet by mouth 4 times daily as needed for anxiety ondansetron 4 mg tablet,disintegrating 4 mg PO Q8H PRN (Reason: nausea and vomiting) Qty: 20 0RF buspirone 10 mg tablet See Rx Instructions .ROUTE .COMPLEX Qty: 60 3RF Dose Instruction: TAKE ONE TABLET BY MOUTH TWICE DAILY Rx Instructions: TAKE ONE TABLET BY MOUTH TWICE DAILY eletriptan [Relpax] 20 mg tablet See Rx Instructions PO .COMPLEX Qty: 10 1RF Rx Instructions: take 1 tab at onset of headache; if no relief may repeat 1 tab after at least 2 hrs; max = 4 tabs/24 hr PO benzonatate 100 mg capsule 100 mg PO TID PRN (Reason: cough) Qty: 30 0RF buspirone 5 mg tablet 5 mg PO TID Qty: 30 0RF lorazepam 1 mg tablet 1 mg PO ONCE Qty: 5 0RF Rx Instructions: Take 30 min before flight venlafaxine 75 mg capsule,extended release 24hr 75 mg PO DAILY Qty: 90 1RF tizanidine 4 mg tablet See Rx Instructions .ROUTE .COMPLEX Qty: 30 0RF Dose Instruction: TAKE ONE TABLET BY MOUTH TWICE DAILY NEEDED FOR MUSCLE SPASMS Rx Instructions: TAKE ONE TABLET BY MOUTH TWICE DAILY NEEDED FOR MUSCLE SPASMS methylphenidate HCl 36 mg tablet extended release 24hr 36 mg PO DAILY Qty: 30 0RF Rx Instructions: take 1st thing in the morning fluconazole [Diflucan] 150 mg tablet 150 mg PO QWEEK Qty: 2 1RF naproxen sodium 220 mg tablet 440 mg PO Q8H PRN naproxen 500 mg tablet 500 mg PO BID PRN (Reason: pain) Qty: 60 3RF Excedrin Extra Strength 250-250-65 mg tablet 1 tab PO Q4-6H PRN Nexplanon 68 mg implant subdermal desonide 0.05 % lotion 1 applic topical DAILY PRN (Reason: skin irritation) Qty: 118 1RF venlafaxine 37.5 mg capsule,extended release 24hr 37.5 mg PO DAILY Qty: 7 0RF Rx Instructions: Initiate this dose 1st metoprolol succinate 25 mg tablet extended release 24 hr 25 mg PO BEDTIME Qty: 30 5RF Rx Instructions: Take at bedtime ketorolac 10 mg tablet 10 mg PO Q6H PRN (Reason: pain) Qty: 14 0RF lidocaine [Lidoderm] 5 % adhesive patch,medicated 1 patch TOP DAILY Qty: 15 0RF Rx Instructions: leave on most painful area for 12 hrs Referrals: Pablito Hayes DO [Primary Care Provider] - Stand Alone Forms: Patient Portal/API
--- NOTE | 2023-05-09 04:42 | PC.NURSE ---
just above pt's navel pt has an open wound the is dark in the center with drainage noted on clothes and red around, area around the wound is soft and non tender
[2023-05-09] MEDS: ONDANSETRON 4 MG ODT PREPACK 1 BOTTLE MISC (04:52)
[2023-05-09] MEDS: DOXYCYCLINE HYCLATE 100 MG TABLET PO (04:53)
== END 2023-05-09 04:59 | disposition home or self-care (01) ==
PROVIDERS: Emergency Provider Emergency Medicine; PCP Family Medicine
DX: L03.316 Cellulitis of umbilicus (principal)
CPT/HCPCS: 87070; 87075; 87205; 99283

== ENCOUNTER 2023-08-23 23:57 | Emergency (ER) | payer MEDICARE, MEDICAID, SELFPAY ==
[2023-08-24] VITALS (9 sets, daily range): BP systolic 156–168; BP diastolic 94–103; PULSE 116–155; RESP 13–30; TEMP 36.7–36.9; O2SAT 94–98; BMI 49.0
--- NOTE | 2023-08-24 00:17 | DI.CT.S_ITS ---
PROCEDURE: CT ABDOMEN PELVIS W CON INDICATIONS: bright red blood per rectum TECHNIQUE: After the administration of intravenous contrast, axial sections acquired from the lung bases to the pubic symphysis. Coronal and sagittal reformats were performed. For radiation dose reduction, the following was used: automated exposure control, adjustment of mA and/or kV according to patient size. COMPARISON: [facility], CT, CT ABDOMEN PELVIS W CON, 07/06/2020, 0:04. FINDINGS: Image quality: Good Lower chest: Lung bases are unremarkable. No pleural effusions. Solid organs: Hepatomegaly and steatosis. Possible hepatic dome pseudo lipoma. Gallbladder is unremarkable. No pathologic dilation of the biliary system or pancreatic duct. No splenomegaly. No adrenal nodules. No hydronephrosis. Vessels and lymph nodes: Main portal vein is patent. No abdominal aortic aneurysm. No pathologic lymph nodes by size criteria. Bowel and peritoneum: No evidence of small bowel obstruction, pathologic ascites, or drainable abscess. The appendix is nondilated. No obvious source of bleeding on this single phase CT. A few colonic diverticula are noted. Body wall: Tiny fat containing umbilical hernia. Pelvis: Suspected right ovarian or adnexal cyst. There are multiple suspected ovarian follicles as well. The right ovarian cyst measures up to 3.6 cm. There is metallic artifact in the pelvis. Bones: Bilateral femur fixation hardware, with surrounding metallic artifact. Asymmetric atrophy of the right-sided pelvic and lower extremity musculature. IMPRESSION: No obvious source of bleeding identified on this single phase CT. A few colonic diverticula are noted. In the setting of suspected lower GI bleed, consider colonoscopy correlation. No acute abdominal pelvic findings otherwise. Suspected bilateral adnexal cysts and follicles. Consider sonographic correlation if there is concern for reproductive organ pathology. Other findings as above. Dictated by: Tanner Roca M.D. on 08/24/2023 at 1:49 Approved by: Tanner Roca M.D. on 08/24/2023 at 1:56
--- NOTE | 2023-08-24 00:34 | ED_ITS ---
HPI - Chest Pain General Chief Complaint: Chest Pain Stated Complaint: panic attack, blood in stool, chest pain, vomiting Time Seen by Provider: 08/23/23 23:58 Source: patient Mode of arrival: Wheelchair Limitations: physical limitation History of Present Illness HPI narrative: 33-year-old female with history of ADHD, anxiety, tobacco abuse presents by private vehicle from home for panic attack as well as blood in her stool. All symptoms started 2 hours ago. Patient states that she thinks her chest pain is related to her panic attack, but she is very concerned about the blood noted in her stools. Patient unable to quantify the amount of blood in her stool, simply stating that there was red in the toilet bowl. Denies use of blood thinners. Reports generalized abdominal pain and nausea. Requesting medications for anxiety. Has not seen behavioral health for her anxiety despite referral. Related Data Previous Rx's Medication Instructions Recorded inhalational spacing device #1 ea 12/23/22 (Aerochamber MV spacer) tizanidine 4 mg tablet See Rx Instructions .Route 06/17/23 .COMPLEX #30 tabs methylphenidate HCl 18 mg 18 mg PO DAILY #30 tabs 08/17/23 tablet,extended release 24 hr sertraline 50 mg tablet 50 mg PO DAILY #30 tabs 08/17/23 Allergies Allergy/AdvReac Type Severity Reaction Status Date / Time citalopram Allergy Intermediate Verified 08/15/23 08:16 lisdexamfetamine Allergy Intermediate Hives Verified 08/15/23 08:16 [From Lynsey] latex Allergy Mild HIVES Verified 08/15/23 08:16 clindamycin Allergy Unknown RASH Verified 08/15/23 08:16 Review of Systems Review of Systems Narrative: Negative except as noted above Patient History Medical History Generalized anxiety disorder Hypertension Pre-diabetes Seborrheic dermatitis Migraine 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 Thrombocytosis Osteomalacia ADHD (attention deficit hyperactivity disorder) Complication of internal fixation device of femur Pneumomediastinum ADD (attention deficit disorder) Bilateral femoral fractures Depression Osteopenia Chronic leg pain Ovarian cyst Surgical History Tubal ligation status Status post breast reduction History of Social History Smoking Status: Current every day smoker Smokeless tobacco user: other alcohol intake: former substance use type: marijuana Smoking Status: Current every day smoker alcohol intake frequency: 0-2 drinks per day Substance Use Type: marijuana Exam Initial Vital Signs Initial Vital Signs: Vital Signs Pulse Rate 155 H 08/24/23 00:05 Pulse Oximetry 98 08/24/23 00:05 Const: Awake, alert, anxious Eyes: PERRL, EOMI, conjunctiva normal ENT: Atraumatic, dentition normal, mucous membranes moist Cardiac: Tachycardia, regular rhythm RESP: unlabored, clear bilaterally, no wheezing GI: Atraumatic, soft, generalized tenderness to deep palpation without rebound or guarding Rectal: [employer] present, no gross blood, soft brown stool present Skin: Warm, Dry, intact, no rashes Neuro: AO x3, CN II-XII grossly intact, moves all extremities Psych: anxious affect, mood normal, not suicidal, not homicidal Course Orders Ordered: ED Orders 08/24/23 00:17 CT abdomen pelvis w con Stat 08/24/23 00:34 CBC Auto Diff [Complete Blood Count AUTO DIFF] Stat CMP [Comprehensive Metabolic Panel] Stat PT [Prothrombin Time INR] Stat 08/24/23 01:50 Test Urine Stat Discontinued Medications Diazepam (Diazepam 10 Mg/2 Ml Syringe) 2 mg IV NOW ONE Stop: 08/24/23 00:33 Last Admin: 08/24/23 00:43 Dose: 2 mg Documented By: MARY Droperidol (Droperidol 5 Mg/2 Ml Vial) 2.5 mg IV NOW ONE Stop: 08/24/23 02:05 Last Admin: 08/24/23 02:12 Dose: 2.5 mg Documented By: FARHANA Hydroxyzine Pamoate (Hydroxyzine Pamoate 25 Mg Capsule) 50 mg PO NOW ONE Stop: 08/24/23 00:24 Last Admin: 08/24/23 00:42 Dose: 50 mg Documented By: MARY Ondansetron HCl (Ondansetron 4 Mg/2 Ml Inj) 4 mg IV NOW ONE Stop: 08/24/23 01:12 Last Admin: 08/24/23 01:17 Dose: 4 mg Documented By: FARHANA Vital Signs Vital signs: Vital Signs - 8 hr 08/24/23 00:05 08/24/23 00:06 08/24/23 00:30 Temperature 98.0 F Pulse Rate 155 H 147 H 140 H Respiratory Rate 30 H 17 Blood Pressure 168/103 H Pulse Oximetry 98 97 97 Oxygen Delivery Method Room Air 08/24/23 00:34 08/24/23 00:34 08/24/23 01:00 Temperature Pulse Rate 139 H Respiratory Rate 25 H Blood Pressure 163/103 H 156/94 H Pulse Oximetry 97 Oxygen Delivery Method 08/24/23 01:00 08/24/23 01:47 08/24/23 02:00 Temperature Pulse Rate 136 H 138 H 136 H Respiratory Rate 15 16 Blood Pressure Pulse Oximetry 96 96 96 Oxygen Delivery Method 08/24/23 02:30 08/24/23 02:49 08/24/23 02:49 Temperature 98.4 F Pulse Rate 116 H 116 H Respiratory Rate 13 21 Blood Pressure 160/102 H Pulse Oximetry 94 95 Oxygen Delivery Method MDM - Chest Pain Lab Data 08/24/23 00:34 08/24/23 00:34 Labs: Lab Results 08/24/23 08/24/23 Range/Units 00:34 01:50 WBC 18.9 H (4.5-11.0) X10^3/uL RBC 4.93 (4.0-5.2) X10^6/uL Hgb 15.0 (12.0-16.0) g/dL Hct 43.3 (36-46) % MCV 87.8 (80-100) fL MCH 30.5 (26-34) PG MCHC 34.7 (30-36) % RDW 13.0 (11.6-14.8) % Plt Count 430 H (150-400) X10^3/uL Neut % (Auto) 79.8 H (50-75) % Lymph % (Auto) 13.6 L (25-40) % [place] % (Auto) 5.9 (3-14) % Eos % (Auto) 0.2 L (2-4) % Baso % (Auto) 0.5 (0-2) % Neut # (Auto) 42080 H (2743-2092) /uL Lymph # (Auto) 2600 (1513-1062) /uL [place] # (Auto) 1100 H (0-900) /uL Eos # (Auto) 0 (0-450) /uL Baso # (Auto) 100 (0-100) /uL PT 11.8 (9.4-12.5) SECONDS INR 1.0 (0.9-1.3) Sodium 135 L (137-145) mmol/L Potassium 3.8 (3.4-5.1) mmol/L Chloride 102 (98-107) mmol/L Carbon Dioxide 22 (22-32) mmol/L BUN 14 (7-17) mg/dL Creatinine 0.49 L (0.52-1.04) mg/dL Estimated GFR > 60 (>60) mL/min BUN/Creatinine Ratio 28.6 H (6-22) Glucose 242 H (70-100) mg/dL Calcium 9.1 (8.4-10.2) mg/dL Total Bilirubin 0.7 (0.2-1.3) mg/dL AST 45 H (14-36) IU/L ALT 48 H (<35) IU/L Alkaline Phosphatase 112 (38-126) U/L Total Protein 8.3 H (6.3-8.2) g/dL Albumin 4.3 (3.5-5.0) g/dL Globulin 4.0 (1.7-4.1) g/dL Albumin/Globulin Ratio 1.1 (1.0-2.8) Urine Test Negative (Negative) MDM Narrative Medical decision making narrative: Patient presenting for multiple symptoms, she states her chief concern is the blood in her stools as well as her panic attack. Requesting medication for anxiety. Rectal exam shows no gross blood and no obvious hemorrhoids. Abdomen is soft without reproducible tenderness to palpation. Patient noted to be quite tachycardic on exam, record review shows that patient frequently presents in tachycardia and heart rate is usually between 100-110 beats per minute. Laboratory work is significant for wbc count 18.9, Hgb 15.0, platelets 430, creat 0.49, AST 45 ALT 48. Liver enzymes slightly higher than 1 year ago, nonspecific. CT of the abdomen and pelvis shows diverticulosis without diverticulitis. No other acute intra abdominal pathology identified. No bloody bowel movements while in the emergency department. After being given antianxiety medication patient's heart rate returned to what appears to be her baseline at 110 beats per minute. Given otherwise benign physical exam as well as normal hemoglobin plan to discharge home. Patient counseled to follow up with primary care physician as well as discuss possibility of GI referral if she continues to notice blood in her stool. ED return precautions discussed at bedside. Patient expressed understanding of the plan and is in agreement at this time. All questions answered at the time of discharge. Discharge Plan Departure Patient Disposition: Home Clinical Impression: Panic attack, Diverticulosis Activity Restrictions/Additional Instructions: YOUR LABORATORY WORK TODAY SHOWS A HEMOGLOBIN OF [address] SCAN SHOWED DIVERTICULOSIS WITHOUT DIVERTICULITIS. PLEASE FOLLOW-UP WITH YOUR PRIMARY CARE PHYSICIAN. IF IS POSSIBLE THAT AT SOME POINT YOU MAY NEED TO BE REFERRED TO GASTROENTEROLOGY. Prescriptions: No Action (DME) Aerochamber MV Spacer See Rx Instructions .ROUTE .MEDSUPPLY Qty: 1 0RF Rx Instructions: As directed tizanidine 4 mg tablet See Rx Instructions .ROUTE .COMPLEX Qty: 30 0RF Dose Instruction: TAKE ONE TABLET BY MOUTH TWICE DAILY NEEDED FOR MUSCLE SPASMS Rx Instructions: TAKE ONE TABLET BY MOUTH TWICE DAILY NEEDED FOR MUSCLE SPASMS methylphenidate HCl 18 mg tablet extended release 24hr 18 mg PO DAILY Qty: 30 0RF Rx Instructions: take 1st thing in the morning sertraline 50 mg tablet 50 mg PO DAILY Qty: 30 3RF Referrals: Pablito Hayes, DO [Primary Care Provider] - Stand Alone Forms: Patient Portal/API
[2023-08-24 00:41] LABS: Add Manual Diff / Slide Review NO; Basophils Absolute Auto 100 /uL (0-100); Basophils Percent Auto 0.5 % (0-2); Eosinophils Absolute Auto 0 /uL (0-450); Eosinophils Percent Auto 0.2 % (2-4); Hematocrit 43.3 % (36-46); Lymphocytes Absolute Auto 2600 /uL (1100-4500); Lymphocytes Percent Auto 13.6 % (25-40); Mean Corpuscular HGB Conc 34.7 % (30-36); Mean Corpuscular Hemoglobin 30.5 PG (26-34); Mean Corpuscular Volume 87.8 fL (80-100); Monocytes Absolute Auto 1100 /uL (0-900); Monocytes Percent Auto 5.9 % (3-14); Neutrophils Absolute Auto 15100 /uL (1500-7000); Neutrophils Percent Auto 79.8 % (50-75); Platelet Count 430 X10^3/uL (150-400); Red Blood Cell Count 4.93 X10^6/uL (4.0-5.2); White Blood Cell Count 18.9 X10^3/uL (4.5-11.0)
[2023-08-24] MEDS: hydrOXYzine pamoate 25 MG CAPSULE 50 MG PO (00:42)
[2023-08-24] MEDS: diazePAM 10 MG/2 ML SYRINGE 2 MG IV (00:43)
[2023-08-24 00:53] LABS: Prothrombin Time 11.8 SECONDS (9.4-12.5)
--- NOTE | 2023-08-24 00:55 | PC.NURSE ---
Pt also reports panic attack, bloody diarrhea and abdominal pain. Provider made aware.
[2023-08-24 00:58] LABS: Alanine Aminotransferase 48 IU/L (<35); Albumin 4.3 g/dL (3.5-5.0); Albumin Globulin Ratio 1.1 (1.0-2.8); Alkaline Phosphatase 112 U/L (38-126); Aspartate Aminotransferase 45 IU/L (14-36); BUN Creatinine Ratio 28.6 (6-22); Bilirubin Total 0.7 mg/dL (0.2-1.3); Blood Urea Nitrogen 14 mg/dL (7-17); Calcium 9.1 mg/dL (8.4-10.2); Carbon Dioxide 22 mmol/L (22-32); Chloride 102 mmol/L (98-107); Estimated Glomerular Filt Rate > 60 mL/min (>60); Glucose 242 mg/dL (70-100); HEMOLYSIS 74 (0-50); Potassium 3.8 mmol/L (3.4-5.1); Sodium 135 mmol/L (137-145); Total Protein 8.3 g/dL (6.3-8.2)
[2023-08-24] MEDS: ONDANSETRON 4 MG/2 ML INJ IV (01:17)
[2023-08-24 02:06] LABS: Pregnancy Test Urine Negative (Negative)
[2023-08-24] MEDS: DROPERIDOL 5 MG/2 ML VIAL 2.5 MG IV (02:12)
== END 2023-08-24 03:04 | disposition home or self-care (01) ==
PROVIDERS: Emergency Provider Emergency Medicine; PCP Family Medicine
DX: F41.0 Panic disorder [episodic paroxysmal anxiety] (principal); K57.30 Diverticulosis of large intestine without perforation or abscess without bleeding; F17.200 Nicotine dependence, unspecified, uncomplicated
CPT/HCPCS: 36415; 74177; 80053; 81025; 85025; 85610; 93005; 96374; 96375; 99284; J1790; J2405; J3360; Q9967

== ENCOUNTER 2023-10-30 11:58 | Emergency (ER) | payer MEDICARE, MEDICAID, SELFPAY ==
[2023-10-30] VITALS (9 sets, daily range): BP systolic 135–155; BP diastolic 73–97; PULSE 109–133; RESP 15–20; TEMP 36.4; O2SAT 96–98; BMI 47.7
--- NOTE | 2023-10-30 12:15 | DI.RAD.S_ITS ---
PROCEDURE: XR CHEST 1V INDICATIONS: Shortness of breath TECHNIQUE: One view of the chest was acquired. COMPARISON: [facility], , XR CHEST 1V, 07/07/2020, 8:12. FINDINGS: Surgical changes and devices: None. Lungs and pleura: Lungs are clear. No pleural effusions or pneumothorax. Mediastinum: Mediastinal contours appear normal. Heart size is normal. Bones and chest wall: No suspicious bony lesions. Overlying soft tissues appear unremarkable. IMPRESSION: No acute cardiopulmonary abnormality is seen. Approved by: Yanick Cook M.D. on 10/30/2023 at 12:16
--- NOTE | 2023-10-30 13:11 | PC.NURSE ---
this RN at bedside to meet and eval pt and attempt to obtain IV access and blood work. pt states i need some lorazepam before you draw blood or start an IV or do anything. attempted to educate and redirect using therapeutic communication; pt resistant. pt states I took hydroxyzine at home and it didn't help. pt reports I used to have a prescription for lorazepam several years ago and I am trying to get another one but the doctor doesn't want to prescribe it. Dr. Chowdhury notified. Per Dr. Chowdhury, she will see patient then determine POC. Pt notified.
--- NOTE | 2023-10-30 13:22 | ED_ITS ---
HPI - SOB/Dyspnea General Chief Complaint: Shortness of Breath/Dyspnea Stated Complaint: SOB, pna? bronchitis, chest pain Time Seen by Provider: 10/30/23 12:29 Source: patient Mode of arrival: Wheelchair Limitations: no limitations History of Present Illness HPI Narrative: 33-year-old female history of ADHD, anxiety, osteomalacia with bilateral femoral neck fractures have been repaired in the past. Patient presents with complaint of 6-8 weeks of cough with green productive sputum. Patient states cough is worse particularly at night but always present. She sometimes coughs hard enough to throw up. States a little short of breath. Denies pain in her chest accept with coughing. No fevers recently. She states green productive sputum. She denies any syncope. No nausea or vomiting other than when she coughs very hard. No diarrhea constipation. No new swelling in extremities. She is noted to be tachycardic she states that is typical for her. She states she is trying to wean off her methylphenidate, she also states she has not taking her metoprolol regularly although she does have it at home. She also notes that she is out of lorazepam which she used to be on regularly for anxiety and feels that is likely also causing her elevated heart rate. Patient is reluctant to have further workup at this time. She is requesting something for cough she is finding it hard to sleep. She notes she has had some nasal congestion. Home medications currently include methylphenidate, metoprolol sporadically, tramadol PRN and hydroxyzine PRN. Patient does have allergies to several medications. Does smoke daily occasional alcohol, uses marijuana but no other recreational drugs. She is accompanied by her family. Related Data Previous Rx's Medication Instructions Recorded inhalational spacing device #1 ea 12/23/22 (Aerochamber MV spacer) tizanidine 4 mg tablet See Rx Instructions .Route 06/17/23 .COMPLEX #30 tabs sertraline 50 mg tablet 50 mg PO DAILY #90 tabs 09/07/23 fluconazole 150 mg tablet 150 mg PO DAILY #2 tabs 09/30/23 hydroxyzine HCl 25 mg tablet 25 mg PO TID PRN anxiety #60 tabs 10/17/23 tramadol 50 mg tablet 50 mg PO BID PRN pain #30 tabs 10/22/23 benzonatate 100 mg capsule 200 mg (2 x 100 mg) PO TID PRN 10/30/23 cough #14 caps methylphenidate HCl 18 mg 18 mg PO DAILY #30 tabs 10/30/23 tablet,extended release 24 hr Allergies Allergy/AdvReac Type Severity Reaction Status Date / Time citalopram AdvReac Intermediate Hives Verified 10/30/23 12:05 lisdexamfetamine AdvReac Intermediate Hives Verified 10/30/23 12:05 [From Lynsey] latex AdvReac Mild HIVES Verified 10/30/23 12:05 clindamycin AdvReac Unknown RASH Verified 10/30/23 12:05 Review of Systems Review of Systems ROS Unobtainable: All systems reviewed & are unremarkable except as noted in HPI and below Patient History Medical History Generalized anxiety disorder Hypertension Pre-diabetes Seborrheic dermatitis Migraine 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 Thrombocytosis Osteomalacia ADHD (attention deficit hyperactivity disorder) Complication of internal fixation device of femur Pneumomediastinum ADD (attention deficit disorder) Bilateral femoral fractures Depression Osteopenia Chronic leg pain Ovarian cyst Surgical History Tubal ligation status Status post breast reduction History of Social History Smoking Status: Current every day smoker Smokeless tobacco user: other alcohol intake: former substance use type: marijuana Smoking Status: Current every day smoker alcohol intake frequency: 0-2 drinks per day Substance Use Type: marijuana Exam Narrative Exam Narrative: GENERAL: Alert and oriented x three, obese female in mild distress. HEENT: Head normocephalic, atraumatic, EOMI, pupils reactive, face symmetric, moist mucous membranes NECK: Supple, full range of motion CARDIOVASCULAR: Tachycardic but regular rate and rhythm without murmurs, rubs or gallops. No JVD. No edema bilateral lower extremities. RESPIRATORY: Breath sounds equal bilaterally, no wheezes rales or rhonchi. No tachypnea or accessory muscle use. ABDOMEN: Soft, nontender. Normoactive bowel sounds all 4 quadrants. No guarding or rebound, rigidity, no mass : No CVA tenderness EXTREMITIES: Normal range of motion, no clubbing or edema. Neurovascularly intact NEUROLOGICAL: Cranial nerves II through XII grossly intact. Moving all extremities SKIN: Warm, dry, no petechiae, no rashes or lesions. Initial Vital Signs Initial Vital Signs: Vital Signs Temperature 97.5 F L 10/30/23 12:05 Pulse Rate 133 H 10/30/23 12:05 Respiratory Rate 15 10/30/23 12:05 Blood Pressure 142/96 H 10/30/23 12:05 Pulse Oximetry 98 10/30/23 12:05 Oxygen Delivery Method Room Air 10/30/23 12:05 Course Orders Ordered: ED Orders 10/30/23 12:15 XR chest 1V Stat Complete Blood Count AUTO DIFF Stat Comprehensive Metabolic Panel Stat Lactate (Lactic Acid) Stat NT-proBNP (BNP-Adult 18+) Stat Prothrombin Time INR Stat Troponin I Stat EKG-12 Lead Stat Measure peak expiratory flow ONCE RT Consult Eval and Treat NOW Vital Signs Vital signs: Vital Signs - 8 hr 10/30/23 12:05 10/30/23 12:17 10/30/23 12:18 Temperature 97.5 F L Pulse Rate 133 H 126 H Respiratory Rate 15 18 Blood Pressure 142/96 H 144/97 H Pulse Oximetry 98 Oxygen Delivery Method Room Air 10/30/23 12:18 10/30/23 12:30 10/30/23 12:30 Temperature Pulse Rate 122 H 117 H Respiratory Rate 16 Blood Pressure 148/97 H Pulse Oximetry 97 98 Oxygen Delivery Method 10/30/23 13:00 10/30/23 13:00 10/30/23 13:30 Temperature Pulse Rate 117 H 109 H Respiratory Rate 16 16 Blood Pressure 155/85 H Pulse Oximetry 96 96 Oxygen Delivery Method 10/30/23 13:31 10/30/23 13:31 10/30/23 14:00 Temperature Pulse Rate 117 H 125 H Respiratory Rate 18 19 Blood Pressure 152/73 H Pulse Oximetry 98 98 Oxygen Delivery Method Room Air 10/30/23 14:00 Temperature Pulse Rate Respiratory Rate Blood Pressure 144/96 H Pulse Oximetry Oxygen Delivery Method MDM - SOB/Dyspnea Imaging Data Chest x-ray: Radiologist's Impression: [address] [id number] XRay Report? Signed Patient: Yaritza Lindo MR#: [id number] : 1990 Acct:[id number] Age/Sex: 33 / F Date of Service: 10/30/23 Loc: ED Accession Number: [id number]? ? Procedure: XR chest 1V Ordering Provider: Bailee Chowdhury D.O. PROCEDURE:? XR CHEST 1V ? INDICATIONS:? Shortness of breath ? TECHNIQUE:? One view of the chest was acquired.?? ? COMPARISON:? [facility], CR, XR CHEST 1V, 07/07/2020, 8:12. ? FINDINGS:?? ? Surgical changes and devices:? None.?? ? Lungs and pleura:? Lungs are clear.? No pleural effusions or pneumothorax.?? ? Mediastinum:? Mediastinal contours appear normal.? Heart size is normal.?? ? Bones and chest wall:? No suspicious bony lesions.? Overlying soft tissues appear? unremarkable.? IMPRESSION:?? ? No acute cardiopulmonary abnormality is seen.? Approved by: Yanick Cook M.D. on 10/30/2023 at 12:16?? ECG Data Attestation: I personally reviewed and interpreted this ECG as follows: Prior ECG tracings: available for review Interpretation: Sinus tachycardia rate of 115 OH 150 QRS of [address] elevation, S-wave T3 present. Patient has prior from 08/24/2023 which does appear similar. [facility] Narrative Medical decision making narrative: [age] year old female with complaint of cough with productive green sputum for several weeks afebrile here and at home with tachycardia. Patient has been here on prior visits as often tachycardic she notes she is on methylphenidate daily, she has not been taking her metoprolol regularly which she is supposed to be on tachycardia. She states she takes this sporadically. She describes upper respiratory viral infection type symptoms has had some productive green sputum persistent cough which causes issues with her sleep she is overall well-appearing she does not wish for workup with blood, chest x-ray is clear, EKG shows sinus tach. Appears similar to priors. She has not hypoxic. Discussed risks versus benefits and she elects to have further workup. She notes she has had a lot of anxiety she has plans to establish with a new primary care for prescription medication for this. Discharge Plan Departure Patient Disposition: Home Clinical Impression: Cough Activity Restrictions/Additional Instructions: Please follow-up with your physician. I hope you feel improved soon. I would recommend that you take your metoprolol daily. Prescription for cough medication was sent to [facility] in [place]. Take as directed. Please return for new chest pain, increasing shortness of breath, lightheadedness or passing out, new swelling of your extremities, persistent vomiting or other new or concerning changes. Prescriptions: New benzonatate 100 mg capsule 200 mg PO TID PRN (Reason: cough) Qty: 14 0RF No Action (DME) Aerochamber MV Spacer See Rx Instructions .ROUTE .MEDSUPPLY Qty: 1 0RF Rx Instructions: As directed tizanidine 4 mg tablet See Rx Instructions .ROUTE .COMPLEX Qty: 30 0RF Dose Instruction: TAKE ONE TABLET BY MOUTH TWICE DAILY NEEDED FOR MUSCLE SPASMS Rx Instructions: TAKE ONE TABLET BY MOUTH TWICE DAILY NEEDED FOR MUSCLE SPASMS fluconazole 150 mg tablet 150 mg PO DAILY Qty: 2 0RF Rx Instructions: take one tablet today, may repeat once in one week if not cleared hydroxyzine HCl 25 mg tablet 25 mg PO TID PRN (Reason: anxiety) Qty: 60 0RF Rx Instructions: until PCP appt in Oct. tramadol 50 mg tablet 50 mg PO BID PRN (Reason: pain) Qty: 30 1RF methylphenidate HCl 18 mg tablet extended release 24hr 18 mg PO DAILY Qty: 30 0RF Rx Instructions: take 1st thing in the morning sertraline 50 mg tablet 50 mg PO DAILY Qty: 90 3RF Referrals: Pablito Hayes, DO [Primary Care Provider] - Stand Alone Forms: Patient Portal/API
--- NOTE | 2023-10-30 13:33 | CM.MNRNOTE ---
pt reports I am supposed to be taking metoprolol but I haven't been, Dr. Chowdhury aware. Pt on monitoring equipment, HR 108, regular. call light in reach. family at bedside.
== END 2023-10-30 14:45 | disposition home or self-care (01) ==
PROVIDERS: Emergency Provider Emergency Medicine; PCP Family Medicine
DX: R05.9 Cough, unspecified (principal); R06.02 Shortness of breath; R07.9 Chest pain, unspecified
CPT/HCPCS: 71045; 93005; 93010; 99283; 99284

== ENCOUNTER 2023-12-03 10:19 | Emergency (ER) | payer MEDICARE, MEDICAID, SELFPAY ==
[2023-12-03] VITALS (10 sets, daily range): BP systolic 137–188; BP diastolic 80–109; PULSE 125–157; RESP 11–22; TEMP 36.8; O2SAT 94–98; BMI 47.5
--- NOTE | 2023-12-03 10:31 | DI.RAD.S_ITS ---
PROCEDURE: XR CHEST 1V INDICATIONS: suspected sepsis TECHNIQUE: One view of the chest was acquired. COMPARISON: [facility], CR, XR CHEST 1V, 10/30/2023, 12:37. FINDINGS: Surgical changes and devices: None. Lungs and pleura: Lungs are clear. No pleural effusions or pneumothorax. Mediastinum: Mediastinal contours appear normal. Heart size is normal. Bones and chest wall: No suspicious bony lesions. Overlying soft tissues appear unremarkable. IMPRESSION: No acute cardiopulmonary abnormality is seen. Approved by: Gisela Gasca M.D. on 12/03/2023 at 10:43
[2023-12-03] MEDS: ONDANSETRON 4 MG/2 ML INJ IV (10:38)
[2023-12-03] MEDS: SODIUM CHLORIDE 0.9% 1,000 ML 1000 ML IV ×2 (10:38→12:17)
--- NOTE | 2023-12-03 10:42 | ED.NAVMDI ---
HPI - Nausea/Vomiting/Diarrhea General Chief complaint: Nausea/Vomiting/Diarrhea Stated complaint: Vomiting and Diarrhea T-3 Time Seen by Provider: 12/03/23 10:38 Source: patient Mode of arrival: Wheelchair History of Present Illness HPI Narrative: Patient is a 33-year-old female, history of anxiety, ADHD osteomalacia with bilateral femoral neck fractures presents today with nausea vomiting diarrhea ongoing for the last 4 days. She reports that she is unable to keep anything down. She has 5-10 episodes of diarrhea daily every time she tries to drink something it goes right through her. She has been vomiting as well. She does not really have any abdominal pain. She has no hematemesis or bloody stool. She feels a little dizzy and lightheaded. No real fever. She has no known exposure to Norovirus but her friend has Norovirus but they have not been in contact. She is also complaining of tooth pain. She has poor dental hygiene at baseline but started having some right upper dental pain a couple days ago. She has no swelling or redness. She thinks she might need some antibiotics for that. She has been unable to keep down her lorazepam which he normally takes Related Data Previous Rx's Medication Instructions Recorded tizanidine 4 mg tablet See Rx Instructions .Route 06/17/23 .COMPLEX #30 tabs benzonatate 100 mg capsule 200 mg (2 x 100 mg) PO TID PRN 10/30/23 cough #14 caps ondansetron HCl 8 mg tablet 8 mg PO Q12H PRN nausea and 11/04/23 vomiting #30 tabs venlafaxine 37.5 mg tablet 37.5 mg PO DAILY #30 tabs 11/04/23 lisinopril 20 mg tablet 20 mg PO DAILY #90 tabs 11/10/23 lorazepam 1 mg tablet 1 mg PO DAILY PRN anxiety #14 tabs 11/29/23 oxycodone 5 mg tablet 5 mg PO BID PRN pain #14 tabs 11/29/23 amoxicillin 500 mg capsule 500 mg PO BID #14 caps 12/03/23 fluconazole 200 mg tablet 200 mg PO DAILY PRN vaginal 12/03/23 (Diflucan) irritation #2 tabs ondansetron 4 mg disintegrating 4 mg PO Q8H PRN nausea and 12/03/23 tablet vomiting #10 tabs Allergies Allergy/AdvReac Type Severity Reaction Status Date / Time citalopram AdvReac Intermediate Hives Verified 12/03/23 10:28 lisdexamfetamine AdvReac Intermediate Hives Verified 12/03/23 10:28 [From Lynsey] latex AdvReac Mild HIVES Verified 12/03/23 10:28 clindamycin AdvReac Unknown RASH Verified 12/03/23 10:28 Patient History Medical History (Updated 12/03/23 @ 13:29 by Winnie Naranjo DO) Psoriasis (~1994) Fractures Chicken pox (~1998) Fracture of femur with nonunion Ribs, multiple fractures Generalized anxiety disorder Hypertension Pre-diabetes Seborrheic dermatitis Migraine 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 Thrombocytosis Osteomalacia ADHD (attention deficit hyperactivity disorder) Complication of internal fixation device of femur Pneumomediastinum ADD (attention deficit disorder) Bilateral femoral fractures Depression Osteopenia Chronic leg pain Ovarian cyst Surgical History Tubal ligation status Status post breast reduction History of Family History (Updated 11/18/23 @ 19:57 by Chyna Glass) Mother Diabetes mellitus History of heart disease Stroke Social History Smoking Status: Current every day smoker Smokeless tobacco user: other alcohol intake: former substance use type: marijuana Smoking Status: Current every day smoker alcohol intake frequency: holidays/special occasions only Substance Use Type: marijuana Exam Initial Vital Signs Initial Vital Signs: Vital Signs Temperature 98.2 F 12/03/23 10:21 Pulse Rate 153 H 12/03/23 10:21 Respiratory Rate 22 12/03/23 10:21 Blood Pressure 178/109 H 12/03/23 10:21 Pulse Oximetry 97 12/03/23 10:21 Oxygen Delivery Method Room Air 12/03/23 10:21 GENERAL: Alert 33-year-old female HEENT: Head atraumatic,EOMI, pupils reactive, face symmetric, Dry. mucous membranes CARDIOVASCULAR: Tachycardic regular RESPIRATORY: Breath sounds equal bilaterally, no wheezes rales or rhonchi. ABDOMEN: Soft, nontender. Normoactive bowel sounds all 4 quadrants. No guarding or rebound. EXTREMITIES: Normal range of motion, no clubbing or edema. Neurovascularly intact NEUROLOGICAL: Alert and oriented x4.Normal gait and speech. Cranial nerves II through XII grossly intact. SKIN: Warm, dry, no laceration, no petechiae, no rashes or lesions. Course Orders Ordered: ED Orders 12/03/23 10:27 Complete Blood Count AUTO DIFF Stat Comprehensive Metabolic Panel Stat D Dimer Stat Lactate (Lactic Acid) Stat Lipase Stat PTT Partial Thromboplastin Vic Stat Procalcitonin Stat Prothrombin Time INR Stat 12/03/23 10:31 XR chest 1V Stat RT Consult Eval and Treat NOW 12/03/23 10:34 EKG-12 Lead Stat 12/03/23 11:04 Blood Culture Stat 12/03/23 11:27 Urine Culture Stat Urine Microscopic Stat Discontinued Medications Hydromorphone HCl (Hydromorphone 1 Mg Inj) 1 mg IV NOW ONE Stop: 12/03/23 12:43 Last Admin: 12/03/23 12:53 Dose: 1 mg Documented By: IDA Sodium Chloride (Normal Saline 0.9%) 1,000 mls @ 1,000 mls/hr IV BOLUS ONE Stop: 12/03/23 11:30 Last Infusion: 12/03/23 11:43 Dose: Infused Documented By: Admin: 12/03/23 10:38 Dose: 1,000 mls/hr Documented By: TERRI Sodium Chloride (Normal Saline 0.9%) 1,000 mls @ 1,000 mls/hr IV BOLUS ONE Stop: 12/03/23 12:52 Last Infusion: 12/03/23 13:10 Dose: Infused Documented By: Admin: 12/03/23 12:17 Dose: 1,000 mls/hr Documented By: IDA Ketorolac Tromethamine (Ketorolac 30 Mg/Ml Vial) 15 mg IV NOW ONE Stop: 12/03/23 11:54 Last Admin: 12/03/23 12:16 Dose: 15 mg Documented By: IDA Lorazepam (Lorazepam 2 Mg/Ml Inj) 1 mg IV NOW ONE Stop: 12/03/23 10:51 Last Admin: 12/03/23 10:55 Dose: 1 mg Documented By: TERRI Ondansetron HCl (Ondansetron 4 Mg/2 Ml Inj) 4 mg IV NOW PRN PRN Reason: Nausea And Vomiting Last Admin: 12/03/23 10:38 Dose: 4 mg Documented By: TERRI Pantoprazole Sodium (Pantoprazole 40 Mg Vial) 40 mg IV NOW ONE Stop: 12/03/23 10:51 Last Admin: 12/03/23 10:55 Dose: 40 mg Documented By: TERRI Vital Signs Vital signs: Vital Signs - 8 hr 12/03/23 10:21 12/03/23 10:25 12/03/23 10:25 Temperature 98.2 F Pulse Rate 153 H 157 H Respiratory Rate 22 Blood Pressure 178/109 H 178/109 H Pulse Oximetry 97 97 Oxygen Delivery Method Room Air 12/03/23 10:30 12/03/23 10:30 12/03/23 11:00 Temperature Pulse Rate 150 H 135 H Respiratory Rate 15 Blood Pressure 188/101 H Pulse Oximetry 96 97 Oxygen Delivery Method 12/03/23 11:01 12/03/23 11:01 12/03/23 11:30 Temperature Pulse Rate 142 H Respiratory Rate 14 Blood Pressure 143/85 H 140/80 Pulse Oximetry 96 Oxygen Delivery Method 12/03/23 11:30 12/03/23 12:00 12/03/23 12:00 Temperature Pulse Rate 146 H 144 H Respiratory Rate 14 21 Blood Pressure 139/85 Pulse Oximetry 97 98 Oxygen Delivery Method 12/03/23 12:30 12/03/23 12:30 Temperature Pulse Rate 133 H Respiratory Rate 15 Blood Pressure 147/86 H Pulse Oximetry 98 Oxygen Delivery Method MDM - Nausea/Vomiting/Diarrhea Lab Data 12/03/23 10:27 12/03/23 10:27 Labs: Lab Results 12/03/23 12/03/23 12/03/23 Range/Units 10:27 11:27 12:20 WBC 16.9 H (4.5-11.0) X10^3/uL RBC 5.64 H (4.0-5.2) X10^6/uL Hgb 16.7 H (12.0-16.0) g/dL Hct 49.3 H (36-46) % MCV 87.4 (80-100) fL MCH 29.7 (26-34) PG MCHC 33.9 (30-36) % RDW 13.6 (11.6-14.8) % Plt Count 468 H (150-400) X10^3/uL Neut % (Auto) 70.1 (50-75) % Lymph % (Auto) 21.5 L (25-40) % [place] % (Auto) 7.5 (3-14) % Eos % (Auto) 0.3 L (2-4) % Baso % (Auto) 0.6 (0-2) % Neut # (Auto) 05058 H (8772-4673) /uL Lymph # (Auto) 3600 (6422-1154) /uL [place] # (Auto) 1300 H (0-900) /uL Eos # (Auto) 100 (0-450) /uL Baso # (Auto) 100 (0-100) /uL PT 12.6 H (9.4-12.5) SECONDS INR 1.1 (0.9-1.3) APTT 43 H (25.1-36.5) SECONDS D-Dimer 352 (<500) ng/ml Sodium 139 (137-145) mmol/L Potassium 3.9 (3.4-5.1) mmol/L Chloride 107 (98-107) mmol/L Carbon Dioxide 18 L (22-32) mmol/L BUN 8 (7-17) mg/dL Creatinine 0.51 L (0.52-1.04) mg/dL Estimated GFR > 60 (>60) mL/min BUN/Creatinine Ratio 15.7 (6-22) Glucose 163 H (70-100) mg/dL Lactate 2.3 H 1.0 (0.7-2.1) mmol/L Calcium 9.9 (8.4-10.2) mg/dL Total Bilirubin 0.8 (0.2-1.3) mg/dL AST 50 H (14-36) IU/L ALT 62 H (<35) IU/L Alkaline Phosphatase 124 (38-126) U/L Total Protein 9.4 H (6.3-8.2) g/dL Albumin 4.6 (3.5-5.0) g/dL Globulin 4.8 H (1.7-4.1) g/dL Albumin/Globulin Ratio 1.0 (1.0-2.8) Lipase 38 (23-300) U/L Procalcitonin 0.06 (<0.5) ng/mL Urine RBC 10-30/hpf H (0-5/HPF) Urine WBC 5-10/hpf H (0-5/HPF) Ur Squamous Epith Cells 5-10 /hpf H (0-5/HPF) Urine Bacteria Many (>30) H (None) Hyaline Casts 1-5/lpf (None) Ur Culture Indicated? Specimen cultured Vol Urine Centrifuged 10ml (spun) Point of Care Testing Test Results Negative Urine Dip Bedside Urine Glucose Negative Bedside Urine Bilirubin - Negative Bedside Urine Ketone +++ 80 Urine Specific [place] 1.030 Bedside Urine Occult Blood +++ Bedside Urine pH 6.0 Bedside Urine Protein ++ 100 Bedside Urine Urobilinogen - Negative Bedside Urine Nitrite - Negative Bedside Urine Leukocytes - Negative Esterase ECG Data Interpretation: Sinus tachycardia rate [address] changes looks sinus tach at not SVT similar to prior EKG 2. Sinus tachycardia rate 143 similar to previous no ST changes MDM Narrative Medical decision making narrative: Patient 33-year-old female history of anxiety presenting today with vomiting diarrhea and tachycardia. Along with dental pain. She has been unable to keep anything down for couple of days. She feels dehydrated. She does not really have any specific abdominal pain or fever. Blood work has been reviewed leukocytosis 16.9 hemoglobin 16.7 with hematocrit 49.3 consistent with hemoconcentration and dehydration, electrolytes within normal limits including potassium of 3.9, carbon dioxide is 18 creatinine 0.51 lactate 2.3 with repeat 1.0, procalcitonin 0.06 D-dimer was done for persistent tachycardia in his 356. D-dimer was added for persistent tachycardia it was less than 500 unlikely for pulmonary embolism. Urinalysis is culture but she does have squamous cells no real painful frequent urination at this time we would wait for culture and sensitivity. Patient's heart rate has been persistently tachycardic but it has improved with IV fluids anxiety and pain medication. She is always tachycardic, but not in the 150s. Patient has been given 2 L of IV fluids Zofran Protonix Toradol and Dilaudid along with Ativan. Her abdomen is soft nontender. With vomiting diarrhea symptoms are most consistent with a gastroenteritis. She is complaining of dental pain. I do not see any obvious dental abscess but has severe poor dental hygiene. She does not have any facial swelling or erythema. Will give her antibiotics for her tooth. She is requesting Diflucan as well. She has Zofran 8 mg at home which she did not take previous to her ED visit. We discussed how to take it and oral rehydration strategy. All questions have been answered. Discharge Plan Departure Patient Disposition: Home Clinical Impression: Gastroenteritis, Pain, dental Instructions: DI for Viral Gastroenteritis -- Adult Activity Restrictions/Additional Instructions: *You have been diagnosed with gastroenteritis and dental pain *What to do: Increase fluid intake as tolerated recommend some Sinhala sugar and salt like Gatorade or Pedialyte may increase diet as tolerated *Continue to take medications as directed Zofran 8 mg every 8 hours if needed for nausea vomiting as previously prescribed Amoxicillin 500 mg 2 times a day for 7 days Diflucan 100 mg x 1 after you finish your antibiotics *Follow up with your primary care provider in 2-3 days or call [phone] *Return to ER if you should have increasing dizziness lightheadedness, persistent vomiting or any new, worsening or concerning symptoms Prescriptions: New amoxicillin 500 mg capsule 500 mg PO BID Qty: 14 0RF fluconazole [Diflucan] 200 mg tablet 200 mg PO DAILY PRN (Reason: vaginal irritation) Qty: 2 0RF ondansetron 4 mg tablet,disintegrating 4 mg PO Q8H PRN (Reason: nausea and vomiting) Qty: 10 0RF No Action venlafaxine 37.5 mg tablet 37.5 mg PO DAILY Qty: 30 2RF Rx Instructions: Take 1/2 tab daily for 2 weeks and then increase to 1 tab daily ondansetron HCl 8 mg tablet 8 mg PO Q12H PRN (Reason: nausea and vomiting) Qty: 30 0RF tizanidine 4 mg tablet See Rx Instructions .ROUTE .COMPLEX Qty: 30 0RF Dose Instruction: TAKE ONE TABLET BY MOUTH TWICE DAILY NEEDED FOR MUSCLE SPASMS Rx Instructions: TAKE ONE TABLET BY MOUTH TWICE DAILY NEEDED FOR MUSCLE SPASMS lisinopril 20 mg tablet 20 mg PO DAILY Qty: 90 1RF Rx Instructions: Take 1/2 tab daily for 6 days then one tab daily thereafter oxycodone 5 mg tablet 5 mg PO BID PRN (Reason: pain) Qty: 14 0RF lorazepam 1 mg tablet 1 mg PO DAILY PRN (Reason: anxiety) Qty: 14 0RF benzonatate 100 mg capsule 200 mg PO TID PRN (Reason: cough) Qty: 14 0RF Referrals: Nestor Kiran MD [Primary Care Provider] - Stand Alone Forms: Patient Portal/API
[2023-12-03 10:43] LABS: Add Manual Diff / Slide Review NO; Basophils Absolute Auto 100 /uL (0-100); Basophils Percent Auto 0.6 % (0-2); Eosinophils Absolute Auto 100 /uL (0-450); Eosinophils Percent Auto 0.3 % (2-4); Hematocrit 49.3 % (36-46); Hemoglobin 16.7 g/dL (12.0-16.0); Lymphocytes Absolute Auto 3600 /uL (1100-4500); Lymphocytes Percent Auto 21.5 % (25-40); Mean Corpuscular HGB Conc 33.9 % (30-36); Mean Corpuscular Hemoglobin 29.7 PG (26-34); Mean Corpuscular Volume 87.4 fL (80-100); Monocytes Absolute Auto 1300 /uL (0-900); Monocytes Percent Auto 7.5 % (3-14); Neutrophils Absolute Auto 11800 /uL (1500-7000); Neutrophils Percent Auto 70.1 % (50-75); Platelet Count 468 X10^3/uL (150-400); Red Blood Cell Count 5.64 X10^6/uL (4.0-5.2); Red Cell Distribution Width 13.6 % (11.6-14.8); White Blood Cell Count 16.9 X10^3/uL (4.5-11.0)
[2023-12-03 10:49] LABS: INR 1.1 (0.9-1.3); Prothrombin Time 12.6 SECONDS (9.4-12.5)
[2023-12-03 10:52] LABS: Lactate (Lactic Acid) 2.3 mmol/L (0.7-2.1); PTT Partial Thromboplastin Tim 43 SECONDS (25.1-36.5)
[2023-12-03 10:53] LABS: Alanine Aminotransferase 62 IU/L (<35); Albumin 4.6 g/dL (3.5-5.0); Alkaline Phosphatase 124 U/L (38-126); Aspartate Aminotransferase 50 IU/L (14-36); BUN Creatinine Ratio 15.7 (6-22); Bilirubin Total 0.8 mg/dL (0.2-1.3); Blood Urea Nitrogen 8 mg/dL (7-17); Calcium 9.9 mg/dL (8.4-10.2); Carbon Dioxide 18 mmol/L (22-32); Chloride 107 mmol/L (98-107); Estimated Glomerular Filt Rate > 60 mL/min (>60); Globulin 4.8 g/dL (1.7-4.1); Glucose 163 mg/dL (70-100); HEMOLYSIS 20 (0-50); Lipase 38 U/L (23-300); Potassium 3.9 mmol/L (3.4-5.1); Sodium 139 mmol/L (137-145); Total Protein 9.4 g/dL (6.3-8.2)
[2023-12-03] MEDS: PANTOPRAZOLE 40 MG VIAL IV (10:55)
[2023-12-03] MEDS: LORazepam 2 MG/ML INJ 1 MG IV (10:55)
[2023-12-03 11:10] LABS: Procalcitonin 0.06 ng/mL (<0.5)
[2023-12-03 12:12] LABS: Bacteria Urine Many (>30); RBC Urine 10-30/HPF (0-5/HPF); Squamous Epithelial Cell Urine 5-10 /HPF (0-5/HPF); Urine Volume 10mL (spun); WBC Urine 5-10/HPF (0-5/HPF)
[2023-12-03 12:13] LABS: Culture Indicated Urine Specimen Cultured; Hyaline Casts Urine 1-5/LPF
[2023-12-03 12:13] LABS: Reflexed Lactate in 2 Hours Y
[2023-12-03] MEDS: KETOROLAC 30 MG/ML VIAL 15 MG IV (12:16)
[2023-12-03 12:36] LABS: D Dimer 352 ng/ml (<500)
[2023-12-03] MEDS: HYDROMORPHONE 1 MG INJ IV (12:53)
== END 2023-12-03 13:49 | disposition home or self-care (01) ==
PROVIDERS: Emergency Provider Emergency Medicine; PCP Family Medicine
DX: K52.9 Noninfective gastroenteritis and colitis, unspecified (principal); R00.0 Tachycardia, unspecified; K08.89 Other specified disorders of teeth and supporting structures; Z79.899 Other long term (current) drug therapy
CPT/HCPCS: 36415; 71045; 80053; 81003; 81015; 81025; 83605; 83690; 84145; 85025; 85379; 85610; 85730; 87040; 87077; 87086; 93005; 93010; 96361; 96374; 96375; 99284; C9113; J1170; J1885; J2060; J2405

== ENCOUNTER 2024-01-12 23:21 | Emergency (ER) | payer MEDICARE, MEDICAID, SELFPAY ==
[2024-01-12 23:38] VITALS: BP 145/81; PULSE 120; RESP 20; O2SAT 94; BMI 46.0
--- NOTE | 2024-01-12 23:45 | ED_ITS ---
HPI - Back Pain/Injury General Chief Complaint: Back Pain/Injury Stated Complaint: pinched nerve Time Seen by Provider: 01/12/24 23:44 Source: patient History of Present Illness HPI Narrative: Patient is a 34-year-old female history of anxiety, osteopenia tachycardia presenting today with pain. She denies any fall or injury. She does occasionally pain she like there is a spasm. She took 2000 mg of Tylenol a on 1 mg Ativan prior to arrival has not helped. She had no numbness or tingling in her legs no change of bowel or bladder habits. She has decreased range of motion and pain in her right leg due to bilateral femoral neck fractures which are chronic. Related Data Previous Rx's Medication Instructions Recorded tizanidine 4 mg tablet See Rx Instructions .Route 06/17/23 .COMPLEX #30 tabs lisinopril 20 mg tablet 20 mg PO DAILY #90 tabs 11/10/23 lorazepam 1 mg tablet 1 mg PO DAILY PRN anxiety #14 tabs 11/29/23 fluconazole 200 mg tablet 200 mg PO DAILY PRN vaginal 12/03/23 (Diflucan) irritation #2 tabs ondansetron 4 mg disintegrating 4 mg PO Q8H PRN nausea and 12/03/23 tablet vomiting #10 tabs venlafaxine 150 mg 150 mg PO DAILY #90 caps 12/14/23 capsule,extended release 24 hr hydrocodone 5 mg-acetaminophen 325 1 tab PO Q6H PRN pain #10 tabs 01/13/24 mg tablet oxycodone 5 mg tablet 5 mg PO Q6H PRN pain #10 tabs 01/13/24 prednisone 20 mg tablet 40 mg (2 x 20 mg) PO DAILY #10 tabs 01/13/24 Allergies Allergy/AdvReac Type Severity Reaction Status Date / Time citalopram AdvReac Intermediate Hives Verified 12/14/23 09:21 lisdexamfetamine AdvReac Intermediate Hives Verified 12/14/23 09:21 [From Steveyvgurvindere] latex AdvReac Mild HIVES Verified 12/14/23 09:21 clindamycin AdvReac Unknown RASH Verified 12/14/23 09:21 Patient History Medical History Psoriasis (~1994) Fractures Chicken pox (~1998) Fracture of femur with nonunion Ribs, multiple fractures Generalized anxiety disorder Hypertension Pre-diabetes Seborrheic dermatitis Migraine 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 Thrombocytosis Osteomalacia ADHD (attention deficit hyperactivity disorder) Complication of internal fixation device of femur Pneumomediastinum ADD (attention deficit disorder) Bilateral femoral fractures Depression Osteopenia Chronic leg pain Ovarian cyst Surgical History Tubal ligation status Status post breast reduction History of Family History Mother Diabetes mellitus History of heart disease Stroke Social History Smoking Status: Current every day smoker Smokeless tobacco user: other alcohol intake: former substance use type: marijuana Smoking Status: Current every day smoker alcohol intake frequency: holidays/special occasions only Substance Use Type: marijuana Exam Initial Vital Signs Initial Vital Signs: Vital Signs Pulse Rate 120 H 01/12/24 23:38 Respiratory Rate 20 01/12/24 23:38 Blood Pressure 145/81 H 01/12/24 23:38 Pulse Oximetry 94 01/12/24 23:38 Oxygen Delivery Method Room Air 01/12/24 23:38 GENERAL: Alert 34-year-old appears in pain HEENT: Head atraumatic,EOMI, pupils reactive, face symmetric, moist mucous membranes CARDIOVASCULAR: Regular rate and rhythm without murmurs, rubs or gallops. RESPIRATORY: Breath sounds equal bilaterally, no wheezes rales or rhonchi. ABDOMEN: Soft, nontender. Normoactive bowel sounds all 4 quadrants. No guarding or rebound. BACK: No vertebral tenderness or step-off however she does have some left paraspinal muscle tenderness around T 10 and 11 EXTREMITIES: Normal range of motion, no clubbing or edema. Neurovascularly intact NEUROLOGICAL: Alert and oriented x4.Normal gait and speech. Cranial nerves II through XII grossly intact. Sensation in lower extremities intact SKIN: Warm, dry, no laceration, no petechiae, no rashes or lesions. Course Orders Ordered: ED Orders 01/12/24 23:36 Urine Microscopic Stat Discontinued Medications Hydromorphone HCl (Hydromorphone 1 Mg Inj) 1 mg SUBCUT NOW ONE Stop: 01/12/24 23:55 Last Admin: 01/13/24 00:08 Dose: 1 mg Documented By: POLINA Prednisone (Prednisone 20 Mg Tablet) 40 mg PO NOW ONE Stop: 01/12/24 23:55 Last Admin: 01/13/24 00:11 Dose: 40 mg Documented By: POLINA Vital Signs Vital signs: Vital Signs - 8 hr 01/12/24 23:38 Pulse Rate 120 H Respiratory Rate 20 Blood Pressure 145/81 H Pulse Oximetry 94 Oxygen Delivery Method Room Air MDM - Back Pain/Injury Lab Data Labs: Lab Results 01/12/24 Range/Units 23:36 Urine RBC 1-5/hpf D (0-5/HPF) Urine WBC 1-5/hpf (0-5/HPF) Ur Squamous Epith Cells >30 /hpf H (0-5/HPF) Urine Bacteria Many (>30) H (None) Urine Mucus 2+ H (Negative) Ur Culture Indicated? Cult not indicated Vol Urine Centrifuged 10ml (spun) Point of Care Testing Test Results Negative Urine Dip Bedside Urine Glucose Negative Bedside Urine Bilirubin + 1 Bedside Urine Ketone +/- 5 Urine Specific [place] 1.025 Bedside Urine Occult Blood +++ Bedside Urine pH 6.0 Bedside Urine Protein + 30 Bedside Urine Urobilinogen - Negative Bedside Urine Nitrite - Negative Bedside Urine Leukocytes +/- 15 Esterase MDM Narrative Medical decision making narrative: Patient 34-year-old female presenting today with pain without any injury. Definitely tender and reproducible to touch a left paraspinal muscle tenderness no vertebral tenderness. She does have a history of osteopenia previous fractures. She has no bowel or bladder changes to suggest cauda equina. We talked about appropriate dosing of Tylenol for pain. She is already taken Ativan and has muscle relaxers at home. He was given Dilaudid and prednisone here in the ED. She is noted to be tachycardic however previous visits suggest that she is always tachycardic heart rate is always about 120. Heart rate in PCP office on 12/14/2023 was 123 Discharge Plan Departure Patient Disposition: Home Clinical Impression: Back muscle spasm Instructions: DI for Back Spasm Activity Restrictions/Additional Instructions: *You have been diagnosed with back spasm *What to do: At this time I recommend heating pad light activity stretching. *Continue to take medications as directed Oxycodone 5 mg every 4-6 hours if needed for severe pain (there is no Tylenol with this) Tylenol 1000 mg every 6 hours Prednisone 40 mg once a day for 5 days *Follow up with your primary care provider in 2-3 days or call [phone] *Return to ER if you should have increasing pain numbness tingling weakness or any new, worsening or concerning symptoms CONTROLLED SUBSTANCE DISCHARGE (Narcotoic/benzodiazepine/Flexeril/Phenergan) 1. You have been prescribed narcotic medications, it does have acetaminoph en/Tylenol/paracetamol in it, DO NOT TAKE MORE THAN 4,00mg in 24 hours of Tylenol. TRAMADOL DOES NOT CONTAIN TYLENOL 2. Please understand that we cannot provide further refills of narcotics, benzo diazepines or controlled substances through the ED and her pain management will need to be through your provider. 3. While on these medications you cannot drive or operate heavy machinery. 4. You cannot sign legal documents or perform any duties such as this. 5. As long as you're taking opiate pain medications he should also be taking a stool softener such as Colace, Dulcolax, MiraLAX or prune juice, to help avoid constipation. Prescriptions: New hydrocodone-acetaminophen 5-325 mg tablet 1 tab PO Q6H PRN (Reason: pain) Qty: 10 0RF prednisone 20 mg tablet 40 mg PO DAILY Qty: 10 0RF oxycodone 5 mg tablet 5 mg PO Q6H PRN (Reason: pain) Qty: 10 0RF No Action venlafaxine 150 mg capsule,extended release 24hr 150 mg PO DAILY Qty: 90 3RF tizanidine 4 mg tablet See Rx Instructions .ROUTE .COMPLEX Qty: 30 0RF Dose Instruction: TAKE ONE TABLET BY MOUTH TWICE DAILY NEEDED FOR MUSCLE SPASMS Rx Instructions: TAKE ONE TABLET BY MOUTH TWICE DAILY NEEDED FOR MUSCLE SPASMS lisinopril 20 mg tablet 20 mg PO DAILY Qty: 90 1RF Rx Instructions: Take 1/2 tab daily for 6 days then one tab daily thereafter lorazepam 1 mg tablet 1 mg PO DAILY PRN (Reason: anxiety) Qty: 14 0RF fluconazole [Diflucan] 200 mg tablet 200 mg PO DAILY PRN (Reason: vaginal irritation) Qty: 2 0RF ondansetron 4 mg tablet,disintegrating 4 mg PO Q8H PRN (Reason: nausea and vomiting) Qty: 10 0RF Referrals: Nestor Kiran MD [Primary Care Provider] - Stand Alone Forms: Patient Portal/API
[2024-01-12 23:48] LABS: Urine Volume 10mL (spun)
[2024-01-12 23:49] LABS: Bacteria Urine Many (>30); Mucus Urine 2+ (Negative); RBC Urine 1-5/HPF (0-5/HPF); Squamous Epithelial Cell Urine >30 /HPF (0-5/HPF); WBC Urine 1-5/HPF (0-5/HPF)
[2024-01-12 23:51] LABS: Culture Indicated Urine Cult Not Indicated
[2024-01-13] MEDS: HYDROMORPHONE 1 MG INJ SUBCUT (00:08)
[2024-01-13] MEDS: predniSONE 20 MG TABLET 40 MG PO (00:11)
== END 2024-01-13 00:30 | disposition home or self-care (01) ==
PROVIDERS: Emergency Provider Emergency Medicine; PCP Family Medicine
DX: M62.830 Muscle spasm of back (principal)
CPT/HCPCS: 81003; 81015; 81025; 96372; 99283; J1170

== ENCOUNTER → 2024-03-19 09:50 | Outpatient (CLI) | payer MEDICARE, MEDICAID, SELFPAY ==
[2024-03-19 11:15] LABS: Add Manual Diff / Slide Review NO; Basophils Absolute Auto 100 /uL (0-100); Basophils Percent Auto 0.6 % (0-2); Eosinophils Absolute Auto 100 /uL (0-450); Eosinophils Percent Auto 0.7 % (2-4); Hematocrit 44.2 % (36-46); Hemoglobin 14.8 g/dL (12.0-16.0); Lymphocytes Absolute Auto 2800 /uL (1100-4500); Lymphocytes Percent Auto 24.1 % (25-40); Mean Corpuscular HGB Conc 33.6 % (30-36); Mean Corpuscular Hemoglobin 30.4 PG (26-34); Mean Corpuscular Volume 90.6 fL (80-100); Monocytes Absolute Auto 900 /uL (0-900); Monocytes Percent Auto 7.9 % (3-14); Neutrophils Absolute Auto 7600 /uL (1500-7000); Neutrophils Percent Auto 66.7 % (50-75); Platelet Count 386 X10^3/uL (150-400); Red Blood Cell Count 4.88 X10^6/uL (4.0-5.2); Red Cell Distribution Width 13.3 % (11.6-14.8); White Blood Cell Count 11.4 X10^3/uL (4.5-11.0)
[2024-03-19 11:26] LABS: Hemoglobin A1C% w Est Avg Glu 5.8 % (4.0-6.0)
[2024-03-19 11:59] LABS: Creatinine Urine Random 338.11 mg/dL
[2024-03-19 12:00] LABS: Alanine Aminotransferase 40 IU/L (<35); Albumin 3.8 g/dL (3.5-5.0); Albumin Globulin Ratio 1.1 (1.0-2.8); Alkaline Phosphatase 108 U/L (38-126); Aspartate Aminotransferase 24 IU/L (14-36); Bilirubin Total 0.5 mg/dL (0.2-1.3); Blood Urea Nitrogen 5 mg/dL (7-17); Calcium 8.5 mg/dL (8.4-10.2); Carbon Dioxide 26 mmol/L (22-32); Chloride 106 mmol/L (98-107); Cholesterol 212 mg/dL (140-199); Estimated Glomerular Filt Rate > 60 mL/min (>60); Globulin 3.4 g/dL (1.7-4.1); Glucose 116 mg/dL (70-100); HDL Cholesterol 39 mg/dL (40-60); HEMOLYSIS < 15 (0-50); LDL Cholesterol Calculated 150 mg/dL (<100); Potassium 3.9 mmol/L (3.4-5.1); Sodium 139 mmol/L (137-145); Total Protein 7.2 g/dL (6.3-8.2); Triglycerides 113 mg/dL (35-150)
[2024-03-19 12:05] LABS: Microalbumin Urine Random 2.7 mg/dL (0-1.6)
[2024-03-19 16:49] LABS: HIV 1 & 2 Ab/Ag 4th Gen Combo NEGATIVE (NEGATIVE); Hep C Virus Ab w/Reflex Quant NEGATIVE s/c (NEGATIVE)
== END ==
PROVIDERS: PCP Family Medicine; Referring Provider Family Medicine; Visit Provider Family Medicine
DX: R73.03 Prediabetes (principal); E66.01 Morbid (severe) obesity due to excess calories; Z68.42 Body mass index [BMI] 45.0-49.9, adult; Z13.220 Encounter for screening for lipoid disorders; R74.8 Abnormal levels of other serum enzymes; Z11.4 Encounter for screening for human immunodeficiency virus [HIV]; Z11.59 Encounter for screening for other viral diseases; D75.839 Thrombocytosis, unspecified; D72.829 Elevated white blood cell count, unspecified; M83.9 Adult osteomalacia, unspecified; M85.80 Other specified disorders of bone density and structure, unspecified site; I10 Essential (primary) hypertension
CPT/HCPCS: 36415; 80053; 80061; 82043; 82306; 82570; 83036; 85025; 86803; 87389

== ENCOUNTER → 2024-05-09 10:27 | Outpatient (CLI) | payer MEDICARE, MEDICAID, SELFPAY ==
--- NOTE | 2024-05-09 10:28 | DI.US.S_ITS ---
PROCEDURE: US PELVIC COMPLETE INDICATIONS: PELVIC PAIN. HISTORY OF RIGHT ADNEXAL CYST 2022. TECHNIQUE: Real-time scanning was performed of the pelvic organs, with image documentation. Additional endovaginal scanning was necessary due to incomplete visualization of the adnexal and endometrial structures by transabdominal scanning. COMPARISON: [facility], CT, CT ABDOMEN PELVIS W CON, 08/24/2023, 1:14. FINDINGS: Uterus: Uterus is anteverted and normal in size at 8.2 x 4.5 x 4.2 cm. The myometrium is heterogeneous. Query a focal left posterior intramural fibroid versus heterogeneous myometrium measuring 1.8 x 0.9 x 1 cm. The endometrium measures 4 mm combined thickness. Ovaries: The right ovary measures 3 x 1.7 x 1.9 cm, with a calculated ovarian volume of5cc. The left ovary measures 4.9 x 3.9 x 3.2 cm, with a calculated ovarian volume of 31.8 cc. Left ovarian anechoic simple cyst measuring 2.6 x 2.7 x 3 cm. Query an additional smaller adjacent ovarian cysts. Less than 12 follicles can be seen in each ovary. No adnexal masses are seen. Other: No pathologic free abdominal or pelvic fluid. IMPRESSION: 1. Focal heterogeneous area in the left posterior myometrium which may reflect a small fibroid versus heterogeneous tissue. 2. Left ovarian simple cyst measuring 2.6 x 3 x 2.7 cm. Query an additional adjacent smaller cyst. 3. No right-sided ovarian cysts. We strive to produce accurate, complete, and clear reports of imaging services. To assist us in improving patient care, this report was composed using standard report templates and voice recognition software. Therefore, it may contain abnormal punctuation, insertions and/or omissions. Occasional wrong-word or sound-alike substitutions may occur. Though we review the report and make efforts to correct it, we do recommend that the report be read carefully in proper context to recognize any text inaccuracies. Dictated by: Josse Benavidez M.D. on 05/09/2024 at 16:45 Approved by: Josse Benavidez M.D. on 05/09/2024 at 16:49
== END ==
LOC: US 10:28
PROVIDERS: PCP Family Medicine; Referring Provider Family Medicine; Visit Provider Family Medicine
DX: N83.292 Other ovarian cyst, left side (principal); R10.2 Pelvic and perineal pain
CPT/HCPCS: 76830; 76856

== ENCOUNTER → 2025-03-06 14:06 | Outpatient (CLI) | payer MEDICARE, MEDICAID, SELFPAY ==
[2025-03-06 14:27] LABS: Appearance Urine UA CLEAR; Bilirubin Urine UA NEGATIVE (NEGATIVE); Color Urine UA YELLOW; Glucose Urine UA NEGATIVE (Negative); Ketones Urine UA NEGATIVE (NEGATIVE); Leukocyte Esterase Urine UA TRACE (NEGATIVE); Nitrite Urine UA NEGATIVE (Negative); Occult Blood Urine UA 2+ (Negative); Protein Urine UA NEGATIVE (Negative); Specific Gravity Urine UA 1.015 (1.000-1.035); Urobilinogen Urine UA 0.2 E.U./dL (0.2)
[2025-03-06 14:34] LABS: Urine Volume 10mL (spun)
[2025-03-06 14:35] LABS: Bacteria Urine Few (2-10); Culture Indicated Urine Cult Not Indicated; RBC Urine 10-30/HPF (0-5/HPF); Squamous Epithelial Cell Urine 5-10 /HPF (0-5/HPF); WBC Urine 1-5/HPF (0-5/HPF)
[2025-03-06 15:12] LABS: Creatinine Urine Random 126.59 mg/dL
[2025-03-06 15:15] LABS: Microalbumin Urine Random 0.8 mg/dL (0-1.6)
== END ==
LOC: LAB 14:07
PROVIDERS: PCP Family Medicine; Referring Provider Family Medicine; Visit Provider Family Medicine
DX: I10 Essential (primary) hypertension (principal); E78.5 Hyperlipidemia, unspecified; R73.03 Prediabetes; R30.0 Dysuria
CPT/HCPCS: 81001; 82043; 82570